=== PATIENT | male | born 1945 | race Caucasian/White ===

== ENCOUNTER 2021-11-14 15:39 | Inpatient (IN) | payer MEDICARE, SELFPAY ==
[2021-11-14] VITALS (13 sets, daily range): BP systolic 147–202; BP diastolic 82–116; PULSE 62–73; RESP 24–32; TEMP 35–36.8; O2SAT 88–94; BMI 29.9; BMI 26.8
[2021-11-14] MEDS: ONDANSETRON 2 MG/ML inj 4 MG IVP (16:36)
[2021-11-14] MEDS: 0.9 % SODIUM CHLORIDE 1000 ml 1,000 ML 500 ML IV (16:37)
[2021-11-14 16:51] LABS: Lactate* 2.6 mmol/L (0.5-1.9)
[2021-11-14 16:52] LABS: Basophils Absolute Auto 0.02 K/uL (0.00-0.30); Basophils Percent Auto 0.3 % (0.0-3.0); Hematocrit 48.2 % (37.0-53.0); Hemoglobin* 16.5 gm/dL (13.5-17.5); Immature Granulocytes Abs Auto 0.03 K/uL (0.00-0.30); Lymphocytes Percent Auto 7.6 % (20-44); Mean Corpuscular HGB Conc 34 gm/dL (32-36); Mean Corpuscular Hemoglobin 30 pg (26-34); Mean Corpuscular Volume 88 fL (80-100); Monocytes Percent Auto 6.2 % (0.0-11.0); Neutrophils Percent Auto 85.5 % (42.0-72.0); Platelet Count* 132 K/uL (140-440); RDW Coefficient of Variation % 12.8 % (11.5-15.5); Red Blood Count 5.48 m/uL (4.30-5.90); White Blood Count* 7.78 K/uL (4.50-11.00)
--- NOTE | 2021-11-14 17:00 | ED.NURSE ---
pt vomiting/spitting up dark brown liquid in small amounts. states he vomitted large amount at home. pt mainly nonverbal. states he doesn't answer at times. pt does follow commands. pt does say nose frequently and wants nose wiped. states he has chronic runny nose. attempted to straight cath pt, easily inserted catheter, no urine return. states pt voided large amount x 2 today. pt did have smear of brown liquid stool.
--- NOTE | 2021-11-14 17:03 | CRLHL7_ITS ---
For Patients: As a result of the Century Cures Act, medical imaging exams and procedure reports are released immediately into your electronic medical record. You may view this report before your referring provider. If you have questions, please contact your health care provider. Indication: Weakness Comparison: Two-view chest March 05, 2016 Technique: Single AP view chest Findings: There is hyperinflation and chronic interstitial change. There is no focal consolidation, effusion, or pneumothorax. The cardiac silhouette is mildly prominent. The bony thorax is grossly intact. Impression: Hyperinflation and chronic interstitial changes without dense consolidation. Dictated by Shawn Durham MD @ 11/14/2021 5:25:04 PM (Electronically Signed)
[2021-11-14 17:08] LABS: Slide Review Reflex No
[2021-11-14 17:15] LABS: Albumin* 4.2 g/dL (3.3-5.0); Chloride* 97 mmol/L (96-114)
[2021-11-14 17:16] LABS: Sodium* 133 mmol/L (135-149)
[2021-11-14 17:18] LABS: Creatinine* 2.1 mg/dL (0.5-1.5); Est. Creatinine Clearance* 26.16; Estimated Glomerular Filt Rate 32 ml/min
[2021-11-14 17:19] LABS: Alanine Aminotransferase* 14 U/L (4-50); Alkaline Phosphatase* 79 U/L (40-150); Aspartate Amino Transferase* 48 U/L (12-35); Bilirubin Direct* 0.3 mg/dL (0.0-0.5); Bilirubin Total* 0.6 mg/dL (0.1-1.5); Blood Urea Nitrogen* 47 mg/dL (7-30); Calcium* 8.3 mg/dL (8.4-10.6); Carbon Dioxide* 22 mmol/L (20-32); Glucose* 228 mg/dL (60-115); Lipase* 273 U/L (23-300); Total Protein* 7.5 g/dL (6.0-8.3)
[2021-11-14 17:21] LABS: Acetaminophen* < 10.0 ug/mL (10.0-30.0); Salicylate* < 1.0 mg/dL (1.0-10)
[2021-11-14 17:22] LABS: C Reactive Protein* 5.5 mg/dL (0.5-1.0)
[2021-11-14 17:31] LABS: Troponin I* < 0.01 ng/mL (0.01-0.04)
--- NOTE | 2021-11-14 17:31 | CT_ITS ---
Patient: CLAUDIA ALVARADO Facility:?[facility] RIS Patient ID:?[id number] Site Patient ID:?[id number]. Site :?[id number] Study:?CT-Abdomen/Pelvis WITHOUT-11/14/2021 5:58:11 PM Ordering Physician:Chente Schaffer Final Report: INDICATION: Increased weakness. Vomiting TECHNIQUE: CT abdomen and pelvis without contrast. COMPARISON: CT 03/05/2013 and 03/06/2016 FINDINGS: Lower chest: Unremarkable. Liver: Unremarkable. Gallbladder and bile ducts: Gallbladder is contracted or absent. No biliary dilatation. Spleen: Unremarkable. Pancreas: Unremarkable. Adrenal glands: Unremarkable. Kidneys: Bilateral renal cysts. Punctate nonobstructing left renal calculus. No hydronephrosis GI tract: Large amount of gas and stool throughout the colon. There is mild wall thickening stranding around the rectum a large amount of stool. Appendix is normal. Vascular structures: Atherosclerotic calcifications of the aorta and its branches. Lymph nodes: Unremarkable. Miscellaneous: Unremarkable. No free air or significant free fluid. Pelvic Organs: There is a 1.6 cm irregularly shaped calculus at the dependent portion of the urinary bladder. There is a 1.3 cm soft tissue density anteriorly as seen on series 2, image 124. Prostate is grossly unremarkable. Bones: Multilevel degenerative changes in the spine. Right hip arthroplasty. No acute or suspicious osseous lesions. IMPRESSION: 1. Large amount of gas and stool throughout the colon and rectum with wall thickening and mild stranding at the rectum. Findings suggest constipation and may indicate stercoral colitis. 2. Soft tissue density in the anterior bladder is suspicious for neoplasm. Cystoscopy is suggested. 3. No pelvic lymphadenopathy. 4. Bladder calculus. Nonobstructing left renal calculus. No hydronephrosis. Please note that all CT scans at this facility use dose modulation, iterative reconstruction, and/or weight-based dosing when appropriate to reduce radiation dose to as low as reasonably achievable. Dictated by Willard Eubanks MD @ 11/14/2021 6:29:30 PM Signed by:?Willard Eubanks MD @11/14/2021 6:29:30 PM (Electronic Signature)
[2021-11-14 17:37] LABS: PCR FLU A Negative PCR FLU A (Negative); PCR FLU B Negative PCR FLU B (Negative)
--- NOTE | 2021-11-14 17:40 | ED.NURSE ---
vomit positive for blood
[2021-11-14 17:48] LABS: SARS PCR* POSITIVE SARS-CoV-2 (Negative)
--- NOTE | 2021-11-14 17:56 | ED.GENADULT ---
HPI - General Adult General Chief complaint: Weakness Stated complaint: Increased Weakness Time Seen by Provider: 11/14/21 15:59 Source: family Mode of arrival: EMS History of Present Illness HPI narrative: 76-year-old male brought in by EMS at his 's request secondary to increasing weakness. She states that over the last month he has fallen daily and in the last week he has gotten increasingly more weak. She states that over the last few days the weakness has been pronounced to the point where he can not even sit up by himself. He does have a history of Parkinson's disease. She denies fevers or chills. States that he has been vomiting today but before that has had no vomiting. No diarrhea. She states that he has been complaining of chest or abdominal pain. He does have a mild cough on and off. His appetite has been down and she has been giving him Gatorade and Pedialyte. She states that she can no longer take care of him at home in this state. She states that he uses a walker to get around but in the last week he really has not been able to get around without assistance. Related Data Home Medications Medication Instructions Recorded Confirmed atorvastatin 40 mg tablet mg 11/14/21 carbidopa 25 mg-levodopa 100 mg tab 11/14/21 tablet donepezil 10 mg tablet mg 11/14/21 levothyroxine 150 mcg tablet mcg 11/14/21 lisinopril 5 mg tablet mg 11/14/21 loperamide 2 mg capsule mg 11/14/21 metoprolol tartrate 50 mg tablet mg 11/14/21 omeprazole 40 mg capsule,delayed mg 11/14/21 release Allergies Allergy/AdvReac Type Severity Reaction Status Date / Time tamsulosin [From Flomax] AdvReac stomach Verified 11/14/21 15:54 upset Review of Systems Status of ROS: Reports: unobtainable due to mental status PFSH PFS Medical History Adrenal carcinoma KELI (acute kidney injury) CAD (coronary artery disease) Dementia Diabetes Epithelioid sarcoma GERD (gastroesophageal reflux disease) Hip fracture Hyperlipidemia Hypertension Hypothyroid Kidney calculus Neuropathy Parkinsons Rib fracture Swallowing dysfunction Thyroid cancer Surgical History H/O thyroidectomy H/O total hip arthroplasty Social History Smoking Status: Former smoker How often do you have a drink containing alcohol: never AUDIT-C Alcohol total score: 0 Non-prescribed substance use: denies use Exam Narrative: Exam Narrative: Frail, elderly patient in no acute distress. Cooperative, follows commands. Given prior history of vocal cord removal does not communicate very well. Per this is not new and is not changed from his baseline. HEENT: Normocephalic atraumatic. Pupils are equally round reactive to light. Extraocular muscles are intact. Conjunctivae are moist without any icterus noted. Moist mucous membranes. Cardiovascular: Heart is regular rate and rhythm S1 and S2 are present. Lungs: Decreased breath sounds bilaterally with bibasilar crackles. Abdomen: Soft and nontender with normal bowel sounds. No guarding or rebound. No masses or organomegaly appreciated. Abdomen is slightly distended. Extremities: Bilateral lower extremities are without edema. Normal DP and PT pulses. Skin: Well perfused without any obvious rashes. Const: Vital Signs, click to edit/add: Vital Signs - 24 hr 11/14/21 16:03 11/14/21 17:00 11/14/21 16:50 Temperature 95.0 F L Pulse Rate [Right Pulse Oximeter] 63 64 63 Respiratory Rate 28 H 24 Blood Pressure [Ri ght Upper Arm] 180/99 H 178/107 H 167/104 H Pulse Oximetry 88 94 93 Oxygen Delivery Me thod Room Air Nasal Cannula Nasal Cannula 11/14/21 18:00 11/14/21 17:30 Temperature Pulse Rate [Right Pulse Oximeter] 67 65 Respiratory Rate 24 24 Blood Pressure [Ri ght Upper Arm] 202/116 H 198/93 H Pulse Oximetry 92 92 Oxygen Delivery Me thod Nasal Cannula Nasal Cannula Course Course Hospital Course: IV was established and labs were done: CBC was unremarkable aside from mild thrombocytopenia. Sodium slightly low at 133. Creatinine elevated at 2.1, peers at his baseline surround 1 and half. Glucose was 228. Lactate slightly elevated at 2.6. Troponin was normal. CRP elevated at 5.5. COVID testing was positive. EKG showed no acute ST changes. Chest x-ray was unremarkable. Patient continued to vomit very small amounts of brown colored vomitus, gastric occult was done and was positive. We proceeded with a abdominal CT scan which showed significant amount of stool and gas throughout the bowel and some stranding around the rectum consistent with a stercoral colitis. No evidence of bowel obstruction. Patient did receive IV fluids as well as Zofran which did help his symptoms. Vital Signs Vital signs: Initial Vital Signs Temperature 95.0 F L 11/14/21 16:03 Temperature Source Temporal Artery Scan 11/14/21 16:03 Pulse Rate 63 11/14/21 16:03 Respiratory Rate 28 H 11/14/21 16:03 Blood Pressure 180/99 H 11/14/21 16:03 Blood Pressure Mean 126 11/14/21 16:03 Blood Pressure Position Sitting 11/14/21 16:03 Pulse Oximetry 88 11/14/21 16:03 Oxygen Delivery Method 11/14/21 16:03 Vital Signs Temperature 95.0 F L 11/14/21 16:03 Pulse Rate 63 11/14/21 16:03 Respiratory Rate 28 H 11/14/21 16:03 Blood Pressure 180/99 H 11/14/21 16:03 Pulse Oximetry 88 11/14/21 16:03 Oxygen Delivery Method 11/14/21 16:03 Temperature 95.0 F L 11/14/21 16:03 Pulse Rate 67 11/14/21 18:00 Respiratory Rate 24 11/14/21 18:00 Blood Pressure 202/116 H 11/14/21 18:00 Pulse Oximetry 92 11/14/21 18:00 Oxygen Delivery Method 11/14/21 18:00 Medical Decision Making MDM Narrative Medical decision making narrative: 76-year-old male with failure to thrive, acute on chronic renal failure, COVID-19 with hypoxia, GI bleed, stercoral colitis with significant constipation. Patient will be admitted for further management. states that she understands that he will likely need to go to a [facility]. Medical Records Medical records reviewed: Yes I reviewed the patient's medical records Lab Data Lab results reviewed: Yes I reviewed the patient's lab results Labs: Lab Results 11/14/21 11/14/21 11/14/21 Range/Units 16:10 16:19 16:19 WBC 7.78 (4.50-11.00) K/uL RBC 5.48 (4.30-5.90) m/uL Hgb 16.5 (13.5-17.5) gm/dL Hct 48.2 (37.0-53.0) % MCV 88 (80-100) fL MCH 30 (26-34) pg MCHC 34 (32-36) gm/dL RDW Coeff of Tylor 12.8 (11.5-15.5) % Plt Count 132 L (140-440) K/uL Neut % (Auto) 85.5 H (42.0-72.0) % Lymph % (Auto) 7.6 L (20-44) % [place] % (Auto) 6.2 (0.0-11.0) % Eos % (Auto) 0.0 (0.0-7.0) % Baso % (Auto) 0.3 (0.0-3.0) % Neut # (Auto) 6.70 (1.7-7.0) K/uL Lymph # (Auto) 0.60 L (0.90-2.90) K/uL [place] # (Auto) 0.50 (0.00-0.90) K/UL Eos # (Auto) 0.00 (0.00-0.50) K/uL Baso # (Auto) 0.02 (0.00-0.30) K/uL Abs Immat Gran (auto) 0.03 (0.00-0.30) K/uL ESR 26 H (2-15) mm/hr Sodium 133 L (135-149) mmol/L Potassium 4.0 (3.6-5.1) mmol/L Chloride 97 (96-114) mmol/L Carbon Dioxide 22 (20-32) mmol/L BUN 47 H (7-30) mg/dL Creatinine 2.1 H (0.5-1.5) mg/dL Estimated Creat Clear 26.16 Estimated GFR 32 ml/min Glucose 228 H (60-115) mg/dL Lactate (0.5-1.9) mmol/L Calcium 8.3 L (8.4-10.6) mg/dL Total Bilirubin 0.6 (0.1-1.5) mg/dL Direct Bilirubin 0.3 (0.0-0.5) mg/dL AST 48 H (12-35) U/L ALT 14 (4-50) U/L Alkaline Phosphatase 79 (40-150) U/L Troponin I < 0.01 L (0.01-0.04) ng/mL C-Reactive Protein 5.5 H (0.5-1.0) mg/dL Total Protein 7.5 (6.0-8.3) g/dL Albumin 4.2 (3.3-5.0) g/dL Lipase 273 (23-300) U/L TSH (0.270-4.20) uIU/mL Salicylates < 1.0 L (1.0-10) mg/dL Acetaminophen < 10.0 L (10.0-30.0) ug/mL SARS-CoV-2 (PCR) (Negative) Influenza Type A (PCR) (Negative) Influenza Type B (PCR) (Negative) 11/14/21 11/14/21 11/14/21 Range/Units 16:19 16:19 16:19 WBC (4.50-11.00) K/uL RBC (4.30-5.90) m/uL Hgb (13.5-17.5) gm/dL Hct (37.0-53.0) % MCV (80-100) fL MCH (26-34) pg MCHC (32-36) gm/dL RDW Coeff of Tylor (11.5-15.5) % Plt Count (140-440) K/uL Neut % (Auto) (42.0-72.0) % Lymph % (Auto) (20-44) % [place] % (Auto) (0.0-11.0) % Eos % (Auto) (0.0-7.0) % Baso % (Auto) (0.0-3.0) % Neut # (Auto) (1.7-7.0) K/uL Lymph # (Auto) (0.90-2.90) K/uL [place] # (Auto) (0.00-0.90) K/UL Eos # (Auto) (0.00-0.50) K/uL Baso # (Auto) (0.00-0.30) K/uL Abs Immat Gran (auto) (0.00-0.30) K/uL ESR (2-15) mm/hr Sodium (135-149) mmol/L Potassium (3.6-5.1) mmol/L Chloride (96-114) mmol/L Carbon Dioxide (20-32) mmol/L BUN (7-30) mg/dL Creatinine (0.5-1.5) mg/dL Estimated Creat Clear Estimated GFR ml/min Glucose (60-115) mg/dL Lactate 2.6 H (0.5-1.9) mmol/L Calcium (8.4-10.6) mg/dL Total Bilirubin (0.1-1.5) mg/dL Direct Bilirubin (0.0-0.5) mg/dL AST (12-35) U/L ALT (4-50) U/L Alkaline Phosphatase (40-150) U/L Troponin I (0.01-0.04) ng/mL C-Reactive Protein (0.5-1.0) mg/dL Total Protein (6.0-8.3) g/dL Albumin (3.3-5.0) g/dL Lipase (23-300) U/L TSH 0.194 L (0.270-4.20) uIU/mL Salicylates (1.0-10) mg/dL Acetaminophen (10.0-30.0) ug/mL SARS-CoV-2 (PCR) POSITIVE SARS-CoV-2 A (Negative) Influenza Type A (PCR) Negative PCR FLU A (Negative) Influenza Type B (PCR) Negative PCR FLU B (Negative) Imaging Data Chest x-ray: Attestation: I have reviewed the pertinent imaging results. My impression: No acute findings, hyperinflation Radiologist's impression: Findings: There is hyperinflation and chronic interstitial change. There is no focal consolidation, effusion, or pneumothorax. The cardiac silhouette is mildly prominent. The bony thorax is grossly intact. Impression: Hyperinflation and chronic interstitial changes without dense consolidation. CT scan - abdomen: Attestation: I have reviewed the pertinent imaging results. Radiologist's impression: FINDINGS: Lower chest: Unremarkable. Liver: Unremarkable. Gallbladder and bile ducts: Gallbladder is contracted or absent. No biliary dilatation. Spleen: Unremarkable. Pancreas: Unremarkable. Adrenal glands: Unremarkable. Kidneys: Bilateral renal cysts. Punctate nonobstructing left renal calculus. No hydronephrosis GI tract: Large amount of gas and stool throughout the colon. There is mild wall thickening stranding around the rectum a large amount of stool. Appendix is normal. Vascular structures: Atherosclerotic calcifications of the aorta and its branches. Lymph nodes: Unremarkable. Miscellaneous: Unremarkable. No free air or significant free fluid. Pelvic Organs: There is a 1.6 cm irregularly shaped calculus at the dependent portion of the urinary bladder. There is a 1.3 cm soft tissue density anteriorly as seen on series 2, image 124. Prostate is grossly unremarkable. Bones: Multilevel degenerative changes in the spine. Right hip arthroplasty. No acute or suspicious osseous lesions. IMPRESSION: 1. Large amount of gas and stool throughout the colon and rectum with wall thickening and mild stranding at the rectum. Findings suggest constipation and may indicate stercoral colitis. 2. Soft tissue density in the anterior bladder is suspicious for neoplasm. Cystoscopy is suggested. 3. No pelvic lymphadenopathy. 4. Bladder calculus. Nonobstructing left renal calculus. No hydronephrosis. ECG Data Attestation: I personally reviewed and interpreted this ECG as follows: (Normal sinus rhythm, left axis deviation, heart rate of 64) Discharge Plan Discharge Clinical Impression: COVID-19, Acute on chronic kidney failure, Constipation, Stercoral colitis, GI bleed, Hypoxia Patient Disposition: Admitted As Inpatient
[2021-11-14 17:57] LABS: Erythrocyte SedimentationRate* 26 mm/hr (2-15)
[2021-11-14 17:59] LABS: Thyroid Stimulating Hormone* 0.194 uIU/mL (0.270-4.20)
[2021-11-14] MEDS: PANTOPRAZOLE SODIUM 40 MG INJ 80 MG IVP (18:04)
--- NOTE | 2021-11-14 19:35 | ED.NURSE ---
Assumed patient care from out-going RN. Rounded on patient, required oxygen to by titrated up from 2L to 6L to keep pulse ox at or above 90%. Patient had several small amounts of brown liquid emesis. MD notified of increased in oxygen and continued emesis.
--- NOTE | 2021-11-14 20:16 | P.IMHP_ITS ---
Hospitalist- H&P: HPI History of Present Illness Date Seen: 11/14/21 Chief complaint: Increased Weakness Narrative: Juan Arellano is a 76 year old male with Parkinson's and dementia who presents with increased weakness. Pt lives with his of many years who provides round the clock care for the patient. Over the past month or so, the patient has had increased falls. No significant injuries have been reported. Pt has, over the past few days had increased weakness and today developed a cough and mild vomiting. No fever or chills have been reported. Pt also has developed constipation over the past few days. Pt's , despite her best efforts, is unable to continue to provide care for him. Pt's dementia has progressed to the point that he is unable to provide any further history. Pt was brought to the ED where COVID 19 testing was positive. Pt has had 2 COVID shots and 2 two boosters per his . Pt required 1-2 liters of oxygen to maintain his saturation. Previously he was on room air at home. Pt's EKG and troponin were normal. Lactate was 2.6 and CRP was 5.5. Due to constipation, pt had a CT of his Abd and Pelvis showing constipation with possible early sercoral colitis. Pt subsequently had a huge bowel movement at the hospital. CBC and Electrolytes were largely unremarkable with the exception of a BUN of 42 and Cr of 2.1. Pt subsequently admitted as a DNR per conversation with and chart review for further management and likely halfway placement. Review of Systems Status of ROS: Reports: unobtainable due to medical condition [facility] Medical History (Updated 11/14/21 @ 20:35 by Adi Evans MD) Acute renal failure Adrenal carcinoma KELI (acute kidney injury) Bladder mass CAD (coronary artery disease) Constipation COVID-19 Dementia Dementia with parkinsonism Diabetes Epithelioid sarcoma GERD (gastroesophageal reflux disease) Hip fracture Hyperlipidemia Hypertension Hypertension Hypothyroid Hypothyroidism Kidney calculus Neuropathy Parkinsons Rib fracture Swallowing dysfunction Thyroid cancer Surgical History H/O thyroidectomy H/O total hip arthroplasty Social History Smoking Status: Former smoker How often do you have a drink containing alcohol: never AUDIT-C Alcohol total score: 0 Non-prescribed substance use: denies use Meds Home Medications and Allergies Home Medications Medication Instructions Recorded Confirmed Type atorvastatin 40 mg tablet mg 11/14/21 History carbidopa 25 mg-levodopa 100 mg tab 11/14/21 History tablet donepezil 10 mg tablet mg 11/14/21 History levothyroxine 150 mcg tablet mcg 11/14/21 History lisinopril 5 mg tablet mg 11/14/21 History loperamide 2 mg capsule mg 11/14/21 History metoprolol tartrate 50 mg tablet mg 11/14/21 History omeprazole 40 mg capsule,delayed mg 11/14/21 History release Allergies Allergy/AdvReac Type Severity Reaction Status Date / Time tamsulosin [From Flomax] AdvReac stomach Verified 11/14/21 15:54 upset Exam Narrative: Exam Narrative: EXAM GENERAL: Patient appears Parkinsonoid and frail EYES: No scleral icterus THYROID: no thyroid nodules or thyromegaly. LYMPH: No supraclavicular or cervical lymphadenopathy. SKIN: Visible skin seen during exam normal or with benign process only. EXT: No dependent lower extremity pedal edema. HEART: Distant Heart Tones LUNGS: Clear to auscultation bilaterally with no crackles or wheezes. ABD: Soft, non tender, non distended. Neurological: Pt shows signs of significant Dementia and Parkinson's Disease Const: Vital Signs, click to edit/add: Vital Signs - 24 hr 11/14/21 16:03 11/14/21 17:00 11/14/21 16:50 Temperature 95.0 F L Pulse Rate [Right Pulse Oximeter] 63 64 63 Respiratory Rate 28 H 24 Blood Pressure [Ri ght Upper Arm] 180/99 H 178/107 H 167/104 H Pulse Oximetry 88 94 93 Oxygen Delivery Me thod Room Air Nasal Cannula Nasal Cannula 11/14/21 18:00 11/14/21 17:30 Temperature Pulse Rate [Right Pulse Oximeter] 67 65 Respiratory Rate 24 24 Blood Pressure [Ri ght Upper Arm] 202/116 H 198/93 H Pulse Oximetry 92 92 Oxygen Delivery Me thod Nasal Cannula Nasal Cannula Hospitalist - H&P: Result Labs Labs: Short CBC 11/14/21 Range/Units 16:19 WBC 7.78 (4.50-11.00) K/uL Hgb 16.5 (13.5-17.5) gm/dL Hct 48.2 (37.0-53.0) % Plt Count 132 L (140-440) K/uL BMP 11/14/21 16:10 Sodium 133 L Potassium 4.0 Chloride 97 Carbon Dioxide 22 BUN 47 H Creatinine 2.1 H Glucose 228 H Calcium 8.3 L Cardiac Enzymes 11/14/21 Range/Units 16:10 Troponin I < 0.01 L (0.01-0.04) ng/mL Liver Function 11/14/21 Range/Units 16:10 Total Bilirubin 0.6 (0.1-1.5) mg/dL Direct Bilirubin 0.3 (0.0-0.5) mg/dL AST 48 H (12-35) U/L ALT 14 (4-50) U/L Alkaline Phosphatase 79 (40-150) U/L Albumin 4.2 (3.3-5.0) g/dL Imaging CT scan - abdomen: Radiologist's impression: Constipation with possible early Stercoral Colitis Also noted a soft tissue bladder mass Chest x-ray: Radiologist's impression: Hyperinflation Assessment and Plan Assessment and plan (1) Dementia with parkinsonism: Status: Acute Assessment and Plan: Pt requires [facility] Placement. Will have PT, OT and [employer] consult. Will continue home medications (2) Acute renal failure: Status: Acute Assessment and Plan: Will hydrate overnight with repeat electrolytes in the am. (3) COVID-19: Status: Acute Assessment and Plan: Pt requires Oxygen and although he is a DNR. I do think that we should proceed with full treatment. Pt received Paxlovid in the ED but likely vomited that. Will start Remdesevir, Lovenox and Dexemethasone. Plan to repeat ESR and Lactate in the am. Pt to be placed in isolation on supplemental oxygen. (4) Bladder mass: Status: Acute Assessment and Plan: Consider working up as an outpatient depending on his recovery. (5) Constipation: Status: Acute Assessment and Plan: Pt had a huge bowel movement upon arrival on [facility]. No further treatment for now. (6) Hypertension: Status: Acute Assessment and Plan: Holding Lisinopril due to ARF. Will continue Metoprolol. (7) Hypothyroidism: Status: Acute Assessment and Plan: Continue Synthroid
--- NOTE | 2021-11-14 20:46 | P.IMCN_ITS ---
Date of Consult Consult date: 10/09/21 Primary Care Provider: Not a Local Provider Consult Narrative Narrative: Juan Arellano is a 76 year old male [facility] Medical History (Updated 11/29/21 @ 00:01 by ) Acute renal failure Adrenal carcinoma KELI (acute kidney injury) Bladder mass CAD (coronary artery disease) Constipation Constipation COVID-19 Dementia Dementia with parkinsonism Diabetes Epithelioid sarcoma GERD (gastroesophageal reflux disease) GI bleed Hip fracture Hyperlipidemia Hypertension Hypertension Hypothyroid Hypothyroidism Kidney calculus Neuropathy Parkinsons Rib fracture Stercoral colitis Swallowing dysfunction Thyroid cancer Surgical History H/O thyroidectomy H/O total hip arthroplasty Social History Smoking Status: Former smoker Second hand tobacco smoke exposure: No How often do you have a drink containing alcohol: never AUDIT-C Alcohol total score: 0 Non-prescribed substance use: denies use Caffeine: No Meds Home Medications and Allergies Home Medications Medication Instructions Recorded Confirmed Type atorvastatin 40 mg tablet 40 mg PO HS 11/14/21 11/15/21 History carbidopa 25 mg-levodopa 100 mg 3 tab PO TID 11/14/21 11/15/21 History tablet donepezil 10 mg tablet 10 mg PO HS 11/14/21 11/15/21 History metoprolol tartrate 50 mg tablet 50 mg PO BID 11/14/21 11/15/21 History omeprazole 40 mg capsule,delayed 40 mg PO DAILY 11/14/21 11/15/21 History release calcium carbonate-vitamin D3 .ROUTE 11/15/21 History Allergies Allergy/AdvReac Type Severity Reaction Status Date / Time tamsulosin [From Flomax] AdvReac stomach Verified 11/14/21 15:54 upset Exam Const: Vital Signs, click to edit/add: Vital Signs - 24 hr 11/14/21 16:03 11/14/21 17:00 11/14/21 16:50 Temperature 95.0 F L Pulse Rate [Right Pulse Oximeter] 63 64 63 Respiratory Rate 28 H 24 Blood Pressure [Ri ght Upper Arm] 180/99 H 178/107 H 167/104 H Pulse Oximetry 88 94 93 Oxygen Delivery Me thod Room Air Nasal Cannula Nasal Cannula 11/14/21 18:00 11/14/21 17:30 Temperature Pulse Rate [Right Pulse Oximeter] 67 65 Respiratory Rate 24 24 Blood Pressure [Ri ght Upper Arm] 202/116 H 198/93 H Pulse Oximetry 92 92 Oxygen Delivery Me thod Nasal Cannula Nasal Cannula Labs Labs: Short CBC 11/14/21 Range/Units 16:19 WBC 7.78 (4.50-11.00) K/uL Hgb 16.5 (13.5-17.5) gm/dL Hct 48.2 (37.0-53.0) % Plt Count 132 L (140-440) K/uL BMP 11/14/21 16:10 Sodium 133 L Potassium 4.0 Chloride 97 Carbon Dioxide 22 BUN 47 H Creatinine 2.1 H Glucose 228 H Calcium 8.3 L Cardiac Enzymes 11/14/21 Range/Units 16:10 Troponin I < 0.01 L (0.01-0.04) ng/mL Liver Function 11/14/21 Range/Units 16:10 Total Bilirubin 0.6 (0.1-1.5) mg/dL Direct Bilirubin 0.3 (0.0-0.5) mg/dL AST 48 H (12-35) U/L ALT 14 (4-50) U/L Alkaline Phosphatase 79 (40-150) U/L Albumin 4.2 (3.3-5.0) g/dL
[2021-11-14] MEDS: 0.9 % SODIUM CHLORIDE 1000 ml 1,000 ML 100 ML IV (21:37)
[2021-11-14] MEDS: ENOXAPARIN 40 MG/0.4 ML INJ SUBCUT (21:37)
[2021-11-15] VITALS (26 sets, daily range): BP systolic 83–123; BP diastolic 48–75; PULSE 62–93; RESP 20–28; TEMP 36.6–37.4; O2SAT 88–96
--- NOTE | 2021-11-15 06:48 | PC.NURSE ---
Shift note: Pt unable to communicate his needs, answers yes and no questions. Per spouse pt able to swallow fluids, however, when offered water overnight, by RN, pt was unable to successfully swallow. Pt has frequent cough with some secretions which he unable to manage on his own, head of the bed rased. Pt incontinent of stool and bladder, ge care provided and barrier cream applied, turned and repositioned throughout the night.
[2021-11-15 07:09] LABS: Lactate* 1.4 mmol/L (0.5-1.9)
[2021-11-15 07:26] LABS: Basophils Absolute Auto 0.01 K/uL (0.00-0.30); Basophils Percent Auto 0.2 % (0.0-3.0); Hematocrit 41.1 % (37.0-53.0); Hemoglobin* 14.3 gm/dL (13.5-17.5); Immature Granulocytes Abs Auto 0.02 K/uL (0.00-0.30); Lymphocytes Percent Auto 8.8 % (20-44); Mean Corpuscular HGB Conc 35 gm/dL (32-36); Mean Corpuscular Hemoglobin 30 pg (26-34); Mean Corpuscular Volume 86 fL (80-100); Monocytes Percent Auto 6.5 % (0.0-11.0); Neutrophils Percent Auto 84.2 % (42.0-72.0); Platelet Count* 107 K/uL (140-440); RDW Coefficient of Variation % 12.8 % (11.5-15.5); Red Blood Count 4.76 m/uL (4.30-5.90); White Blood Count* 6.14 K/uL (4.50-11.00)
[2021-11-15 07:27] LABS: Slide Review Reflex No
[2021-11-15 07:44] LABS: Albumin* 2.9 g/dL (3.3-5.0); Chloride* 105 mmol/L (96-114)
[2021-11-15 07:45] LABS: Potassium* 4.1 mmol/L (3.6-5.1); Sodium* 136 mmol/L (135-149)
[2021-11-15 07:47] LABS: Alanine Aminotransferase* 16 U/L (4-50); Alkaline Phosphatase* 54 U/L (40-150); Aspartate Amino Transferase* 35 U/L (12-35); Bilirubin Total* 0.3 mg/dL (0.1-1.5); Blood Urea Nitrogen* 52 mg/dL (7-30); Carbon Dioxide* 21 mmol/L (20-32); Creatinine* 2.2 mg/dL (0.5-1.5); Est. Creatinine Clearance* 24.97; Estimated Glomerular Filt Rate 30 ml/min; Glucose* 141 mg/dL (60-115); Total Protein* 5.5 g/dL (6.0-8.3)
[2021-11-15 07:48] LABS: Calcium* 7.4 mg/dL (8.4-10.6)
[2021-11-15] MEDS: 0.9 % SODIUM CHLORIDE 500 ML 500 ML IV (07:51)
[2021-11-15 08:09] LABS: Erythrocyte SedimentationRate* 16 mm/hr (2-15)
--- NOTE | 2021-11-15 08:23 | CRLHL7_ITS ---
For Patients: As a result of the Century Cures Act, medical imaging exams and procedure reports are released immediately into your electronic medical record. You may view this report before your referring provider. If you have questions, please contact your health care provider. INDICATION: Respiratory failure, COVID-19 positive. TECHNIQUE: Chest CT without intravenous contrast. Coronal and sagittal reformats. COMPARISON: Chest radiograph 11/14/2021. FINDINGS: The central airways are patent. Diffuse bronchial wall thickening. Heterogeneous consolidative opacities involving the basilar left lower lobe. Bibasilar linear/bandlike and patchy ground-glass opacities. Trace left pleural fluid. No pneumothorax. Normal cardiac size. Coronary artery calcifications. No pericardial effusion or thoracic lymphadenopathy. Normal caliber thoracic aorta with mild-moderate atherosclerotic changes. The imaged upper abdomen is unremarkable. No suspicious osseous lesion. IMPRESSION: Heterogeneous opacities in the involving the basilar left greater than right lower lobes may reflect atelectasis, pneumonitis, and/or infection. Dictated by Thad Soto MD @ 11/15/2021 11:05:39 AM Please note that all CT scans at this facility use dose modulation, iterative reconstruction, and/or weight-based dosing when appropriate to reduce radiation dose to as low as reasonably achievable. Dictated by: Thad Soto MD @ 11/15/2021 11:05:44 (Electronically Signed)
--- NOTE | 2021-11-15 08:32 | REH.OT ---
OT/PT: Orders received, chart reviewed and per RN, patient is not appropriate for therapies due to decline in medical status. Will recheck status tomorrow.
[2021-11-15] MEDS: ENOXAPARIN 40 MG/0.4 ML INJ SUBCUT (08:36)
[2021-11-15] MEDS: CARBIDOPA-LEVODOPA 25-100 TABLET 3 TAB PO ×3 (08:36→21:10)
[2021-11-15] MEDS: dexAMETHasone 4 MG/ML VIAL 6 MG IV (08:57)
[2021-11-15 09:04] LABS: PCO2 VBG 32 mmHG (40-50); pH VBG 7.452 (7.32-7.43)
[2021-11-15 09:05] LABS: HCO3 VBG 22 mmol/L (21-28); PO2 VBG 52.9 mmHG (25-47)
[2021-11-15] MEDS: LEVOTHYROXINE 75 MCG TABLET 150 MCG PO (09:54)
[2021-11-15] MEDS: OMEPRAZOLE 20 MG CAPSULE DR 40 MG PO (09:54)
[2021-11-15] MEDS: 0.9 % SODIUM CHLORIDE 1000 ml 1,000 ML 100 ML IV (09:55)
--- NOTE | 2021-11-15 11:38 | P.CCPN_ITS ---
Critical Care - PN: Subjective Date of Service Time Seen by Provider: 08:30 Date Seen: 11/15/21 Date of service: 11/15/21 ICU Admission ICU date of admission: 11/15/21 Reason for ICU admission: Sepsis, hypotension, Covid infection, acute respiratory failure Subjective Subjective: Juan was admitted with acute respiratory failure due to COVID-19 infection, dehydration, and acute kidney injury. This morning he was noted to have altered mental status, his blood pressures are low, and he is tachypneic. He is not tachycardic and his lactate has normalized. I spoke with Zhanna about the severity of his illness and confirmed his DNR/DNI status. Interval history: Upon hearing about hypotension, I gave him an IV fluid bolus this morning. He responded to that and his blood pressure has stabilized. Although he came in with constipation, he has had several bowel movements overnight which were initially martinez, but have since been diarrhea. It is difficult to get a good assessment of urine output since he is incontinent of bowel and bladder. Critical Care - PN: Meds Pertinent Medications Meds reviewed: I have reviewed the active medications in the EHR Pertinent medications: Started for sepsis today: Zosyn Vancomycin For COVID: Remdesivir Dexamethasone Enoxaparin for VTE prophylaxis, I will decrease this due to KELI Also getting metoprolol orally twice a day, I will be holding this due to hypotension Exam Const: Vital Signs, click to edit/add: Vital Signs - 24 hr 11/14/21 16:03 11/14/21 17:00 11/14/21 16:50 Temperature 95.0 F L Pulse Rate [Pulse Oximeter] Pulse Rate [Right Pulse Oximeter] 63 64 63 Respiratory Rate 28 H 24 Blood Pressure [Le ft Arm] Blood Pressure [Ri ght Radial Artery] Blood Pressure [Ri ght Upper Arm] 180/99 H 178/107 H 167/104 H Pulse Oximetry 88 94 93 Oxygen Delivery Me thod Room Air Nasal Cannula Nasal Cannula Oxygen Flow Rate Fraction of Inspir ed Oxygen 11/14/21 18:00 11/14/21 17:30 11/14/21 19:00 Temperature Pulse Rate [Pulse Oximeter] Pulse Rate [Right Pulse Oximeter] 67 65 66 Respiratory Rate 24 24 31 H Blood Pressure [Le ft Arm] Blood Pressure [Ri ght Radial Artery] Blood Pressure [Ri ght Upper Arm] 202/116 H 198/93 H 163/87 H Pulse Oximetry 92 92 89 Oxygen Delivery Me thod Nasal Cannula Nasal Cannula Nasal Cannula Oxygen Flow Rate 2 Fraction of Inspir ed Oxygen 11/14/21 19:30 11/14/21 19:40 11/14/21 20:52 Temperature Pulse Rate [Pulse Oximeter] Pulse Rate [Right Pulse Oximeter] 70 Respiratory Rate 30 H Blood Pressure [Le ft Arm] Blood Pressure [Ri ght Radial Artery] Blood Pressure [Ri ght Upper Arm] 183/94 H Pulse Oximetry 88 90 89 Oxygen Delivery Me thod Nasal Cannula Nasal Cannula Nasal Cannula Oxygen Flow Rate 2 6 5 Fraction of Inspir ed Oxygen 11/14/21 23:30 11/14/21 20:52 11/14/21 23:34 Temperature 98 F 98 F Pulse Rate [Pulse Oximeter] 73 73 Pulse Rate [Right Pulse Oximeter] Respiratory Rate 32 H 32 H Blood Pressure [Le ft Arm] Blood Pressure [Ri ght Radial Artery] 147/82 H 147/82 H Blood Pressure [Ri ght Upper Arm] Pulse Oximetry 90 90 90 Oxygen Delivery Me thod Nasal Cannula Nasal Cannula Nasal Cannula Oxygen Flow Rate 5 5 5 Fraction of Inspir ed Oxygen 11/14/21 23:34 11/14/21 23:00 11/14/21 23:29 Temperature 98.2 F Pulse Rate [Pulse Oximeter] 62 Pulse Rate [Right Pulse Oximeter] Respiratory Rate 30 H 28 H Blood Pressure [Le ft Arm] Blood Pressure [Ri ght Radial Artery] 170/115 H Blood Pressure [Ri ght Upper Arm] Pulse Oximetry 90 91 Oxygen Delivery Me thod Nasal Cannula Nasal Cannula Oxygen Flow Rate 5 5 Fraction of Inspir ed Oxygen 11/15/21 03:29 11/15/21 10:03 11/15/21 09:00 Temperature 99.3 F Pulse Rate [Pulse Oximeter] 89 87 Pulse Rate [Right Pulse Oximeter] Respiratory Rate 26 H 28 H Blood Pressure [Le ft Arm] 108/56 L Blood Pressure [Ri ght Radial Artery] 120/61 Blood Pressure [Ri ght Upper Arm] Pulse Oximetry 91 91 Oxygen Delivery Me thod Nasal Cannula High Flow Nasal Ca nnula Oxygen Flow Rate 5 15 20 Fraction of Inspir ed Oxygen 50 60 11/15/21 07:35 11/15/21 07:40 11/15/21 07:50 Temperature 98.3 F Pulse Rate [Pulse Oximeter] 87 85 87 Pulse Rate [Right Pulse Oximeter] Respiratory Rate 28 H Blood Pressure [Le ft Arm] 89/67 L 102/52 L 83/53 L Blood Pressure [Ri ght Radial Artery] Blood Pressure [Ri ght Upper Arm] Pulse Oximetry 88 Oxygen Delivery Me thod Nasal Cannula Oxygen Flow Rate 5 Fraction of Inspir ed Oxygen 11/15/21 07:55 11/15/21 08:00 Temperature Pulse Rate [Pulse Oximeter] 79 75 Pulse Rate [Right Pulse Oximeter] Respiratory Rate 28 H Blood Pressure [Le ft Arm] 88/51 L 89/52 L Blood Pressure [Ri ght Radial Artery] Blood Pressure [Ri ght Upper Arm] Pulse Oximetry 90 90 Oxygen Delivery Me thod OxyMask OxyMask Oxygen Flow Rate 5 5 Fraction of Inspir ed Oxygen Exam limitations: altered mental status General appearance: cooperative, lethargic and other (slow to respond, slow to talk, one word answers) Nutritional appearance: thin Orientation/consciousness: Yes oriented to person and Yes lethargic HENMT: Common normals: normocephalic and head/scalp atraumatic Head and scalp: normocephalic and atraumatic Mouth: moist mucous membranes abnormal (dry) Neck & C-Spine: Common normals: no JVD Resp: Effort & inspection: tachypneic; not labored Auscultation: crackles Laterality: bilateral (right more than left) Cardio: Common normals: no JVD, regular rate and regular rhythm Rate: regular rate Rhythm: regular rhythm Heart sounds: no gallops, no murmurs and no rubs GI: Common normals: soft to palpation Auscultation: normoactive bowel sounds Palpation: soft; non-tender Back & Pelvis: Pelvis: buttocks normal Extremity: Common normals: no clubbing, cyanosis or edema Neuro: Sensorium/orientation: oriented to person and lethargic Speech: other (slowed speech, no slurring) Skin: General skin exam: dry skin and ecchymosis (scattered small bruised on extremities); no jaundice and no pallor Rashes: rashes noted (mild macular rash on feet and ankles, appears chronic, slight scale) Critical Care - PN: Obj Data Recent Vital Signs Recent vital signs: Vitals reviewed in chart. Current blood pressure 108/56, pulse 87, respirations 28, temperature 98.3? F Oxygen: O2 sat 91% on high-flow nasal cannula 20 liters/minute FiO2 of 60% Holt Holt catheter?: No Critical Care - PN: A&P Assessment and plan (1) Acute respiratory failure with hypoxia: Problem details: Secondary to COVID-19 pneumonia and possibly also bacterial pneumonia Status: Acute Assessment and Plan: VBG obtained from this morning's labs. Start high-flow oxygen today, obtain VBGs daily. Treat COVID-19 pneumonia and suspected bacterial pneumonia as below. (2) COVID-19: Problem details: Date of symptom onset is approximately 11/12/2021. Date of COVID PCR positive 11/14/2021. Status: Acute Assessment and Plan: Severe COVID-19 infection requiring high-flow oxygen. Continue treatment with Remdesivir IV, day 2/3 and dexamethasone. Start baricitinib. VTE prophylaxis with enoxaparin, adjust dose per renal function in setting of KELI. Pt is DNR/DNI. (3) Severe sepsis: Status: Acute Assessment and Plan: Hypotensive and tachypneic today. WBC and lactate are within normal limits today. Thrombocytopenia worsening. Has gotten Possibly bacterial pneumonia on top of covid 19 pneumonia. Had gotten NS 1L IV yesterday in ER and has been getting NS @100cc/hr overnight. I gave NS 500 cc IV bolus this am, which is less than recommended for severe sepsis because I was concerned for the possibility of volume overload/HR due to previously given IVF and ongoing maintenence fluids. He has tolerated bolus well. I will now give another IV bolus. (4) Acute renal failure: Status: Acute Assessment and Plan: Suspect secondary to dehydration. Continue IVF boluses as above and maintenance. Check BMP daily. (5) Dehydration: Status: Acute Assessment and Plan: As above in KELI. (6) Dementia with parkinsonism: Status: Acute Assessment and Plan: continue sinemet (7) Thrombocytopenia: Status: Acute Assessment and Plan: Trending down, likely secondary to sepsis. Monitor daily. (8) Constipation: Status: Acute Assessment and Plan: Had gotten mag citrate as outpatient at home and then suppository. Now has diarrhea. Monitor. When diarrhea resolves, start bowel regimen for goal of daily soft stool. (9) Hypertension: Status: Chronic Assessment and Plan: lisinopril and metoprolol on hold due to hypotension. (10) Hypothyroidism: Status: Chronic Assessment and Plan: Continue outpatient levothyroxin dose. (11) Bladder mass: Status: Acute Assessment and Plan: Follow up with PCP or urology as outpatient. Fall Risk Details Current medications: Current Medications Carbidopa/Levodopa (Carbidopa-Levodopa 25-100 Tablet) 3 tab PO TID [facility] Last Admin: 11/15/21 08:36 Dose: 3 tab Dexamethasone (Dexamethasone 4 Mg/Ml Vial) 6 mg IV DAILY [facility] Last Admin: 11/15/21 08:57 Dose: 6 mg Donepezil HCl (Donepezil 10 Mg Tablet) 10 mg PO HS [facility] Enoxaparin Sodium (Enoxaparin 40 Mg/0.4 Ml Inj) 40 mg SUBCUT Q12H [facility] Last Admin: 11/15/21 08:36 Dose: 40 mg Remdesivir 100 mg/ Sodium (Chloride) 270 mls @ 270 mls/hr IVPB Q24H [facility] Stop: 11/18/21 21:59 Sodium Chloride (0.9 % Sodium Chloride 1000 Ml) 1,000 mls @ 100 mls/hr IV .Q10H [facility] Last Admin: 11/15/21 09:55 Dose: 100 mls/hr Levothyroxine Sodium (Levothyroxine 75 Mcg Tablet) 150 mcg PO DAILY@0700 [facility] Last Admin: 11/15/21 09:54 Dose: 150 mcg Omeprazole (Omeprazole [address]) 40 mg PO DAILY@0700 [facility] Last Admin: 11/15/21 09:54 Dose: 40 mg Ondansetron HCl (Ondansetron 2 Mg/Ml Inj) 4 mg IVP Q4H PRN PRN Reason: Nausea Time Spent with Patient Critical care time: 30 - 74 mins Time spent: Critical care time spent examining patient, discussion with , reviewing medications, chart, documenting, putting in orders. Labs/Imaging Labs Labs: Labs are reviewed in the chart. Pertinent labs from today: White blood count 6.14, hemoglobin 14.3, platelet 107, BUN 52, creatinine 2.2. Imaging Imaging: Ordering Physician: Leena Billingsley MD Date of Service: 11/15/21 Procedure(s): CT chest wo con Accession Number(s): [id number] cc: Leena Billingsley MD; Provider,Not a Local ~ For Patients: As a result of the Century Cures Act, medical imaging exams and procedure reports are released immediately into your electronic medical record. You may view this report before your referring provider. If you have questions, please contact your health care provider. INDICATION: Respiratory failure, COVID-19 positive. TECHNIQUE: Chest CT without intravenous contrast. Coronal and sagittal reformats. COMPARISON: Chest radiograph 11/14/2021. FINDINGS: The central airways are patent. Diffuse bronchial wall thickening. Heterogeneous consolidative opacities involving the basilar left lower lobe. Bibasilar linear/bandlike and patchy ground-glass opacities. Trace left pleural fluid. No pneumothorax. Normal cardiac size. Coronary artery calcifications. No pericardial effusion or thoracic lymphadenopathy. Normal caliber thoracic aorta with mild-moderate atherosclerotic changes. The imaged upper abdomen is unremarkable. No suspicious osseous lesion. IMPRESSION: Heterogeneous opacities in the involving the basilar left greater than right lower lobes may reflect atelectasis, pneumonitis, and/or infection. Dictated by Thad Soto MD @ 11/15/2021 11:05:39 AM Please note that all CT scans at this facility use dose modulation, iterative reconstruction, and/or weight-based dosing when appropriate to reduce radiation dose to as low as reasonably achievable. Dictated by: Thad Soto MD @ 11/15/2021 11:05:44 (Electronically Signed)
[2021-11-15] MEDS: PIPERACILLIN/TAZOBACTAM 3.375 GM in 0.9 % SODIUM CHLORIDE Mini-bag 100 ML IVPB ×3 (12:17→23:49)
[2021-11-15] MEDS: 0.9 % SODIUM CHLORIDE 1000 ml 1,000 ML IV (13:00)
[2021-11-15] MEDS: BARICITINIB 2 MG TAB PO (14:03)
--- NOTE | 2021-11-15 18:41 | PC.NURSE ---
PATIENT'S BP AT BEGINNING OF SHIFT 80'S/40'S AND RESPIRATORY RATE 28-30. LS WITH CRACKLES THROUGHOUT POSTERIORLY AND MOIST SOUNDING COUGH. PATIENT WAS LETHARGIC AND ONLY OPENING EYES WHEN HIS NAME WAS CALLED. DR. SWANSON UPDATED AND 500ML BOLUS ADMINISTERED. PATIENT ON 5L O2 PER OXYMASK AND SATS 88-92%. RESPIRATORY THERAPY IN TO EVALUATE AND PATIENT PLACED ON HIGH FLOW O2. INITIAL SETTINGS WERE 20L AT 60%FiO2 AND TEMP 37 DEGREES. ADDITIONAL 1L NORMAL SALINE BOLUS ADMINISTERED ALONG WITH ZOSYN AND VANCOMYCIN. THROUGHOUT SHIFT, PATIENT'S BP'S HAVE INCREASED TO 100-120'S/60-70'S. HIGH-FLOW WEANED TO 20L AT 50%FiO2 SATS WERE 98% AT INITIAL SETTINGS. PATIENT'S COUGH HAS BECOME PRODUCTIVE WITH MODERATE AMOUNT OF BROWN SPUTUM. PATIENT HAS BEEN MORE ALERT AND ABLE TO HELP WITH BED MOBILITY. PATIENT MINIMALLY VERBAL AT BASELINE AND ANSWERS EASY YES/NO QUESTIONS. T&R IN BED FREQUENTLY. INCONTINENT OF BOWEL AND BLADDER. GROIN NOTED TO BE RED THIS AM AND BARRIER CREAM APPLIED WITH EACH ATTENDS CHANGE. HEELS WERE ALSO NOTED TO BE RED SO ELEVATED ON PILLOWS. PATIENT SWALLOWING PILLS AND FOOD WITHOUT DIFFICULTY. PATIENT'S LEORA IN ROOM AND FED PATIENT LUNCH AND DINNER. LEORA REPORTS THAT PATIENT HAD AT ONE TIME BEEN ON THICKENED LIQUIDS BUT DID NOT LIKE IT AND WAS ABLE TO HAVE A SWALLOW STUDY COMPLETED AT [facility] AND THEY WERE TOLD HE PASSED AND DID NOT NEED THICKENED LIQUIDS.
[2021-11-15] MEDS: ENOXAPARIN 30 MG/0.3ML INJ SUBCUT (21:10)
[2021-11-15] MEDS: DONEPEZIL 10 MG TABLET PO (21:11)
[2021-11-16] VITALS (11 sets, daily range): BP systolic 139–172; BP diastolic 79–96; PULSE 62–93; RESP 18–24; TEMP 36.2–37; O2SAT 93–96
[2021-11-16] MEDS: PIPERACILLIN/TAZOBACTAM 3.375 GM in 0.9 % SODIUM CHLORIDE Mini-bag 100 ML IVPB ×4 (05:44→23:28)
[2021-11-16] MEDS: 0.9 % SODIUM CHLORIDE 1000 ml 1,000 ML 100 ML IV (05:44)
--- NOTE | 2021-11-16 06:19 | PC.NURSE ---
Shift note: pt is afebrile, he is able to bring up secretion tonight with cough for RN to suction. Pt is incontinent of urine, ge-care provided, turned and repositioned throughout the night. No stools during this shift. Pt tolerates HFNC with no complains, skin is intact, sats are 93-96% on 30L 25%O2 flow. Lab informed M/S about positive blood cultures this morning, will notify provider.
[2021-11-16 07:40] LABS: HCO3 VBG 23 mmol/L (21-28); PCO2 VBG 37 mmHG (40-50); PO2 VBG 34.5 mmHG (25-47); pH VBG 7.407 (7.32-7.43)
[2021-11-16 07:55] LABS: Chloride* 106 mmol/L (96-114); Potassium* 4.2 mmol/L (3.6-5.1); Sodium* 136 mmol/L (135-149)
[2021-11-16 07:58] LABS: Blood Urea Nitrogen* 50 mg/dL (7-30); Carbon Dioxide* 22 mmol/L (20-32); Glucose* 76 mg/dL (60-115)
[2021-11-16 07:59] LABS: Calcium* 6.9 mg/dL (8.4-10.6)
[2021-11-16] MEDS: CARBIDOPA-LEVODOPA 25-100 TABLET 3 TAB PO ×3 (08:12→20:53)
[2021-11-16] MEDS: LEVOTHYROXINE 75 MCG TABLET 150 MCG PO (08:13)
[2021-11-16] MEDS: OMEPRAZOLE 20 MG CAPSULE DR 40 MG PO (08:13)
[2021-11-16 08:24] LABS: Basophils Absolute Auto 0.01 K/uL (0.00-0.30); Basophils Percent Auto 0.1 % (0.0-3.0); Hematocrit 37.9 % (37.0-53.0); Immature Granulocytes Abs Auto 0.04 K/uL (0.00-0.30); Lymphocytes Percent Auto 11.7 % (20-44); Mean Corpuscular HGB Conc 34 gm/dL (32-36); Mean Corpuscular Hemoglobin 30 pg (26-34); Mean Corpuscular Volume 88 fL (80-100); Monocytes Percent Auto 5.4 % (0.0-11.0); Neutrophils Percent Auto 82.3 % (42.0-72.0); RDW Coefficient of Variation % 13.1 % (11.5-15.5); Red Blood Count 4.29 m/uL (4.30-5.90); White Blood Count* 7.94 K/uL (4.50-11.00)
[2021-11-16 08:28] LABS: Platelet Count* 112 K/uL (140-440)
[2021-11-16 08:29] LABS: Slide Review Reflex No
[2021-11-16] MEDS: dexAMETHasone 2 MG TABLET 6 MG PO (08:44)
[2021-11-16 09:16] LABS: Creatinine* 1.9 mg/dL (0.5-1.5); Est. Creatinine Clearance* 28.92; Estimated Glomerular Filt Rate 36 ml/min
--- NOTE | 2021-11-16 12:41 | PM.IMPN1 ---
Progress Note: A&P Assessment and plan (1) Acute respiratory failure with hypoxia: Problem details: Secondary to COVID-19 pneumonia and probable bacterial pneumonia Status: Acute Assessment and Plan: This morning's VBG noted. Oxygen needs decreasing; able to transition to NC today. VBG obtained from this morning's labs. (2) COVID-19: Problem details: Date of symptom onset is approximately 11/12/2021. Date of COVID PCR positive 11/14/2021. Status: Acute Assessment and Plan: Severe COVID-19 infection improving. Continue oxygen support as above, weaning to NC today. Transition out of CCU to floor. Continue treatment with Remdesivir IV, day 3/3, dexamethasone, and baricitinib. VTE prophylaxis with enoxaparin, adjusted for renal function. (3) Severe sepsis: Status: Acute Assessment and Plan: Sepsis improving/resolved. (4) Gram-positive cocci bacteremia: Problem details: Positive BC x 1/2 from 11/15/21 Status: Acute Assessment and Plan: Continue zosyn and vancomycin. Await final culture results to tailor antibiotics. (5) Acute on chronic kidney failure: Status: Acute Assessment and Plan: Suspect KELI secondary to sepsis and dehydration. Improving despite starting zosyn/vanco yesterday. Able to take PO fluids. Stop IVF and check BMP daily. (6) Dehydration: Status: Acute Assessment and Plan: Resolved. Stop IVF. (7) Thrombocytopenia: Status: Acute Assessment and Plan: Suspect due to sepsis. Improving. (8) Hypothyroidism: Status: Chronic Assessment and Plan: Continue outpatient levothyroxin dose. (9) Hypertension: Status: Chronic Assessment and Plan: BP elevated today. Restart metoprolol today. Hold lisinopril yet due to KELI. (10) Bladder mass: Status: Acute Assessment and Plan: Follow up with PCP or urology as outpatient. (11) Constipation: Status: Acute Assessment and Plan: Diarrhea stopped. Start bowel regimen. (12) Dementia with parkinsonism: Status: Acute Assessment and Plan: Returning to baseline. Continue sinemet. Subjective Time Seen by Provider: 11:00 Date Seen: 11/16/21 Interval history: Juan and his , Zhanna, are in the room. Juan does not talk much. The nurse who has him today also had him yesterday and notes how much better he is today. Today he is sitting up in a chair, awake and alert. His also notes that he looks much better today and is more like his usual. She followed me to the door, away from Juan, and told me that is getting really hard for her to care for him at home and is thinking it is time for him to go to a residential indefinitely. She is hoping to talk with social Work tomorrow about this. Exam Narrative: Exam Narrative: General: No acute distress. Awake, alert, oriented to self. No pallor. No jaundice. Oropharynx: Clear. Mucous membranes moist. Cardiovascular: Regular rate and rhythm. No murmurs, gallops, or rubs. Respiratory: Crackles to mid back bilaterally. No wheezes. Abdomen: Bowel sounds present. Soft, nondistended, nontender. Extremities: Right leg tapping constantly, is a voluntary movement. No pedal edema. Const: Vital Signs, click to edit/add: Vital Signs - 24 hr 11/15/21 13:00 11/15/21 16:00 11/15/21 15:00 Temperature Pulse Rate [Pulse Oximeter] 89 74 Respiratory Rate 28 H Blood Pressure [Le ft Arm] 115/75 Pulse Oximetry 93 Oxygen Delivery Me thod High Flow Nasal Ca nnula Oxygen Flow Rate 20 Fraction of Inspir ed Oxygen 60 55 11/15/21 17:00 11/15/21 16:00 11/15/21 15:00 Temperature 97.9 F Pulse Rate [Pulse Oximeter] 78 83 74 Respiratory Rate 26 H Blood Pressure [Le ft Arm] 108/61 113/68 98/53 L Pulse Oximetry 96 94 96 Oxygen Delivery Me thod High Flow Nasal Ca nnula High Flow Nasal Ca nnula High Flow Nasal Ca nnula Oxygen Flow Rate 20 20 20 Fraction of Inspir ed Oxygen 55 55 60 11/15/21 14:00 11/15/21 18:00 11/15/21 18:00 Temperature Pulse Rate [Pulse Oximeter] 79 79 Respiratory Rate Blood Pressure [Le ft Arm] 108/55 L 110/67 Pulse Oximetry 96 Oxygen Delivery Me thod High Flow Nasal Ca nnula Oxygen Flow Rate 20 Fraction of Inspir ed Oxygen 50 50 11/15/21 20:28 11/15/21 19:45 11/15/21 22:00 Temperature 98.9 F Pulse Rate [Pulse Oximeter] 93 Respiratory Rate 24 Blood Pressure [Le ft Arm] 113/52 L Pulse Oximetry 94 Oxygen Delivery Me thod High Flow Nasal Ca nnula Oxygen Flow Rate Fraction of Inspir ed Oxygen 40 30 11/15/21 23:00 11/16/21 00:00 11/16/21 02:00 Temperature 98.3 F Pulse Rate [Pulse Oximeter] 62 Respiratory Rate 20 Blood Pressure [Le ft Arm] 123/62 Pulse Oximetry 95 Oxygen Delivery Me thod High Flow Nasal Ca nnula Oxygen Flow Rate Fraction of Inspir ed Oxygen 30 30 11/16/21 03:00 11/16/21 04:00 11/16/21 06:00 Temperature 98.6 F Pulse Rate [Pulse Oximeter] 65 Respiratory Rate 20 Blood Pressure [Le ft Arm] 147/79 H Pulse Oximetry 95 Oxygen Delivery Me thod High Flow Nasal Ca nnula Oxygen Flow Rate Fraction of Inspir ed Oxygen 30 25 11/16/21 07:45 11/16/21 08:00 11/16/21 07:45 Temperature 98.1 F Pulse Rate [Pulse Oximeter] 69 82 Respiratory Rate 20 24 Blood Pressure [Le ft Arm] 158/89 H Pulse Oximetry 96 Oxygen Delivery Me thod High Flow Nasal Ca nnula Oxygen Flow Rate 20 Fraction of Inspir ed Oxygen 25 25 11/16/21 11:30 Temperature 97.1 F L Pulse Rate [Pulse Oximeter] 71 Respiratory Rate 24 Blood Pressure [Le ft Arm] 139/82 Pulse Oximetry 93 Oxygen Delivery Me thod Room Air Oxygen Flow Rate Fraction of Inspir ed Oxygen Labs Labs: Laboratory Results - last 24 hr 11/16/21 11/16/21 11/16/21 07:25 07:25 07:50 WBC 7.94 RBC 4.29 L Hgb 13.0 L Hct 37.9 MCV 88 MCH 30 MCHC 34 RDW Coeff of Tylor 13.1 Plt Count 112 L Neut % (Auto) 82.3 H Lymph % (Auto) 11.7 L Hudspeth % (Auto) 5.4 Eos % (Auto) 0.0 Baso % (Auto) 0.1 Neut # (Auto) 6.50 Lymph # (Auto) 0.90 Hudspeth # (Auto) 0.40 Eos # (Auto) 0.00 Baso # (Auto) 0.01 Abs Immat Gran (auto) 0.04 VBG pH 7.407 VBG pCO2 37 L VBG pO2 34.5 VBG HCO3 23 Sodium 136 Potassium 4.2 Chloride 106 Carbon Dioxide 22 BUN 50 H Creatinine 1.9 H Estimated Creat Clear 28.92 Estimated GFR 36 Glucose 76 Calcium 6.9 L
[2021-11-16] MEDS: BARICITINIB 2 MG TAB PO (14:54)
--- NOTE | 2021-11-16 15:36 | PC.NURSE ---
VSS AND AFEBRILE. LS WITH CRACKLES AND PRODUCTIVE COUGH WITH LARGE AMOUNT YELLOW AND BROWN SPUTUM. PATIENT ABLE TO BE WEANED OFF O2 AND CURRENTLY 92-95%RA. DENIES PAIN. PATIENT MORE ALERT AND ABLE TO ANSWER SIMPLE QUESTIONS WITH 1-2 WORD RESPONSES. UP WITH A2, WALKER AND GAIT BELT TO RECLINER. PATIENT WEAK BUT ABLE TO TAKE SEVERAL STEPS WITH WALKER. PATIENT INCONTINENT OF URINE. TOLERATING REGULAR DIET WITH NO REPORTS OF NAUSEA. PATIENT DOES NEED TO BE FED.
[2021-11-16] MEDS: ENOXAPARIN 30 MG/0.3ML INJ SUBCUT (20:52)
[2021-11-16] MEDS: SENNOSIDES/DOCUSATE TABLET 2 TAB PO (20:53)
[2021-11-16] MEDS: DONEPEZIL 10 MG TABLET PO (20:53)
[2021-11-16] MEDS: METOPROLOL TARTRATE 50 MG TABLET PO (20:53)
--- NOTE | 2021-11-16 22:48 | PC.NURSE ---
Shift [id number]- Patient is incontinent. He calls from his room when he needs something, often it is because he has voided. He voids large amounts often. He communicates in one to a few word sentences, which can be difficult to understand, but he is able make his needs known. He is turned and repositioned with pillows for offloading. He declines 3 offers of supper. Insulin is held due to blood sugar levels and not eating. He remains on room air with saturations in low-mid 90s%. Groin is reddened, barrier cream is applied. Meds given whole in applesauce one at a time. He has productive cough.
[2021-11-17] VITALS (8 sets, daily range): BP systolic 145–181; BP diastolic 78–95; PULSE 54–66; RESP 20–22; TEMP 36.4–36.9; O2SAT 94–95
--- NOTE | 2021-11-17 06:22 | PC.NURSE ---
Shift note: Pt is afebrile, sats 94% on room air, able to assist with turning and repositioning in bed, able to verbalize his needs in 2-3 words, able to use the call-light appropriately. Large amounts of urine with every brief change every hour.
[2021-11-17] MEDS: LEVOTHYROXINE 75 MCG TABLET 150 MCG PO (06:38)
[2021-11-17] MEDS: PIPERACILLIN/TAZOBACTAM 3.375 GM in 0.9 % SODIUM CHLORIDE Mini-bag 100 ML IVPB ×4 (06:38→23:56)
[2021-11-17] MEDS: OMEPRAZOLE 20 MG CAPSULE DR 40 MG PO (06:39)
[2021-11-17 07:18] LABS: Basophils Absolute Auto 0.01 K/uL (0.00-0.30); Basophils Percent Auto 0.1 % (0.0-3.0); Hematocrit 41.4 % (37.0-53.0); Immature Granulocytes Abs Auto 0.04 K/uL (0.00-0.30); Lymphocytes Percent Auto 9.1 % (20-44); Mean Corpuscular HGB Conc 34 gm/dL (32-36); Mean Corpuscular Hemoglobin 30 pg (26-34); Mean Corpuscular Volume 88 fL (80-100); Monocytes Percent Auto 5.7 % (0.0-11.0); Neutrophils Percent Auto 84.7 % (42.0-72.0); Platelet Count* 117 K/uL (140-440); RDW Coefficient of Variation % 12.8 % (11.5-15.5); White Blood Count* 8.94 K/uL (4.50-11.00)
[2021-11-17 07:23] LABS: Slide Review Reflex No
[2021-11-17 07:33] LABS: Chloride* 102 mmol/L (96-114); Sodium* 137 mmol/L (135-149)
[2021-11-17 07:36] LABS: Creatinine* 1.7 mg/dL (0.5-1.5); Est. Creatinine Clearance* 32.32; Estimated Glomerular Filt Rate 41 ml/min
[2021-11-17 07:37] LABS: Blood Urea Nitrogen* 39 mg/dL (7-30); Calcium* 7.2 mg/dL (8.4-10.6); Carbon Dioxide* 27 mmol/L (20-32); Glucose* 95 mg/dL (60-115)
[2021-11-17] MEDS: METOPROLOL TARTRATE 50 MG TABLET PO ×2 (09:31→20:43)
[2021-11-17] MEDS: CARBIDOPA-LEVODOPA 25-100 TABLET 3 TAB PO ×3 (09:31→20:43)
[2021-11-17] MEDS: dexAMETHasone 2 MG TABLET 6 MG PO (09:32)
--- NOTE | 2021-11-17 11:01 | PC.SOCIAL ---
Phone call to Pt's , Zhanna. Discussed pt's need for SNF. requests that pt go to a facility in [place]. prefers [facility] or [facility]. Informed that due to Covid positive test result the pt will need to stay in the hospital until 11/25/21 before a assisted would accept pt. informed that pt does not have issues with wandering and stated that pt typically does not get up on his own at all. informs that she is working on getting other insurance that will cover assisted stay long-term. states that it is physically getting to be too much for her to care for pt at home on her own. Informed that Social Work Department will be in contact with her regarding assisted stay.
[2021-11-17] MEDS: BARICITINIB 2 MG TAB PO (11:56)
--- NOTE | 2021-11-17 15:07 | P.IMPN_ITS ---
Progress Note: A&P Assessment and plan (1) Acute respiratory failure with hypoxia: Problem details: Secondary to COVID-19 pneumonia and probable bacterial pneumonia Status: Acute Assessment and Plan: Improving. Now on RA. (2) COVID-19: Problem details: Date of symptom onset is approximately 11/12/2021. Date of COVID PCR positive 11/14/2021. Status: Acute Assessment and Plan: Severe COVID-19 infection improving. Continue treatment with Remdesivir IV, day 4/5 (longer treatment due to being on oxygen for covid), dexamethasone say 07/06, and baricitinib day 06/09. VTE prophylaxis with enoxaparin, adjusted for renal function. (3) Severe sepsis: Status: Acute Assessment and Plan: Sepsis resolved. (4) Gram-positive cocci bacteremia: Problem details: Positive BC x 1/2 from 11/15/21 Status: Acute Assessment and Plan: Continue zosyn and vancomycin. Await final culture results to tailor antibiotics. (5) Acute on chronic kidney failure: Status: Acute Assessment and Plan: Suspect KELI secondary to sepsis and dehydration. Improving despite being on zosyn/vanco; almost back to baseline Cr of 1.6. Continue to monitor creatinine daily. (6) Thrombocytopenia: Status: Acute Assessment and Plan: Suspect due to sepsis. Improving. (7) Hypothyroidism: Status: Chronic Assessment and Plan: Continue outpatient levothyroxin dose. (8) Hypertension: Status: Chronic Assessment and Plan: BP elevated today. Continue metoprolol. Hold lisinopril yet due to KELI. (9) Bladder mass: Status: Acute Assessment and Plan: Follow up with PCP or urology as outpatient. (10) Constipation: Status: Acute Assessment and Plan: Continue bowel regimen. (11) Dementia with parkinsonism: Status: Acute Assessment and Plan: Continue sinemet. Plan Seek SNF for d/c when medically stable. Subjective Time Seen by Provider: 08:45 Date Seen: 11/17/21 Interval history: Ambulated with walker and assistance today while I was talking with his in the room. His notes he's much better, getting back to baseline. She again states, she can no longer care for him at home. Exam Narrative: Exam Narrative: General: No acute distress. Awake, alert. No pallor. No jaundice. Oropharynx: Clear. Mucous membranes moist. Cardiovascular: Regular rate and rhythm. No murmurs, gallops, or rubs. Respiratory: Crackles to mid back bilaterally, improving. No wheezes. Abdomen: Bowel sounds present. Soft, nondistended, nontender. Const: Vital Signs, click to edit/add: Vital Signs - 24 hr 11/16/21 15:15 11/16/21 19:05 11/16/21 23:00 Temperature 97.8 F 98.3 F 97.9 F Pulse Rate [Pulse Oximeter] 93 73 62 Respiratory Rate 24 18 20 Blood Pressure [Le ft Arm] 161/80 H 172/96 H 171/88 H Pulse Oximetry 95 94 94 Oxygen Delivery Me thod Room Air Room Air Room Air 11/17/21 03:00 11/17/21 07:30 11/17/21 12:00 Temperature 98.5 F 98.1 F Pulse Rate [Pulse Oximeter] 62 66 54 L Respiratory Rate 20 20 20 Blood Pressure [Le ft Arm] 181/95 H 165/83 H Pulse Oximetry 94 94 94 Oxygen Delivery Me thod Room Air Room Air Room Air Labs Labs: Laboratory Results - last 24 hr 11/17/21 11/17/21 07:04 07:04 WBC 8.94 RBC 4.70 Hgb 14.0 Hct 41.4 MCV 88 MCH 30 MCHC 34 RDW Coeff of Tylor 12.8 Plt Count 117 L Neut % (Auto) 84.7 H Lymph % (Auto) 9.1 L [place] % (Auto) 5.7 Eos % (Auto) 0.0 Baso % (Auto) 0.1 Neut # (Auto) 7.60 H Lymph # (Auto) 0.80 L [place] # (Auto) 0.50 Eos # (Auto) 0.00 Baso # (Auto) 0.01 Abs Immat Gran (auto) 0.04 Sodium 137 Potassium 4.0 Chloride 102 Carbon Dioxide 27 BUN 39 H Creatinine 1.7 H Estimated Creat Clear 32.32 Estimated GFR 41 Glucose 95 Calcium 7.2 L
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
[2021-11-17] MEDS: LACTOBACILLUS ACIDOPHILUS 1 TABLET 2 TAB PO (17:39)
--- NOTE | 2021-11-17 19:40 | PC.NURSE ---
Pt steady on feet with Ax1. BG 173 this evening- 1 U novolog given. tolerated pills whole with water.
[2021-11-17] MEDS: DONEPEZIL 10 MG TABLET PO (20:43)
[2021-11-17] MEDS: ENOXAPARIN 30 MG/0.3ML INJ SUBCUT (20:45)
[2021-11-18 03:00] VITALS: BP 157/82; PULSE 56; RESP 24; O2SAT 92
[2021-11-18] MEDS: PIPERACILLIN/TAZOBACTAM 3.375 GM in 0.9 % SODIUM CHLORIDE Mini-bag 100 ML IVPB ×2 (06:32→12:17)
[2021-11-18] MEDS: LEVOTHYROXINE 75 MCG TABLET 150 MCG PO (06:32)
[2021-11-18] MEDS: OMEPRAZOLE 20 MG CAPSULE DR 40 MG PO (06:32)
--- NOTE | 2021-11-18 07:32 | PC.NURSE ---
Shift note : Pt remains on RA, oxygen saturations >90%. Denies SOB. Coughing up clear phlegm. Afebrile. 3 loose incontinent BM's from , updated, barrier cream applied to reddened ge area. Repositioned in bed Q2H with 1 assist. Denies pain. Blood sugar at HS 130.
[2021-11-18 08:08] VITALS: BP 165/77; PULSE 56; RESP 18; TEMP 36.8; O2SAT 95
[2021-11-18 08:14] LABS: Basophils Absolute Auto 0.01 K/uL (0.00-0.30); Basophils Percent Auto 0.1 % (0.0-3.0); Eosinophils Absolute Auto 0.02 K/uL (0.00-0.50); Eosinophils Percent Auto 0.2 % (0.0-7.0); Hematocrit 41.7 % (37.0-53.0); Hemoglobin* 14.3 gm/dL (13.5-17.5); Immature Granulocytes Abs Auto 0.15 K/uL (0.00-0.30); Lymphocytes Percent Auto 10.9 % (20-44); Mean Corpuscular HGB Conc 34 gm/dL (32-36); Mean Corpuscular Hemoglobin 30 pg (26-34); Mean Corpuscular Volume 87 fL (80-100); Monocytes Percent Auto 5.8 % (0.0-11.0); Neutrophils Percent Auto 81.6 % (42.0-72.0); Platelet Count* 129 K/uL (140-440); RDW Coefficient of Variation % 12.9 % (11.5-15.5); Red Blood Count 4.82 m/uL (4.30-5.90); White Blood Count* 10.58 K/uL (4.50-11.00)
[2021-11-18 08:19] LABS: Slide Review Reflex No
[2021-11-18 08:35] LABS: Chloride* 103 mmol/L (96-114); Potassium* 3.5 mmol/L (3.6-5.1); Sodium* 136 mmol/L (135-149)
[2021-11-18 08:37] LABS: Creatinine* 1.8 mg/dL (0.5-1.5); Est. Creatinine Clearance* 30.52; Estimated Glomerular Filt Rate 38 ml/min
[2021-11-18 08:38] LABS: Blood Urea Nitrogen* 35 mg/dL (7-30); Calcium* 7.2 mg/dL (8.4-10.6); Carbon Dioxide* 21 mmol/L (20-32); Glucose* 67 mg/dL (60-115)
[2021-11-18] MEDS: LACTOBACILLUS ACIDOPHILUS 1 TABLET 2 TAB PO ×3 (08:38→16:54)
[2021-11-18] MEDS: CARBIDOPA-LEVODOPA 25-100 TABLET 3 TAB PO ×3 (08:39→20:34)
[2021-11-18] MEDS: dexAMETHasone 2 MG TABLET 6 MG PO (08:39)
[2021-11-18] MEDS: METOPROLOL TARTRATE 50 MG TABLET PO ×2 (08:40→20:34)
[2021-11-18 11:24] VITALS: BP 175/83; PULSE 55; RESP 20; TEMP 36.6; O2SAT 93
--- NOTE | 2021-11-18 13:17 | P.IMPN_ITS ---
Progress Note: A&P Assessment and plan (1) Acute respiratory failure with hypoxia: Problem details: Secondary to COVID-19 pneumonia and probable bacterial pneumonia Status: Acute Assessment and Plan: Resolved. Has been on room air for a few days. (2) COVID-19: Problem details: Date of symptom onset is approximately 11/12/2021. Date of COVID PCR positive 11/14/2021. Status: Acute Assessment and Plan: Severe COVID-19 infection improving. Continue treatment with Remdesivir IV, day 07/31 (longer treatment due to being on oxygen for covid), dexamethasone say 08/05, and baricitinib day 07/10. He is doing very well, is off oxygen, and is back to his baseline. He is waiting to go to senior living facility because of the COVID quarantine, therefore I will discontinue dexamethasone and baricitinib tomorrow. VTE prophylaxis with enoxaparin, adjusted for renal function. (3) Severe sepsis: Status: Acute Assessment and Plan: Resolved. (4) Gram-positive cocci bacteremia: Problem details: Positive BC x 1/2 from 11/15/21 = Staph epi. May be contaminant. Status: Acute Assessment and Plan: Possible contaminant. Treated with IV antibiotics for 3 days. Now transition to PO antibiotics, Vantin and azithromycin, to complete 5-7 day course for sepsis likely secondary to bacterial, community-acquired pneumonia. Hold in as a pill while on azithromycin due to potential prolongation of QT. (5) Acute on chronic kidney failure: Status: Acute Assessment and Plan: Suspect KELI secondary to sepsis and dehydration. Baseline Cr of 1.6. Stable, not yet back to baseline. Able to stop zosyn and vanco today which will likely help. Holding lisinopril. Continue to monitor creatinine daily. (6) Thrombocytopenia: Status: Acute Assessment and Plan: Suspect due to sepsis. Improving. (7) Hypothyroidism: Status: Chronic Assessment and Plan: Continue outpatient levothyroxin dose. (8) Hypertension: Status: Chronic Assessment and Plan: BP elevated. Continue metoprolol. Hold lisinopril yet due to KELI. (9) Bladder mass: Status: Acute Assessment and Plan: Follow up with PCP or urology as outpatient. (10) Constipation: Status: Acute Assessment and Plan: Continue bowel regimen. (11) Dementia with parkinsonism: Status: Acute Assessment and Plan: Continue sinemet. (12) Hypokalemia: Status: Acute Assessment and Plan: Replace orally 1 dose of potassium. Recheck in the morning. Check magnesium and ionized calcium in the morning. (13) Diabetes: Problem details: Uses insulin. Status: Acute Assessment and Plan: Morning blood glucose is have been lower than goal for inpatient stay. Decrease Levemir further. Continue NovoLog insulin sliding scale. Plan Seek SNF for when covid isolation is complete. Subjective Time Seen by Provider: 12:00 Date Seen: 11/18/21 Interval history: Juan is doing well today. His is in the room and she notes that he is almost back to baseline. He does not talk much and pretty much only answers 1 word when asked a question, but she notes that this is his baseline. Exam Narrative: Exam Narrative: General: No acute distress. Awake, alert. No pallor. No jaundice. Oropharynx: Clear. Mucous membranes moist. Cardiovascular: Regular rate and rhythm. No murmurs, gallops, or rubs. Respiratory: Crackles to mid back bilaterally, improving. No wheezes. Abdomen: Bowel sounds present. Soft, nondistended, nontender. Const: Vital Signs, click to edit/add: Vital Signs - 24 hr 11/17/21 16:00 11/17/21 15:00 11/17/21 21:00 Temperature 98.1 F 97.6 F Pulse Rate [Pulse Oximeter] 63 63 58 L Respiratory Rate 22 22 20 Blood Pressure [Le ft Arm] 151/93 H 167/78 H Pulse Oximetry 94 95 Oxygen Delivery Me thod Room Air Room Air Oxygen Flow Rate 0 0 Fraction of Inspir ed Oxygen 0 0 11/17/21 23:00 11/17/21 23:24 11/18/21 03:00 Temperature 98.2 F Pulse Rate [Pulse Oximeter] 64 64 56 L Respiratory Rate 22 22 24 Blood Pressure [Le ft Arm] 145/85 H 157/82 H Pulse Oximetry 95 92 Oxygen Delivery Me thod Room Air Room Air Oxygen Flow Rate 0 Fraction of Inspir ed Oxygen 0 11/18/21 08:08 11/18/21 11:24 Temperature 98.2 F 97.8 F Pulse Rate [Pulse Oximeter] 56 L 55 L Respiratory Rate 18 20 Blood Pressure [Le ft Arm] 165/77 H 175/83 H Pulse Oximetry 95 93 Oxygen Delivery Me thod Room Air Room Air Oxygen Flow Rate Fraction of Inspir ed Oxygen Labs Labs: Laboratory Results - last 24 hr 11/18/21 11/18/21 07:40 07:40 WBC 10.58 RBC 4.82 Hgb 14.3 Hct 41.7 MCV 87 MCH 30 MCHC 34 RDW Coeff of Tylor 12.9 Plt Count 129 L Neut % (Auto) 81.6 H Lymph % (Auto) 10.9 L [place] % (Auto) 5.8 Eos % (Auto) 0.2 Baso % (Auto) 0.1 Neut # (Auto) 8.60 H Lymph # (Auto) 1.20 [place] # (Auto) 0.60 Eos # (Auto) 0.02 Baso # (Auto) 0.01 Abs Immat Gran (auto) 0.15 Sodium 136 Potassium 3.5 L Chloride 103 Carbon Dioxide 21 BUN 35 H Creatinine 1.8 H Estimated Creat Clear 30.52 Estimated GFR 38 Glucose 67 Calcium 7.2 L
[2021-11-18] MEDS: BARICITINIB 2 MG TAB PO (13:29)
[2021-11-18 15:22] VITALS: BP 140/87; PULSE 56; RESP 18; TEMP 36.6; O2SAT 93
[2021-11-18] MEDS: AZITHROMYCIN 250 MG TABLET 500 MG PO (15:26)
[2021-11-18] MEDS: POTASSIUM BICARB 25 MEQ EFFERVESCENT TAB PO (15:26)
[2021-11-18] MEDS: CEFPODOXIME PROXETIL 200 MG TABLET PO ×2 (15:26→20:33)
--- NOTE | 2021-11-18 16:28 | PC.SOCIAL ---
Received a phone call from Zhanna, Pt's . Zhanna stated that she would like to look at SNF closer to her home in [place] or [place]. Zhanna stated that [place] is further away and worries about the drive in the winter. This worker will make calls to SNF's in the requested area. Made phone calls to SNF [facility] ([place]) and left a voicemail, [facility] in [place], which is only accepting short-term rehab stays, and [facility] in [place] and left a voicemail. Provided information to Zhanna. Informed Zhanna that the next closest option would be [facility]. Zhanna informed that she may be interested in [facility]. This worker informed that LTCC is not taking admissions this week, but they may be accepting next week. This worker will follow up with family on .
--- NOTE | 2021-11-18 18:27 | PC.NURSE ---
Pt. up in chair with walker, transfer belt and SBA. O2 sats 93-95% RA. Lung sounds coarse throughout posterior. Denies pain.
[2021-11-18 19:00] VITALS: BP 171/99; PULSE 63; RESP 18; TEMP 36.4; O2SAT 95
[2021-11-18] MEDS: ACETAMINOPHEN 325 MG TABLET 650 MG PO (20:33)
[2021-11-18] MEDS: ENOXAPARIN 30 MG/0.3ML INJ SUBCUT (20:33)
[2021-11-18 22:34] VITALS: BP 164/58; PULSE 53; RESP 18; TEMP 36.8; O2SAT 99
[2021-11-19] VITALS (7 sets, daily range): BP systolic 138–202; BP diastolic 70–108; PULSE 52–69; RESP 18; TEMP 35.8–36.6; O2SAT 95–100
[2021-11-19] MEDS: LEVOTHYROXINE 75 MCG TABLET 150 MCG PO (06:20)
[2021-11-19 07:34] LABS: Eosinophils Percent Auto 0.5 % (0.0-7.0); Hematocrit 43.5 % (37.0-53.0); Hemoglobin* 15.1 gm/dL (13.5-17.5); Immature Granulocytes Abs Auto 0.18 K/uL (0.00-0.30); Lymphocytes Percent Auto 10.3 % (20-44); Mean Corpuscular HGB Conc 35 gm/dL (32-36); Mean Corpuscular Hemoglobin 30 pg (26-34); Mean Corpuscular Volume 86 fL (80-100); Monocytes Percent Auto 7.4 % (0.0-11.0); Neutrophils Percent Auto 80.2 % (42.0-72.0); Platelet Count* 165 K/uL (140-440); RDW Coefficient of Variation % 12.4 % (11.5-15.5); Red Blood Count 5.09 m/uL (4.30-5.90); White Blood Count* 11.09 K/uL (4.50-11.00)
[2021-11-19 07:35] LABS: Slide Review Reflex No
[2021-11-19 07:37] LABS: Ionized Calcium* 0.92 mmol/L (1.11-1.30)
[2021-11-19 08:00] LABS: Chloride* 105 mmol/L (96-114); Potassium* 3.9 mmol/L (3.6-5.1); Sodium* 136 mmol/L (135-149)
[2021-11-19 08:03] LABS: Blood Urea Nitrogen* 28 mg/dL (7-30); Carbon Dioxide* 21 mmol/L (20-32); Creatinine* 1.5 mg/dL (0.5-1.5); Est. Creatinine Clearance* 36.63; Estimated Glomerular Filt Rate 47 ml/min; Glucose* 74 mg/dL (60-115)
[2021-11-19 08:04] LABS: Calcium* 7.3 mg/dL (8.4-10.6); Magnesium* 1.8 mg/dL (1.5-2.6)
[2021-11-19] MEDS: CARBIDOPA-LEVODOPA 25-100 TABLET 3 TAB PO ×3 (08:58→20:38)
[2021-11-19] MEDS: LACTOBACILLUS ACIDOPHILUS 1 TABLET 2 TAB PO ×3 (08:58→17:40)
[2021-11-19] MEDS: AZITHROMYCIN 250 MG TABLET 500 MG PO (08:58)
[2021-11-19] MEDS: dexAMETHasone 2 MG TABLET 6 MG PO (08:58)
[2021-11-19] MEDS: METOPROLOL TARTRATE 50 MG TABLET PO ×2 (08:58→20:33)
[2021-11-19] MEDS: CEFPODOXIME PROXETIL 200 MG TABLET PO ×2 (09:05→20:38)
[2021-11-19] MEDS: BARICITINIB 2 MG TAB PO (13:48)
--- NOTE | 2021-11-19 14:01 | P.IMPN_ITS ---
Progress Note: A&P Assessment and plan (1) Acute respiratory failure with hypoxia: Problem details: Secondary to COVID-19 pneumonia and probable bacterial pneumonia Status: Acute Assessment and Plan: Resolved. (2) COVID-19: Problem details: Date of symptom onset is approximately 11/12/2021. Date of COVID PCR positive 11/14/2021. Status: Acute Assessment and Plan: He is doing very well, is off oxygen, and is back to his baseline. Completed Remdesivir yesterday. Stop dexamethasone and baricitinib after today's doses. [facility]. VTE prophylaxis with enoxaparin, adjusted for renal function. (3) Severe sepsis: Status: Acute Assessment and Plan: Resolved. (4) Gram-positive cocci bacteremia: Problem details: Positive BC x 1/2 from 11/15/21 = Staph epi. May be contaminant. Status: Acute Assessment and Plan: Possible contaminant. Treated with IV antibiotics for 3 days, now on Vantin and azithromycin, to complete 5-7 day course for sepsis likely secondary to bacterial, community-acquired pneumonia. Holding donepezil while on azithromycin due to potential prolongation of QT. (5) Acute on chronic kidney failure: Status: Acute Assessment and Plan: Suspect KELI secondary to sepsis and dehydration. Improved back to baseline Cr of 1.6. Blood pressure is okay today, if needed senna pill can be restarted. (6) Thrombocytopenia: Status: Acute Assessment and Plan: Resolved. (7) Hypothyroidism: Problem details: TSH suppressed on admission; given age, I have decreased his dose of levothyroxine from 150-100 mcg and recommend outpatient TSH check in late November. Status: Chronic Assessment and Plan: Continue outpatient levothyroxin dose. (8) Hypertension: Status: Chronic Assessment and Plan: BP okay today. Continue metoprolol. Lisinopril has been on hold due to KELI. Can restart this if his blood pressure becomes high again. (9) Bladder mass: Status: Acute Assessment and Plan: Follow up with PCP or urology as outpatient. (10) Constipation: Status: Acute Assessment and Plan: Continue bowel regimen. (11) Dementia with parkinsonism: Status: Acute Assessment and Plan: Continue sinemet. (12) Hypokalemia: Status: Acute Assessment and Plan: Resolved. Magnesium is within normal limits. (13) Diabetes: Problem details: Uses insulin. Status: Acute Assessment and Plan: Morning blood glucose is have been lower than goal for inpatient stay. Decrease Levemir further. Continue NovoLog insulin sliding scale. (14) Hypocalcemia: Status: Acute Assessment and Plan: Start oral and IV replacement. Recheck in morning. Plan Seek SNF for when covid isolation is complete. Subjective Time Seen by Provider: 08:10 Date Seen: 11/19/21 Interval history: Saw Juan early this morning and he was still in bed. His was not there yet. I did happen to see his later today because their daughter got admitted to our hospital. Exam Narrative: Exam Narrative: Juan remains almost nonverbal, which is his baseline. When I asked him if he was in pain, he did say no. We talked about breakfast, and he answered each question with 1 word. General: No acute distress. , alert, oriented to self. No pallor. No jaundice. Oropharynx: Clear. Mucous membranes moist. Cardiovascular: Regular rate and rhythm. No murmurs, gallops, or rubs. Respiratory: Clear to auscultation bilaterally. No wheezes or crackles. Abdomen: Bowel sounds present. Soft, nondistended, nontender. Const: Vital Signs, click to edit/add: Vital Signs - 24 hr 11/18/21 15:22 11/18/21 19:00 11/18/21 22:34 Temperature 97.9 F 97.6 F Pulse Rate [Pulse Oximeter] 56 L 63 53 L Respiratory Rate 18 18 18 Blood Pressure [Le ft Arm] 140/87 H 171/99 H Pulse Oximetry 93 95 Oxygen Delivery Me thod Room Air Room Air Oxygen Flow Rate Fraction of Inspir ed Oxygen 11/18/21 22:34 11/19/21 02:31 11/19/21 07:00 Temperature 98.2 F 98 F Pulse Rate [Pulse Oximeter] 53 L 56 L 62 Respiratory Rate 18 18 18 Blood Pressure [Le ft Arm] 164/58 H 170/82 H Pulse Oximetry 99 100 Oxygen Delivery Me thod Room Air Room Air Oxygen Flow Rate Fraction of Inspir ed Oxygen 11/19/21 07:00 11/19/21 11:00 Temperature 98 F 96.5 F L Pulse Rate [Pulse Oximeter] 62 67 Respiratory Rate 18 18 Blood Pressure [Le ft Arm] 202/108 H 138/70 Pulse Oximetry 100 100 Oxygen Delivery Me thod Room Air Room Air Oxygen Flow Rate 0 0 Fraction of Inspir ed Oxygen 0 0 Labs Labs: Laboratory Results - last 24 hr 11/19/21 11/19/21 11/19/21 07:07 07:07 07:07 WBC 11.09 H RBC 5.09 Hgb 15.1 Hct 43.5 MCV 86 MCH 30 MCHC 35 RDW Coeff of Tylor 12.4 Plt Count 165 Neut % (Auto) 80.2 H Lymph % (Auto) 10.[address] [facility] % (Auto) 7.4 Eos % (Auto) 0.5 Baso % (Auto) 0.0 Neut # (Auto) 8.90 H Lymph # (Auto) 1.10 [facility] # (Auto) 0.80 Eos # (Auto) 0.10 Baso # (Auto) 0.00 Abs Immat Gran (auto) 0.18 Sodium 136 Potassium 3.9 Chloride 105 Carbon Dioxide 21 BUN 28 Creatinine 1.5 Estimated Creat Clear 36.63 Estimated GFR 47 Glucose 74 Calcium 7.3 L Ionized Calcium Reyna 0.92 L Magnesium 1.8
[2021-11-19] MEDS: 0.9 % SODIUM CHLORIDE 250 ml IV (15:20)
[2021-11-19] MEDS: SODIUM CHLORIDE 0.9 % (FLUSH) 10 ML SYRINGE 5 ML IVF ×2 (15:20→20:41)
--- NOTE | 2021-11-19 17:31 | PC.NURSE ---
PATIENT PLEASANT AND COOPERATIVE, ALERT TO SELF, HX DEMENTIA ABLE TO FOLLOW COMMANDS, IS ABLE TO COMMUNICATE NEEDS WITH ONE WORD STATEMENTS AND IS ABLE TO ANSWER SIMPLE YES OR NO QUESTIONS, SOFT SPOKEN, UP TO CHAIR WITH ASSIST OF 1 WALKER AND BELT, INCONTINENT OF BOWEL AND BLADDER BRIEF CHECKED EVERY Q2H HOURS AND CHANGED NEEDED, TOLERATING REGULAR DIET, DECLINING PAIN, BOTTOM REDDENED FROM FREQUENT DIARRHEA CREAM APPLIED WITH SOME RELIEF, PATIENT STATES SORE BOTTOM.
[2021-11-19] MEDS: CALCIUM CARBONATE 500 MG TABLET PO (17:40)
[2021-11-19] MEDS: ENOXAPARIN 30 MG/0.3ML INJ SUBCUT (20:39)
[2021-11-19] MEDS: ACETAMINOPHEN 325 MG TABLET 650 MG PO (20:45)
[2021-11-20 03:00] VITALS: BP 172/89; PULSE 61; RESP 18; TEMP 35.8; O2SAT 95
--- NOTE | 2021-11-20 06:55 | PC.NURSE ---
Alert and oriented to self only. Moving all extremities fine and following commands. No signs of pain noted. Incontinent of both bladder and bowel. generally hypertensive with vitals signs; will update MD in AM. the rest of the vitals are stable. satting fine on room air. congested productive cough noted. Up and ambulating with assist of one and a walker. No further concerns noted
[2021-11-20 07:00] VITALS: BP 183/122; PULSE 55; RESP 16; RESP 18; TEMP 35.8; O2SAT 95
[2021-11-20] MEDS: CALCIUM CARBONATE 500 MG TABLET PO ×2 (08:18→17:24)
[2021-11-20] MEDS: LEVOTHYROXINE 75 MCG TABLET 150 MCG PO (08:18)
[2021-11-20] MEDS: LACTOBACILLUS ACIDOPHILUS 1 TABLET 2 TAB PO ×3 (08:19→17:24)
[2021-11-20 08:47] LABS: Basophils Percent Auto 0.1 % (0.0-3.0); Eosinophils Percent Auto 1.2 % (0.0-7.0); Hematocrit 43.6 % (37.0-53.0); Hemoglobin* 14.9 gm/dL (13.5-17.5); Immature Granulocytes Abs Auto 0.44 K/uL (0.00-0.30); Lymphocytes Percent Auto 9.1 % (20-44); Mean Corpuscular HGB Conc 34 gm/dL (32-36); Mean Corpuscular Hemoglobin 30 pg (26-34); Mean Corpuscular Volume 87 fL (80-100); Monocytes Percent Auto 7.3 % (0.0-11.0); Neutrophils Percent Auto 79.1 % (42.0-72.0); Platelet Count* 217 K/uL (140-440); RDW Coefficient of Variation % 12.4 % (11.5-15.5); Red Blood Count 5.02 m/uL (4.30-5.90); White Blood Count* 13.89 K/uL (4.50-11.00)
[2021-11-20 08:57] LABS: Slide Review Reflex No
[2021-11-20] MEDS: CEFPODOXIME PROXETIL 200 MG TABLET PO ×2 (08:59→20:55)
[2021-11-20] MEDS: CARBIDOPA-LEVODOPA 25-100 TABLET 3 TAB PO ×3 (08:59→20:54)
[2021-11-20] MEDS: AZITHROMYCIN 250 MG TABLET 500 MG PO (08:59)
[2021-11-20] MEDS: METOPROLOL TARTRATE 50 MG TABLET PO ×2 (08:59→20:56)
[2021-11-20] MEDS: SODIUM CHLORIDE 0.9 % (FLUSH) 10 ML SYRINGE 5 ML IVF (09:00)
[2021-11-20 09:08] LABS: Ionized Calcium* 1.05 mmol/L (1.11-1.30)
[2021-11-20 11:00] VITALS: BP 128/71; PULSE 61; RESP 16; TEMP 35.8; O2SAT 92
--- NOTE | 2021-11-20 12:05 | PC.SOCIAL ---
Received phone call from pt's , Zhanna Arellano. Zhanna was inquiring on potentially taking a tour in the LT[facility] at [facility]. Informed that tours are not available at this time due to Covid restrictions. Met Zhanna at the end of hallway and provided her with a brochure to [facility]. Informed Zhanna that this worker was made aware that pt was accepted for admission to [facility] on 11/25/21. Informed Zhanna that pt will remain in isolation in [facility] for 10 additional days, but pt can have visitors in his room. Zhanna informed that the MA paperwork was submitted to the [facility] and she will continue to follow up on the status. Zhanna informed that she is aware that [facility] and she is not able to private pay. Zhanna will keep in contact with the Social Work Department.
[2021-11-20] MEDS: ACETAMINOPHEN 325 MG TABLET 650 MG PO ×2 (13:24→20:53)
[2021-11-20] MEDS: COVID-19 VACC, MRNA(PFIZER)/PF 30 MCG/0.3 ML VIAL IM (13:28)
[2021-11-20 15:00] VITALS: BP 135/77; PULSE 60; RESP 16; TEMP 36.1; O2SAT 90
--- NOTE | 2021-11-20 15:06 | PM.IMPN1 ---
Progress Note: A&P Assessment and plan (1) Acute respiratory failure with hypoxia: Problem details: Secondary to COVID-19 pneumonia and probable bacterial pneumonia Status: Acute Assessment and Plan: Patient has significantly improved and completed course of COVID specific therapies. He is currently stable on room air. (2) COVID-19: Problem details: Date of symptom onset is approximately 11/12/2021. Date of COVID PCR positive 11/14/2021. Status: Acute (3) Severe sepsis: Status: Acute Assessment and Plan: Stable at this time with reassuring vital signs, continue cefpodoxime. White blood count has come up, although this could be iatrogenic from recent administration of Decadron. Will continue to follow. (4) Gram-positive cocci bacteremia: Problem details: Positive BC x 1/2 from 11/15/21 = Staph epi. May be contaminant. Status: Acute (5) Acute on chronic kidney failure: Status: Acute Assessment and Plan: Creatinine has improved. (6) Thrombocytopenia: Status: Acute (7) Hypothyroidism: Problem details: TSH suppressed on admission; given age, I have decreased his dose of levothyroxine from 150-100 mcg and recommend outpatient TSH check in late November. Status: Chronic (8) Hypertension: Status: Chronic Assessment and Plan: Blood pressure currently stable. (9) Bladder mass: Status: Acute (10) Constipation: Status: Acute (11) Dementia with parkinsonism: Status: Acute (12) Hypokalemia: Status: Acute (13) Diabetes: Problem details: Uses insulin. Status: Acute Assessment and Plan: Continue Accu-Cheks and sliding scale insulin, in addition to home insulin (14) Hypocalcemia: Status: Acute Assessment and Plan: Continue to replace and follow Plan 76-year-old male, admitted on 11/14 with acute hypoxic respiratory failure and sepsis in the setting of COVID infection. Patient has improved significantly; he has completed his COVID specific therapies and is almost completed his course of antibiotics. He has had multiple lab abnormalities, including acute kidney injury, hypocalcemia, hypokalemia, thrombocytopenia, leukocytosis. Continue to replace electrolytes and follow renal function. He will be discharging to an SNF; given recent COVID infection, not able to discharge until 11/25. Subjective Date Seen: 11/20/21 Interval history: No acute events overnight, no concerns from family per nursing staff. Nursing staff has asked for a speech therapy evaluation given concern for swallowing difficulty. Patient specifically denies pain or concerns for me when asked. Exam Narrative: Exam Narrative: GEN: Awake and laying comfortably in bed, answering questions with soft one-word answers (primarily yes or no) HEENT: Normal external ears, EOMIs bilaterally CV: RRR, No concerning murmurs, rubs, or gallops R: LCTA bilaterally without concerning wheezing, rales, or rhonchi Ext: wwp, no concerning edema Skin: No concerning skin lesions or rashes on exposed skin Const: Vital Signs, click to edit/add: Vital Signs - 24 hr 11/19/21 19:00 11/19/21 22:12 11/19/21 23:00 Temperature 96.5 F L 96.5 F L Pulse Rate [Pulse Oximeter] 69 69 52 L Respiratory Rate 18 18 18 Blood Pressure [Le ft Arm] 160/91 H 162/74 H Pulse Oximetry 95 95 Oxygen Delivery Me thod Room Air Room Air Oxygen Flow Rate Fraction of Inspir ed Oxygen 11/20/21 03:00 11/20/21 07:00 11/20/21 07:00 Temperature 96.5 F L 96.5 F L Pulse Rate [Pulse Oximeter] 61 55 L Respiratory Rate 18 18 16 Blood Pressure [Le ft Arm] 172/89 H 183/122 H Pulse Oximetry 95 95 Oxygen Delivery Me thod Room Air Room Air Oxygen Flow Rate 0 Fraction of Inspir ed Oxygen 0 11/20/21 11:00 Temperature 96.5 F L Pulse Rate [Pulse Oximeter] 61 Respiratory Rate 16 Blood Pressure [Le ft Arm] 128/71 Pulse Oximetry 92 Oxygen Delivery Me thod Room Air Oxygen Flow Rate 0 Fraction of Inspir ed Oxygen 0 Labs Labs: Laboratory Results - last 24 hr 11/20/21 11/20/21 08:39 08:39 WBC 13.89 H RBC 5.02 Hgb 14.9 Hct 43.6 MCV 87 MCH 30 MCHC 34 RDW Coeff of Tylor 12.4 Plt Count 217 Neut % (Auto) 79.1 H Lymph % (Auto) 9.1 L [place] % (Auto) 7.3 Eos % (Auto) 1.2 Baso % (Auto) 0.1 Neut # (Auto) 11.00 H Lymph # (Auto) 1.30 [place] # (Auto) 1.00 H Eos # (Auto) 0.20 Baso # (Auto) 0.00 Abs Immat Gran (auto) 0.44 H Ionized Calcium Reyna 1.05 L
--- NOTE | 2021-11-20 16:55 | PC.NURSE ---
SHIFT NOTE: PATIENT PLEASANT AND COOPERATIVE WITH STAFFING, UP A1 WALKER AND BELT, ALERT TO SELF, ABLE TO FOLLOW COMMANDS, SOFT SPOKEN ABLE TO COMMUNICATE WITH ONE WORD ANSWERS, BOTTOM REDDENED AND CREAM APPLIED AND TYLENOL GIVEN WITH SOME RELIEF, TOLERATING REGULAR DIET, NOTED COUGHING WHEN DRINKING THIN LIQUIDS PER FAMILY HE HAD BEEN ON THICKENED LIQUIDS BEFORE BUT HE DIDN'T LIKE THE TASTE, SPEECH THERAPY EVAL, IS ABLE TO COUGH UP THIN PHLEGM, DECLINING PAIN OTHER THAN A SORE BOTTOM, LOOSE STOOLS NOTED AGAIN NOTED, MD UPDATED AND STOOL SAMPLE ORDERED.
[2021-11-20 19:00] VITALS: BP 154/90; PULSE 57; RESP 20; TEMP 36; O2SAT 94
[2021-11-20] MEDS: ENOXAPARIN 30 MG/0.3ML INJ SUBCUT (20:55)
--- NOTE | 2021-11-20 22:06 | PC.NURSE ---
Pt pleasant and cooperative. Transfered with 1 assist ,walker, gait belt and minimal cueing. He had 2 inc pads and 1 very small inc stool. BS 140 no SSI given. VSS on RA.
[2021-11-21 00:55] VITALS: BP 169/90; PULSE 55; RESP 18; TEMP 35.8; O2SAT 93
[2021-11-21 03:00] VITALS: BP 151/82; PULSE 52; RESP 20; TEMP 36.6; O2SAT 91
[2021-11-21] MEDS: LEVOTHYROXINE 100 MCG TABLET PO (06:30)
[2021-11-21] MEDS: OMEPRAZOLE 20 MG CAPSULE DR 40 MG PO (06:30)
--- NOTE | 2021-11-21 06:46 | PC.NURSE ---
END OF SHIFT NOTE: PT IS PLEASANTLY DEMENTED AND COOPERATIVE. HX OF PARKINSON?S DISEASE. PT COMMUNICATION IS DELAYED AND?SOFT SPOKEN, WITH ONE WORD ANSWERS. LS WITH EXPIRATORY FINE CRACKLES THROUGHOUT POSTERIOR LOBES DIMINISHED IN THE BASES. INTERMITTENT PRODUCTIVE COUGH.?VSS ON RA; AFEBRILE. INCONTINENT OF BOWEL AND BLADDER; CHANGED VOID x3. NO BM; UNABLE TO COLLECT STOOL SAMPLE FOR C-DIFF. REDDENED BOTTEM AND GROIN AREA; CLEANSED AND BARRIER CREAM APPLIED EACH BRIEF CHANGE. PT DENIES CP, SOB, N/V. MULTIPLE C/O BEING COLD. ADDED WARM BLANKETS x5, HEAVIER BLANKET AND INCREASED TEMPERATURE IN ROOM. PT IS TURNED AND REPOSITIONED WITH PILLOWS FOR OFFLOADING PRESSURE. PT RESTLESS; [employer] SUPERVISOR LIGHT APPROXIMATELY EVERY 15-30 MINUTES. PT REMOVED CONTINUOUS PULSE OX x2; DRIER REMOVED FOR REMAINDER OF THE NIGHT. 0530 PT C/O BEING HOT; EXTRA BLANKETS REMOVED AND ROOM TEMPERATURE TURNED DOWN. PT DID NOT SLEEP OVERNIGHT THAT THIS DRIER OBSERVED.?
[2021-11-21 07:00] VITALS: BP 154/80; PULSE 62; RESP 22; TEMP 36.4; O2SAT 94
[2021-11-21 07:15] LABS: Ionized Calcium* 1.11 mmol/L (1.11-1.30)
[2021-11-21 07:20] LABS: Basophils Percent Auto 0.1 % (0.0-3.0); Hemoglobin* 14.7 gm/dL (13.5-17.5); Immature Granulocytes Abs Auto 0.64 K/uL (0.00-0.30); Lymphocytes Percent Auto 8.8 % (20-44); Mean Corpuscular HGB Conc 34 gm/dL (32-36); Mean Corpuscular Hemoglobin 29 pg (26-34); Mean Corpuscular Volume 86 fL (80-100); Monocytes Percent Auto 7.4 % (0.0-11.0); Neutrophils Percent Auto 76.7 % (42.0-72.0); Platelet Count* 228 K/uL (140-440); RDW Coefficient of Variation % 12.5 % (11.5-15.5); Red Blood Count 5.01 m/uL (4.30-5.90); White Blood Count* 12.78 K/uL (4.50-11.00)
[2021-11-21 07:40] LABS: Slide Review Reflex No
[2021-11-21 07:48] LABS: Chloride* 104 mmol/L (96-114)
[2021-11-21 07:49] LABS: Albumin* 3.2 g/dL (3.3-5.0); Potassium* 3.9 mmol/L (3.6-5.1); Sodium* 136 mmol/L (135-149)
[2021-11-21 07:51] LABS: Creatinine* 1.7 mg/dL (0.5-1.5); Est. Creatinine Clearance* 32.32; Estimated Glomerular Filt Rate 41 ml/min
[2021-11-21 07:52] LABS: Alanine Aminotransferase* 7 U/L (4-50); Alkaline Phosphatase* 61 U/L (40-150); Aspartate Amino Transferase* 23 U/L (12-35); Bilirubin Total* 0.5 mg/dL (0.1-1.5); Blood Urea Nitrogen* 30 mg/dL (7-30); Calcium* 8.3 mg/dL (8.4-10.6); Carbon Dioxide* 24 mmol/L (20-32); Glucose* 86 mg/dL (60-115)
[2021-11-21] MEDS: LACTOBACILLUS ACIDOPHILUS 1 TABLET 2 TAB PO (08:33)
[2021-11-21] MEDS: CALCIUM CARBONATE 500 MG TABLET PO (08:33)
[2021-11-21] MEDS: METOPROLOL TARTRATE 50 MG TABLET PO (08:33)
[2021-11-21] MEDS: AMLODIPINE 5 MG TABLET PO (08:33)
[2021-11-21] MEDS: CARBIDOPA-LEVODOPA 25-100 TABLET 3 TAB PO (08:33)
[2021-11-21 09:19] LABS: C.Difficile Negative (Negative); CDIFFEPI 027 PRESUMPTIVE NEGATIVE (Negative)
[2021-11-21 11:00] VITALS: BP 127/67; PULSE 64; RESP 20; TEMP 36.2; O2SAT 94
--- NOTE | 2021-11-21 11:38 | PM.DS1 ---
DS: Providers Provider Date Seen: 11/21/21 Date of admission: 11/16/21 18:09 Primary care physician: Not a Local Provider Admitting Clinician: Adi Evans MD Consults: PT, OT, RT, and ST Rehab stay recommended, as well as thickened liquids per therapy teams. Attending Physician on discharge: Nat Lindquist MD Date of Discharge: 11/21/21 DS: Diagnosis Discharge Diagnosis (1) Gram-positive cocci bacteremia: Status: Acute Problem details: Positive BC x 1/2 from 11/15/21 = Staph epi. May be contaminant. (2) Diabetes: Status: Acute Problem details: Uses insulin. (3) Hypocalcemia: Status: Acute (4) Diarrhea: Status: Acute (5) Acute respiratory failure with hypoxia: Status: Acute Problem details: Secondary to COVID-19 pneumonia and probable bacterial pneumonia (6) Hypothyroidism: Status: Chronic Problem details: TSH suppressed on admission; given age, I have decreased his dose of levothyroxine from 150-100 mcg and recommend outpatient TSH check in late November. (7) Hypertension: Status: Chronic (8) Acute on chronic kidney failure: Status: Acute (9) COVID-19: Status: Acute Problem details: Date of symptom onset is approximately 11/12/2021. Date of COVID PCR positive 11/14/2021. DS: Summary Hospital Course Hospital Course: 76-year-old male, admitted on 11/14 with acute hypoxic respiratory failure and + blood cultures in the setting of COVID infection.? Comorbidities include IDDM, Dementia, essential HTN, and GERD. Patient improved significantly throughout stay; completed COVID specific therapies (Baricitinib and Decadron), also completed a course of Cefpodoxime for pneumonia. Other notable findings: Lab abnormalities (KELI, hypocalcemia, hypokalemia, thrombocytopenia): improved during stay with replacement, medication changes. Diarrhea: negative C-Diff. Likely iatrogenic in nature. Started on Probiotics. Incidentally noted bladder mass on admission imaging: outpatient f/u with Urology/PCP if within goals of care. Medication changes that were made during stay: - Levothyroxine dose decreased from 150 -->100mcg - Novolog dose decreased from 15U BID --> 8U BID given lower blood sugars - Lisinopril stopped given acute on chronic renal insufficiency - Amlodipine started for blood pressure control - Calcium supplementation started for hypocalcemia - lactobacillus and p.r.n. loperamide ordered for diarrhea Patient seen by PT, OT, and ST during stay - SNF stay recommended and patient accepted by our LTC on 11/21. Status at Discharge Cognitive/behavioral status at discharge: Baseline, requiring assistance from PT/OT. Time Spent with Patient Time attestation: Total time spent providing and/or coordinating discharge services: Time spent: Greater than 30 minutes Specific discharge activities: Medication reconciliation, family updates, coordination of care. Exam Narrative: Exam Narrative: GEN: Alert and sitting comfortably in bed, answering in 1 word soft answers (baseline) HEENT: Normal external ears, EOMIs bilaterally CV: RRR, No concerning murmurs, rubs, or gallops R: Mild rhonchi bilateral bases, no wheezing or rales. Air movement adequatei Ext: wwp, no concerning edema Skin: No concerning skin lesions or rashes on exposed skin Const: Vital Signs, click to edit/add: Vital Signs - 24 hr 11/20/21 15:00 11/20/21 15:00 11/20/21 19:00 Temperature 96.9 F L 96.8 F L Pulse Rate [Pulse Oximeter] 60 60 57 L Respiratory Rate 16 16 20 Blood Pressure [Le ft Arm] 135/77 154/90 H Blood Pressure [Ri ght Radial Artery] 154/90 H Pulse Oximetry 90 94 Oxygen Delivery Me thod Room Air Room Air Oxygen Flow Rate 0 Fraction of Inspir ed Oxygen 0 11/21/21 00:55 11/21/21 00:55 11/21/21 03:00 Temperature 96.5 F L 97.9 F Pulse Rate [Pulse Oximeter] 55 L 55 L 52 L Respiratory Rate 18 18 20 Blood Pressure [Le ft Arm] Blood Pressure [Ri ght Radial Artery] 169/90 H 151/82 H Pulse Oximetry 93 91 Oxygen Delivery Me thod Room Air Room Air Oxygen Flow Rate 0 Fraction of Inspir ed Oxygen 0 11/21/21 07:00 11/21/21 07:00 11/21/21 11:00 Temperature 97.5 F L 97.2 F L Pulse Rate [Pulse Oximeter] 62 62 64 Respiratory Rate 22 22 20 Blood Pressure [Le ft Arm] Blood Pressure [Ri ght Radial Artery] 154/80 H 127/67 Pulse Oximetry 94 94 Oxygen Delivery Me thod Room Air Room Air Oxygen Flow Rate Fraction of Inspir ed Oxygen DS: Data Data Completed and Pending Completed studies during hospitalization: [address] [address] Diagnostic Imaging Report Patient: Juan Alvarado MR#: [id number] : 1945 Acct:[id number] Loc: [id number] - MED-1 Service Date: 11/15/[address]: Adi Evans M.D. Ordering Physician: Leena Billingsley MD Date of Service: 11/15/21 Procedure(s): CT chest wo con Accession Number(s): [id number] cc: Leena Billingsley MD; Provider,Not a Local ~ For Patients:? As a result of the Cures Act, medical imaging exams and procedure reports are released immediately into your electronic medical record.? You may view this report before your referring provider.? If you have questions, please contact your health care provider. INDICATION: Respiratory failure, COVID-19 positive. TECHNIQUE: Chest CT without intravenous contrast. Coronal and sagittal reformats. COMPARISON: Chest radiograph 11/14/2021. FINDINGS: The central airways are patent. Diffuse bronchial wall thickening. Heterogeneous consolidative opacities involving the basilar left lower lobe. Bibasilar linear/bandlike and patchy ground-glass opacities. Trace left pleural fluid. No pneumothorax. Normal cardiac size. Coronary artery calcifications. No pericardial effusion or thoracic lymphadenopathy. Normal caliber thoracic aorta with mild-moderate atherosclerotic changes. The imaged upper abdomen is unremarkable. No suspicious osseous lesion. IMPRESSION: Heterogeneous opacities in the involving the basilar left greater than right lower lobes may reflect atelectasis, pneumonitis, and/or infection. Dictated by Thad Soto MD @ 11/15/2021 11:05:39 AM Please note that all CT scans at this facility use dose modulation, iterative reconstruction, and/or weight-based dosing when appropriate to reduce radiation dose to as low as reasonably achievable. Dictated by: Thad Soto MD @ 11/15/2021 11:05:44 (Electronically Signed) Patient: JUAN ALVARADO Facility:?[facility] Patient ID:?[id number] Site Patient ID:?[id number]. Site :?1945 Study:?CT-Abdomen/Pelvis WITHOUT-11/14/2021 5:58:11 PM Ordering Physician:Chente Schaffer Final Report: INDICATION: Increased weakness. Vomiting TECHNIQUE: CT abdomen and pelvis without contrast. COMPARISON: CT 03/05/2013 and 03/06/2016 FINDINGS: Lower chest: Unremarkable. Liver: Unremarkable. Gallbladder and bile ducts: Gallbladder is contracted or absent. No biliary dilatation. Spleen: Unremarkable. Pancreas: Unremarkable. Adrenal glands: Unremarkable. Kidneys: Bilateral renal cysts. Punctate nonobstructing left renal calculus. No hydronephrosis GI tract: Large amount of gas and stool throughout the colon. There is mild wall thickening stranding around the rectum a large amount of stool. Appendix is normal. Vascular structures: Atherosclerotic calcifications of the aorta and its branches. Lymph nodes: Unremarkable. Miscellaneous: Unremarkable. No free air or significant free fluid. Pelvic Organs: There is a 1.6 cm irregularly shaped calculus at the dependent portion of the urinary bladder. There is a 1.3 cm soft tissue density anteriorly as seen on series 2, image 124. Prostate is grossly unremarkable. Bones: Multilevel degenerative changes in the spine. Right hip arthroplasty. No acute or suspicious osseous lesions. IMPRESSION: 1. Large amount of gas and stool throughout the colon and rectum with wall thickening and mild stranding at the rectum. Findings suggest constipation and may indicate stercoral colitis. 2. Soft tissue density in the anterior bladder is suspicious for neoplasm. Cystoscopy is suggested. 3. No pelvic lymphadenopathy. 4. Bladder calculus. Nonobstructing left renal calculus. No hydronephrosis. Labs on day of discharge: Labs from last 24 hours 11/21/21 11/21/21 11/21/21 07:58 06:55 06:55 WBC RBC Hgb Hct MCV MCH MCHC RDW Coeff of Tylor Plt Count Neut % (Auto) Lymph % (Auto) Jessamine % (Auto) Eos % (Auto) Baso % (Auto) Neut # (Auto) Lymph # (Auto) Jessamine # (Auto) Eos # (Auto) Baso # (Auto) Abs Immat Gran (auto) Sodium 136 Potassium 3.9 Chloride 104 Carbon Dioxide 24 BUN 30 Creatinine 1.7 H Estimated Creat Clear 32.32 Estimated GFR 41 Glucose 86 Calcium 8.3 L Ionized Calcium Reyna 1.11 Total Bilirubin 0.5 AST 23 ALT 7 Alkaline Phosphatase 61 Total Protein 6.0 Albumin 3.2 L Stl C.difficile Tox PCR Negative St C. diff Tox Epid 027 PRESUMPTIVE NEGATIVE 11/21/21 06:55 WBC 12.78 H RBC 5.01 Hgb 14.7 Hct 43.0 MCV 86 MCH 29 MCHC 34 RDW Coeff of Tylor 12.5 Plt Count 228 Neut % (Auto) 76.7 H Lymph % (Auto) 8.8 L Jessamine % (Auto) 7.4 Eos % (Auto) 2.0 Baso % (Auto) 0.1 Neut # (Auto) 9.80 H Lymph # (Auto) 1.10 Jessamine # (Auto) 0.90 Eos # (Auto) 0.30 Baso # (Auto) 0.00 Abs Immat Gran (auto) 0.64 H Sodium Potassium Chloride Carbon Dioxide BUN Creatinine Estimated Creat Clear Estimated GFR Glucose Calcium Ionized Calcium Reyna Total Bilirubin AST ALT Alkaline Phosphatase Total Protein Albumin Stl C.difficile Tox PCR St C. diff Tox Epid 027 Discharge Plan Discharge Disposition: [facility] Date of Admission: 11/16/21 18:09 Attending Provider on Discharge: Nat Lindquist Primary Care Provider: Provider,Not a Local Condition: Improved Anticipated Discharge Date/Time: 11/21/21 11:37 Discharge Medications: New levothyroxine 100 mcg Tablet 100 mcg PO DAILY@0700 30 Days Qty: 30 0RF acetaminophen 325 mg Tablet 650 mg PO Q6H PRNQty: 20 0RF omeprazole 20 mg Capsule,Delayed Release(Dr/Ec) 40 mg PO DAILY@0700 Qty: 30 0RF amlodipine 5 mg Tablet 5 mg PO DAILY Qty: 30 0RF Levemir FlexTouch U-100 Insuln 100 unit/mL (3 mL) Insulin Pen 8 unit subcut BID Qty: 15 0RF calcium carbonate [Oyster Shell Calcium 500] 500 mg calcium (1,250 mg) Tablet 500 mg PO BIDWM Qty: 20 0RF metoprolol tartrate 50 mg Tablet 50 mg PO BID Qty: 60 0RF Lactobacillus acidophilus 0.5 mg (100 million cell) Tablet 1 mg PO TIDWM Qty: 10 0RF loperamide 2 mg capsule 2 mg PO Q6H PRN (Reason: loose stool) Qty: 10 0RF Continued atorvastatin 40 mg tablet 40 mg PO HS donepezil 10 mg tablet 10 mg PO HS omeprazole 40 mg capsule,delayed release(DR/EC) 40 mg PO DAILY metoprolol tartrate 50 mg tablet 50 mg PO BID carbidopa-levodopa 25-100 mg tablet 3 tab PO TID Label Comments: TAKE THREE TABLETS BY MOUTH THREE TIMES A DAY calcium carbonate-vitamin D3 .ROUTE levothyroxine 150 mcg tablet 150 mcg PO DAILY Qty: 14 0RF loperamide 2 mg capsule 2 mg PO QID PRN (Reason: loose stool) Qty: 18 0RF Discontinued lisinopril 5 mg tablet 5 mg PO DAILY Novolin N NPH U-100 Insulin 100 unit/mL suspension 15 unit subcut BID Discharge Orders: Discharge Order (Routine); Ordered 11/21/21 Ordered By: Nat Lindquist Activity Restrictions/Additional Instructions: Continue PT and OT during stay at LTC. Activity Level: Up with assist Activity Detail: with PT/OT Discharge Diet: Regular and Other Diet Detail: thickened liquids Follow Up Appointments: Kojo Villalpando MD [Referring] - Provider,Not a Local [Primary Care Provider] - Discharge Comments: to LTC
--- NOTE | 2021-11-21 12:00 | PC.NURSE ---
Discharge: Patient pleasant and cooperative. Patient hypertensive but vitally stable, lungs course with crackles posteriorly, BS WNL, No IV. Patient on RA sating up to 94%. Patient denied pain, but does have reddened buttock and groin from incontinence. Patient 1 assist, walker, gb. Patient is not oriented and communicates with one word answers. Patient is incontinent of bowel and bladder. Patient had 2 incontinent stool and 1 urine. Patient tolerating regular diet with food cut up in to little pieces. Lunch BS was 178. Patient left the floor by wheelchair to exterminator helper termite care at 1150. Nurse to nurse report given to Gauri.
--- NOTE | 2021-11-21 12:27 | PC.SOCIAL ---
Completed Pre-Admission screening for discharge to [facility]. Confirmation #[id number]. Provided a copy to [facility] facility.
== END 2021-11-21 11:50 | DRG 871 ==
LOC: ED 18:46 → MEDSURG 19:15
PROVIDERS: Family Medicine; Admitting Provider Internal Medicine; Emergency Provider Family Medicine; Visit Provider Internal Medicine
DX: A41.89 Other specified sepsis (principal); U07.1 COVID-19; J12.82 Pneumonia due to coronavirus disease 2019; J96.01 Acute respiratory failure with hypoxia; J15.9 Unspecified bacterial pneumonia; N17.9 Acute kidney failure, unspecified; R65.20 Severe sepsis without septic shock; R19.7 Diarrhea, unspecified; E83.51 Hypocalcemia; Z79.4 Long term (current) use of insulin; I12.9 Hypertensive chronic kidney disease with stage 1 through stage 4 chronic kidney disease, or unspecified chronic kidney disease; E11.22 Type 2 diabetes mellitus with diabetic chronic kidney disease; N18.9 Chronic kidney disease, unspecified; E87.6 Hypokalemia; D69.6 Thrombocytopenia, unspecified; G20 Parkinson's disease; F02.80 Dementia in other diseases classified elsewhere, unspecified severity, without behavioral disturbance, psychotic disturbance, mood disturbance, and anxiety; I25.10 Atherosclerotic heart disease of native coronary artery without angina pectoris; K21.9 Gastro-esophageal reflux disease without esophagitis; Z85.850 Personal history of malignant neoplasm of thyroid; Z85.858 Personal history of malignant neoplasm of other endocrine glands; K59.00 Constipation, unspecified; E86.0 Dehydration; N32.9 Bladder disorder, unspecified; E11.40 Type 2 diabetes mellitus with diabetic neuropathy, unspecified; E89.0 Postprocedural hypothyroidism
CPT/HCPCS: 36415; 71045; 71250; 74176; 80048; 80053; 80076; 80143; 80179; 81001; 82330; 82803; 82947; 83605; 83690; 83735; 83986; 84443; 84484; 85025; 85651; 86140; 87040; 87086; 87186; 87493; 87502; 87635; 92610; 93005; 94761; 97110; 97116; 97162; 97165; 97530; 99285; A9270; C9113; G0378; J0610; J1100; J1650; J2405; J2543; J3370; J7030; J7050; J7120

== ENCOUNTER 2021-11-21 12:59 | Inpatient (IN) | payer MEDICAID, MEDICARE, SELFPAY ==
--- NOTE | 2021-11-21 13:38 | PC.NURSE ---
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 ate 100% of lunch.
[2021-11-21 13:47] VITALS: BP 122/67; PULSE 61; RESP 18; TEMP 37; O2SAT 93
--- NOTE | 2021-11-21 13:47 | PC.NURSE ---
VS-BP 122/67 P-61 R-18 T-98.7 SATS 93%
--- NOTE | 2021-11-21 14:18 | PC.NURSE ---
MEDICARE ADMISSION: Resident was admitted from [facility] with diagnosis of acute respiratory failure and pneumonia secondary to COVID-19. Resident had an acute hospital stay 11/14/21-11/21/21. Resident admission orders include PT/OT to evaluate and treat. This patient requires daily senior living observation and assessment of signs and symptoms related to COVID-19, secondary pneumonia, and related medical conditions. Resident is currently in single-room isolation due to COVID-19, and all treatments are to be rendered in the residents private room. Today will be his first covered stay of [employer] (medicare replacement) coverage. Resident and updated on coverage.
--- NOTE | 2021-11-21 15:28 | PC.NURSE ---
MEDICARE ADMISSION: Resident was admitted from [facility] with diagnosis of acute respiratory failure and pneumonia secondary to COVID-19. Resident had an acute hospital stay 11/14/21-11/21/21. Resident admission orders include PT/OT to evaluate and treat. This patient requires daily [facility] observation and assessment of signs and symptoms related to COVID-19, secondary pneumonia, and related medical conditions. Resident is currently in single-room isolation due to COVID-19, and all treatments are to be rendered in the residents private room. Today will be his first covered stay of [employer] (medicare replacement) coverage. Resident and notified of coverage due to [facility] and therapy needs following diagnosis. Resident will receive PT/OT 5x/week until resident meets goals.
--- NOTE | 2021-11-21 17:18 | PC.NURSE ---
Order: New written order from for blood glucose monitoring TID, before meals.
[2021-11-21 17:32] VITALS: TEMP 36.8; O2SAT 92
[2021-11-21] MEDS: CARBIDOPA-LEVODOPA 25-100 TABLET 1 TAB PO (19:21)
[2021-11-21] MEDS: ATORVASTATIN CALCIUM 40 MG TABLET PO (19:21)
[2021-11-21] MEDS: DONEPEZIL 10 MG TABLET PO (19:21)
[2021-11-21] MEDS: METOPROLOL TARTRATE 50 MG TABLET PO (19:22)
[2021-11-21] MEDS: LACTOBACILLUS ACIDOPHILUS 1 TABLET 1 TAB PO (19:23)
[2021-11-21 20:00] VITALS: BP 118/70; PULSE 60; RESP 20; TEMP 36.8; O2SAT 92
--- NOTE | 2021-11-21 21:11 | PC.NURSE ---
Admit Status : Family was at bedside, vital sign stable, Occasionally cough,Alert and orientated,Appetite good ate 75%. Confused towards the night( ) noted using call light very frequent and attempting to get up.
[2021-11-21 23:00] VITALS: TEMP 36.8; O2SAT 96
--- NOTE | 2021-11-22 05:38 | PC.NURSE ---
Health Status: Resident appeared restless in the middle of the night; and evidently turned his call light on every 30 seconds, throw bed covers on the floor, attempted getting out of bed, and emili on the head board instead of pillows. Vitals signs and blood sugar obtained - they were all normal. Denied pain, hunger, or thirst, but admitted feeling warm. Reposition with extra pillows performed to keep resident comfortable, 1:1 was implemented, and a education professional sheet was placed on him. Intervention was effective, thus resident slept the rest of the night.
[2021-11-22] MEDS: OMEPRAZOLE 40 MG CAPSULE.DR PO (06:46)
[2021-11-22] MEDS: LEVOTHYROXINE 100 MCG TABLET PO (06:46)
[2021-11-22 07:00] VITALS: TEMP 36.8; O2SAT 95
[2021-11-22] MEDS: CARBIDOPA-LEVODOPA 25-100 TABLET 1 TAB PO ×3 (07:02→20:24)
--- NOTE | 2021-11-22 08:00 | PC.NURSE ---
F/U-Up in recliner for breakfast, minimal assist with ADL's, less tremor's are noted, navigating walker better, took medications without problems, VSS, denies any discomfort
[2021-11-22] MEDS: AMLODIPINE 5 MG TABLET PO (08:32)
[2021-11-22] MEDS: METOPROLOL TARTRATE 50 MG TABLET PO ×2 (08:33→17:07)
[2021-11-22] MEDS: LACTOBACILLUS ACIDOPHILUS 1 TABLET 1 TAB PO ×3 (08:33→18:04)
[2021-11-22 10:00] VITALS: BP 124/68; PULSE 68; RESP 18; TEMP 36.9; O2SAT 95
--- NOTE | 2021-11-22 12:00 | PC.NURSE ---
F/U-No complaints of pain, ate well for breakfast, fed self half of meal, staff assisted with rest, tray was set-up and food was cut up, remains to have less tremor's sitting in recliner, is INC of B&B, did not use call light for assistance, staff checked and was changed every 2 hours. VSS.
[2021-11-22 13:29] VITALS: BP 124/60; PULSE 95; RESP 16; TEMP 36.4; O2SAT 95
[2021-11-22 15:00] VITALS: TEMP 35.9; O2SAT 94
--- NOTE | 2021-11-22 18:47 | PC.NURSE ---
Medicare Charting 11/22 1. Admission diagnosis - COVID positive, sepsis, pneumonia, lewy-body parkinsons, dementia 2. Daily VS - BP - 95/30, HR - 63, RR - 24, T - 96.7, O2 - 94 3. SOB, dyspnea, wheezing, coughing - pt coughs when swallowing 4. Lung sounds - ALEXANDER clear, LLL clear, RUL inspiratory wheeze, RLL diminished 5. Skilled therapy - PT/OT 6. Antibiotic use (if applicable) 7.Goals for discharge - Pt return to pre-admission status
[2021-11-22] MEDS: ATORVASTATIN CALCIUM 40 MG TABLET PO (20:24)
[2021-11-22] MEDS: DONEPEZIL 10 MG TABLET PO (20:24)
[2021-11-23 00:24] VITALS: TEMP 36.3; O2SAT 95
--- NOTE | 2021-11-23 00:46 | PC.NURSE ---
Status: Resident is restless and frequently assistant controller light, does not complain of pain. Resident can answer yes or no questions and communicate using few single words. TB test Aplisol intradermal given.
[2021-11-23 07:00] VITALS: TEMP 36.9; O2SAT 96
[2021-11-23] MEDS: LEVOTHYROXINE 100 MCG TABLET PO (08:30)
[2021-11-23] MEDS: OMEPRAZOLE 40 MG CAPSULE.DR PO (08:30)
[2021-11-23] MEDS: CARBIDOPA-LEVODOPA 25-100 TABLET 1 TAB PO ×3 (08:31→20:03)
[2021-11-23] MEDS: AMLODIPINE 5 MG TABLET PO (08:31)
[2021-11-23] MEDS: LACTOBACILLUS ACIDOPHILUS 1 TABLET 1 TAB PO ×3 (10:50→17:21)
[2021-11-23] MEDS: LOPERAMIDE HCL 2 MG CAPSULE PO (10:50)
[2021-11-23] MEDS: METOPROLOL TARTRATE 50 MG TABLET PO ×2 (10:50→16:52)
[2021-11-23] MEDS: ATORVASTATIN CALCIUM 40 MG TABLET PO (20:03)
[2021-11-23] MEDS: DONEPEZIL 10 MG TABLET PO (20:03)
[2021-11-23] MEDS: ACETAMINOPHEN 325 MG TABLET 650 MG PO (20:45)
[2021-11-23 21:41] VITALS: TEMP 36.2; O2SAT 92
[2021-11-23 23:00] VITALS: TEMP 36.6; O2SAT 96
--- NOTE | 2021-11-24 05:34 | PC.NURSE ---
Status---Slept very little if any overnight. Very restless and moving around constantly in bed. Call light on freq. Will not answer when asked what he needs. Has been incont. x 2. Did need a CLC x 1.
[2021-11-24] MEDS: OMEPRAZOLE 40 MG CAPSULE.DR PO (07:08)
[2021-11-24] MEDS: LEVOTHYROXINE 100 MCG TABLET PO (07:08)
[2021-11-24] MEDS: AMLODIPINE 5 MG TABLET PO (08:17)
[2021-11-24] MEDS: CARBIDOPA-LEVODOPA 25-100 TABLET 3 TAB PO ×3 (08:18→19:44)
[2021-11-24] MEDS: LACTOBACILLUS ACIDOPHILUS 1 TABLET PO ×3 (08:19→17:18)
[2021-11-24] MEDS: METOPROLOL TARTRATE 50 MG TABLET PO ×2 (08:19→16:55)
[2021-11-24 10:10] VITALS: TEMP 36.6; O2SAT 94
--- NOTE | 2021-11-24 10:11 | PC.NURSE ---
Medicare: No SOB or Dysemia noted. O2 sat on room air 94%. Resident up in recliner for breakfast. Noted to be shaking a lot. Temp 97.8. Resident uses call light many times
[2021-11-24 10:13] VITALS: BMI 25.9
--- NOTE | 2021-11-24 12:00 | PC.NURSE ---
IDT: Discussed that resident is to receive therapy PT/OT 3 days a week alternating. Resident to use his walker and gait belt with staff for all transfers and mobility in room.
[2021-11-24 17:42] LABS: SARS Antigen* POSITIVE (Negative)
--- NOTE | 2021-11-24 18:35 | PC.NURSE ---
PT: Resident needs Min A with transfers sit<>stand and supine<>sit. Ambulate with 2ww and min A for all mobility in his room. Needs assist to control walker and stand with erect posture. Per Romel BEASLEYT.
[2021-11-24] MEDS: DONEPEZIL 10 MG TABLET PO (19:44)
[2021-11-24] MEDS: ATORVASTATIN CALCIUM 40 MG TABLET PO (19:44)
[2021-11-24 21:03] VITALS: TEMP 36.2; O2SAT 92
[2021-11-24] MEDS: ACETAMINOPHEN 325 MG TABLET 650 MG PO (21:19)
--- NOTE | 2021-11-24 21:21 | PC.NURSE ---
COVID: Woodworking Bench Carpenter tested resident for covid antigen and result came back positive.
[2021-11-24 23:00] VITALS: TEMP 36.1; O2SAT 96
[2021-11-25 07:00] VITALS: TEMP 36.9; O2SAT 95
[2021-11-25] MEDS: OMEPRAZOLE 40 MG CAPSULE.DR PO (08:25)
[2021-11-25] MEDS: LEVOTHYROXINE 100 MCG TABLET PO (08:25)
[2021-11-25] MEDS: AMLODIPINE 5 MG TABLET PO (08:27)
[2021-11-25] MEDS: METOPROLOL TARTRATE 50 MG TABLET PO ×2 (08:28→15:54)
[2021-11-25] MEDS: CARBIDOPA-LEVODOPA 25-100 TABLET 3 TAB PO ×3 (08:28→19:55)
--- NOTE | 2021-11-25 11:04 | PC.NURSE ---
Order: TECHNICAL SALES ENGINEERBalbir here and meds reviewed. Discontinue Loperamide 2mg QID PRN, Calcium Carbonate 500mg TID. New: Loperamide 4mg BID, Oyster shell 500mg-Vit d3 5mcg, change blood sugar checks to daily.
--- NOTE | 2021-11-25 12:00 | PC.NURSE ---
IDT: discussed that resident will discharge from therapy next week due to staff assistance with ambulation and transfers will be needed at all times for safety due to weakness and unstable gait.
[2021-11-25] MEDS: LOPERAMIDE HCL 2 MG CAPSULE 4 MG PO ×2 (12:10→19:58)
[2021-11-25] MEDS: LACTOBACILLUS ACIDOPHILUS 1 TABLET PO ×3 (12:11→17:06)
[2021-11-25 15:00] VITALS: TEMP 36.7; O2SAT 98
--- NOTE | 2021-11-25 15:00 | PC.NURSE ---
NOMNCNOTE: Resident was admitted from [facility] with primary diagnosis acute respiratory failure and pneumonia secondary to COVID-19 . Resident on admission had orders for PT/OT. Resident did receive these skilled inpatient services. It was determined by insurance team that last covered day will be 11/27/21. Last day of therapy will be 11/28/21. Explained to residents . The residents last day of coverage will end on 11/27/21. Starting on 11/28/21 resident's coverage at this facility will be private pay. Residents given information that if she disagrees with this determination he has until noon tomorrow to all [employer] @ to appeal this decision. Denial letter filed, given and signed by client service representative. Residents stated she will send in appeal. Resident will continue to stay in facility at this time as his stay will now be a usp stay due to need for 24/7 ADL care.
[2021-11-25] MEDS: ATORVASTATIN CALCIUM 40 MG TABLET PO (19:55)
[2021-11-25] MEDS: DONEPEZIL 10 MG TABLET PO (19:55)
[2021-11-25 20:18] VITALS: TEMP 36.6
[2021-11-25] MEDS: ACETAMINOPHEN 325 MG TABLET 650 MG PO (20:18)
[2021-11-25 22:21] VITALS: TEMP 36.6
[2021-11-25 23:00] VITALS: TEMP 36.6; O2SAT 94
[2021-11-26] MEDS: ACETAMINOPHEN 325 MG TABLET 650 MG PO (02:22)
--- NOTE | 2021-11-26 05:42 | PC.NURSE ---
Status---has been restless most of the noc. Call light on many times. Turning self in bed freq. At times is seen on the camera on all fours. Was ambulated to the BR x 2. Had been incont. but also voided on the toilet. Did c/o a headache and was given Tylenol 650 mg at 0222. Did sleep for a couple of hours after med given.
[2021-11-26 07:00] VITALS: TEMP 36.7; O2SAT 98
[2021-11-26] MEDS: OMEPRAZOLE 40 MG CAPSULE.DR PO (07:02)
[2021-11-26] MEDS: AMLODIPINE 5 MG TABLET PO (07:02)
[2021-11-26] MEDS: LEVOTHYROXINE 100 MCG TABLET PO (07:02)
[2021-11-26] MEDS: LOPERAMIDE HCL 2 MG CAPSULE 4 MG PO ×2 (07:03→20:16)
[2021-11-26] MEDS: CARBIDOPA-LEVODOPA 25-100 TABLET 3 TAB PO ×3 (07:03→20:16)
[2021-11-26] MEDS: METOPROLOL TARTRATE 50 MG TABLET PO ×2 (07:04→16:16)
[2021-11-26] MEDS: LACTOBACILLUS ACIDOPHILUS 1 TABLET PO ×3 (07:04→17:21)
[2021-11-26 09:50] VITALS: BMI 25.8
[2021-11-26 15:00] VITALS: TEMP 36.8; O2SAT 98
[2021-11-26] MEDS: DONEPEZIL 10 MG TABLET PO (20:16)
[2021-11-26] MEDS: ATORVASTATIN CALCIUM 40 MG TABLET PO (20:16)
[2021-11-26 22:19] VITALS: TEMP 36.9; O2SAT 97
[2021-11-27] MEDS: ACETAMINOPHEN 325 MG TABLET 650 MG PO (00:43)
--- NOTE | 2021-11-27 05:04 | PC.NURSE ---
Addendum entered by Whit Emmanuel RN 11/27/21 05:32: Resident fell asleep approx 0520 Original Note: Pt only slept until midnight, restless remainder of night, tossing and turning independently in bed with frequent checks and redirecting by nurse. Up to br x2 with walker/gb/1assist, tolerates well. did not void in toilet, but had several incontinent briefs during night. c/o headache approx 0030, prn tylenol administered with no relief.
[2021-11-27] MEDS: CARBIDOPA-LEVODOPA 25-100 TABLET 3 TAB PO ×3 (07:47→20:31)
[2021-11-27] MEDS: OMEPRAZOLE 40 MG CAPSULE.DR PO (07:47)
[2021-11-27] MEDS: LEVOTHYROXINE 100 MCG TABLET PO (07:47)
[2021-11-27] MEDS: AMLODIPINE 5 MG TABLET PO (07:47)
[2021-11-27] MEDS: LOPERAMIDE HCL 2 MG CAPSULE 4 MG PO ×2 (07:48→16:54)
[2021-11-27] MEDS: LACTOBACILLUS ACIDOPHILUS 1 TABLET PO ×3 (07:48→17:08)
[2021-11-27] MEDS: METOPROLOL TARTRATE 50 MG TABLET PO ×2 (07:48→16:54)
--- NOTE | 2021-11-27 09:22 | PC.NURSE ---
Order: Change Loperamide 4mg to BID per TECHNICAL BUYERBalbir.
[2021-11-27 10:32] VITALS: TEMP 36.6; O2SAT 94
[2021-11-27 14:00] VITALS: BMI 25.8
[2021-11-27] MEDS: ATORVASTATIN CALCIUM 40 MG TABLET PO (20:31)
[2021-11-27] MEDS: DONEPEZIL 10 MG TABLET PO (20:31)
[2021-11-27 21:37] VITALS: TEMP 36.4; O2SAT 95
[2021-11-27 23:00] VITALS: TEMP 37; O2SAT 97
[2021-11-28] MEDS: OMEPRAZOLE 40 MG CAPSULE.DR PO (07:11)
[2021-11-28] MEDS: LEVOTHYROXINE 100 MCG TABLET PO (07:11)
[2021-11-28] MEDS: AMLODIPINE 5 MG TABLET PO (07:52)
[2021-11-28] MEDS: LOPERAMIDE HCL 2 MG CAPSULE 4 MG PO ×2 (07:52→16:22)
[2021-11-28] MEDS: CARBIDOPA-LEVODOPA 25-100 TABLET 3 TAB PO ×3 (07:52→20:22)
[2021-11-28] MEDS: LACTOBACILLUS ACIDOPHILUS 1 TABLET PO ×3 (07:53→17:23)
[2021-11-28] MEDS: METOPROLOL TARTRATE 50 MG TABLET PO ×2 (07:53→16:22)
[2021-11-28 10:02] VITALS: TEMP 36.2; O2SAT 96
--- NOTE | 2021-11-28 12:27 | REH.OT ---
Hot Liquid Evaluation Due to Cognitive impairment and Physical impairment with tremors, Patient needs adaptive cup and should only drink hot liquids at table.
[2021-11-28 20:20] VITALS: TEMP 37; O2SAT 91
[2021-11-28] MEDS: ATORVASTATIN CALCIUM 40 MG TABLET PO (20:22)
[2021-11-28] MEDS: DONEPEZIL 10 MG TABLET PO (20:23)
--- NOTE | 2021-11-28 21:00 | PC.NURSE ---
Skin note: Upon putting Juan to bed for the night noted after removing his slippers that his feet had a red blotchy appearance on both feet. They may have been warm. He did not complain of them itching. Will monitor further.
--- NOTE | 2021-11-28 22:11 | PC.NURSE ---
Residents appeal was denied. is aware and will not do a second appeal.
[2021-11-29] MEDS: ACETAMINOPHEN 325 MG TABLET 650 MG PO ×2 (01:12→19:53)
[2021-11-29 03:57] VITALS: TEMP 36.5; O2SAT 95
--- NOTE | 2021-11-29 05:34 | PC.NURSE ---
Status---has been very restless all noc. Call light on multiple times. Was ambulated to the BR x 5. Was wet each time but did not void on the toilet. Was given Tylenol 650 mg at 0112 to see if it would help and he slept for about 20 minutes and was again restless and calling freq.
[2021-11-29] MEDS: OMEPRAZOLE 40 MG CAPSULE.DR PO (07:28)
[2021-11-29] MEDS: LEVOTHYROXINE 100 MCG TABLET PO (07:28)
[2021-11-29] MEDS: LACTOBACILLUS ACIDOPHILUS 1 TABLET PO ×3 (07:44→17:16)
[2021-11-29] MEDS: LOPERAMIDE HCL 2 MG CAPSULE 4 MG PO ×2 (07:44→16:18)
[2021-11-29] MEDS: METOPROLOL TARTRATE 50 MG TABLET PO ×2 (07:44→16:18)
[2021-11-29] MEDS: CARBIDOPA-LEVODOPA 25-100 TABLET 3 TAB PO ×3 (07:44→19:52)
[2021-11-29] MEDS: AMLODIPINE 5 MG TABLET PO (07:44)
--- NOTE | 2021-11-29 08:38 | PC.NURSE ---
Addendum entered by Brenna Cantu LPN 11/29/21 09:39: Urine red in color collected via straight cath and sent to lab. Original Note: Order: Was noted that resident has pink tinged urine along with urgency. Temp 97.6 O2 94%. Call placed to [facility] and verbal order given by Florencia for PRESCHOOL TEACHER AIDE ASCENCION Mcgregor for UA/UC via straight cath.
[2021-11-29 09:56] LABS: Appearance Urine Turbid (Clear); Bilirubin Urine Negative (Negative); Blood Urine 3+ (Negative); Color Urine Red (Yellow); Glucose Urine Negative (Negative); Ketones Urine Negative (Negative); Leukocyte Esterase Urine Trace (Negative); Nitrite Urine Negative (Negative); Protein Urine 2+ (Negative); RBC Urine >100 (0-2); Specific Gravity Urine 1.015 (1.000-1.030); Urobilinogen Urine 0.2 (0.2-1.0)
[2021-11-29 09:57] LABS: Bacteria Urine Few; Squamous Epithelial Cell Urine Few (None-Few)
--- NOTE | 2021-11-29 10:29 | PC.NURSE ---
UA: UA results called and faxed to [facility].
[2021-11-29 13:05] VITALS: TEMP 36.4; O2SAT 94
--- NOTE | 2021-11-29 13:27 | PC.NURSE ---
UA/UC: Genevive called back. ASCENCION Mcgregor stated wanting to wait for results of UC and to push fluids
[2021-11-29] MEDS: ATORVASTATIN CALCIUM 40 MG TABLET PO (19:52)
[2021-11-29] MEDS: DONEPEZIL 10 MG TABLET PO (19:52)
--- NOTE | 2021-11-29 21:53 | PC.NURSE ---
Resident restless during this shift. Placed call light on numerous times. Performance Instructor spoke with and she said she had been using Tylenol PM at home for restlessness. Placed note in SOIL SPECIALIST book. Res. c/o lower back and tailbone pain from sitting in recliner this afternoon. Was given Tylenol PRN @ 1952. Resident in bed upon reassessment and was somewhat effective with slightly less restlessness.
--- NOTE | 2021-11-30 05:15 | PC.NURSE ---
Status---did not call [employer] until 129. Has been up to the x 2. Was incont. before going to the and did not void on the toilet. Urine brownish in color according to 1:1 ABLE BODIED WATCHMAN. Did drink a glass of cranberry juice and a glass of water. Temp 97.5. O2 sat 95% on room air.
[2021-11-30] MEDS: OMEPRAZOLE 40 MG CAPSULE.DR PO (07:02)
[2021-11-30] MEDS: LEVOTHYROXINE 100 MCG TABLET PO (07:02)
[2021-11-30] MEDS: CARBIDOPA-LEVODOPA 25-100 TABLET 3 TAB PO ×3 (08:04→20:06)
[2021-11-30] MEDS: AMLODIPINE 5 MG TABLET PO (08:04)
[2021-11-30] MEDS: LOPERAMIDE HCL 2 MG CAPSULE 4 MG PO ×2 (08:05→16:15)
[2021-11-30] MEDS: METOPROLOL TARTRATE 50 MG TABLET PO ×2 (08:05→16:15)
[2021-11-30] MEDS: LACTOBACILLUS ACIDOPHILUS 1 TABLET PO ×3 (08:05→17:18)
[2021-11-30 09:22] VITALS: TEMP 36.8; O2SAT 94
[2021-11-30] MEDS: ACETAMINOPHEN 325 MG TABLET 650 MG PO (14:20)
[2021-11-30] MEDS: ATORVASTATIN CALCIUM 40 MG TABLET PO (20:06)
[2021-11-30] MEDS: DONEPEZIL 10 MG TABLET PO (20:06)
--- NOTE | 2021-11-30 21:42 | PC.NURSE ---
Resident c/o headache. Unable to rate pain. Given Tylenol PRN @ 14:20. Was slightly effective.
--- NOTE | 2021-11-30 21:43 | PC.NURSE ---
1:1 ARELY reported resident had minimal to none amount voided, but normal intake AM and into PM shift. Product Lead bladder scanned, residual 22ccs found. Pushed oral fluids. ARELY reported regular output of continent urine after dinner.
[2021-12-01] MEDS: OMEPRAZOLE 40 MG CAPSULE.DR PO (07:42)
[2021-12-01] MEDS: LEVOTHYROXINE 100 MCG TABLET PO (07:42)
[2021-12-01] MEDS: METOPROLOL TARTRATE 50 MG TABLET PO ×2 (07:47→16:22)
[2021-12-01] MEDS: AMLODIPINE 5 MG TABLET PO (07:47)
[2021-12-01] MEDS: LOPERAMIDE HCL 2 MG CAPSULE 4 MG PO ×2 (07:47→16:22)
[2021-12-01] MEDS: LACTOBACILLUS ACIDOPHILUS 1 TABLET PO ×3 (07:47→17:24)
[2021-12-01] MEDS: CARBIDOPA-LEVODOPA 25-100 TABLET 3 TAB PO ×3 (07:47→20:26)
[2021-12-01 08:00] VITALS: TEMP 35.8; O2SAT 90
[2021-12-01] MEDS: ATORVASTATIN CALCIUM 40 MG TABLET PO (20:26)
[2021-12-01] MEDS: DONEPEZIL 10 MG TABLET PO (20:26)
[2021-12-01 21:49] VITALS: BP 116/68; PULSE 64; RESP 16; TEMP 36.4; O2SAT 95
[2021-12-01 23:00] VITALS: TEMP 37; O2SAT 94
[2021-12-02 07:13] VITALS: TEMP 36.8; O2SAT 97
[2021-12-02] MEDS: AMLODIPINE 5 MG TABLET PO (07:24)
[2021-12-02] MEDS: OMEPRAZOLE 40 MG CAPSULE.DR PO (07:24)
[2021-12-02] MEDS: LEVOTHYROXINE 100 MCG TABLET PO (07:24)
[2021-12-02] MEDS: LOPERAMIDE HCL 2 MG CAPSULE 4 MG PO ×2 (07:25→16:04)
[2021-12-02] MEDS: METOPROLOL TARTRATE 50 MG TABLET PO ×2 (07:25→16:04)
[2021-12-02] MEDS: CARBIDOPA-LEVODOPA 25-100 TABLET 3 TAB PO ×3 (07:25→19:54)
[2021-12-02] MEDS: LACTOBACILLUS ACIDOPHILUS 1 TABLET PO ×3 (07:26→17:40)
--- NOTE | 2021-12-02 10:34 | PC.NURSE ---
Status/Order: Balbir BAILEY here. Updated of red, rashy areas on both feet. Continue to monitor, apply lotion and will be seen on next visit. Order: Melatonin 3mg @ .
--- NOTE | 2021-12-02 11:06 | PC.NURSE ---
Blood sugars/Order: Reviewed by DIGITAL DEVELOPERBalbir. Change blood sugar checks to weekly.
[2021-12-02] MEDS: MELATONIN 3 MG TABLET PO (19:54)
[2021-12-02] MEDS: ATORVASTATIN CALCIUM 40 MG TABLET PO (19:54)
[2021-12-02] MEDS: DONEPEZIL 10 MG TABLET PO (19:54)
[2021-12-03] MEDS: OMEPRAZOLE 40 MG CAPSULE.DR PO (07:54)
[2021-12-03] MEDS: CARBIDOPA-LEVODOPA 25-100 TABLET 3 TAB PO ×3 (07:54→19:06)
[2021-12-03] MEDS: AMLODIPINE 5 MG TABLET PO (07:54)
[2021-12-03] MEDS: LOPERAMIDE HCL 2 MG CAPSULE 4 MG PO ×2 (07:54→15:11)
[2021-12-03] MEDS: METOPROLOL TARTRATE 50 MG TABLET PO ×2 (07:54→15:11)
[2021-12-03] MEDS: LEVOTHYROXINE 100 MCG TABLET PO (07:54)
[2021-12-03] MEDS: LACTOBACILLUS ACIDOPHILUS 1 TABLET PO ×3 (07:55→17:21)
[2021-12-03 09:12] VITALS: TEMP 36; O2SAT 95
[2021-12-03 10:25] VITALS: BMI 25.7
--- NOTE | 2021-12-03 11:50 | PC.SPIRITC ---
Finance Attorney provided visit for connection and introduction to the department. Resident and his , Zhanna, are Buddhism and practice the sacrament of holy communion. Finance Attorney will provide follow up to support deborah practices.
[2021-12-03] MEDS: ACETAMINOPHEN 325 MG TABLET 650 MG PO (15:15)
[2021-12-03] MEDS: MELATONIN 3 MG TABLET PO (19:06)
[2021-12-03] MEDS: ATORVASTATIN CALCIUM 40 MG TABLET PO (19:06)
[2021-12-03] MEDS: DONEPEZIL 10 MG TABLET PO (19:06)
[2021-12-04] MEDS: AMLODIPINE 5 MG TABLET PO (07:31)
[2021-12-04] MEDS: CARBIDOPA-LEVODOPA 25-100 TABLET 3 TAB PO ×3 (07:31→19:23)
[2021-12-04] MEDS: OMEPRAZOLE 40 MG CAPSULE.DR PO (07:31)
[2021-12-04] MEDS: LEVOTHYROXINE 100 MCG TABLET PO (07:31)
[2021-12-04] MEDS: LOPERAMIDE HCL 2 MG CAPSULE 4 MG PO ×2 (07:31→15:00)
[2021-12-04] MEDS: LACTOBACILLUS ACIDOPHILUS 1 TABLET PO ×3 (07:32→17:55)
[2021-12-04] MEDS: METOPROLOL TARTRATE 50 MG TABLET PO ×2 (07:32→15:00)
[2021-12-04 09:44] VITALS: TEMP 36.4; O2SAT 92
--- NOTE | 2021-12-04 12:55 | PC.NURSE ---
Rash: PRECISION INSTRUMENT AND TOOL MAKER, Balbir here. Rash on feet seen. Order:Triamcinolone Acetonide BID X 14 days.
[2021-12-04] MEDS: DONEPEZIL 10 MG TABLET PO (19:23)
[2021-12-04] MEDS: ATORVASTATIN CALCIUM 40 MG TABLET PO (19:23)
[2021-12-04] MEDS: MELATONIN 3 MG TABLET PO (19:23)
[2021-12-05] MEDS: METOPROLOL TARTRATE 50 MG TABLET PO ×2 (07:11→17:13)
[2021-12-05] MEDS: OMEPRAZOLE 40 MG CAPSULE.DR PO (07:11)
[2021-12-05] MEDS: LEVOTHYROXINE 100 MCG TABLET PO (07:11)
[2021-12-05] MEDS: LACTOBACILLUS ACIDOPHILUS 1 TABLET PO ×3 (07:11→17:14)
[2021-12-05] MEDS: AMLODIPINE 5 MG TABLET PO (07:11)
[2021-12-05] MEDS: LOPERAMIDE HCL 2 MG CAPSULE 4 MG PO ×2 (07:11→17:13)
[2021-12-05] MEDS: CARBIDOPA-LEVODOPA 25-100 TABLET 3 TAB PO ×3 (07:12→20:02)
[2021-12-05 08:00] VITALS: TEMP 36.4; O2SAT 93
--- NOTE | 2021-12-05 12:28 | PC.NURSE ---
MDS clarification: Reviewed MDS ADL charting for IMELDA 11/21-11/28, noted to have inconsistent charting. Interviewed NARs and determined that errors were made. Reviewed with staff. Resident uses extensive assist of 1 with bed, transfers, ambulation, locomotion, dressing, toileting and hygiene. Resident uses gait belt and walker with ambulation. Main transportation is w/c for locomotion. Staff assist with extensive assist. Resident needs extensive assist with eating. Coded as such in MDS.
--- NOTE | 2021-12-05 16:37 | REH.OT ---
Cognitive Assessment Report [facility]: Occupational Therapy Department Patient: ??Juan Arellano Date: ?12/05/2021 Tests Performed and Interpretations 1. [place] Cognitive Assessment (MoCA)? Score: 8 26-30 = Normal cognition? A score of less than 26 indicates need for further cognitive assessments 4. Cognitive Performance Test (CPT)? Score: 3.625 Normal function = 5.6 CPT Interpretation: CPT Level 3.5-3.8 (?Cannot do things alone?) Moderate functional decline; unable to complete complex daily tasks, significant difficulty with self-care tasks.? Attention span limited. Routine and structure are important.? 24 Hour Supervision Required ? Memory Care, Senior Care Facility, or home caregiver 19/10 Considerations: 1)??? Managing medications Caregiver assumes all responsibility for set-up and compliance Observe person as they swallow medications 2)??? Managing finances May require total supervision 3)??? Transportation and shopping No driving; transportation must be provided 4)??? Meal management Assistance to ensure a balanced diet and that fluids are taken in regularly Assistance to follow any dietary restrictions Prepare and place food in front of person and assist by cutting food and opening containers as necessary 5)??? Safety and planning/initating tasks Shower adaptive equipment: shower chair/bath bench, grab bars, and hand held shower head Assist in and out of shower to prevent falls Barricade open stairwells and install rider Intercom systems, security doors and locks may prevent wandering and/or getting lost Remove unsteady furniture, small rugs and objects from floor Bathing and dressing from a seated position recommended to prevent falls Keep medications and toxic chemicals locked and out of reach Lock away all power tools and guns Supervise closely when near the stove 6)??? Managing calendar/schedule Establish and help to maintain a daily routine Use of a large calendar in plain sight, with ongoing assistance for consistent use 7)??? Dressing, hygiene, and grooming Prompt when time to wash or dress Prompt to wash hands and adjust clothing after toilet use Place toiletries in plain sight, as they may not look for objects Place clothing in plain sight and in the order to be put on Person may not ask for help or recognize the need for it 8)??? Laundry May require total or close supervision 9)??? Toileting Reminders to flush, complete hygiene, and wash hands 10)? Feeding Food and utensil set-up Provide adaptive utensils if needed 11)? Walking and transfers Provide verbal cues for correct positioning 12)? Activity engagement Provide daily social opportunities and facilitate engagement Give limited choices Allow extra time for all activities due to slow pace Encourage daily activities providing range of motion/movement Performance Observations noted with ADLS: Juan requires assist x1 staff for all ADLS and functional mobility to provide repetitive verbal cues for safe hand placement, upright posture, walker safety and physical assist for positioning of walker, safety to reduce fall risk with impaired balance, motor planning and coordination.? Juan requires additional time for processing information and to complete ADL tasks.? It is recommended he sit for completion of ADLs to reduce his fall risk.? Also recommending he continue to have staff provide meals, medication administration, cleaning and family assist with IADLs. The patient is appropriate for SNF placement. _DOMO Olivera/Babar _? __12/05/21__ Occupational Therapist? Date
[2021-12-05] MEDS: DONEPEZIL 10 MG TABLET PO (20:02)
[2021-12-05] MEDS: ATORVASTATIN CALCIUM 40 MG TABLET PO (20:02)
[2021-12-05] MEDS: MELATONIN 3 MG TABLET PO (20:02)
--- NOTE | 2021-12-05 22:04 | PC.NURSE ---
Status: Resident has pink colored out put in pad. Monitoring.
[2021-12-06] MEDS: OMEPRAZOLE 40 MG CAPSULE.DR PO (07:22)
[2021-12-06] MEDS: METOPROLOL TARTRATE 50 MG TABLET PO ×2 (07:23→16:42)
[2021-12-06] MEDS: AMLODIPINE 5 MG TABLET PO (07:23)
[2021-12-06] MEDS: LEVOTHYROXINE 100 MCG TABLET PO (07:23)
[2021-12-06] MEDS: LOPERAMIDE HCL 2 MG CAPSULE 4 MG PO ×2 (07:23→16:42)
[2021-12-06] MEDS: CARBIDOPA-LEVODOPA 25-100 TABLET 3 TAB PO ×3 (07:23→20:21)
[2021-12-06] MEDS: TRIAMCINOLONE ACETONIDE CREAM 0.1 % 1 APPLIC TOPICAL (07:25)
[2021-12-06] MEDS: LACTOBACILLUS ACIDOPHILUS 1 TABLET PO ×3 (07:25→16:42)
[2021-12-06 13:02] VITALS: TEMP 37.1; O2SAT 90
[2021-12-06] MEDS: DONEPEZIL 10 MG TABLET PO (20:21)
[2021-12-06] MEDS: MELATONIN 3 MG TABLET PO (20:21)
[2021-12-06] MEDS: ATORVASTATIN CALCIUM 40 MG TABLET PO (20:21)
[2021-12-07] MEDS: LEVOTHYROXINE 100 MCG TABLET PO (07:55)
[2021-12-07] MEDS: OMEPRAZOLE 40 MG CAPSULE.DR PO (07:55)
[2021-12-07] MEDS: AMLODIPINE 5 MG TABLET PO (07:55)
[2021-12-07] MEDS: LACTOBACILLUS ACIDOPHILUS 1 TABLET PO ×3 (07:56→16:49)
[2021-12-07] MEDS: LOPERAMIDE HCL 2 MG CAPSULE 4 MG PO ×2 (07:56→16:49)
[2021-12-07] MEDS: CARBIDOPA-LEVODOPA 25-100 TABLET 3 TAB PO ×3 (07:56→19:53)
[2021-12-07] MEDS: METOPROLOL TARTRATE 50 MG TABLET PO ×2 (07:56→16:49)
[2021-12-07 09:53] VITALS: TEMP 36; O2SAT 93
[2021-12-07] MEDS: ATORVASTATIN CALCIUM 40 MG TABLET PO (19:53)
[2021-12-07] MEDS: MELATONIN 3 MG TABLET PO (19:53)
[2021-12-07] MEDS: DONEPEZIL 10 MG TABLET PO (19:53)
--- NOTE | 2021-12-07 21:37 | PC.NURSE ---
Status: Resident voided x7 this shift and, has blood in his urine. Denies pain when urinating, temp was 96.7.
--- NOTE | 2021-12-08 03:15 | PC.NURSE ---
Week #2---baseline care plan reviewed and updated. Nothing added to temporary care plan. Is independent with bed mobility. Up to the BR with TB, walker, and assist of 1. Top siderails up and bed exit alarm on. Falls---no falls since admission. No fall assessment done yet. Does have bed and chair alarms on since being removed from isolation.
--- NOTE | 2021-12-08 07:26 | PC.NURSE ---
Week #1: Baseline care plan reviewed. No changes made. Temporary care plan updated. Resident needs one assist with transfers and ambulation to/from meals in the dining room with a FWW and transfer belt. Is able to use and propel wheelchair if tired with verbal cues. Independent with bed mobility. 2 side rails up to aid for positioning. Has bed & chair alarm for safety. VS reviewed. Fall: No falls since admission. No fall risk assessment initiated yet.
[2021-12-08] MEDS: LEVOTHYROXINE 100 MCG TABLET PO (07:32)
[2021-12-08] MEDS: OMEPRAZOLE 40 MG CAPSULE.DR PO (07:32)
[2021-12-08] MEDS: AMLODIPINE 5 MG TABLET PO (08:33)
[2021-12-08] MEDS: CARBIDOPA-LEVODOPA 25-100 TABLET 3 TAB PO ×3 (08:34→19:20)
[2021-12-08] MEDS: LOPERAMIDE HCL 2 MG CAPSULE 4 MG PO ×2 (08:34→15:29)
[2021-12-08] MEDS: METOPROLOL TARTRATE 50 MG TABLET PO ×2 (08:34→15:29)
[2021-12-08] MEDS: LACTOBACILLUS ACIDOPHILUS 1 TABLET PO ×3 (08:35→17:35)
[2021-12-08 10:01] VITALS: BP 126/72; PULSE 70; RESP 18; TEMP 36.2; O2SAT 94
[2021-12-08] MEDS: DONEPEZIL 10 MG TABLET PO (19:20)
[2021-12-08] MEDS: ATORVASTATIN CALCIUM 40 MG TABLET PO (19:20)
[2021-12-08] MEDS: MELATONIN 3 MG TABLET PO (19:20)
[2021-12-08] MEDS: TRIAMCINOLONE ACETONIDE CREAM 0.1 % 1 APPLIC TOPICAL (20:44)
[2021-12-09] MEDS: AMLODIPINE 5 MG TABLET PO (07:47)
[2021-12-09] MEDS: LEVOTHYROXINE 100 MCG TABLET PO (07:47)
[2021-12-09] MEDS: CARBIDOPA-LEVODOPA 25-100 TABLET 3 TAB PO ×3 (07:47→19:02)
[2021-12-09] MEDS: OMEPRAZOLE 40 MG CAPSULE.DR PO (07:47)
[2021-12-09] MEDS: LOPERAMIDE HCL 2 MG CAPSULE 4 MG PO ×2 (07:48→15:21)
[2021-12-09] MEDS: METOPROLOL TARTRATE 50 MG TABLET PO ×2 (07:48→15:21)
[2021-12-09] MEDS: TRIAMCINOLONE ACETONIDE CREAM 0.1 % 1 APPLIC TOPICAL ×2 (07:49→15:21)
[2021-12-09] MEDS: LACTOBACILLUS ACIDOPHILUS 1 TABLET PO ×3 (07:49→17:04)
[2021-12-09 09:38] VITALS: TEMP 36; O2SAT 94
--- NOTE | 2021-12-09 12:00 | PC.NURSE ---
Lab order: Soni Mcgregro FRONT LINE SUPERVISOR stated she was going to put in a CBC lab order for follow up on blood tinge urine noted and UA/UC negative. FRONT LINE SUPERVISOR put order in [facility] system. updated.
[2021-12-09] MEDS: MELATONIN 3 MG TABLET PO (19:02)
[2021-12-09] MEDS: ATORVASTATIN CALCIUM 40 MG TABLET PO (19:02)
[2021-12-09] MEDS: DONEPEZIL 10 MG TABLET PO (19:02)
[2021-12-10] MEDS: LOPERAMIDE HCL 2 MG CAPSULE 4 MG PO ×2 (07:43→15:33)
[2021-12-10] MEDS: LEVOTHYROXINE 100 MCG TABLET PO (07:43)
[2021-12-10] MEDS: OMEPRAZOLE 40 MG CAPSULE.DR PO (07:43)
[2021-12-10] MEDS: CARBIDOPA-LEVODOPA 25-100 TABLET 3 TAB PO ×3 (07:43→19:30)
[2021-12-10] MEDS: METOPROLOL TARTRATE 50 MG TABLET PO ×2 (07:43→15:33)
[2021-12-10] MEDS: AMLODIPINE 5 MG TABLET PO (07:43)
[2021-12-10] MEDS: LACTOBACILLUS ACIDOPHILUS 1 TABLET PO ×3 (07:44→17:37)
[2021-12-10] MEDS: TRIAMCINOLONE ACETONIDE CREAM 0.1 % 1 APPLIC TOPICAL ×2 (07:45→15:33)
[2021-12-10 10:09] VITALS: TEMP 36.1; O2SAT 93; BMI 25.4
--- NOTE | 2021-12-10 15:00 | PC.NURSE ---
CARE CONFERENCE: Care conference meeting held with all members of care team present as well as . Nursing reviewed that resident continues to need 1 assist with adls, transfers, and mobility. Use of walker and gait belt for transfers. Resident to walk to meals. At times if feeling weak has a w/c available to use. Spoke about PRN Tylenol being used for headaches within the look back period. Care plan reviewed and updated. POLST reviewed. DNR/DNI. Uses no restraints. Does use 2 side rails up to assist with positioning.? Resident is given medications by staff.? Vulnerable due to mobility limitations and ability to be understood/understand. Resident needs assistance with meals. would like him to go to the dining room for meals and activities as much as possible. Likes a bedtime snack. Such as fresh fruit. usually brings in fruit for resident. We discussed that resident has had blood in urine. stated that resident does have an enlarged prostate. PT/OT has spoken with previous to this care conference and explained that goals have been met and what their recommendations are. 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 His mood is stable. No further questions/concerns.
--- NOTE | 2021-12-10 15:41 | PC.SOCIAL ---
Residents care conference was held today. Resident's spouse was present with all members of the team. Resident has adjusted well to placement in the LT[facility] and spouse is pleased. 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 Resident had fallen on spouse 2x at home and spouse could not get resident up the last time he fell. Resident's mood remains stable no s/s of depression noted. Spouse is very supportive and visits regularly.
[2021-12-10] MEDS: ACETAMINOPHEN 325 MG TABLET 650 MG PO (16:27)
[2021-12-10] MEDS: MELATONIN 3 MG TABLET PO (19:30)
[2021-12-10] MEDS: ATORVASTATIN CALCIUM 40 MG TABLET PO (19:30)
[2021-12-10] MEDS: DONEPEZIL 10 MG TABLET PO (19:30)
[2021-12-11] MEDS: ACETAMINOPHEN 325 MG TABLET 650 MG PO (00:26)
[2021-12-11 02:46] VITALS: TEMP 36.3
[2021-12-11] MEDS: LEVOTHYROXINE 100 MCG TABLET PO (07:58)
[2021-12-11] MEDS: OMEPRAZOLE 40 MG CAPSULE.DR PO (07:58)
[2021-12-11] MEDS: AMLODIPINE 5 MG TABLET PO (07:58)
[2021-12-11] MEDS: CARBIDOPA-LEVODOPA 25-100 TABLET 3 TAB PO ×3 (07:59→19:15)
[2021-12-11] MEDS: METOPROLOL TARTRATE 50 MG TABLET PO ×2 (08:00→16:12)
[2021-12-11] MEDS: LOPERAMIDE HCL 2 MG CAPSULE 4 MG PO ×2 (08:00→16:12)
[2021-12-11] MEDS: LACTOBACILLUS ACIDOPHILUS 1 TABLET PO ×3 (08:01→17:39)
[2021-12-11] MEDS: TRIAMCINOLONE ACETONIDE CREAM 0.1 % 1 APPLIC TOPICAL ×2 (08:01→16:12)
[2021-12-11 08:57] LABS: Basophils Absolute Auto 0.02 K/uL (0.00-0.30); Basophils Percent Auto 0.2 % (0.0-3.0); Eosinophils Absolute Auto 0.51 K/uL (0.00-0.50); Eosinophils Percent Auto 6.3 % (0.0-7.0); Hematocrit 44.2 % (37.0-53.0); Hemoglobin* 14.7 gm/dL (13.5-17.5); Immature Granulocytes Abs Auto 0.03 K/uL (0.00-0.30); Lymphocytes Percent Auto 13.2 % (20-44); Mean Corpuscular HGB Conc 33 gm/dL (32-36); Mean Corpuscular Hemoglobin 30 pg (26-34); Mean Corpuscular Volume 90 fL (80-100); Monocytes Percent Auto 7.5 % (0.0-11.0); Neutrophils Percent Auto 72.4 % (42.0-72.0); Platelet Count* 186 K/uL (140-440); Red Blood Count 4.89 m/uL (4.30-5.90); White Blood Count* 8.12 K/uL (4.50-11.00)
[2021-12-11 08:59] LABS: Slide Review Reflex No
[2021-12-11 10:44] VITALS: TEMP 36.9; O2SAT 92
--- NOTE | 2021-12-11 11:29 | PC.SPIRITC ---
Teacher Theater Arts provided visit for connection and check-in with Juan' spouse. She expressed that the transition from home to LTCC has gone better than anticipated along with feeling happy with the care Juan is getting.
--- NOTE | 2021-12-11 13:25 | PC.NURSE ---
CBC: Result reviewed by Balbir BAILEY. No new order.
[2021-12-11] MEDS: ATORVASTATIN CALCIUM 40 MG TABLET PO (19:15)
[2021-12-11] MEDS: DONEPEZIL 10 MG TABLET PO (19:15)
[2021-12-11] MEDS: MELATONIN 3 MG TABLET PO (19:24)
[2021-12-12] MEDS: OMEPRAZOLE 40 MG CAPSULE.DR PO (07:30)
[2021-12-12] MEDS: LEVOTHYROXINE 100 MCG TABLET PO (07:30)
[2021-12-12] MEDS: AMLODIPINE 5 MG TABLET PO (08:21)
[2021-12-12] MEDS: LOPERAMIDE HCL 2 MG CAPSULE 4 MG PO (08:21)
[2021-12-12] MEDS: CARBIDOPA-LEVODOPA 25-100 TABLET 3 TAB PO ×2 (08:21→11:19)
[2021-12-12] MEDS: LACTOBACILLUS ACIDOPHILUS 1 TABLET PO ×3 (08:22→17:36)
[2021-12-12] MEDS: METOPROLOL TARTRATE 50 MG TABLET PO ×2 (08:22→16:19)
[2021-12-12] MEDS: TRIAMCINOLONE ACETONIDE CREAM 0.1 % 1 APPLIC TOPICAL ×2 (08:26→21:41)
[2021-12-12 10:05] VITALS: TEMP 36.6; O2SAT 96
--- NOTE | 2021-12-12 13:43 | PC.NURSE ---
Recert Visit: Resident seen by Dr. Goss. Orders reviewed and renewed for 45 days with changes. Order: D/C Lipitor, Amlodipine, 12/15 D/C Levemir, Lantus 16U SQ daily, Change Loperamide to 4mg BID PRN, Decrease Sinemet 25/100 to 2 tabs TID, Monitor for worsening tremor, rigidity & update next week.
[2021-12-12] MEDS: DONEPEZIL 10 MG TABLET PO (20:17)
[2021-12-12] MEDS: CARBIDOPA-LEVODOPA 25-100 TABLET 2 TAB PO (20:17)
[2021-12-12] MEDS: ACETAMINOPHEN 325 MG TABLET 650 MG PO (20:18)
[2021-12-12] MEDS: MELATONIN 3 MG TABLET PO (20:18)
[2021-12-13] MEDS: LEVOTHYROXINE 100 MCG TABLET PO (06:58)
[2021-12-13] MEDS: OMEPRAZOLE 40 MG CAPSULE.DR PO (06:58)
[2021-12-13] MEDS: CARBIDOPA-LEVODOPA 25-100 TABLET 2 TAB PO ×3 (08:05→19:31)
[2021-12-13] MEDS: METOPROLOL TARTRATE 50 MG TABLET PO ×2 (08:05→16:12)
[2021-12-13] MEDS: LACTOBACILLUS ACIDOPHILUS 1 TABLET PO ×3 (08:06→17:16)
[2021-12-13] MEDS: TRIAMCINOLONE ACETONIDE CREAM 0.1 % 1 APPLIC TOPICAL (08:06)
[2021-12-13 10:17] VITALS: TEMP 36.4; O2SAT 94
[2021-12-13] MEDS: DONEPEZIL 10 MG TABLET PO (19:31)
[2021-12-13] MEDS: MELATONIN 3 MG TABLET PO (19:31)
[2021-12-14] MEDS: OMEPRAZOLE 40 MG CAPSULE.DR PO (06:53)
[2021-12-14] MEDS: LEVOTHYROXINE 100 MCG TABLET PO (06:53)
[2021-12-14] MEDS: METOPROLOL TARTRATE 50 MG TABLET PO ×2 (08:10→15:40)
[2021-12-14] MEDS: CARBIDOPA-LEVODOPA 25-100 TABLET 2 TAB PO ×3 (08:10→19:46)
[2021-12-14] MEDS: LACTOBACILLUS ACIDOPHILUS 1 TABLET PO ×3 (08:16→17:24)
[2021-12-14 09:41] VITALS: TEMP 36; O2SAT 94
[2021-12-14] MEDS: DONEPEZIL 10 MG TABLET PO (19:46)
[2021-12-14] MEDS: MELATONIN 3 MG TABLET PO (19:47)
--- NOTE | 2021-12-15 01:43 | PC.NURSE ---
Week #3: Skin summary: no issues at this time. Temporary care plan reviewed, no change. Care plan reviewed, no change. Bathroom: Resident becomes restless when needing to go to the bathroom. Walks with one assist with a walker and gait belt to bathroom. Is frequently incontinent. Uses Pull ups.
--- NOTE | 2021-12-15 05:51 | PC.NURSE ---
Behavior: ARELY reported to customs entry writer that resident was shouting at staff and hitting fist on wall.
[2021-12-15] MEDS: LEVOTHYROXINE 100 MCG TABLET PO (07:20)
[2021-12-15] MEDS: OMEPRAZOLE 40 MG CAPSULE.DR PO (07:20)
[2021-12-15] MEDS: METOPROLOL TARTRATE 50 MG TABLET PO ×2 (08:08→16:02)
[2021-12-15] MEDS: CARBIDOPA-LEVODOPA 25-100 TABLET 2 TAB PO ×3 (08:08→19:18)
[2021-12-15] MEDS: LACTOBACILLUS ACIDOPHILUS 1 TABLET PO ×3 (08:08→16:33)
[2021-12-15 09:44] VITALS: TEMP 36.2; O2SAT 94
[2021-12-15 13:53] VITALS: BMI 25.4
[2021-12-15 17:13] VITALS: BP 137/79
[2021-12-15 17:14] VITALS: BP 137/79; PULSE 54; RESP 18; TEMP 36.4; O2SAT 96
[2021-12-15] MEDS: DONEPEZIL 10 MG TABLET PO (19:18)
[2021-12-15] MEDS: MELATONIN 3 MG TABLET PO (19:18)
--- NOTE | 2021-12-15 21:34 | PC.NURSE ---
Week #3: Temporary care plan, Care plan problem 30-39, and vitals signs reviewed , no change made at this time. Resident is assist of one with transfers, toileting, and uses pull up incontinent product. Skin: No skin integrity issues noted or reported at this time.
[2021-12-16] MEDS: ACETAMINOPHEN 325 MG TABLET 650 MG PO (00:35)
[2021-12-16 08:00] VITALS: TEMP 36.3; O2SAT 96
[2021-12-16] MEDS: CARBIDOPA-LEVODOPA 25-100 TABLET 2 TAB PO ×3 (08:38→19:39)
[2021-12-16] MEDS: OMEPRAZOLE 40 MG CAPSULE.DR PO (08:38)
[2021-12-16] MEDS: LEVOTHYROXINE 100 MCG TABLET PO (08:38)
[2021-12-16] MEDS: METOPROLOL TARTRATE 50 MG TABLET PO ×2 (08:39→15:49)
[2021-12-16] MEDS: LACTOBACILLUS ACIDOPHILUS 1 TABLET PO ×3 (08:39→17:47)
[2021-12-16 16:00] VITALS: BP 120/72
[2021-12-16] MEDS: DONEPEZIL 10 MG TABLET PO (19:39)
[2021-12-16] MEDS: MELATONIN 3 MG TABLET PO (19:39)
[2021-12-17] MEDS: ACETAMINOPHEN 325 MG TABLET 650 MG PO (01:36)
[2021-12-17 01:50] VITALS: TEMP 36.4; O2SAT 97
[2021-12-17] MEDS: TRIAMCINOLONE ACETONIDE CREAM 0.1 % 1 APPLIC TOPICAL ×2 (08:00→19:25)
[2021-12-17] MEDS: CARBIDOPA-LEVODOPA 25-100 TABLET 2 TAB PO ×3 (08:11→19:25)
[2021-12-17] MEDS: OMEPRAZOLE 40 MG CAPSULE.DR PO (08:11)
[2021-12-17] MEDS: METOPROLOL TARTRATE 50 MG TABLET PO ×2 (08:11→16:04)
[2021-12-17] MEDS: LEVOTHYROXINE 100 MCG TABLET PO (08:11)
[2021-12-17] MEDS: LACTOBACILLUS ACIDOPHILUS 1 TABLET PO ×3 (08:12→17:08)
[2021-12-17 10:43] VITALS: TEMP 36; O2SAT 93
--- NOTE | 2021-12-17 12:43 | PC.PHA ---
Pharamcy Note ~ Patient admitted late October post hospital stay for Covid-19 and sepsis. Patient doing well on current medication regimen with statin and amlodipine being discontinued upon admission. Blood pressures have been stable and within normal limits.
[2021-12-17 13:45] VITALS: BMI 25.4
[2021-12-17 15:00] VITALS: TEMP 36.2; O2SAT 95
[2021-12-17 16:00] VITALS: BP 134/68
[2021-12-17] MEDS: DONEPEZIL 10 MG TABLET PO (19:25)
[2021-12-17] MEDS: MELATONIN 3 MG TABLET PO (19:26)
[2021-12-18 03:24] VITALS: TEMP 36.4; O2SAT 96
[2021-12-18] MEDS: TRIAMCINOLONE ACETONIDE CREAM 0.1 % 1 APPLIC TOPICAL ×2 (07:53→19:19)
[2021-12-18] MEDS: LEVOTHYROXINE 100 MCG TABLET PO (07:55)
[2021-12-18] MEDS: OMEPRAZOLE 40 MG CAPSULE.DR PO (07:55)
[2021-12-18] MEDS: CARBIDOPA-LEVODOPA 25-100 TABLET 2 TAB PO ×3 (08:18→19:19)
[2021-12-18] MEDS: METOPROLOL TARTRATE 50 MG TABLET PO ×2 (08:18→16:07)
[2021-12-18] MEDS: LACTOBACILLUS ACIDOPHILUS 1 TABLET PO ×3 (08:19→17:33)
[2021-12-18 09:28] VITALS: TEMP 36; O2SAT 94
--- NOTE | 2021-12-18 09:44 | PC.NURSE ---
COVID OUTBREAK TESTING: Resident was excluded from testing d/t recent COVID+ status. Testing will resume after 90 days from positive test result.
--- NOTE | 2021-12-18 10:10 | PC.SPIRITC ---
provided brief visit for support and connection with Juan along with touching base with his , Zhanna. Per Zhanna, she would like to have communion with Juan. Zhanna and I will work out a time for that to happen when it is less busy for her.
--- NOTE | 2021-12-18 14:53 | PC.NURSE ---
Resident is going to be at an outing to his cabin through out the weekend per . He will leave 0800 on 12/19/21 and return 12/21/21 in the evening. Bed hold paperwork signed today and given copy. Medication list and times at nurses station prepared for to take along with medications provided by nursing at time of departure. Nursing made aware.
[2021-12-18 15:00] VITALS: TEMP 36.6; O2SAT 97
[2021-12-18] MEDS: DONEPEZIL 10 MG TABLET PO (19:19)
[2021-12-18] MEDS: MELATONIN 3 MG TABLET PO (19:19)
[2021-12-19 04:02] VITALS: TEMP 36.4; O2SAT 94
[2021-12-19] MEDS: LEVOTHYROXINE 100 MCG TABLET PO (06:47)
[2021-12-19] MEDS: OMEPRAZOLE 40 MG CAPSULE.DR PO (06:47)
[2021-12-19] MEDS: METOPROLOL TARTRATE 50 MG TABLET PO (06:47)
[2021-12-19] MEDS: LACTOBACILLUS ACIDOPHILUS 1 TABLET PO (06:47)
[2021-12-19] MEDS: CARBIDOPA-LEVODOPA 25-100 TABLET 2 TAB PO (06:47)
[2021-12-19] MEDS: TRIAMCINOLONE ACETONIDE CREAM 0.1 % 1 APPLIC TOPICAL ×2 (08:10)
[2021-12-19 09:00] VITALS: TEMP 36.2; O2SAT 92
--- NOTE | 2021-12-19 09:01 | PC.NURSE ---
[place]: Resident went out with for personal outing. All appropriate medications with a copy of schedule of medications sent, explanation given to .
[2021-12-21] MEDS: LACTOBACILLUS ACIDOPHILUS 1 TABLET PO (16:42)
[2021-12-21 16:55] VITALS: TEMP 36.2; O2SAT 97
[2021-12-21] MEDS: DONEPEZIL 10 MG TABLET PO (19:24)
[2021-12-21] MEDS: CARBIDOPA-LEVODOPA 25-100 TABLET 2 TAB PO (19:24)
[2021-12-21] MEDS: MELATONIN 3 MG TABLET PO (19:24)
--- NOTE | 2021-12-21 21:53 | PC.NURSE ---
Return from [place]: Resident returned with his at 1550. Was taken off Hold.
[2021-12-21 23:00] VITALS: TEMP 36.6; O2SAT 95
--- NOTE | 2021-12-22 01:14 | PC.NURSE ---
Week #4: Care Plan problems #40-119, Temporary Care Plan, and vital signs reviewed - no changes made, and nothing added.? Vital signs are within resident's normal ranges. No changes in hearing, vision, and orientation noted at this time.?Able to use call light to seek help for bathroom trips . No changes in medications at this time. Resident is unable to self administer his medications, staff does. Mood/behavior. No behavioral concerns noted or reported so far, tonight. Resident is on Melatonin 3 mg HS.
[2021-12-22] MEDS: OMEPRAZOLE 40 MG CAPSULE.DR PO (06:58)
[2021-12-22] MEDS: LEVOTHYROXINE 100 MCG TABLET PO (06:58)
[2021-12-22] MEDS: CARBIDOPA-LEVODOPA 25-100 TABLET 2 TAB PO ×3 (07:22→19:34)
[2021-12-22] MEDS: LACTOBACILLUS ACIDOPHILUS 1 TABLET PO ×3 (07:23→17:29)
[2021-12-22] MEDS: METOPROLOL TARTRATE 50 MG TABLET PO ×2 (07:23→15:36)
--- NOTE | 2021-12-22 09:00 | PC.NURSE ---
Resident went out with family over the weekend for a cabin stay. Speaking to he did not have a high exposure to anyone with COVID 19.
[2021-12-22 10:05] VITALS: TEMP 36.4; O2SAT 97
--- NOTE | 2021-12-22 10:48 | PC.NURSE ---
COVID OUTBREAK TESTING: Resident was excluded from testing d/t recent COVID+ status. Testing will resume after 90 days from positive test result. Resident went out with his and daughter for the weekend, they deny any known COVID exposure.
--- NOTE | 2021-12-22 12:35 | PC.NURSE ---
Week #4: Care Plan problems #40-119, Temporary Care Plan, and vital signs reviewed - no changes made, and nothing added.? Vital signs are within resident's normal ranges. Able to ambulate to dining area with X 1 assist using gait belt. He is alert and able to follow instructions. No changes in hearing, vision, and orientation noted at this time.?Able to use call light to seek help for bathroom trips . No changes in medications at this time. He is taking Melatonin 3mg PO HS for sleeping Resident is unable to self administer his medications. Future plan to try using wheel chair and propel with verbal cues. Mood/behavior. No behavioral concerns noted or reported so far except that most times he seems very impatient whereby he eats his meal fast and wants to go back to his room immediately after meals.
[2021-12-22] MEDS: DONEPEZIL 10 MG TABLET PO (19:34)
[2021-12-22] MEDS: MELATONIN 3 MG TABLET PO (19:34)
[2021-12-22 21:16] VITALS: BP 114/64; PULSE 56; RESP 18; TEMP 36; O2SAT 94
[2021-12-23 03:59] VITALS: TEMP 36.2; O2SAT 97
[2021-12-23] MEDS: OMEPRAZOLE 40 MG CAPSULE.DR PO (07:30)
[2021-12-23] MEDS: LEVOTHYROXINE 100 MCG TABLET PO (07:30)
[2021-12-23] MEDS: CARBIDOPA-LEVODOPA 25-100 TABLET 2 TAB PO ×3 (07:30→19:41)
[2021-12-23] MEDS: LACTOBACILLUS ACIDOPHILUS 1 TABLET PO ×3 (07:31→17:36)
[2021-12-23] MEDS: METOPROLOL TARTRATE 50 MG TABLET PO ×2 (07:31→15:28)
[2021-12-23 10:50] VITALS: TEMP 36.5; O2SAT 98
--- NOTE | 2021-12-23 11:53 | PC.SPIRITC ---
Mold Closer provided visit with Juan' for support.
[2021-12-23 13:21] VITALS: TEMP 36.6; O2SAT 91
[2021-12-23 15:07] VITALS: TEMP 36.6; O2SAT 96
[2021-12-23] MEDS: MELATONIN 3 MG TABLET PO (19:41)
[2021-12-23] MEDS: DONEPEZIL 10 MG TABLET PO (19:41)
[2021-12-23] MEDS: ACETAMINOPHEN 500 MG TABLET 1000 MG PO (20:29)
[2021-12-23 21:18] VITALS: BP 167/86
[2021-12-23 23:00] VITALS: TEMP 36.3; O2SAT 98
[2021-12-24] MEDS: METOPROLOL TARTRATE 50 MG TABLET PO ×2 (07:42→15:36)
[2021-12-24] MEDS: OMEPRAZOLE 40 MG CAPSULE.DR PO (07:42)
[2021-12-24] MEDS: LEVOTHYROXINE 100 MCG TABLET PO (07:42)
[2021-12-24] MEDS: CARBIDOPA-LEVODOPA 25-100 TABLET 2 TAB PO ×3 (07:42→19:33)
[2021-12-24] MEDS: LACTOBACILLUS ACIDOPHILUS 1 TABLET PO ×3 (07:51→17:41)
--- NOTE | 2021-12-24 12:31 | PC.NURSE ---
MDS clarification: Reviewed MDS ADL charting for IMELDA 12/17 noted to have inconsistent charting. Interviewed NARs and determined that errors were made. Reviewed with staff. Resident uses limited assist of 1 with bed mobility. Extensive assist of 1 needed with transfers, ambulation, locomotion, dressing, toileting and hygiene. Resident uses gait belt ans walker for ambulation. Main mode of locomotion is w/c. Extensive assist 1 with eating. Coded as such in MDS.
[2021-12-24 13:25] VITALS: TEMP 36.4; O2SAT 97
[2021-12-24 15:00] VITALS: TEMP 36.2; O2SAT 96
[2021-12-24] MEDS: ACETAMINOPHEN 500 MG TABLET 1000 MG PO (19:32)
[2021-12-24] MEDS: DONEPEZIL 10 MG TABLET PO (19:33)
[2021-12-24] MEDS: MELATONIN 3 MG TABLET PO (19:33)
[2021-12-25] MEDS: ACETAMINOPHEN 500 MG TABLET 1000 MG PO ×2 (00:34→20:21)
[2021-12-25 03:37] VITALS: TEMP 36.2; O2SAT 92
[2021-12-25] MEDS: LEVOTHYROXINE 100 MCG TABLET PO (07:28)
[2021-12-25] MEDS: OMEPRAZOLE 40 MG CAPSULE.DR PO (07:28)
[2021-12-25] MEDS: CARBIDOPA-LEVODOPA 25-100 TABLET 2 TAB PO ×3 (07:29→20:21)
[2021-12-25] MEDS: METOPROLOL TARTRATE 50 MG TABLET PO ×2 (07:30→16:23)
[2021-12-25] MEDS: LACTOBACILLUS ACIDOPHILUS 1 TABLET PO ×3 (07:31→17:36)
--- NOTE | 2021-12-25 10:35 | PC.SPIRITC ---
Supply Chain Consultant provided visit for connection, support, to give the sacrament of communion per request of Juan' along with giving devotional material to support deborah practices.
[2021-12-25 12:47] VITALS: TEMP 36.2; O2SAT 92
[2021-12-25 15:00] VITALS: TEMP 36.6; O2SAT 92
[2021-12-25 16:00] VITALS: BP 139/80
[2021-12-25] MEDS: MELATONIN 3 MG TABLET PO (20:21)
[2021-12-25] MEDS: DONEPEZIL 10 MG TABLET PO (20:21)
[2021-12-25 22:33] VITALS: TEMP 36.6; O2SAT 92
--- NOTE | 2021-12-25 23:07 | PC.NURSE ---
Skin Concern: What appears to be Macular Rash noted on bilateral foot and right knee. Resident rubs foot against each other which may indicate rash itching. Also, skin on soles of feet appear severely dry and peeling - Aloe lotion applied.
[2021-12-26] MEDS: CARBIDOPA-LEVODOPA 25-100 TABLET 2 TAB PO ×3 (07:14→19:29)
[2021-12-26] MEDS: LEVOTHYROXINE 100 MCG TABLET PO (07:14)
[2021-12-26] MEDS: OMEPRAZOLE 40 MG CAPSULE.DR PO (07:14)
[2021-12-26] MEDS: METOPROLOL TARTRATE 50 MG TABLET PO ×2 (07:15→16:21)
[2021-12-26] MEDS: LACTOBACILLUS ACIDOPHILUS 1 TABLET PO ×3 (07:15→17:11)
[2021-12-26 10:52] VITALS: TEMP 36; O2SAT 97
[2021-12-26] MEDS: ACETAMINOPHEN 500 MG TABLET 1000 MG PO (19:29)
[2021-12-26] MEDS: MELATONIN 3 MG TABLET PO (19:29)
[2021-12-26] MEDS: DONEPEZIL 10 MG TABLET PO (19:29)
[2021-12-26 22:00] VITALS: TEMP 36.6; O2SAT 97
[2021-12-27 03:57] VITALS: TEMP 36.6; O2SAT 99
[2021-12-27] MEDS: LEVOTHYROXINE 100 MCG TABLET PO (07:18)
[2021-12-27] MEDS: OMEPRAZOLE 40 MG CAPSULE.DR PO (07:18)
[2021-12-27] MEDS: CARBIDOPA-LEVODOPA 25-100 TABLET 2 TAB PO ×3 (07:18→19:05)
[2021-12-27] MEDS: METOPROLOL TARTRATE 50 MG TABLET PO ×2 (07:18→16:14)
[2021-12-27] MEDS: LACTOBACILLUS ACIDOPHILUS 1 TABLET PO ×3 (07:19→17:10)
[2021-12-27 10:43] VITALS: TEMP 36.8; O2SAT 95
[2021-12-27 15:00] VITALS: TEMP 36.7; O2SAT 95
[2021-12-27] MEDS: ACETAMINOPHEN 500 MG TABLET 1000 MG PO (19:05)
[2021-12-27] MEDS: DONEPEZIL 10 MG TABLET PO (19:05)
[2021-12-27] MEDS: MELATONIN 3 MG TABLET PO (19:05)
[2021-12-27 23:00] VITALS: TEMP 36.1; O2SAT 97
[2021-12-28] MEDS: OMEPRAZOLE 40 MG CAPSULE.DR PO (07:30)
[2021-12-28] MEDS: CARBIDOPA-LEVODOPA 25-100 TABLET 2 TAB PO ×3 (07:30→20:11)
[2021-12-28] MEDS: LEVOTHYROXINE 100 MCG TABLET PO (07:30)
[2021-12-28] MEDS: LACTOBACILLUS ACIDOPHILUS 1 TABLET PO ×3 (07:32→17:14)
[2021-12-28] MEDS: METOPROLOL TARTRATE 50 MG TABLET PO ×2 (07:32→15:52)
[2021-12-28 11:00] VITALS: TEMP 35.8; O2SAT 97
--- NOTE | 2021-12-28 14:33 | PC.NURSE ---
Bed and chair alarm dc'd. Resident has not been self transferring. Hourly checks set up.
[2021-12-28 15:00] VITALS: TEMP 36.6; O2SAT 95
[2021-12-28] MEDS: ACETAMINOPHEN 500 MG TABLET 1000 MG PO ×2 (15:55→20:11)
[2021-12-28] MEDS: MELATONIN 3 MG TABLET PO (20:11)
[2021-12-28] MEDS: DONEPEZIL 10 MG TABLET PO (20:11)
--- NOTE | 2021-12-28 21:39 | PC.NURSE ---
Resident has an abrasion to top of left forearm measuring [id number]. Unknown origin. Intervention in place to monitor daily. No c/o pain or discomfort.
--- NOTE | 2021-12-28 21:41 | PC.NURSE ---
Resident placed call light x16 times in 2 hour period. Was toileted x2 with small voids. Staff asked multiple times what resident needed or why call light was placed with no response from resident. Resident in recliner and continuously kicking/moving feet. Very restless. During this time, resident finally c/o headache. Was given Tylenol PRN 1000mg. Requested to take a nap in bed and to have the lights turned down. Provided relief upon reassessment. Increased restlessness is observed after going to bed during hourly checks. Noted in RESULTS ENGINEER book.
--- NOTE | 2021-12-29 01:56 | PC.NURSE ---
Week #1: Resident has complained of pain three times in the past month is fixed with PRN meds. Has Acetaminophen 1000mg PO HS and BID PRN. Temporary care plan reviewed, no change. Care plan -19 reviewed, no change. Resident is totally dependent for all ADLs. Nutrition has not changed.
[2021-12-29 02:49] VITALS: TEMP 36.3; O2SAT 96
[2021-12-29] MEDS: OMEPRAZOLE 40 MG CAPSULE.DR PO (06:39)
[2021-12-29] MEDS: LEVOTHYROXINE 100 MCG TABLET PO (06:39)
[2021-12-29] MEDS: METOPROLOL TARTRATE 50 MG TABLET PO ×2 (08:27→15:43)
[2021-12-29] MEDS: CARBIDOPA-LEVODOPA 25-100 TABLET 2 TAB PO ×3 (08:27→21:06)
[2021-12-29] MEDS: LACTOBACILLUS ACIDOPHILUS 1 TABLET PO ×3 (08:27→17:20)
[2021-12-29 10:21] VITALS: TEMP 36.2; O2SAT 94
--- NOTE | 2021-12-29 10:54 | PC.SPIRITC ---
Printing Table Hand provided visit to Juan' to check in and connect. She expressed what a relief it is to have Juan here and feeling happy with the care he is receiving.
[2021-12-29 16:28] VITALS: TEMP 36.6; O2SAT 95
[2021-12-29] MEDS: ACETAMINOPHEN 500 MG TABLET 1000 MG PO (21:05)
[2021-12-29] MEDS: MELATONIN 3 MG TABLET PO (21:06)
[2021-12-29] MEDS: DONEPEZIL 10 MG TABLET PO (21:06)
--- NOTE | 2021-12-29 21:50 | PC.NURSE ---
Week #1:Care plan 1-19 reviewed, no change. Temporary care plan reviewed, no change. Resident pain is very well controlled by taking Acetaminophen 1,000mg PO HS and BID PRN.Resident has a habit of eating fast and leaving the dining room before other residents. Resident is totally dependent for all ADLs except to self fed himself during meals. He ambulates using walker with gait belt. No change in nutrition and appetite good.
[2021-12-30 06:51] VITALS: TEMP 36.4; O2SAT 97
[2021-12-30] MEDS: OMEPRAZOLE 40 MG CAPSULE.DR PO (07:25)
[2021-12-30] MEDS: LEVOTHYROXINE 100 MCG TABLET PO (07:25)
[2021-12-30] MEDS: METOPROLOL TARTRATE 50 MG TABLET PO ×2 (07:26→15:37)
[2021-12-30] MEDS: CARBIDOPA-LEVODOPA 25-100 TABLET 2 TAB PO ×3 (07:26→20:12)
[2021-12-30] MEDS: LACTOBACILLUS ACIDOPHILUS 1 TABLET PO ×3 (07:27→17:05)
[2021-12-30 10:11] VITALS: TEMP 36.4; O2SAT 92
[2021-12-30 10:33] VITALS: TEMP 36.4; O2SAT 92
[2021-12-30 15:00] VITALS: TEMP 37.1; O2SAT 94
[2021-12-30] MEDS: ACETAMINOPHEN 500 MG TABLET 1000 MG PO (20:12)
[2021-12-30] MEDS: DONEPEZIL 10 MG TABLET PO (20:13)
[2021-12-30] MEDS: MELATONIN 3 MG TABLET PO (20:13)
[2021-12-31 01:28] VITALS: TEMP 36.4; O2SAT 97
[2021-12-31] MEDS: LEVOTHYROXINE 100 MCG TABLET PO (07:49)
[2021-12-31] MEDS: OMEPRAZOLE 40 MG CAPSULE.DR PO (07:49)
[2021-12-31] MEDS: CARBIDOPA-LEVODOPA 25-100 TABLET 2 TAB PO ×3 (07:50→19:18)
[2021-12-31] MEDS: METOPROLOL TARTRATE 50 MG TABLET PO ×2 (07:50→16:02)
[2021-12-31] MEDS: LACTOBACILLUS ACIDOPHILUS 1 TABLET PO ×3 (08:44→17:25)
[2021-12-31 10:38] VITALS: TEMP 36.1; O2SAT 97; BMI 24.7
[2021-12-31 13:33] VITALS: BP 96/62; PULSE 62; RESP 16; TEMP 36.1; O2SAT 97
[2021-12-31 15:00] VITALS: TEMP 36.8; O2SAT 96
[2021-12-31] MEDS: ACETAMINOPHEN 500 MG TABLET 1000 MG PO (19:18)
[2021-12-31] MEDS: DONEPEZIL 10 MG TABLET PO (19:18)
[2021-12-31] MEDS: MELATONIN 3 MG TABLET PO (19:18)
[2022-01-01 02:37] VITALS: TEMP 36.3; O2SAT 94
[2022-01-01] MEDS: OMEPRAZOLE 40 MG CAPSULE.DR PO (07:46)
[2022-01-01] MEDS: LACTOBACILLUS ACIDOPHILUS 1 TABLET PO ×3 (07:47→17:39)
[2022-01-01] MEDS: LEVOTHYROXINE 100 MCG TABLET PO (07:47)
[2022-01-01] MEDS: CARBIDOPA-LEVODOPA 25-100 TABLET 2 TAB PO ×3 (07:47→19:10)
[2022-01-01] MEDS: METOPROLOL TARTRATE 50 MG TABLET PO ×2 (07:47→16:40)
[2022-01-01 10:24] VITALS: TEMP 36.4; O2SAT 96
--- NOTE | 2022-01-01 10:26 | PC.NURSE ---
Skin: Left forearm abrasions not visible. Scattered petechiae noted.
--- NOTE | 2022-01-01 12:22 | PC.NURSE ---
Order: Balbir BAILEY here. Change Tylenol 1000mg HS to BID, Triamcinolone Cream to affected area BID X 14 days.
[2022-01-01 15:00] VITALS: TEMP 36.7; O2SAT 95
[2022-01-01] MEDS: TRIAMCINOLONE ACETONIDE CREAM 0.1 % 1 APPLIC TOPICAL (19:09)
[2022-01-01] MEDS: ACETAMINOPHEN 500 MG TABLET 1000 MG PO (19:09)
[2022-01-01] MEDS: MELATONIN 3 MG TABLET PO (19:10)
[2022-01-01] MEDS: DONEPEZIL 10 MG TABLET PO (19:10)
[2022-01-02 02:23] VITALS: TEMP 36.3; O2SAT 93
[2022-01-02] MEDS: OMEPRAZOLE 40 MG CAPSULE.DR PO (07:36)
[2022-01-02] MEDS: LEVOTHYROXINE 100 MCG TABLET PO (07:36)
[2022-01-02] MEDS: LACTOBACILLUS ACIDOPHILUS 1 TABLET PO ×3 (07:46→17:39)
[2022-01-02] MEDS: ACETAMINOPHEN 500 MG TABLET 1000 MG PO ×2 (07:46→19:37)
[2022-01-02] MEDS: CARBIDOPA-LEVODOPA 25-100 TABLET 2 TAB PO ×3 (07:46→19:37)
[2022-01-02] MEDS: METOPROLOL TARTRATE 50 MG TABLET PO ×2 (07:47→16:03)
[2022-01-02] MEDS: TRIAMCINOLONE ACETONIDE CREAM 0.1 % 1 APPLIC TOPICAL ×2 (07:47→16:03)
[2022-01-02 10:08] VITALS: TEMP 36.6; O2SAT 96
[2022-01-02 15:00] VITALS: TEMP 36.6; O2SAT 96
[2022-01-02] MEDS: MELATONIN 3 MG TABLET PO (19:37)
[2022-01-02] MEDS: DONEPEZIL 10 MG TABLET PO (19:37)
[2022-01-03 02:13] VITALS: TEMP 36.6; O2SAT 95
[2022-01-03 07:00] VITALS: TEMP 36.1; O2SAT 96
[2022-01-03] MEDS: OMEPRAZOLE 40 MG CAPSULE.DR PO (07:24)
[2022-01-03] MEDS: LEVOTHYROXINE 100 MCG TABLET PO (07:24)
[2022-01-03] MEDS: ACETAMINOPHEN 500 MG TABLET 1000 MG PO ×2 (08:19→19:56)
[2022-01-03] MEDS: LACTOBACILLUS ACIDOPHILUS 1 TABLET PO ×3 (08:19→17:30)
[2022-01-03] MEDS: CARBIDOPA-LEVODOPA 25-100 TABLET 2 TAB PO ×3 (08:19→19:56)
[2022-01-03] MEDS: METOPROLOL TARTRATE 50 MG TABLET PO ×2 (08:19→15:16)
[2022-01-03] MEDS: TRIAMCINOLONE ACETONIDE CREAM 0.1 % 1 APPLIC TOPICAL ×2 (08:20→15:16)
[2022-01-03 11:59] VITALS: TEMP 36.1; O2SAT 96
[2022-01-03] MEDS: MELATONIN 3 MG TABLET PO (19:56)
[2022-01-03] MEDS: DONEPEZIL 10 MG TABLET PO (19:56)
[2022-01-03 23:00] VITALS: TEMP 36.7; O2SAT 97
[2022-01-04] MEDS: OMEPRAZOLE 40 MG CAPSULE.DR PO (06:59)
[2022-01-04] MEDS: LEVOTHYROXINE 100 MCG TABLET PO (06:59)
[2022-01-04 07:00] VITALS: TEMP 36.6; O2SAT 93
[2022-01-04] MEDS: LACTOBACILLUS ACIDOPHILUS 1 TABLET PO ×3 (07:02→17:20)
[2022-01-04] MEDS: ACETAMINOPHEN 500 MG TABLET 1000 MG PO ×2 (07:02→19:08)
[2022-01-04] MEDS: TRIAMCINOLONE ACETONIDE CREAM 0.1 % 1 APPLIC TOPICAL ×2 (07:02→15:22)
[2022-01-04] MEDS: METOPROLOL TARTRATE 50 MG TABLET PO ×2 (07:02→15:21)
[2022-01-04] MEDS: CARBIDOPA-LEVODOPA 25-100 TABLET 2 TAB PO ×3 (07:02→19:09)
[2022-01-04 12:53] VITALS: TEMP 36.6; O2SAT 93
[2022-01-04] MEDS: DONEPEZIL 10 MG TABLET PO (19:09)
[2022-01-04] MEDS: MELATONIN 3 MG TABLET PO (19:09)
--- NOTE | 2022-01-04 22:39 | PC.NURSE ---
Bowel Status: Resident had 2 loose and copious stools this evening. Will continue to monitor.
[2022-01-04 23:00] VITALS: TEMP 35.8; O2SAT 96
--- NOTE | 2022-01-05 04:24 | PC.NURSE ---
Week #2 nurse note: Baseline care plan reviewed. Nothing added to temporary care plan.?Is independent with bed mobility.?Up to the BR with TB, walker, and assist of 1.?Top siderails up. Falls---3-4 falls over the last month. Fall risk assessment dated 12/17 rates pt @ a 17, high fall risk.
[2022-01-05] MEDS: LEVOTHYROXINE 100 MCG TABLET PO (06:52)
[2022-01-05] MEDS: OMEPRAZOLE 40 MG CAPSULE.DR PO (06:52)
[2022-01-05] MEDS: CARBIDOPA-LEVODOPA 25-100 TABLET 2 TAB PO ×3 (08:03→19:24)
[2022-01-05] MEDS: ACETAMINOPHEN 500 MG TABLET 1000 MG PO ×2 (08:03→19:23)
[2022-01-05] MEDS: METOPROLOL TARTRATE 50 MG TABLET PO ×2 (08:04→15:45)
[2022-01-05] MEDS: LACTOBACILLUS ACIDOPHILUS 1 TABLET PO ×3 (08:04→16:52)
[2022-01-05] MEDS: TRIAMCINOLONE ACETONIDE CREAM 0.1 % 1 APPLIC TOPICAL ×2 (08:09→15:45)
[2022-01-05 10:38] VITALS: TEMP 36.4; O2SAT 95
--- NOTE | 2022-01-05 13:15 | PC.NURSE ---
Weekly #2: Vital signs reviewed with no issues Resident is not a fall risk Temporary care plan reviewed with no changes Care plan problems #20-29 reviewed with no changes Resident is assist of 1 with all bed mobility, wheelchair positioning, transfers, ambulation, can wheel himself at time
--- NOTE | 2022-01-05 16:05 | PC.NURSE ---
COVID OUTBREAK TESTING: Resident was excluded from testing d/t recent COVID+ status. Testing will resume after 90 days from positive test result.
[2022-01-05 16:52] VITALS: TEMP 36.8; O2SAT 92
[2022-01-05] MEDS: DONEPEZIL 10 MG TABLET PO (19:24)
[2022-01-05] MEDS: MELATONIN 3 MG TABLET PO (19:24)
[2022-01-06] MEDS: ACETAMINOPHEN 500 MG TABLET 1000 MG PO ×3 (00:41→19:38)
[2022-01-06 02:32] VITALS: TEMP 36.3; O2SAT 97
[2022-01-06] MEDS: OMEPRAZOLE 40 MG CAPSULE.DR PO (07:08)
[2022-01-06] MEDS: LEVOTHYROXINE 100 MCG TABLET PO (07:08)
[2022-01-06] MEDS: METOPROLOL TARTRATE 50 MG TABLET PO ×2 (07:53→15:38)
[2022-01-06] MEDS: CARBIDOPA-LEVODOPA 25-100 TABLET 2 TAB PO ×3 (07:53→19:38)
[2022-01-06] MEDS: LACTOBACILLUS ACIDOPHILUS 1 TABLET PO ×3 (07:55→17:00)
[2022-01-06] MEDS: TRIAMCINOLONE ACETONIDE CREAM 0.1 % 1 APPLIC TOPICAL ×2 (07:56→15:38)
[2022-01-06 10:05] VITALS: TEMP 36.4; O2SAT 94
[2022-01-06 16:19] VITALS: TEMP 36.2; O2SAT 94
[2022-01-06] MEDS: MELATONIN 3 MG TABLET PO (19:38)
[2022-01-06] MEDS: DONEPEZIL 10 MG TABLET PO (19:38)
[2022-01-06 23:00] VITALS: TEMP 36.6; O2SAT 98
[2022-01-07] MEDS: CARBIDOPA-LEVODOPA 25-100 TABLET 2 TAB PO ×3 (06:59→19:31)
[2022-01-07] MEDS: LEVOTHYROXINE 100 MCG TABLET PO (06:59)
[2022-01-07] MEDS: ACETAMINOPHEN 500 MG TABLET 1000 MG PO ×3 (06:59→23:38)
[2022-01-07] MEDS: OMEPRAZOLE 40 MG CAPSULE.DR PO (06:59)
[2022-01-07] MEDS: METOPROLOL TARTRATE 50 MG TABLET PO ×2 (06:59→15:52)
[2022-01-07] MEDS: LACTOBACILLUS ACIDOPHILUS 1 TABLET PO ×3 (07:00→17:17)
[2022-01-07] MEDS: TRIAMCINOLONE ACETONIDE CREAM 0.1 % 1 APPLIC TOPICAL ×2 (07:02→15:52)
[2022-01-07 10:33] VITALS: TEMP 36.2; O2SAT 91
[2022-01-07 10:37] VITALS: BMI 24.7
[2022-01-07 11:06] VITALS: BP 106/63; PULSE 58; RESP 18; TEMP 36.2; O2SAT 91
[2022-01-07 15:00] VITALS: TEMP 36.2; O2SAT 95
[2022-01-07] MEDS: DONEPEZIL 10 MG TABLET PO (19:31)
[2022-01-07] MEDS: MELATONIN 3 MG TABLET PO (19:31)
[2022-01-07 23:00] VITALS: TEMP 36.4; O2SAT 94
[2022-01-08] MEDS: LEVOTHYROXINE 100 MCG TABLET PO (07:29)
[2022-01-08] MEDS: CARBIDOPA-LEVODOPA 25-100 TABLET 2 TAB PO ×3 (07:29→20:44)
[2022-01-08] MEDS: ACETAMINOPHEN 500 MG TABLET 1000 MG PO ×2 (07:29→20:44)
[2022-01-08] MEDS: LACTOBACILLUS ACIDOPHILUS 1 TABLET PO ×3 (07:29→16:48)
[2022-01-08] MEDS: TRIAMCINOLONE ACETONIDE CREAM 0.1 % 1 APPLIC TOPICAL ×2 (07:29→15:41)
[2022-01-08] MEDS: METOPROLOL TARTRATE 50 MG TABLET PO ×2 (07:29→15:40)
[2022-01-08] MEDS: OMEPRAZOLE 40 MG CAPSULE.DR PO (07:29)
[2022-01-08 12:56] VITALS: TEMP 36.4; O2SAT 95
[2022-01-08 15:00] VITALS: TEMP 36.6; O2SAT 95
[2022-01-08] MEDS: MELATONIN 3 MG TABLET PO (20:44)
[2022-01-08] MEDS: DONEPEZIL 10 MG TABLET PO (20:44)
[2022-01-08 23:00] VITALS: BP 114/64; BP 131/80; PULSE 58; RESP 18; TEMP 36.6; O2SAT 95
[2022-01-09 01:57] VITALS: TEMP 36.6
[2022-01-09] MEDS: ACETAMINOPHEN 500 MG TABLET 1000 MG PO ×3 (01:57→19:19)
[2022-01-09 03:57] VITALS: TEMP 36.6
[2022-01-09] MEDS: OMEPRAZOLE 40 MG CAPSULE.DR PO (07:38)
[2022-01-09] MEDS: LEVOTHYROXINE 100 MCG TABLET PO (07:39)
[2022-01-09] MEDS: LACTOBACILLUS ACIDOPHILUS 1 TABLET PO ×3 (08:40→17:24)
[2022-01-09] MEDS: CARBIDOPA-LEVODOPA 25-100 TABLET 2 TAB PO ×3 (08:40→19:19)
[2022-01-09] MEDS: METOPROLOL TARTRATE 50 MG TABLET PO ×2 (08:40→15:39)
[2022-01-09] MEDS: TRIAMCINOLONE ACETONIDE CREAM 0.1 % 1 APPLIC TOPICAL ×2 (08:44→15:50)
[2022-01-09 10:44] VITALS: TEMP 36.6; O2SAT 94
[2022-01-09 15:00] VITALS: TEMP 36.6; O2SAT 94
[2022-01-09] MEDS: DONEPEZIL 10 MG TABLET PO (19:19)
[2022-01-09] MEDS: MELATONIN 3 MG TABLET PO (19:19)
[2022-01-09 23:00] VITALS: TEMP 36.3; O2SAT 94
[2022-01-10] MEDS: OMEPRAZOLE 40 MG CAPSULE.DR PO (06:56)
[2022-01-10] MEDS: LEVOTHYROXINE 100 MCG TABLET PO (06:57)
[2022-01-10] MEDS: METOPROLOL TARTRATE 50 MG TABLET PO ×2 (08:10→16:33)
[2022-01-10] MEDS: CARBIDOPA-LEVODOPA 25-100 TABLET 2 TAB PO ×3 (08:10→20:36)
[2022-01-10] MEDS: LACTOBACILLUS ACIDOPHILUS 1 TABLET PO ×3 (08:10→17:09)
[2022-01-10] MEDS: ACETAMINOPHEN 500 MG TABLET 1000 MG PO ×2 (08:10→20:35)
[2022-01-10] MEDS: TRIAMCINOLONE ACETONIDE CREAM 0.1 % 1 APPLIC TOPICAL ×2 (08:11→16:33)
[2022-01-10 10:41] VITALS: TEMP 36.2; O2SAT 96
[2022-01-10 15:00] VITALS: TEMP 36.3; O2SAT 95
[2022-01-10] MEDS: MELATONIN 3 MG TABLET PO (20:36)
[2022-01-10] MEDS: DONEPEZIL 10 MG TABLET PO (20:36)
--- NOTE | 2022-01-10 22:24 | PC.NURSE ---
Resident placing call light frequently this shift. Appears very restless with some agitation. Auto Garage Mechanic observed behavior of hitting table tray and yelling Damn!. Auto Garage Mechanic asked what resident if he was having pain or needed to use the bathroom. Resident yelled No!. Appeared very anxious to go to dining room and did not want to eat supper, but did decide to come out and eat 50%. No c/o pain or discomfort.
[2022-01-10 23:00] VITALS: TEMP 36.5; O2SAT 94
[2022-01-11] MEDS: OMEPRAZOLE 40 MG CAPSULE.DR PO (06:51)
[2022-01-11] MEDS: LEVOTHYROXINE 100 MCG TABLET PO (06:52)
[2022-01-11] MEDS: ACETAMINOPHEN 500 MG TABLET 1000 MG PO ×2 (08:31→20:00)
[2022-01-11] MEDS: CARBIDOPA-LEVODOPA 25-100 TABLET 2 TAB PO ×3 (08:31→20:00)
[2022-01-11] MEDS: METOPROLOL TARTRATE 50 MG TABLET PO ×2 (08:31→15:31)
[2022-01-11] MEDS: LACTOBACILLUS ACIDOPHILUS 1 TABLET PO ×3 (08:32→17:04)
[2022-01-11] MEDS: TRIAMCINOLONE ACETONIDE CREAM 0.1 % 1 APPLIC TOPICAL ×2 (08:47→15:31)
[2022-01-11 10:38] VITALS: TEMP 36.2; O2SAT 94
[2022-01-11 15:00] VITALS: TEMP 36.2; O2SAT 95
[2022-01-11] MEDS: DONEPEZIL 10 MG TABLET PO (20:00)
[2022-01-11] MEDS: MELATONIN 3 MG TABLET PO (20:00)
[2022-01-11 23:25] VITALS: TEMP 36.4; O2SAT 97
--- NOTE | 2022-01-11 23:43 | PC.NURSE ---
Week #3: Resident has rash on the feet that is being treated with triam cream. Temporary care plan reviewed, no change. Resident is up to the bathroom and, found wet very frequently during NOC. Wears pull ups, will call.
[2022-01-12] MEDS: OMEPRAZOLE 40 MG CAPSULE.DR PO (07:07)
[2022-01-12] MEDS: LEVOTHYROXINE 100 MCG TABLET PO (07:07)
[2022-01-12] MEDS: ACETAMINOPHEN 500 MG TABLET 1000 MG PO ×3 (08:08→23:45)
[2022-01-12] MEDS: CARBIDOPA-LEVODOPA 25-100 TABLET 2 TAB PO ×3 (08:08→20:03)
[2022-01-12] MEDS: METOPROLOL TARTRATE 50 MG TABLET PO ×2 (08:08→15:53)
[2022-01-12] MEDS: LACTOBACILLUS ACIDOPHILUS 1 TABLET PO ×3 (08:09→17:09)
[2022-01-12] MEDS: TRIAMCINOLONE ACETONIDE CREAM 0.1 % 1 APPLIC TOPICAL ×2 (08:09→15:54)
[2022-01-12 10:06] VITALS: TEMP 36.6; O2SAT 93
--- NOTE | 2022-01-12 14:06 | PC.NURSE ---
COVID OUTBREAK TESTING: Resident was excluded from testing d/t recent COVID+ status. Testing will resume after 90 days from positive test result.
[2022-01-12 16:19] VITALS: TEMP 36.4; O2SAT 96
[2022-01-12] MEDS: DONEPEZIL 10 MG TABLET PO (20:03)
[2022-01-12] MEDS: MELATONIN 3 MG TABLET PO (20:03)
--- NOTE | 2022-01-12 21:12 | PC.NURSE ---
Week #3: Reviewed care plan problem 30-39. Temporary care plan reviewed, no change. Resident skin is good except for redness on his feet which is being treated with Triam cream Resident is incontinent of bladder and bowel and is assist of 1. He is able to use the call light for bathroom trip most of the time he is already wet.
[2022-01-12 23:51] VITALS: TEMP 36.4; O2SAT 95
[2022-01-13] MEDS: ACETAMINOPHEN 500 MG TABLET 1000 MG PO ×2 (07:36→19:47)
[2022-01-13] MEDS: LEVOTHYROXINE 100 MCG TABLET PO (07:36)
[2022-01-13] MEDS: OMEPRAZOLE 40 MG CAPSULE.DR PO (07:36)
[2022-01-13] MEDS: CARBIDOPA-LEVODOPA 25-100 TABLET 2 TAB PO ×3 (07:37→19:47)
[2022-01-13] MEDS: LACTOBACILLUS ACIDOPHILUS 1 TABLET PO ×3 (07:37→17:08)
[2022-01-13] MEDS: METOPROLOL TARTRATE 50 MG TABLET PO ×2 (07:37→16:25)
[2022-01-13] MEDS: TRIAMCINOLONE ACETONIDE CREAM 0.1 % 1 APPLIC TOPICAL ×2 (08:52→16:25)
[2022-01-13 10:21] VITALS: TEMP 36.1; O2SAT 96
[2022-01-13 15:00] VITALS: TEMP 36.6; O2SAT 96
[2022-01-13] MEDS: MELATONIN 3 MG TABLET PO (19:47)
[2022-01-13] MEDS: DONEPEZIL 10 MG TABLET PO (19:47)
[2022-01-14 00:44] VITALS: TEMP 36.3; O2SAT 97
[2022-01-14] MEDS: ACETAMINOPHEN 500 MG TABLET 1000 MG PO ×3 (00:48→19:26)
[2022-01-14] MEDS: OMEPRAZOLE 40 MG CAPSULE.DR PO (07:51)
[2022-01-14] MEDS: LEVOTHYROXINE 100 MCG TABLET PO (07:51)
[2022-01-14] MEDS: TRIAMCINOLONE ACETONIDE CREAM 0.1 % 1 APPLIC TOPICAL ×2 (07:58→15:30)
[2022-01-14] MEDS: METOPROLOL TARTRATE 50 MG TABLET PO ×2 (07:58→15:30)
[2022-01-14] MEDS: LACTOBACILLUS ACIDOPHILUS 1 TABLET PO ×3 (07:58→17:04)
[2022-01-14] MEDS: CARBIDOPA-LEVODOPA 25-100 TABLET 2 TAB PO ×3 (07:58→19:27)
[2022-01-14 10:15] VITALS: BP 144/89; RESP 18; TEMP 36.4; O2SAT 97; BMI 24.7
--- NOTE | 2022-01-14 14:08 | PC.PHA ---
Pharmacy Review ~ Patient admitted in November. Metoprolol 50 mg bid for blood pressure continues to keep reading within normal limits. He has acetaminophen scheduled and prn with minimal need for prn order. Renal Dosing for Oseltamivir: Treatment:30 mg po BID for 5 days Prophylaxis:30 mg po daily for 14 days or longer (see policy).
[2022-01-14] MEDS: DONEPEZIL 10 MG TABLET PO (19:27)
[2022-01-14] MEDS: MELATONIN 3 MG TABLET PO (19:27)
[2022-01-15] MEDS: LEVOTHYROXINE 100 MCG TABLET PO (07:10)
[2022-01-15] MEDS: OMEPRAZOLE 40 MG CAPSULE.DR PO (07:10)
[2022-01-15] MEDS: ACETAMINOPHEN 500 MG TABLET 1000 MG PO ×3 (08:20→19:36)
[2022-01-15] MEDS: CARBIDOPA-LEVODOPA 25-100 TABLET 2 TAB PO ×3 (08:20→19:36)
[2022-01-15] MEDS: METOPROLOL TARTRATE 50 MG TABLET PO ×2 (08:23→16:37)
[2022-01-15] MEDS: TRIAMCINOLONE ACETONIDE CREAM 0.1 % 1 APPLIC TOPICAL (08:24)
[2022-01-15] MEDS: LACTOBACILLUS ACIDOPHILUS 1 TABLET PO ×3 (08:24→17:06)
--- NOTE | 2022-01-15 11:10 | PC.NURSE ---
Addendum entered by Chiqui Perez RN 01/15/22 11:21: Recert Visit: Resident seen by Balbir BAILEY. Orders reviewed and renewed for 45 days with changes. See orders below. Original Note: Order: Balbir BAILEY here. Discontinue Tylenol 1000mg BID & BID PRN, Increase Melatonin to 6mg @ HS, Tylenol 1000mg QD PRN, Tylenol 1000mg TID @ 08,16, & 2000.
[2022-01-15] MEDS: MELATONIN 3 MG TABLET 6 MG PO (19:36)
[2022-01-15] MEDS: DONEPEZIL 10 MG TABLET PO (19:36)
[2022-01-16] MEDS: ACETAMINOPHEN 500 MG TABLET 1000 MG PO ×4 (03:06→19:59)
[2022-01-16] MEDS: LEVOTHYROXINE 100 MCG TABLET PO (07:00)
[2022-01-16] MEDS: OMEPRAZOLE 40 MG CAPSULE.DR PO (07:00)
[2022-01-16] MEDS: CARBIDOPA-LEVODOPA 25-100 TABLET 2 TAB PO ×3 (08:38→19:59)
[2022-01-16] MEDS: METOPROLOL TARTRATE 50 MG TABLET PO ×2 (08:39→15:42)
[2022-01-16] MEDS: LACTOBACILLUS ACIDOPHILUS 1 TABLET PO ×3 (08:39→17:28)
--- NOTE | 2022-01-16 16:00 | PC.NURSE ---
Fall Follow-up: PERRLA intact. Equal strength in bilateral hand grasp. Level of consciousness is unchanged from baseline.
[2022-01-16] MEDS: DONEPEZIL 10 MG TABLET PO (19:59)
[2022-01-16] MEDS: MELATONIN 3 MG TABLET 6 MG PO (19:59)
--- NOTE | 2022-01-16 22:37 | PC.NURSE ---
Fall Follow-up: PERRLA intact. Equal strength in bilateral hand grasp. Level of consciousness remains unchanged from baseline.
[2022-01-17] MEDS: ACETAMINOPHEN 500 MG TABLET 1000 MG PO ×3 (07:20→19:34)
[2022-01-17] MEDS: LEVOTHYROXINE 100 MCG TABLET PO (07:20)
[2022-01-17] MEDS: CARBIDOPA-LEVODOPA 25-100 TABLET 2 TAB PO ×3 (07:20→19:34)
[2022-01-17] MEDS: OMEPRAZOLE 40 MG CAPSULE.DR PO (07:20)
[2022-01-17] MEDS: METOPROLOL TARTRATE 50 MG TABLET PO ×2 (07:22→15:54)
[2022-01-17] MEDS: LACTOBACILLUS ACIDOPHILUS 1 TABLET PO ×3 (07:22→16:32)
[2022-01-17] MEDS: DONEPEZIL 10 MG TABLET PO (19:34)
[2022-01-17] MEDS: MELATONIN 3 MG TABLET 6 MG PO (19:34)
[2022-01-18] MEDS: LEVOTHYROXINE 100 MCG TABLET PO (07:35)
[2022-01-18] MEDS: OMEPRAZOLE 40 MG CAPSULE.DR PO (07:35)
[2022-01-18] MEDS: ACETAMINOPHEN 500 MG TABLET 1000 MG PO ×3 (08:17→19:03)
[2022-01-18] MEDS: LACTOBACILLUS ACIDOPHILUS 1 TABLET PO ×3 (08:18→16:30)
[2022-01-18] MEDS: METOPROLOL TARTRATE 50 MG TABLET PO ×2 (08:18→16:02)
[2022-01-18] MEDS: CARBIDOPA-LEVODOPA 25-100 TABLET 2 TAB PO ×3 (08:18→19:03)
[2022-01-18] MEDS: MELATONIN 3 MG TABLET 6 MG PO (19:03)
[2022-01-18] MEDS: DONEPEZIL 10 MG TABLET PO (19:03)
--- NOTE | 2022-01-19 02:16 | PC.NURSE ---
Week #4: Care plan problems 40-119 and temporary care plan reviewed with no changes. Vital signs reviewed with no noted concerns. No changes in hearing, vision, or orientation. Receives melatonin 6mg at HS with no noted adverse effects. Sleeps well at night. Is able to utilize call light to make needs known.
[2022-01-19] MEDS: ACETAMINOPHEN 500 MG TABLET 1000 MG PO ×4 (05:13→19:59)
[2022-01-19] MEDS: LEVOTHYROXINE 100 MCG TABLET PO (06:55)
[2022-01-19] MEDS: OMEPRAZOLE 40 MG CAPSULE.DR PO (06:55)
--- NOTE | 2022-01-19 07:13 | PC.NURSE ---
Week #4: Baseline care plan reviewed. No changes made. Nothing added to temporary care plan. Resident wears glasses. Somewhat hard of hearing, no device. Speaks so softly. Alert, with some confusion. Does use the call light. Does not self administer medications. No changes in health condition. VS reviewed, continue to monitor. Has episodes of low BP's. Mood/Behavior: Has some restless nights as reported by staff. Melatonin increased to 6mg @ HS. Is on no psychotropic medications.
[2022-01-19] MEDS: CARBIDOPA-LEVODOPA 25-100 TABLET 2 TAB PO ×3 (07:59→20:02)
[2022-01-19] MEDS: METOPROLOL TARTRATE 50 MG TABLET PO ×2 (08:00→16:06)
[2022-01-19] MEDS: LACTOBACILLUS ACIDOPHILUS 1 TABLET PO ×3 (08:01→17:02)
[2022-01-19] MEDS: DONEPEZIL 10 MG TABLET PO (20:02)
[2022-01-19] MEDS: MELATONIN 3 MG TABLET 6 MG PO (20:02)
[2022-01-20] MEDS: OMEPRAZOLE 40 MG CAPSULE.DR PO (06:38)
[2022-01-20] MEDS: LEVOTHYROXINE 100 MCG TABLET PO (06:38)
[2022-01-20] MEDS: ACETAMINOPHEN 500 MG TABLET 1000 MG PO ×3 (08:09→19:40)
[2022-01-20] MEDS: METOPROLOL TARTRATE 50 MG TABLET PO ×2 (08:09→16:09)
[2022-01-20] MEDS: LACTOBACILLUS ACIDOPHILUS 1 TABLET PO ×3 (08:09→16:34)
[2022-01-20] MEDS: CARBIDOPA-LEVODOPA 25-100 TABLET 2 TAB PO ×3 (08:09→19:40)
[2022-01-20] MEDS: MELATONIN 3 MG TABLET 6 MG PO (19:40)
[2022-01-20] MEDS: DONEPEZIL 10 MG TABLET PO (19:40)
[2022-01-21] MEDS: ACETAMINOPHEN 500 MG TABLET 1000 MG PO ×4 (04:22→20:45)
[2022-01-21] MEDS: OMEPRAZOLE 40 MG CAPSULE.DR PO (06:41)
[2022-01-21] MEDS: LEVOTHYROXINE 100 MCG TABLET PO (06:41)
[2022-01-21] MEDS: CARBIDOPA-LEVODOPA 25-100 TABLET 2 TAB PO ×3 (08:04→20:45)
[2022-01-21] MEDS: METOPROLOL TARTRATE 50 MG TABLET PO ×2 (08:04→16:35)
[2022-01-21] MEDS: LACTOBACILLUS ACIDOPHILUS 1 TABLET PO ×3 (08:04→17:14)
[2022-01-21 10:16] VITALS: BMI 24.7
[2022-01-21 10:17] VITALS: BP 163/89; PULSE 52; RESP 18; TEMP 36.2; O2SAT 97
[2022-01-21] MEDS: MELATONIN 3 MG TABLET 6 MG PO (20:45)
[2022-01-21] MEDS: DONEPEZIL 10 MG TABLET PO (20:45)
[2022-01-22] MEDS: ACETAMINOPHEN 500 MG TABLET 1000 MG PO ×3 (07:00→19:47)
[2022-01-22] MEDS: LEVOTHYROXINE 100 MCG TABLET PO (07:00)
[2022-01-22] MEDS: OMEPRAZOLE 40 MG CAPSULE.DR PO (07:00)
[2022-01-22] MEDS: METOPROLOL TARTRATE 50 MG TABLET PO ×2 (07:01→15:25)
[2022-01-22] MEDS: CARBIDOPA-LEVODOPA 25-100 TABLET 2 TAB PO ×3 (07:01→19:47)
[2022-01-22] MEDS: LACTOBACILLUS ACIDOPHILUS 1 TABLET PO ×3 (07:03→17:56)
[2022-01-22] MEDS: DONEPEZIL 10 MG TABLET PO (19:47)
[2022-01-22] MEDS: MELATONIN 3 MG TABLET 6 MG PO (19:47)
[2022-01-23] MEDS: ACETAMINOPHEN 500 MG TABLET 1000 MG PO ×4 (01:39→20:31)
[2022-01-23] MEDS: LEVOTHYROXINE 100 MCG TABLET PO (07:06)
[2022-01-23] MEDS: OMEPRAZOLE 40 MG CAPSULE.DR PO (07:06)
[2022-01-23] MEDS: METOPROLOL TARTRATE 50 MG TABLET PO ×2 (08:08→16:07)
[2022-01-23] MEDS: CARBIDOPA-LEVODOPA 25-100 TABLET 2 TAB PO ×3 (08:08→20:31)
[2022-01-23] MEDS: LACTOBACILLUS ACIDOPHILUS 1 TABLET PO ×3 (08:09→17:35)
[2022-01-23] MEDS: MELATONIN 3 MG TABLET 6 MG PO (20:31)
[2022-01-23] MEDS: DONEPEZIL 10 MG TABLET PO (20:31)
[2022-01-24] MEDS: OMEPRAZOLE 40 MG CAPSULE.DR PO (06:52)
[2022-01-24] MEDS: LEVOTHYROXINE 100 MCG TABLET PO (06:52)
[2022-01-24] MEDS: CARBIDOPA-LEVODOPA 25-100 TABLET 2 TAB PO ×3 (08:13→20:18)
[2022-01-24] MEDS: ACETAMINOPHEN 500 MG TABLET 1000 MG PO ×3 (08:13→20:18)
[2022-01-24] MEDS: LACTOBACILLUS ACIDOPHILUS 1 TABLET PO ×3 (08:14→17:19)
[2022-01-24] MEDS: METOPROLOL TARTRATE 50 MG TABLET PO ×2 (08:14→16:22)
[2022-01-24] MEDS: MELATONIN 3 MG TABLET 6 MG PO (20:18)
[2022-01-24] MEDS: DONEPEZIL 10 MG TABLET PO (20:18)
--- NOTE | 2022-01-24 21:47 | PC.NURSE ---
Resident enjoyed bingo this afternoon. left staff note with bedtime snack for banana. Offered to res. this evening and he stated, No, for the morning. Requested to get ready for bed and in at 19:45. Has placed call light x3 since with only 1 request of needing to use the bathroom.
[2022-01-25 05:11] VITALS: TEMP 36.6
[2022-01-25] MEDS: ACETAMINOPHEN 500 MG TABLET 1000 MG PO ×4 (05:11→20:46)
[2022-01-25] MEDS: LEVOTHYROXINE 100 MCG TABLET PO (06:41)
[2022-01-25] MEDS: OMEPRAZOLE 40 MG CAPSULE.DR PO (06:41)
[2022-01-25] MEDS: CARBIDOPA-LEVODOPA 25-100 TABLET 2 TAB PO ×3 (08:21→20:46)
[2022-01-25] MEDS: METOPROLOL TARTRATE 50 MG TABLET PO ×2 (08:21→16:15)
[2022-01-25] MEDS: LACTOBACILLUS ACIDOPHILUS 1 TABLET PO ×3 (08:21→17:07)
[2022-01-25] MEDS: DONEPEZIL 10 MG TABLET PO (20:46)
[2022-01-25] MEDS: MELATONIN 3 MG TABLET 6 MG PO (20:46)
--- NOTE | 2022-01-25 21:47 | PC.NURSE ---
Resident out for ice cream social this afternoon. Staff reported that he wheeled himself back to room immediately after finishing ice cream and used call light to get into recliner @ 14:45. Resident found by tag writer sleeping in recliner. Did not want to lay down for an afternoon nap. After resident was awakened for associate professor of media arts, ARELY reported resident had thumb validation leader light and not letting it go. Res. was angry and stated he needed to go to [employer]. Activity had been over for an hour and was getting close to meal time. Resident restless but appeared content watching TV in recliner and was then taken to dining room for supper. Ate meal, watched TV, and wanting to get into bed at 19:30. Res. slept for 1 hr 15 mins and placed call light for bathroom. Pullup insert wet, toileted with little void. Res. wanting to sit in w/c and have banana for bedtime snack. Res. toileted again per request with no void. Now in bed resting at this time.
[2022-01-26] MEDS: OMEPRAZOLE 40 MG CAPSULE.DR PO (07:27)
[2022-01-26] MEDS: LEVOTHYROXINE 100 MCG TABLET PO (07:27)
[2022-01-26] MEDS: METOPROLOL TARTRATE 50 MG TABLET PO ×2 (08:12→16:15)
[2022-01-26] MEDS: CARBIDOPA-LEVODOPA 25-100 TABLET 2 TAB PO ×3 (08:12→19:43)
[2022-01-26] MEDS: ACETAMINOPHEN 500 MG TABLET 1000 MG PO ×3 (08:12→19:39)
[2022-01-26] MEDS: LACTOBACILLUS ACIDOPHILUS 1 TABLET PO ×3 (08:27→17:07)
--- NOTE | 2022-01-26 11:00 | PC.NURSE ---
Week # 4 Mood/Behavior: 6 recorded instances of patient behaviors within last 6 days. Behaviors include yelling, yelling at staff, yanking call light cord from wall, threatening/motioning to hit staff, banging on table at mealtime, throwing objects, removing briefs and throwing them, continually pressing call light, refusing to comply with cares. Carbidopa-Levodopa and Donepezil prescribed for Parkinson and Alzheimer. No changes to temporary care plan. No changes in communication/hearing/vision.
[2022-01-26] MEDS: DONEPEZIL 10 MG TABLET PO (19:43)
[2022-01-26] MEDS: MELATONIN 3 MG TABLET 6 MG PO (19:43)
[2022-01-27] MEDS: OMEPRAZOLE 40 MG CAPSULE.DR PO (06:32)
[2022-01-27] MEDS: LEVOTHYROXINE 100 MCG TABLET PO (06:32)
[2022-01-27] MEDS: LACTOBACILLUS ACIDOPHILUS 1 TABLET PO ×3 (07:30→11:26)
[2022-01-27] MEDS: ACETAMINOPHEN 500 MG TABLET 1000 MG PO ×3 (07:49→19:32)
[2022-01-27] MEDS: CARBIDOPA-LEVODOPA 25-100 TABLET 2 TAB PO ×3 (07:49→19:32)
[2022-01-27] MEDS: METOPROLOL TARTRATE 50 MG TABLET PO ×2 (07:50→16:01)
[2022-01-27] MEDS: DONEPEZIL 10 MG TABLET PO (19:32)
[2022-01-27] MEDS: MELATONIN 3 MG TABLET 6 MG PO (19:32)
--- NOTE | 2022-01-27 21:42 | PC.NURSE ---
Activity: After couple of encouragements, resident refused 6:45 pm activity ( Reverse Charades)
[2022-01-28] MEDS: OMEPRAZOLE 40 MG CAPSULE.DR PO (06:40)
[2022-01-28] MEDS: LEVOTHYROXINE 100 MCG TABLET PO (06:40)
[2022-01-28] MEDS: CARBIDOPA-LEVODOPA 25-100 TABLET 2 TAB PO ×3 (07:37→20:17)
[2022-01-28] MEDS: ACETAMINOPHEN 500 MG TABLET 1000 MG PO ×3 (07:37→20:17)
[2022-01-28] MEDS: METOPROLOL TARTRATE 50 MG TABLET PO ×2 (07:38→15:46)
[2022-01-28] MEDS: LACTOBACILLUS ACIDOPHILUS 1 TABLET PO ×3 (07:38→17:23)
[2022-01-28 09:24] VITALS: BMI 25.3
[2022-01-28 09:53] VITALS: BP 102/61; PULSE 61; RESP 20; TEMP 36.3; O2SAT 93
[2022-01-28] MEDS: DONEPEZIL 10 MG TABLET PO (20:17)
[2022-01-28] MEDS: MELATONIN 3 MG TABLET 6 MG PO (20:17)
--- NOTE | 2022-01-28 21:54 | PC.NURSE ---
Box Storage Worker observed resident having difficulty with swallowing water for medical physics professor twice this shift. Slight coughing on water and spitting up, expelling water from mouth. Does not have difficulty swallowing medications whole. When resident asked if he has difficulty drinking water, he just replies, No. Upon admission, resident was recommended for thickened liquids. Family refusing at this time.
--- NOTE | 2022-01-29 05:38 | PC.NURSE ---
Very restless through the night. Continuous call light use after needs have been met. Denied pain when asked. Denied hunger or thirst. Assisted resident up in w/c and out to desk area. Remained at desk with conventional underwriter for approximately 1 hour then returned to bed. Has been sleeping since going back to bed.
[2022-01-29] MEDS: LEVOTHYROXINE 100 MCG TABLET PO (07:41)
[2022-01-29] MEDS: OMEPRAZOLE 40 MG CAPSULE.DR PO (07:41)
[2022-01-29] MEDS: CARBIDOPA-LEVODOPA 25-100 TABLET 2 TAB PO ×3 (08:06→20:25)
[2022-01-29] MEDS: ACETAMINOPHEN 500 MG TABLET 1000 MG PO ×3 (08:06→20:25)
[2022-01-29] MEDS: LACTOBACILLUS ACIDOPHILUS 1 TABLET PO ×3 (08:10→17:21)
[2022-01-29] MEDS: METOPROLOL TARTRATE 50 MG TABLET PO ×2 (08:10→16:23)
[2022-01-29] MEDS: MELATONIN 3 MG TABLET 6 MG PO (20:25)
[2022-01-29] MEDS: DONEPEZIL 10 MG TABLET PO (20:25)
[2022-01-30] MEDS: ACETAMINOPHEN 500 MG TABLET 1000 MG PO ×3 (07:29→20:08)
[2022-01-30] MEDS: OMEPRAZOLE 40 MG CAPSULE.DR PO (07:29)
[2022-01-30] MEDS: LEVOTHYROXINE 100 MCG TABLET PO (07:29)
[2022-01-30] MEDS: CARBIDOPA-LEVODOPA 25-100 TABLET 2 TAB PO ×3 (07:29→20:08)
[2022-01-30] MEDS: METOPROLOL TARTRATE 50 MG TABLET PO ×2 (07:30→15:43)
[2022-01-30] MEDS: LACTOBACILLUS ACIDOPHILUS 1 TABLET PO ×3 (07:31→16:36)
[2022-01-30] MEDS: MELATONIN 3 MG TABLET 6 MG PO (20:08)
[2022-01-30] MEDS: DONEPEZIL 10 MG TABLET PO (20:08)
--- NOTE | 2022-01-30 20:58 | PC.NURSE ---
Activity: Resident was very valle and refused to attend activity this PM.
[2022-01-31] MEDS: ACETAMINOPHEN 500 MG TABLET 1000 MG PO ×4 (04:54→21:29)
[2022-01-31] MEDS: OMEPRAZOLE 40 MG CAPSULE.DR PO (07:24)
[2022-01-31] MEDS: LEVOTHYROXINE 100 MCG TABLET PO (07:24)
[2022-01-31] MEDS: CARBIDOPA-LEVODOPA 25-100 TABLET 2 TAB PO ×3 (07:25→19:04)
[2022-01-31] MEDS: METOPROLOL TARTRATE 50 MG TABLET PO ×2 (07:26→16:21)
[2022-01-31] MEDS: LACTOBACILLUS ACIDOPHILUS 1 TABLET PO ×3 (07:27→16:41)
[2022-01-31] MEDS: MELATONIN 3 MG TABLET 6 MG PO (19:04)
[2022-01-31] MEDS: DONEPEZIL 10 MG TABLET PO (19:04)
[2022-02-01] MEDS: ACETAMINOPHEN 500 MG TABLET 1000 MG PO ×4 (04:10→21:33)
--- NOTE | 2022-02-01 05:45 | PC.NURSE ---
Poor sleep: Resident slept very poorly throughout the night, he kept using the call light every 10 -20 min informing that he is wet, but when staff check, resident was dry.
[2022-02-01] MEDS: OMEPRAZOLE 40 MG CAPSULE.DR PO (07:18)
[2022-02-01] MEDS: LEVOTHYROXINE 100 MCG TABLET PO (07:18)
[2022-02-01] MEDS: CARBIDOPA-LEVODOPA 25-100 TABLET 2 TAB PO ×3 (07:20→19:12)
[2022-02-01] MEDS: METOPROLOL TARTRATE 50 MG TABLET PO ×2 (07:20→16:18)
[2022-02-01] MEDS: LACTOBACILLUS ACIDOPHILUS 1 TABLET PO ×3 (07:21→16:40)
[2022-02-01] MEDS: DONEPEZIL 10 MG TABLET PO (19:12)
[2022-02-01] MEDS: MELATONIN 3 MG TABLET 6 MG PO (19:12)
--- NOTE | 2022-02-01 21:38 | PC.NURSE ---
Health Status: Resident complains of pain and pointed to his rectal area and stated, my butt hurts. Upon assessment, what appears to be external hemorrhoid was noted. Concern noted in SCREEN MACHINE OPERATOR book.
--- NOTE | 2022-02-02 00:44 | PC.NURSE ---
Week #1:Care plan 1-19 reviewed, no change. Temporary care plan reviewed, no change. Resident is on schedule pain medication Acetaminophen 1,000mg PO TID and Acetaminophen 1000mg PO daily PRN. He sleeps very poorly at night and at times c/o headache. He is totally dependent of 1 staff assist for all his ADLs and able to eat himself when tray is prepared.
[2022-02-02] MEDS: LEVOTHYROXINE 100 MCG TABLET PO (06:55)
[2022-02-02] MEDS: OMEPRAZOLE 40 MG CAPSULE.DR PO (06:55)
--- NOTE | 2022-02-02 07:08 | PC.NURSE ---
Week #2: Mobility: Care plan problems and temporary care plan reviewed. No changes made. Nothing added to temporary care plan. Resident needs one assist, transfer belt and walker with transfers, getting in/out of bed and ambulation. Propels wheelchair at times. Otherwise staff wheels to destinations. Is able to reposition self in bed. Encourage repositioning every 2 hours. Top side rails up to aid for positioning. No alarms. Fall: No falls this past month. Is a high fall risk according to assessment done on 12/17/21.
[2022-02-02] MEDS: ACETAMINOPHEN 500 MG TABLET 1000 MG PO ×3 (08:10→19:43)
[2022-02-02] MEDS: CARBIDOPA-LEVODOPA 25-100 TABLET 2 TAB PO ×3 (08:10→19:46)
[2022-02-02] MEDS: LACTOBACILLUS ACIDOPHILUS 1 TABLET PO ×3 (08:11→16:56)
[2022-02-02] MEDS: METOPROLOL TARTRATE 50 MG TABLET PO ×2 (08:11→16:56)
--- NOTE | 2022-02-02 15:11 | PC.NURSE ---
NEW ORDER: Remeron 15mg q HS for insomnia per Soni Mcgregor DEPUTY PROGRAM MANAGER. RBVO
[2022-02-02] MEDS: MELATONIN 3 MG TABLET 6 MG PO (19:46)
[2022-02-02] MEDS: DONEPEZIL 10 MG TABLET PO (19:46)
[2022-02-02] MEDS: MIRTAZAPINE 15 MG TABLET PO (19:46)
[2022-02-03] MEDS: LEVOTHYROXINE 100 MCG TABLET PO (06:49)
[2022-02-03] MEDS: OMEPRAZOLE 40 MG CAPSULE.DR PO (06:49)
[2022-02-03] MEDS: METOPROLOL TARTRATE 50 MG TABLET PO ×2 (08:12→16:55)
[2022-02-03] MEDS: ACETAMINOPHEN 500 MG TABLET 1000 MG PO ×3 (08:12→20:01)
[2022-02-03] MEDS: CARBIDOPA-LEVODOPA 25-100 TABLET 2 TAB PO ×3 (08:12→20:01)
[2022-02-03] MEDS: LACTOBACILLUS ACIDOPHILUS 1 TABLET PO ×3 (08:12→16:55)
--- NOTE | 2022-02-03 11:07 | PC.NURSE ---
SPOKE TO : had questions regarding bringing in over the counter medications for resident instead of ordering through [facility]. Advised that she can do this if she wishes. She is going to think about it and update staff if she chooses to purchase the over the counter medications for resident.
[2022-02-03] MEDS: DONEPEZIL 10 MG TABLET PO (20:01)
[2022-02-03] MEDS: MELATONIN 3 MG TABLET 6 MG PO (20:01)
[2022-02-03] MEDS: MIRTAZAPINE 15 MG TABLET PO (20:01)
--- NOTE | 2022-02-03 21:12 | PC.NURSE ---
Status: Resident was given 2000 pills and began to drool and spit some of the pills out. Manager Multimedia is unable to identify which two pills were spit out due to the pills denigrating in saliva.
[2022-02-04 07:00] VITALS: BP 101/62; PULSE 60; RESP 18; TEMP 36.4; O2SAT 96; BMI 25.6
[2022-02-04] MEDS: OMEPRAZOLE 40 MG CAPSULE.DR PO (07:07)
[2022-02-04] MEDS: LEVOTHYROXINE 100 MCG TABLET PO (07:07)
[2022-02-04] MEDS: ACETAMINOPHEN 500 MG TABLET 1000 MG PO ×3 (07:24→20:02)
[2022-02-04] MEDS: CARBIDOPA-LEVODOPA 25-100 TABLET 2 TAB PO ×3 (07:25→20:02)
[2022-02-04] MEDS: METOPROLOL TARTRATE 50 MG TABLET PO ×2 (07:25→15:20)
[2022-02-04] MEDS: LACTOBACILLUS ACIDOPHILUS 1 TABLET PO ×3 (07:25→17:03)
[2022-02-04] MEDS: MELATONIN 3 MG TABLET 6 MG PO (20:02)
[2022-02-04] MEDS: MIRTAZAPINE 15 MG TABLET PO (20:02)
[2022-02-04] MEDS: DONEPEZIL 10 MG TABLET PO (20:02)
--- NOTE | 2022-02-05 05:33 | PC.NURSE ---
SLEEP: Has slept soundly through the night. Up to toilet x3 and able to promptly go back to sleep. No behavioral concerns this shift.
[2022-02-05] MEDS: OMEPRAZOLE 40 MG CAPSULE.DR PO (06:53)
[2022-02-05] MEDS: LEVOTHYROXINE 100 MCG TABLET PO (06:53)
[2022-02-05] MEDS: METOPROLOL TARTRATE 50 MG TABLET PO ×2 (07:11→16:27)
[2022-02-05] MEDS: CARBIDOPA-LEVODOPA 25-100 TABLET 2 TAB PO ×3 (07:11→19:41)
[2022-02-05] MEDS: ACETAMINOPHEN 500 MG TABLET 1000 MG PO ×3 (07:11→19:41)
[2022-02-05] MEDS: LACTOBACILLUS ACIDOPHILUS 1 TABLET PO ×3 (07:11→16:32)
--- NOTE | 2022-02-05 12:15 | PC.NURSE ---
Order: SHEET METAL FABRICATOR, Balbir here. Anusol - HC 2.5% QID PRN for hemorrhoid, Triamcinolone Cream BID PRN for feet rash.
[2022-02-05] MEDS: DONEPEZIL 10 MG TABLET PO (19:41)
[2022-02-05] MEDS: MELATONIN 3 MG TABLET 6 MG PO (19:41)
[2022-02-05] MEDS: MIRTAZAPINE 15 MG TABLET PO (19:42)
--- NOTE | 2022-02-06 04:37 | PC.NURSE ---
BEHAVIOR: Resident has taken penis out of pull-up and urinated on the bed x3 this shift. Bed is wet and incontinent product is dry. Resident has been assisted to the toilet and redirected without effect.
[2022-02-06] MEDS: OMEPRAZOLE 40 MG CAPSULE.DR PO (07:04)
[2022-02-06] MEDS: LEVOTHYROXINE 100 MCG TABLET PO (07:05)
[2022-02-06] MEDS: ACETAMINOPHEN 500 MG TABLET 1000 MG PO ×3 (08:05→20:09)
[2022-02-06] MEDS: CARBIDOPA-LEVODOPA 25-100 TABLET 2 TAB PO ×3 (08:05→20:09)
[2022-02-06] MEDS: LACTOBACILLUS ACIDOPHILUS 1 TABLET PO ×3 (08:06→17:20)
[2022-02-06] MEDS: METOPROLOL TARTRATE 50 MG TABLET PO ×2 (08:06→15:43)
[2022-02-06] MEDS: MIRTAZAPINE 15 MG TABLET PO (20:09)
[2022-02-06] MEDS: DONEPEZIL 10 MG TABLET PO (20:09)
[2022-02-06] MEDS: MELATONIN 3 MG TABLET 6 MG PO (20:09)
[2022-02-07] MEDS: ACETAMINOPHEN 500 MG TABLET 1000 MG PO ×4 (02:02→20:44)
[2022-02-07] MEDS: LEVOTHYROXINE 100 MCG TABLET PO (06:51)
[2022-02-07] MEDS: OMEPRAZOLE 40 MG CAPSULE.DR PO (06:51)
[2022-02-07] MEDS: CARBIDOPA-LEVODOPA 25-100 TABLET 2 TAB PO ×3 (08:10→20:44)
[2022-02-07] MEDS: METOPROLOL TARTRATE 50 MG TABLET PO ×2 (08:10→15:34)
[2022-02-07] MEDS: LACTOBACILLUS ACIDOPHILUS 1 TABLET PO ×3 (08:10→17:03)
[2022-02-07] MEDS: MELATONIN 3 MG TABLET 6 MG PO (20:44)
[2022-02-07] MEDS: DONEPEZIL 10 MG TABLET PO (20:44)
[2022-02-07] MEDS: MIRTAZAPINE 15 MG TABLET PO (20:44)
--- NOTE | 2022-02-08 05:06 | PC.NURSE ---
BEHAVIOR: Resident has slept very little this shift. Frequent call light use after needs have been met. Resident has been toileted multiple times. Food and drink have been offered and declined. Has denied pain when asked. All attempted interventions have been ineffective.
[2022-02-08] MEDS: LEVOTHYROXINE 100 MCG TABLET PO (07:48)
[2022-02-08] MEDS: OMEPRAZOLE 40 MG CAPSULE.DR PO (07:48)
[2022-02-08] MEDS: CARBIDOPA-LEVODOPA 25-100 TABLET 2 TAB PO ×3 (07:52→19:46)
[2022-02-08] MEDS: ACETAMINOPHEN 500 MG TABLET 1000 MG PO ×3 (07:52→19:45)
[2022-02-08] MEDS: METOPROLOL TARTRATE 50 MG TABLET PO ×2 (07:53→15:08)
[2022-02-08] MEDS: LACTOBACILLUS ACIDOPHILUS 1 TABLET PO ×3 (07:53→17:08)
[2022-02-08] MEDS: DONEPEZIL 10 MG TABLET PO (19:46)
[2022-02-08] MEDS: MELATONIN 3 MG TABLET 6 MG PO (19:46)
[2022-02-08] MEDS: MIRTAZAPINE 15 MG TABLET PO (19:46)
--- NOTE | 2022-02-08 22:23 | PC.NURSE ---
Resident continues to cough on thin liquids. Audible gurgling. Some difficulty swallowing pills with water. Expels water from mouth while attempting to swallow. Plate Conditioner listened to lung sounds and heard rhonchi bilaterally in upper lobes. VS T 97.9, P 63, RR 22, B/P 105/56 O2 94% on RA. Does not appear SOB. Denies any pain or discomfort.
--- NOTE | 2022-02-09 01:34 | PC.NURSE ---
Weekly Charting - 3: Admission/Readmission Baseline Care Plan, and vital signs reviewed. No changes made and nothing added at this time. Resident gets PRN Triamcinolone cream BID on rashes to bilateral feet. Bladder and bowel: Resident is incontinent of bladder and occasionally with bowel. Resident calls many times during the night to use the bathroom - assist one with the walker and gait belt.
[2022-02-09] MEDS: LEVOTHYROXINE 100 MCG TABLET PO (07:48)
[2022-02-09] MEDS: OMEPRAZOLE 40 MG CAPSULE.DR PO (07:48)
[2022-02-09] MEDS: ACETAMINOPHEN 500 MG TABLET 1000 MG PO ×4 (08:07→21:22)
[2022-02-09] MEDS: CARBIDOPA-LEVODOPA 25-100 TABLET 2 TAB PO ×3 (08:07→19:43)
[2022-02-09] MEDS: METOPROLOL TARTRATE 50 MG TABLET PO ×2 (08:08→16:44)
[2022-02-09] MEDS: LACTOBACILLUS ACIDOPHILUS 1 TABLET PO ×3 (08:09→16:44)
--- NOTE | 2022-02-09 10:38 | PC.NURSE ---
Weekly Charting - 3: Admission/Readmission Baseline Care Plan, and vital signs reviewed. No changes made and nothing added at this time. Resident gets PRN Triamcinolone cream BID on rashes to bilateral feet.? Bladder and bowel: Resident is incontinent of bladder and occasionally with bowel. Resident calls many times during the night to use the bathroom - assist one with the walker and gait belt.? WEEKLY CHARTING - 3: No changes to temporary care plan No changes to comprehensive care greene Rashes on bilateral feet - triamcinolone cream applied BID and PRN Incontinent of bowel and bladder. Check brief Q2hr and PRN. Keep call light within reach. Provide pericare after incontinence. Monitor for S/S of UTI. Extensive Ax1 with W/GB
--- NOTE | 2022-02-09 10:40 | PC.NURSE ---
Status: No cough noted with medications this shift, lungs clear. Temp 97.6
[2022-02-09] MEDS: MIRTAZAPINE 15 MG TABLET PO (19:43)
[2022-02-09] MEDS: MELATONIN 3 MG TABLET 6 MG PO (19:43)
[2022-02-09] MEDS: DONEPEZIL 10 MG TABLET PO (19:43)
--- NOTE | 2022-02-10 05:23 | PC.NURSE ---
Has been restless throughout the night. Has c/o pain in leg and later a headache. Unable to administer PRN acetaminophen d/t has already had 4 grams in 24 hours. Clinical Psychiatrist offered ice/heat and resident declined. Offered to call the on-call provider and resident yelled No, don't call the damn doctor.
[2022-02-10] MEDS: LEVOTHYROXINE 100 MCG TABLET PO (07:15)
[2022-02-10] MEDS: OMEPRAZOLE 40 MG CAPSULE.DR PO (07:15)
[2022-02-10] MEDS: CARBIDOPA-LEVODOPA 25-100 TABLET 2 TAB PO ×3 (07:16→20:06)
[2022-02-10] MEDS: LACTOBACILLUS ACIDOPHILUS 1 TABLET PO ×3 (07:17→16:40)
[2022-02-10] MEDS: METOPROLOL TARTRATE 50 MG TABLET PO ×2 (07:17→16:42)
[2022-02-10] MEDS: ACETAMINOPHEN 500 MG TABLET 1000 MG PO ×3 (08:25→20:05)
[2022-02-10] MEDS: TRIAMCINOLONE ACETONIDE OINTMENT 0.1 % 1 APPLIC TOPICAL (10:15)
--- NOTE | 2022-02-10 12:23 | PC.NURSE ---
Status/Order: CORK INSULATION SETTER, Balbir here. Updated pain not controlled with Tylenol. Order: Tramadol 50 mg @ HS & daily PRN. Check BP's daily x 1 week d/t low values.
--- NOTE | 2022-02-10 12:51 | PC.NURSE ---
Status: PARTS TECHNICIAN, Balbir aware of swallowing difficulties with pills and water. Rhonchi bilateral upper lobes present. Continue to monitor. does not want swallowing eval.
--- NOTE | 2022-02-10 14:35 | PC.NURSE ---
Spoke to residents in regards to residents chronic cough with meals/liquids. Discussed speech eval to change texture of food/liquids. stated in the past resident has tried a different texture of fluids and and food and that he then did not eat/drink. She states that resident has been coughing with fluids/meals for a long period of time. She would like staff to remind resident to drink slowly and use a straw. CP update/staff updated in report. At this time she does not want a speech eval to be done. FIRE CAPTAIN upated. Photocomposing Machine Operator went over the risks of aspiration with and resident. At this time confirms she does want to have residents diet/liquids changed and no speech eval to be done.
[2022-02-10 16:00] VITALS: BP 143/76
[2022-02-10] MEDS: TRAMADOL HCL 50 MG TABLET PO (20:06)
[2022-02-10] MEDS: MIRTAZAPINE 15 MG TABLET PO (20:06)
[2022-02-10] MEDS: DONEPEZIL 10 MG TABLET PO (20:06)
[2022-02-10] MEDS: MELATONIN 3 MG TABLET 6 MG PO (20:06)
--- NOTE | 2022-02-11 05:28 | PC.NURSE ---
Resident received first dose of scheduled tramadol 50mg at HS last evening. Has slept soundly through the night. No c/o pain. No restlessness. No behavioral concerns.
[2022-02-11] MEDS: OMEPRAZOLE 40 MG CAPSULE.DR PO (06:53)
[2022-02-11] MEDS: LEVOTHYROXINE 100 MCG TABLET PO (06:53)
[2022-02-11] MEDS: ACETAMINOPHEN 500 MG TABLET 1000 MG PO ×3 (07:10→20:22)
[2022-02-11] MEDS: CARBIDOPA-LEVODOPA 25-100 TABLET 2 TAB PO ×3 (07:11→20:22)
[2022-02-11] MEDS: METOPROLOL TARTRATE 50 MG TABLET PO ×2 (07:11→15:24)
[2022-02-11] MEDS: LACTOBACILLUS ACIDOPHILUS 1 TABLET PO ×3 (07:11→17:20)
[2022-02-11 10:29] VITALS: BP 118/70; PULSE 80; RESP 20; TEMP 36.2; O2SAT 95; BMI 24.3
[2022-02-11 16:36] VITALS: BP 144/90
[2022-02-11] MEDS: MELATONIN 3 MG TABLET 6 MG PO (20:22)
[2022-02-11] MEDS: MIRTAZAPINE 15 MG TABLET PO (20:22)
[2022-02-11] MEDS: DONEPEZIL 10 MG TABLET PO (20:22)
[2022-02-11] MEDS: TRAMADOL HCL 50 MG TABLET PO (20:22)
[2022-02-11 23:00] VITALS: BP 144/90
[2022-02-12] MEDS: LEVOTHYROXINE 100 MCG TABLET PO (06:43)
[2022-02-12] MEDS: OMEPRAZOLE 40 MG CAPSULE.DR PO (06:43)
[2022-02-12] MEDS: ACETAMINOPHEN 500 MG TABLET 1000 MG PO ×3 (07:45→20:32)
[2022-02-12] MEDS: CARBIDOPA-LEVODOPA 25-100 TABLET 2 TAB PO ×3 (07:46→20:32)
[2022-02-12] MEDS: METOPROLOL TARTRATE 50 MG TABLET PO ×2 (07:46→15:36)
[2022-02-12] MEDS: LACTOBACILLUS ACIDOPHILUS 1 TABLET PO ×3 (07:47→17:30)
[2022-02-12 16:00] VITALS: BP 149/75
[2022-02-12] MEDS: MELATONIN 3 MG TABLET 6 MG PO (20:32)
[2022-02-12] MEDS: TRAMADOL HCL 50 MG TABLET PO (20:32)
[2022-02-12] MEDS: MIRTAZAPINE 15 MG TABLET PO (20:32)
[2022-02-12] MEDS: DONEPEZIL 10 MG TABLET PO (20:32)
[2022-02-12] MEDS: TRIAMCINOLONE ACETONIDE OINTMENT 0.1 % 1 APPLIC TOPICAL (21:20)
[2022-02-13] MEDS: LEVOTHYROXINE 100 MCG TABLET PO (07:26)
[2022-02-13] MEDS: OMEPRAZOLE 40 MG CAPSULE.DR PO (07:26)
[2022-02-13] MEDS: ACETAMINOPHEN 500 MG TABLET 1000 MG PO ×3 (07:27→19:41)
[2022-02-13] MEDS: METOPROLOL TARTRATE 50 MG TABLET PO ×2 (07:27→15:11)
[2022-02-13] MEDS: CARBIDOPA-LEVODOPA 25-100 TABLET 2 TAB PO ×3 (07:27→19:41)
[2022-02-13] MEDS: LACTOBACILLUS ACIDOPHILUS 1 TABLET PO ×3 (07:29→17:51)
[2022-02-13 16:00] VITALS: BP 139/69
[2022-02-13] MEDS: MELATONIN 3 MG TABLET 6 MG PO (19:41)
[2022-02-13] MEDS: DONEPEZIL 10 MG TABLET PO (19:41)
[2022-02-13] MEDS: MIRTAZAPINE 15 MG TABLET PO (19:41)
[2022-02-13] MEDS: TRAMADOL HCL 50 MG TABLET PO (19:42)
[2022-02-14] MEDS: LEVOTHYROXINE 100 MCG TABLET PO (07:35)
[2022-02-14] MEDS: OMEPRAZOLE 40 MG CAPSULE.DR PO (07:35)
[2022-02-14] MEDS: CARBIDOPA-LEVODOPA 25-100 TABLET 2 TAB PO ×3 (07:36→19:54)
[2022-02-14] MEDS: METOPROLOL TARTRATE 50 MG TABLET PO ×2 (07:36→16:18)
[2022-02-14] MEDS: ACETAMINOPHEN 500 MG TABLET 1000 MG PO ×3 (07:36→19:53)
[2022-02-14] MEDS: LACTOBACILLUS ACIDOPHILUS 1 TABLET PO ×3 (07:37→17:03)
[2022-02-14 16:00] VITALS: BP 109/69
[2022-02-14] MEDS: DONEPEZIL 10 MG TABLET PO (19:54)
[2022-02-14] MEDS: MIRTAZAPINE 15 MG TABLET PO (19:54)
[2022-02-14] MEDS: MELATONIN 3 MG TABLET 6 MG PO (19:54)
[2022-02-14] MEDS: TRAMADOL HCL 50 MG TABLET PO (19:54)
[2022-02-15] MEDS: LEVOTHYROXINE 100 MCG TABLET PO (07:02)
[2022-02-15] MEDS: LACTOBACILLUS ACIDOPHILUS 1 TABLET PO ×3 (07:02→16:32)
[2022-02-15] MEDS: OMEPRAZOLE 40 MG CAPSULE.DR PO (07:02)
[2022-02-15] MEDS: ACETAMINOPHEN 500 MG TABLET 1000 MG PO ×3 (07:02→19:07)
[2022-02-15] MEDS: CARBIDOPA-LEVODOPA 25-100 TABLET 2 TAB PO ×3 (07:02→19:07)
[2022-02-15] MEDS: METOPROLOL TARTRATE 50 MG TABLET PO ×2 (07:02→16:32)
[2022-02-15 16:00] VITALS: BP 136/75
[2022-02-15] MEDS: DONEPEZIL 10 MG TABLET PO (19:07)
[2022-02-15] MEDS: MELATONIN 3 MG TABLET 6 MG PO (19:07)
[2022-02-15] MEDS: MIRTAZAPINE 15 MG TABLET PO (19:08)
[2022-02-15] MEDS: TRAMADOL HCL 50 MG TABLET PO (19:08)
--- NOTE | 2022-02-16 02:04 | PC.NURSE ---
WEEKLY CHARTING - WEEK 4: Vital signs reviewed- BP is variable. BP is currently being checked daily per CREDIT RELATIONSHIP MANAGER. Temporary and comprehensive care plan reviewed with no change. Has had 11 documented behaviors in the last month all occurring on evening and NOC shift. Currently receives melatonin 6mg at HS and mirtazapine 15mg at HS. No adverse effects noted. Sleep quantity and quality has improved since starting on the mirtazapine on 02/02/22. Communication is impaired r/t unclear speech, but is usually understood. Staff ask simple yes/no questions, listen for schrader words, and anticipate needs. Has visual impairment, wears glasses. hearing is adequate. Has moderate to severe cognitive impairment a/e/b BIMS score of 11 and MoCA score of 8. Has intermittent confusion and sundowning on evening/NOC shift. New pain management regimen initiated on 02/10/22 - tramadol 50mg PO at HS and 50mg PO daily PRN. All medications administered by licensed nurse. No change in chronic health conditions.
[2022-02-16] MEDS: CARBIDOPA-LEVODOPA 25-100 TABLET 2 TAB PO ×3 (07:15→20:09)
[2022-02-16] MEDS: LEVOTHYROXINE 100 MCG TABLET PO (07:15)
[2022-02-16] MEDS: OMEPRAZOLE 40 MG CAPSULE.DR PO (07:15)
[2022-02-16] MEDS: ACETAMINOPHEN 500 MG TABLET 1000 MG PO ×3 (07:15→20:05)
[2022-02-16] MEDS: METOPROLOL TARTRATE 50 MG TABLET PO ×2 (07:15→16:46)
[2022-02-16] MEDS: LACTOBACILLUS ACIDOPHILUS 1 TABLET PO ×3 (07:16→16:46)
--- NOTE | 2022-02-16 10:50 | PC.NURSE ---
Week #4: Care plan reviewed, no changes made. Nothing added to temporary care plan. No changes noted in communication, hearing, vision, or orientation. Resident has impaired speech - slurred/garbled. Is able to use the call light. Staff anticipates needs. Vision impaired, wears glasses. Hearing fine. Has moderate to severe cognitive impairment r/t dementia. Intermittent sun downing and confusion mostly during evening and nights. Chronic health condition stable. vital signs reviewed by TOUR COORDINATOR, BP monitored daily x one week. Staff administers medications. Mood/Behavior: Has intermittent sun downing & confusion during the night/evening. 02/02/22 Remeron 15 mg was started with no adverse effects noted.
[2022-02-16] MEDS: MELATONIN 3 MG TABLET 6 MG PO (20:09)
[2022-02-16] MEDS: DONEPEZIL 10 MG TABLET PO (20:09)
[2022-02-16] MEDS: MIRTAZAPINE 15 MG TABLET PO (20:10)
[2022-02-16] MEDS: TRAMADOL HCL 50 MG TABLET PO (20:10)
[2022-02-16 20:50] VITALS: BP 148/69
[2022-02-17] MEDS: LEVOTHYROXINE 100 MCG TABLET PO (06:34)
[2022-02-17] MEDS: OMEPRAZOLE 40 MG CAPSULE.DR PO (06:34)
[2022-02-17] MEDS: ACETAMINOPHEN 500 MG TABLET 1000 MG PO ×3 (07:57→19:48)
[2022-02-17] MEDS: CARBIDOPA-LEVODOPA 25-100 TABLET 2 TAB PO ×3 (07:58→19:48)
[2022-02-17] MEDS: METOPROLOL TARTRATE 50 MG TABLET PO ×2 (07:58→16:53)
[2022-02-17] MEDS: LACTOBACILLUS ACIDOPHILUS 1 TABLET PO ×3 (07:58→16:55)
[2022-02-17] MEDS: TRIAMCINOLONE ACETONIDE OINTMENT 0.1 % 1 APPLIC TOPICAL (10:00)
--- NOTE | 2022-02-17 13:20 | PC.NURSE ---
Order: Discontinue daily BP monitoring by foiling machine operator. BP's okay.
--- NOTE | 2022-02-17 14:48 | PC.SPIRITC ---
Juan indicated he wanted communion, I provided the sacrament along with visit for support and connection.
[2022-02-17] MEDS: TRAMADOL HCL 50 MG TABLET PO (19:48)
[2022-02-17] MEDS: DONEPEZIL 10 MG TABLET PO (19:48)
[2022-02-17] MEDS: MIRTAZAPINE 15 MG TABLET PO (19:48)
[2022-02-17] MEDS: MELATONIN 3 MG TABLET 6 MG PO (19:48)
[2022-02-18 07:00] VITALS: BP 104/70; PULSE 60; RESP 16; TEMP 36.4; O2SAT 94; BMI 24.8
[2022-02-18] MEDS: OMEPRAZOLE 40 MG CAPSULE.DR PO (07:14)
[2022-02-18] MEDS: CARBIDOPA-LEVODOPA 25-100 TABLET 2 TAB PO ×3 (07:14→19:47)
[2022-02-18] MEDS: ACETAMINOPHEN 500 MG TABLET 1000 MG PO ×3 (07:14→19:47)
[2022-02-18] MEDS: LEVOTHYROXINE 100 MCG TABLET PO (07:14)
[2022-02-18] MEDS: METOPROLOL TARTRATE 50 MG TABLET PO ×2 (07:14→16:15)
[2022-02-18] MEDS: LACTOBACILLUS ACIDOPHILUS 1 TABLET PO ×3 (07:15→17:27)
--- NOTE | 2022-02-18 14:43 | PC.PHA ---
Medication Review~ Medication monitoring:Mirtazapine 15 mg po hs Comments or Irregularity: Patient started mirtazapine 02/02/22 at hs for sleep. Suggested Course: Continue current course of medications at time of this review, too soon for GDR. Other medications reviewed, and no concerns this review.
[2022-02-18] MEDS: DONEPEZIL 10 MG TABLET PO (19:47)
[2022-02-18] MEDS: MELATONIN 3 MG TABLET 6 MG PO (19:47)
[2022-02-18] MEDS: TRAMADOL HCL 50 MG TABLET PO (19:47)
[2022-02-18] MEDS: MIRTAZAPINE 15 MG TABLET PO (19:47)
[2022-02-18] MEDS: TRIAMCINOLONE ACETONIDE OINTMENT 0.1 % 1 APPLIC TOPICAL (21:50)
[2022-02-19] MEDS: ACETAMINOPHEN 500 MG TABLET 1000 MG PO ×4 (02:28→20:38)
[2022-02-19] MEDS: TRAMADOL HCL 50 MG TABLET PO ×2 (03:43→20:38)
--- NOTE | 2022-02-19 04:58 | PC.NURSE ---
PAIN: Resident c/o headache and received PRN acetaminophen at 0228. When following up with resident regarding headache, he stated that the headache had resolved, but his legs were hurting. PRN tramadol administered for bilateral leg pain at 0343. PRN administration was effective. Resident is sleeping soundly at this time.
[2022-02-19] MEDS: OMEPRAZOLE 40 MG CAPSULE.DR PO (06:51)
[2022-02-19] MEDS: LEVOTHYROXINE 100 MCG TABLET PO (06:51)
[2022-02-19] MEDS: METOPROLOL TARTRATE 50 MG TABLET PO ×2 (08:16→16:54)
[2022-02-19] MEDS: CARBIDOPA-LEVODOPA 25-100 TABLET 2 TAB PO ×3 (08:16→20:38)
[2022-02-19] MEDS: LACTOBACILLUS ACIDOPHILUS 1 TABLET PO ×3 (08:17→16:57)
[2022-02-19] MEDS: DONEPEZIL 10 MG TABLET PO (20:38)
[2022-02-19] MEDS: MELATONIN 3 MG TABLET 6 MG PO (20:38)
[2022-02-19] MEDS: MIRTAZAPINE 15 MG TABLET PO (20:38)
[2022-02-20] MEDS: OMEPRAZOLE 40 MG CAPSULE.DR PO (06:51)
[2022-02-20] MEDS: LEVOTHYROXINE 100 MCG TABLET PO (06:51)
[2022-02-20] MEDS: METOPROLOL TARTRATE 50 MG TABLET PO ×2 (08:18→15:42)
[2022-02-20] MEDS: ACETAMINOPHEN 500 MG TABLET 1000 MG PO ×3 (08:18→19:54)
[2022-02-20] MEDS: LACTOBACILLUS ACIDOPHILUS 1 TABLET PO ×3 (08:18→17:07)
[2022-02-20] MEDS: CARBIDOPA-LEVODOPA 25-100 TABLET 2 TAB PO ×3 (08:18→19:54)
[2022-02-20] MEDS: MIRTAZAPINE 15 MG TABLET PO (19:54)
[2022-02-20] MEDS: DONEPEZIL 10 MG TABLET PO (19:54)
[2022-02-20] MEDS: MELATONIN 3 MG TABLET 6 MG PO (19:54)
[2022-02-20] MEDS: TRAMADOL HCL 50 MG TABLET PO (19:54)
[2022-02-21] MEDS: LEVOTHYROXINE 100 MCG TABLET PO (06:36)
[2022-02-21] MEDS: OMEPRAZOLE 40 MG CAPSULE.DR PO (06:36)
[2022-02-21] MEDS: METOPROLOL TARTRATE 50 MG TABLET PO ×2 (08:19→15:56)
[2022-02-21] MEDS: ACETAMINOPHEN 500 MG TABLET 1000 MG PO ×3 (08:19→20:13)
[2022-02-21] MEDS: LACTOBACILLUS ACIDOPHILUS 1 TABLET PO ×3 (08:19→17:08)
[2022-02-21] MEDS: CARBIDOPA-LEVODOPA 25-100 TABLET 2 TAB PO ×3 (08:19→20:13)
[2022-02-21] MEDS: DONEPEZIL 10 MG TABLET PO (20:13)
[2022-02-21] MEDS: MIRTAZAPINE 15 MG TABLET PO (20:13)
[2022-02-21] MEDS: MELATONIN 3 MG TABLET 6 MG PO (20:13)
[2022-02-21] MEDS: TRAMADOL HCL 50 MG TABLET PO (20:14)
--- NOTE | 2022-02-21 22:03 | PC.NURSE ---
Res. c/o of pain near anus after having bowel movement. Anusol cream admin at 1855. Provided relief upon reassessment.
[2022-02-22] MEDS: OMEPRAZOLE 40 MG CAPSULE.DR PO (06:46)
[2022-02-22] MEDS: LEVOTHYROXINE 100 MCG TABLET PO (06:46)
[2022-02-22] MEDS: ACETAMINOPHEN 500 MG TABLET 1000 MG PO ×3 (07:58→19:31)
[2022-02-22] MEDS: CARBIDOPA-LEVODOPA 25-100 TABLET 2 TAB PO ×3 (07:58→19:31)
[2022-02-22] MEDS: METOPROLOL TARTRATE 50 MG TABLET PO ×2 (08:01→16:07)
[2022-02-22] MEDS: LACTOBACILLUS ACIDOPHILUS 1 TABLET PO ×3 (08:01→17:02)
[2022-02-22] MEDS: MELATONIN 3 MG TABLET 6 MG PO (19:31)
[2022-02-22] MEDS: TRAMADOL HCL 50 MG TABLET PO (19:31)
[2022-02-22] MEDS: DONEPEZIL 10 MG TABLET PO (19:31)
[2022-02-22] MEDS: MIRTAZAPINE 15 MG TABLET PO (19:31)
[2022-02-23] MEDS: LEVOTHYROXINE 100 MCG TABLET PO (06:42)
[2022-02-23] MEDS: OMEPRAZOLE 40 MG CAPSULE.DR PO (06:42)
[2022-02-23] MEDS: CARBIDOPA-LEVODOPA 25-100 TABLET 2 TAB PO ×3 (08:11→19:30)
[2022-02-23] MEDS: ACETAMINOPHEN 500 MG TABLET 1000 MG PO ×3 (08:11→19:30)
[2022-02-23] MEDS: LACTOBACILLUS ACIDOPHILUS 1 TABLET PO ×3 (08:12→16:32)
[2022-02-23] MEDS: METOPROLOL TARTRATE 50 MG TABLET PO ×2 (08:12→15:40)
--- NOTE | 2022-02-23 11:15 | PC.NURSE ---
WEEKLY CHARTING - WEEK 1: VS reviewed: WNL Temporary care plan: Difficulty swallowing aeb coughing during meals. declined speech eval. given information on risks of aspiration. Staff to remind resident to take small sips and use a straw. Staff to monitor for SOB and lung congestion. Pt experiences inability to sleep at night. Rameron 15 mg started to aid sleep. Staff to monitor for effectiveness and s/e. Pain: Pt report pain 7 times in last 30 days. Usual c/o headache or leg pain. Acetaminophen 650mg Q6H PRN. ADLs: Staff Ax1 for all ADLs. Pt involved in ADL, staff to guide maneuvering limbs and other [id number] assistance. Extensive Ax1 for bathing, dressing. Staff Ax1 and set up oral cares. Nutrition: Regular diet per MD. Thickened liquids recommended by ST, requests thin liquids. Staff supervision, encouragement, and cueing for eating.
[2022-02-23] MEDS: DONEPEZIL 10 MG TABLET PO (19:30)
[2022-02-23] MEDS: TRAMADOL HCL 50 MG TABLET PO (19:30)
[2022-02-23] MEDS: MIRTAZAPINE 15 MG TABLET PO (19:30)
[2022-02-23] MEDS: MELATONIN 3 MG TABLET 6 MG PO (19:30)
[2022-02-24] MEDS: OMEPRAZOLE 40 MG CAPSULE.DR PO (06:44)
[2022-02-24] MEDS: LEVOTHYROXINE 100 MCG TABLET PO (06:44)
[2022-02-24] MEDS: CARBIDOPA-LEVODOPA 25-100 TABLET 2 TAB PO ×3 (07:05→20:08)
[2022-02-24] MEDS: LACTOBACILLUS ACIDOPHILUS 1 TABLET PO ×3 (07:05→16:59)
[2022-02-24] MEDS: METOPROLOL TARTRATE 50 MG TABLET PO ×2 (07:05→16:59)
[2022-02-24] MEDS: ACETAMINOPHEN 500 MG TABLET 1000 MG PO ×3 (07:05→20:08)
[2022-02-24] MEDS: MELATONIN 3 MG TABLET 6 MG PO (20:08)
[2022-02-24] MEDS: MIRTAZAPINE 15 MG TABLET PO (20:08)
[2022-02-24] MEDS: DONEPEZIL 10 MG TABLET PO (20:08)
[2022-02-24] MEDS: TRAMADOL HCL 50 MG TABLET PO (20:08)
[2022-02-25] MEDS: LEVOTHYROXINE 100 MCG TABLET PO (06:48)
[2022-02-25] MEDS: OMEPRAZOLE 40 MG CAPSULE.DR PO (06:48)
[2022-02-25] MEDS: ACETAMINOPHEN 500 MG TABLET 1000 MG PO ×3 (07:54→19:44)
[2022-02-25] MEDS: METOPROLOL TARTRATE 50 MG TABLET PO ×2 (07:54→15:22)
[2022-02-25] MEDS: CARBIDOPA-LEVODOPA 25-100 TABLET 2 TAB PO ×3 (07:54→19:44)
[2022-02-25] MEDS: LACTOBACILLUS ACIDOPHILUS 1 TABLET PO ×3 (07:55→17:03)
[2022-02-25 13:27] VITALS: BMI 24.8
[2022-02-25 13:40] VITALS: BP 112/75; PULSE 62; RESP 20; TEMP 36.3; O2SAT 95
[2022-02-25] MEDS: MELATONIN 3 MG TABLET 6 MG PO (19:44)
[2022-02-25] MEDS: MIRTAZAPINE 15 MG TABLET PO (19:44)
[2022-02-25] MEDS: DONEPEZIL 10 MG TABLET PO (19:44)
[2022-02-25] MEDS: TRAMADOL HCL 50 MG TABLET PO (19:44)
[2022-02-26] MEDS: OMEPRAZOLE 40 MG CAPSULE.DR PO (06:47)
[2022-02-26] MEDS: LEVOTHYROXINE 100 MCG TABLET PO (06:47)
[2022-02-26] MEDS: METOPROLOL TARTRATE 50 MG TABLET PO ×3 (08:00→15:58)
[2022-02-26] MEDS: LACTOBACILLUS ACIDOPHILUS 1 TABLET PO ×3 (08:18→17:09)
[2022-02-26] MEDS: CARBIDOPA-LEVODOPA 25-100 TABLET 2 TAB PO ×3 (08:18→19:52)
[2022-02-26] MEDS: ACETAMINOPHEN 500 MG TABLET 1000 MG PO ×3 (08:18→19:52)
[2022-02-26] MEDS: MIRTAZAPINE 15 MG TABLET PO (19:52)
[2022-02-26] MEDS: MELATONIN 3 MG TABLET 6 MG PO (19:52)
[2022-02-26] MEDS: TRAMADOL HCL 50 MG TABLET PO (19:52)
[2022-02-26] MEDS: DONEPEZIL 10 MG TABLET PO (19:52)
[2022-02-27] MEDS: METOPROLOL TARTRATE 50 MG TABLET PO ×2 (07:35→15:45)
[2022-02-27] MEDS: LEVOTHYROXINE 100 MCG TABLET PO (07:35)
[2022-02-27] MEDS: LACTOBACILLUS ACIDOPHILUS 1 TABLET PO ×3 (07:35→17:30)
[2022-02-27] MEDS: CARBIDOPA-LEVODOPA 25-100 TABLET 2 TAB PO ×3 (07:35→19:10)
[2022-02-27] MEDS: ACETAMINOPHEN 500 MG TABLET 1000 MG PO ×3 (07:35→19:10)
[2022-02-27] MEDS: OMEPRAZOLE 40 MG CAPSULE.DR PO (07:40)
--- NOTE | 2022-02-27 11:28 | PC.NURSE ---
Recert Visit: Resident seen by Dr. Goss. Orders reviewed and renewed for 45 days with changes. Order: Discontinue Amlodipine.
--- NOTE | 2022-02-27 13:52 | PC.NURSE ---
Order Clarification: Talk to Dr. Goss's Nurse, Michaela regarding order to D/C Amlodipne. Resident not on Amlodipine but on Metoprolol 50 mg BID. Awaiting order.
--- NOTE | 2022-02-27 17:44 | PC.NURSE ---
New Med Order: Metoprolol to be titrated to [address] Goss
[2022-02-27] MEDS: DONEPEZIL 10 MG TABLET PO (19:10)
[2022-02-27] MEDS: MELATONIN 3 MG TABLET 6 MG PO (19:10)
[2022-02-27] MEDS: TRAMADOL HCL 50 MG TABLET PO (19:11)
[2022-02-27] MEDS: MIRTAZAPINE 15 MG TABLET PO (19:11)
[2022-02-28] MEDS: TRAMADOL HCL 50 MG TABLET PO ×2 (05:37→19:40)
[2022-02-28] MEDS: OMEPRAZOLE 40 MG CAPSULE.DR PO (07:40)
[2022-02-28] MEDS: LEVOTHYROXINE 100 MCG TABLET PO (07:40)
[2022-02-28] MEDS: CARBIDOPA-LEVODOPA 25-100 TABLET 2 TAB PO ×3 (07:40→19:39)
[2022-02-28] MEDS: ACETAMINOPHEN 500 MG TABLET 1000 MG PO ×3 (07:40→19:39)
[2022-02-28] MEDS: LACTOBACILLUS ACIDOPHILUS 1 TABLET PO ×3 (07:44→17:12)
[2022-02-28] MEDS: METOPROLOL TARTRATE 25 MG TABLET PO ×2 (08:47→15:31)
[2022-02-28] MEDS: MIRTAZAPINE 15 MG TABLET PO (19:39)
[2022-02-28] MEDS: MELATONIN 3 MG TABLET 6 MG PO (19:39)
[2022-02-28] MEDS: DONEPEZIL 10 MG TABLET PO (19:39)
[2022-03-01] MEDS: CARBIDOPA-LEVODOPA 25-100 TABLET 2 TAB PO ×3 (07:24→19:53)
[2022-03-01] MEDS: LEVOTHYROXINE 100 MCG TABLET PO (07:24)
[2022-03-01] MEDS: ACETAMINOPHEN 500 MG TABLET 1000 MG PO ×3 (07:24→19:53)
[2022-03-01] MEDS: OMEPRAZOLE 40 MG CAPSULE.DR PO (07:24)
[2022-03-01] MEDS: LACTOBACILLUS ACIDOPHILUS 1 TABLET PO ×3 (07:25→17:28)
[2022-03-01] MEDS: METOPROLOL TARTRATE 25 MG TABLET PO ×2 (07:25→16:03)
[2022-03-01] MEDS: DONEPEZIL 10 MG TABLET PO (19:53)
[2022-03-01] MEDS: TRAMADOL HCL 50 MG TABLET PO (19:53)
[2022-03-01] MEDS: MIRTAZAPINE 15 MG TABLET PO (19:53)
[2022-03-01] MEDS: MELATONIN 3 MG TABLET 6 MG PO (19:53)
--- NOTE | 2022-03-02 02:00 | PC.NURSE ---
WEEKLY CHARTING - WEEK 1: Vital signs reviewed. BPs variable. Blood pressures reviewed by ER NURSE on 02/16 with no med changes. Temporary and comprehensive care plan reviewed without change. Has hx of frequent headaches. c/o bilateral leg pain at times. Currently receives acetaminophen 1000mg TID & daily PRN and tramadol 50mg at HS & daily PRN. Main management regimen is effective. Total staff assist for denture/oral care and placement/removal. Requires limited assist of 1 for grooming with supervision and cues. Extensive assist of 1 for bathing and dressing. Staff encourage resident participation. Hx of coughing with fluids. Continues to receive thin liquids per family request despite ST recommendation. Staff monitor for difficulties with chewing/swallowing. Eats independently after set-up. Uses built up silverware and divided plate for meals. Weight is stable.
[2022-03-02] MEDS: OMEPRAZOLE 40 MG CAPSULE.DR PO (06:50)
[2022-03-02] MEDS: LEVOTHYROXINE 100 MCG TABLET PO (06:50)
--- NOTE | 2022-03-02 07:12 | PC.NURSE ---
Week #1: Care plan reviewed, no changes made. Nothing added to temporary care plan. Resident needs extensive assist of one with dressing and bathing. Encourage participation. Staff does oral cares. Has complete set of dentures. Needs limited assist with grooming. Is independent with feeding. Needs oversight/cueing. Requires built up silver aguilar and divided plate. Is on regular diet, thin liquids. Occasionally coughs out at meals. is aware. Refused ST recommendation. Vital signs reviewed. Low BP values noted by MD on 02/27/22, ordered discontinue Amlodipine but resident is not on this medication. Message left to MD's nurse. Pain: Has frequent headaches. Pain is managed with Tylenol 1000 mg TID & daily PRN, Ultram 50 mg @ HS & daily PRN. Staff does anticipate need for pain.
[2022-03-02] MEDS: ACETAMINOPHEN 500 MG TABLET 1000 MG PO ×3 (08:15→19:20)
[2022-03-02] MEDS: CARBIDOPA-LEVODOPA 25-100 TABLET 2 TAB PO ×3 (08:15→19:20)
[2022-03-02] MEDS: LACTOBACILLUS ACIDOPHILUS 1 TABLET PO ×3 (08:17→17:10)
[2022-03-02] MEDS: METOPROLOL TARTRATE 25 MG TABLET PO ×2 (08:26→19:20)
[2022-03-02 16:00] VITALS: BP 125/79
[2022-03-02] MEDS: DONEPEZIL 10 MG TABLET PO (19:21)
[2022-03-02] MEDS: MELATONIN 3 MG TABLET 6 MG PO (19:21)
[2022-03-02] MEDS: TRAMADOL HCL 50 MG TABLET PO (19:21)
[2022-03-02] MEDS: MIRTAZAPINE 15 MG TABLET PO (19:21)
[2022-03-03] MEDS: OMEPRAZOLE 40 MG CAPSULE.DR PO (06:42)
[2022-03-03] MEDS: LEVOTHYROXINE 100 MCG TABLET PO (06:42)
[2022-03-03] MEDS: ACETAMINOPHEN 500 MG TABLET 1000 MG PO ×3 (07:29→19:52)
[2022-03-03] MEDS: METOPROLOL TARTRATE 25 MG TABLET PO ×2 (07:30→16:59)
[2022-03-03] MEDS: CARBIDOPA-LEVODOPA 25-100 TABLET 2 TAB PO ×3 (07:30→19:55)
[2022-03-03] MEDS: LACTOBACILLUS ACIDOPHILUS 1 TABLET PO ×3 (07:30→17:05)
[2022-03-03 16:00] VITALS: BP 165/85
[2022-03-03] MEDS: MIRTAZAPINE 15 MG TABLET PO (19:55)
[2022-03-03] MEDS: MELATONIN 3 MG TABLET 6 MG PO (19:55)
[2022-03-03] MEDS: TRAMADOL HCL 50 MG TABLET PO (19:55)
[2022-03-03] MEDS: DONEPEZIL 10 MG TABLET PO (19:55)
[2022-03-04 07:00] VITALS: BP 128/76; PULSE 64; RESP 18; TEMP 36.2; O2SAT 96
[2022-03-04] MEDS: LEVOTHYROXINE 100 MCG TABLET PO (07:07)
[2022-03-04] MEDS: OMEPRAZOLE 40 MG CAPSULE.DR PO (07:07)
[2022-03-04] MEDS: LACTOBACILLUS ACIDOPHILUS 1 TABLET PO ×3 (07:35→17:22)
[2022-03-04] MEDS: ACETAMINOPHEN 500 MG TABLET 1000 MG PO ×3 (07:35→20:06)
[2022-03-04] MEDS: METOPROLOL TARTRATE 25 MG TABLET PO ×2 (07:35→15:41)
[2022-03-04] MEDS: CARBIDOPA-LEVODOPA 25-100 TABLET 2 TAB PO ×3 (07:35→20:06)
[2022-03-04 15:35] VITALS: BMI 24.8
[2022-03-04] MEDS: DONEPEZIL 10 MG TABLET PO (20:06)
[2022-03-04] MEDS: TRAMADOL HCL 50 MG TABLET PO (20:06)
[2022-03-04] MEDS: MIRTAZAPINE 15 MG TABLET PO (20:06)
[2022-03-04] MEDS: MELATONIN 3 MG TABLET 6 MG PO (20:06)
[2022-03-04] MEDS: TRIAMCINOLONE ACETONIDE OINTMENT 0.1 % 1 APPLIC TOPICAL (21:44)
[2022-03-05] MEDS: TRAMADOL HCL 50 MG TABLET PO ×2 (04:44→20:12)
[2022-03-05] MEDS: OMEPRAZOLE 40 MG CAPSULE.DR PO (07:33)
[2022-03-05] MEDS: LEVOTHYROXINE 100 MCG TABLET PO (07:33)
[2022-03-05] MEDS: LACTOBACILLUS ACIDOPHILUS 1 TABLET PO ×3 (08:09→17:29)
[2022-03-05] MEDS: ACETAMINOPHEN 500 MG TABLET 1000 MG PO ×3 (08:09→20:12)
[2022-03-05] MEDS: CARBIDOPA-LEVODOPA 25-100 TABLET 2 TAB PO ×3 (08:09→20:12)
[2022-03-05] MEDS: METOPROLOL TARTRATE 25 MG TABLET PO ×2 (08:09→16:58)
--- NOTE | 2022-03-05 13:46 | PC.NURSE ---
Blood Pressures: Reviewed by Balbir BAILEY. No new order.
[2022-03-05] MEDS: TRIAMCINOLONE ACETONIDE OINTMENT 0.1 % 1 APPLIC TOPICAL (13:49)
--- NOTE | 2022-03-05 14:04 | PC.NURSE ---
Hot Liquid Assessment: Due to resident having abnormal muscle movements, altered muscle strength and cognitive impairments resident to only drink hot liquids at a table.
[2022-03-05] MEDS: MIRTAZAPINE 15 MG TABLET PO (20:12)
[2022-03-05] MEDS: DONEPEZIL 10 MG TABLET PO (20:12)
[2022-03-05] MEDS: MELATONIN 3 MG TABLET 6 MG PO (20:12)
[2022-03-06] MEDS: OMEPRAZOLE 40 MG CAPSULE.DR PO (07:16)
[2022-03-06] MEDS: LEVOTHYROXINE 100 MCG TABLET PO (07:16)
[2022-03-06] MEDS: ACETAMINOPHEN 500 MG TABLET 1000 MG PO ×3 (08:04→19:16)
[2022-03-06] MEDS: CARBIDOPA-LEVODOPA 25-100 TABLET 2 TAB PO ×3 (08:05→19:19)
[2022-03-06] MEDS: METOPROLOL TARTRATE 25 MG TABLET PO ×2 (08:05→16:38)
[2022-03-06] MEDS: LACTOBACILLUS ACIDOPHILUS 1 TABLET PO ×3 (08:06→17:24)
[2022-03-06] MEDS: TRAMADOL HCL 50 MG TABLET PO (19:19)
[2022-03-06] MEDS: DONEPEZIL 10 MG TABLET PO (19:19)
[2022-03-06] MEDS: MELATONIN 3 MG TABLET 6 MG PO (19:19)
[2022-03-06] MEDS: MIRTAZAPINE 15 MG TABLET PO (19:19)
--- NOTE | 2022-03-06 21:18 | PC.NURSE ---
Resident continues to cough on thin liquids after medication administration with water. Bundler asked if he was having difficulty with swallowing the medications or if it was the water that is causing him to cough and he stated, water. KANIKA has spoken with and does not want thickened liquids. Will continue to monitor.
[2022-03-07] MEDS: LEVOTHYROXINE 100 MCG TABLET PO (07:34)
[2022-03-07] MEDS: OMEPRAZOLE 40 MG CAPSULE.DR PO (07:34)
[2022-03-07] MEDS: LACTOBACILLUS ACIDOPHILUS 1 TABLET PO ×3 (08:03→17:13)
[2022-03-07] MEDS: METOPROLOL TARTRATE 25 MG TABLET PO ×2 (08:03→16:10)
[2022-03-07] MEDS: ACETAMINOPHEN 500 MG TABLET 1000 MG PO ×3 (08:03→20:12)
[2022-03-07] MEDS: CARBIDOPA-LEVODOPA 25-100 TABLET 2 TAB PO ×3 (08:03→20:12)
[2022-03-07] MEDS: DONEPEZIL 10 MG TABLET PO (20:12)
[2022-03-07] MEDS: TRAMADOL HCL 50 MG TABLET PO (20:12)
[2022-03-07] MEDS: MIRTAZAPINE 15 MG TABLET PO (20:12)
[2022-03-07] MEDS: MELATONIN 3 MG TABLET 6 MG PO (20:12)
[2022-03-08] MEDS: LEVOTHYROXINE 100 MCG TABLET PO (07:34)
[2022-03-08] MEDS: OMEPRAZOLE 40 MG CAPSULE.DR PO (07:34)
[2022-03-08] MEDS: ACETAMINOPHEN 500 MG TABLET 1000 MG PO ×3 (08:09→20:05)
[2022-03-08] MEDS: LACTOBACILLUS ACIDOPHILUS 1 TABLET PO ×3 (08:10→17:17)
[2022-03-08] MEDS: CARBIDOPA-LEVODOPA 25-100 TABLET 2 TAB PO ×3 (08:10→20:12)
[2022-03-08] MEDS: METOPROLOL TARTRATE 25 MG TABLET PO ×2 (08:10→15:28)
[2022-03-08] MEDS: DONEPEZIL 10 MG TABLET PO (20:12)
[2022-03-08] MEDS: TRAMADOL HCL 50 MG TABLET PO (20:12)
[2022-03-08] MEDS: MELATONIN 3 MG TABLET 6 MG PO (20:12)
[2022-03-08] MEDS: MIRTAZAPINE 15 MG TABLET PO (20:12)
[2022-03-09] MEDS: OMEPRAZOLE 40 MG CAPSULE.DR PO (07:16)
[2022-03-09] MEDS: LEVOTHYROXINE 100 MCG TABLET PO (07:16)
[2022-03-09] MEDS: ACETAMINOPHEN 500 MG TABLET 1000 MG PO ×3 (07:59→20:36)
[2022-03-09] MEDS: CARBIDOPA-LEVODOPA 25-100 TABLET 2 TAB PO ×3 (07:59→20:39)
[2022-03-09] MEDS: METOPROLOL TARTRATE 25 MG TABLET PO ×2 (08:00→16:22)
[2022-03-09] MEDS: LACTOBACILLUS ACIDOPHILUS 1 TABLET PO ×3 (08:00→17:15)
--- NOTE | 2022-03-09 15:57 | PC.NURSE ---
Weekly charting-Week #3: Vital signs reviewed and are within normal limits. Temporary care plan reviewed, no change. Care plan reviewed, no change. Skin summary: No skin concerns at this time. Toileting: Resident is incontinent of bladder is typically continent of bowel. Wears pull ups, will call when needing assistance, is one assist with a gait belt and walker.
[2022-03-09] MEDS: DONEPEZIL 10 MG TABLET PO (20:39)
[2022-03-09] MEDS: TRAMADOL HCL 50 MG TABLET PO (20:39)
[2022-03-09] MEDS: MIRTAZAPINE 15 MG TABLET PO (20:39)
[2022-03-09] MEDS: MELATONIN 3 MG TABLET 6 MG PO (20:39)
[2022-03-10] MEDS: OMEPRAZOLE 40 MG CAPSULE.DR PO (06:45)
[2022-03-10] MEDS: LEVOTHYROXINE 100 MCG TABLET PO (06:45)
[2022-03-10] MEDS: LACTOBACILLUS ACIDOPHILUS 1 TABLET PO ×3 (08:05→16:32)
[2022-03-10] MEDS: ACETAMINOPHEN 500 MG TABLET 1000 MG PO ×3 (08:07→19:14)
[2022-03-10] MEDS: CARBIDOPA-LEVODOPA 25-100 TABLET 2 TAB PO ×3 (08:07→19:14)
[2022-03-10] MEDS: METOPROLOL TARTRATE 25 MG TABLET PO ×2 (08:07→15:24)
--- NOTE | 2022-03-10 14:30 | PC.NURSE ---
Hearing, Vision, Dental: , resident or nursing has no concerns at this time. Resident wears glasses daily. Discussed with about annual visits needed. She is going to look into when he is needed to be seen next and update nursing staff. Will follow up in 2 weeks with .
--- NOTE | 2022-03-10 16:00 | PC.NURSE ---
CARE CONFERENCE: Care conference meeting held with all members of care team present. did not want to be present and she did want resident to be present. She stated she is very happy with his cares and has no conerns therefore she doesn't feel it necessary to meet.? Nursing reviewed that resident continues to need 1 assist with adls, transfers, and mobility. Use of walker and gait belt for transfers. Resident to walk to meals. At times if feeling weak has a w/c available to use. Resident has had changes in medications d/t pain and insomnia. No concerns with changes at this time.? Care plan reviewed and updated. POLST reviewed. DNR/DNI. Uses no restraints. Does use 2 side rails up to assist with positioning with assess for future use.? Resident is given medications by staff.? Vulnerable due to mobility limitations and ability to be understood/understand. Resident needs assistance with meal set up. Weight is stable. Has snacks in room through out the day that resident brings. Discussed his coughing on thin liquids and not wanting to have speech eval or change texture in diet. Interventions set up. Resident will be intermission coordinator care.? His mood is stable. No further questions/concerns.
[2022-03-10] MEDS: DONEPEZIL 10 MG TABLET PO (19:14)
[2022-03-10] MEDS: TRAMADOL HCL 50 MG TABLET PO (19:14)
[2022-03-10] MEDS: MIRTAZAPINE 15 MG TABLET PO (19:14)
[2022-03-10] MEDS: MELATONIN 3 MG TABLET 6 MG PO (19:14)
[2022-03-11] MEDS: OMEPRAZOLE 40 MG CAPSULE.DR PO (06:48)
[2022-03-11] MEDS: LEVOTHYROXINE 100 MCG TABLET PO (06:48)
[2022-03-11] MEDS: ACETAMINOPHEN 500 MG TABLET 1000 MG PO ×3 (07:57→19:36)
[2022-03-11] MEDS: CARBIDOPA-LEVODOPA 25-100 TABLET 2 TAB PO ×3 (07:57→19:36)
[2022-03-11] MEDS: LACTOBACILLUS ACIDOPHILUS 1 TABLET PO ×3 (07:57→17:28)
[2022-03-11] MEDS: METOPROLOL TARTRATE 25 MG TABLET PO ×2 (07:57→16:11)
--- NOTE | 2022-03-11 08:07 | PC.PHA ---
MEDICATION REVIEW: MEDICATION MONITORING:Mirtazapine 15 mg hs, started 02/02/22 for sleep, too soon for GDR, Polypharmacy continues. 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 Metoprolol tartrate 25 mg BID was started 02/28/22 due to hypotension. Tramadol prn discontinues mid January and then restarted 02/26/22, 5 AM doses needed thus far in February. IRREGULARITY OR COMMENTS: Per review of nursing notes patient is stable. Per discussion with RN, Mirtazapine continues to be effective for patient's insomnia. No antibiotics or benzodiazepines prescribed since last review. SUGGESTED COURSE OF ACTION: No medication recommendations for February.
--- NOTE | 2022-03-11 10:04 | PC.SOCIAL ---
Resident's care conference was held yesterday. Resident has had a stable quarter, resident's spouse has no concern. Mood remains stable no s/s of depression noted. Resident has adjusted well to placement here.
[2022-03-11 10:21] VITALS: BP 141/71; PULSE 70; RESP 20; TEMP 36.5; O2SAT 95
[2022-03-11] MEDS: MIRTAZAPINE 15 MG TABLET PO (19:36)
[2022-03-11] MEDS: TRAMADOL HCL 50 MG TABLET PO (19:36)
[2022-03-11] MEDS: MELATONIN 3 MG TABLET 6 MG PO (19:36)
[2022-03-11] MEDS: DONEPEZIL 10 MG TABLET PO (19:36)
--- NOTE | 2022-03-11 21:54 | PC.NURSE ---
Resident was heard from hallway coughing. Staff entered and resident continued to cough and gasp. Stated he was taking a sip of diet pepsi at his bedside table. Resident stopped coughing and gasping. Stated he was okay.
[2022-03-12 05:46] VITALS: TEMP 36.6
[2022-03-12] MEDS: LEVOTHYROXINE 100 MCG TABLET PO (07:11)
[2022-03-12] MEDS: OMEPRAZOLE 40 MG CAPSULE.DR PO (07:11)
[2022-03-12] MEDS: ACETAMINOPHEN 500 MG TABLET 1000 MG PO ×3 (08:18→20:20)
[2022-03-12] MEDS: CARBIDOPA-LEVODOPA 25-100 TABLET 2 TAB PO ×3 (08:19→20:20)
[2022-03-12] MEDS: METOPROLOL TARTRATE 25 MG TABLET PO ×2 (08:19→16:26)
[2022-03-12] MEDS: LACTOBACILLUS ACIDOPHILUS 1 TABLET PO ×3 (08:23→17:16)
[2022-03-12 09:37] VITALS: TEMP 36.3
[2022-03-12] MEDS: TRAMADOL HCL 50 MG TABLET PO (20:20)
[2022-03-12] MEDS: MIRTAZAPINE 15 MG TABLET PO (20:20)
[2022-03-12] MEDS: MELATONIN 3 MG TABLET 6 MG PO (20:20)
[2022-03-12] MEDS: DONEPEZIL 10 MG TABLET PO (20:20)
--- NOTE | 2022-03-12 20:53 | PC.NURSE ---
MDS clarification: Reviewed MDS ADL charting for IMELDA 03/05 noted to have inconsistent charting. Interviewed NARs and determined that errors were made. Coded appropriately as such in MDS.
[2022-03-12 21:58] VITALS: TEMP 36.3
[2022-03-13 06:32] VITALS: TEMP 36.6
[2022-03-13] MEDS: OMEPRAZOLE 40 MG CAPSULE.DR PO (07:10)
[2022-03-13] MEDS: LEVOTHYROXINE 100 MCG TABLET PO (07:10)
[2022-03-13] MEDS: ACETAMINOPHEN 500 MG TABLET 1000 MG PO ×3 (07:17→20:19)
[2022-03-13] MEDS: CARBIDOPA-LEVODOPA 25-100 TABLET 2 TAB PO ×3 (07:17→20:19)
[2022-03-13] MEDS: LACTOBACILLUS ACIDOPHILUS 1 TABLET PO ×3 (07:17→17:45)
[2022-03-13] MEDS: METOPROLOL TARTRATE 25 MG TABLET PO ×2 (07:17→16:14)
[2022-03-13 13:28] VITALS: TEMP 36.2
[2022-03-13] MEDS: MELATONIN 3 MG TABLET 6 MG PO (20:19)
[2022-03-13] MEDS: DONEPEZIL 10 MG TABLET PO (20:19)
[2022-03-13] MEDS: MIRTAZAPINE 15 MG TABLET PO (20:19)
[2022-03-13] MEDS: TRAMADOL HCL 50 MG TABLET PO (20:21)
[2022-03-14 05:03] VITALS: TEMP 36.6
[2022-03-14] MEDS: LEVOTHYROXINE 100 MCG TABLET PO (07:32)
[2022-03-14] MEDS: METOPROLOL TARTRATE 25 MG TABLET PO ×2 (07:32→15:07)
[2022-03-14] MEDS: OMEPRAZOLE 40 MG CAPSULE.DR PO (07:32)
[2022-03-14] MEDS: CARBIDOPA-LEVODOPA 25-100 TABLET 2 TAB PO ×3 (07:32→19:50)
[2022-03-14] MEDS: ACETAMINOPHEN 500 MG TABLET 1000 MG PO ×3 (07:32→19:50)
[2022-03-14] MEDS: LACTOBACILLUS ACIDOPHILUS 1 TABLET PO ×3 (07:33→17:26)
--- NOTE | 2022-03-14 11:36 | PC.NURSE ---
Dentures: ARELY reported that noted Resident picking-up lower dentures from floor in his room and noted dentures broken into half. Resident upset and yelling at staff at the time when found out was broke. Left message to for update.
[2022-03-14] MEDS: DONEPEZIL 10 MG TABLET PO (19:50)
[2022-03-14] MEDS: MELATONIN 3 MG TABLET 6 MG PO (19:50)
[2022-03-14] MEDS: MIRTAZAPINE 15 MG TABLET PO (19:50)
[2022-03-14] MEDS: TRAMADOL HCL 50 MG TABLET PO (19:50)
--- NOTE | 2022-03-14 21:19 | PC.NURSE ---
Dentures. Resident's found his old dentures at home and she will be bringing them tomorrow for him. Resident took a bottle of ensure and mashed potato for supper.
--- NOTE | 2022-03-14 21:23 | PC.NURSE ---
Skin Issues. Resident rashes on his both feet noted getting worse. It has spread to his ankle and resident has been rubbing both feet and complaining of itchiness . Applied PRN Triam cream.
[2022-03-14] MEDS: TRIAMCINOLONE ACETONIDE OINTMENT 0.1 % 1 APPLIC TOPICAL (21:26)
--- NOTE | 2022-03-15 00:03 | PC.NURSE ---
Temp and lung sounds have been monitored since coughing episode on 03/11. Resident has been afebrile and lung sound are clear. Intervention completed.
[2022-03-15] MEDS: OMEPRAZOLE 40 MG CAPSULE.DR PO (07:41)
[2022-03-15] MEDS: LEVOTHYROXINE 100 MCG TABLET PO (07:41)
[2022-03-15] MEDS: METOPROLOL TARTRATE 25 MG TABLET PO ×2 (07:42→15:42)
[2022-03-15] MEDS: LACTOBACILLUS ACIDOPHILUS 1 TABLET PO ×3 (07:42→19:27)
[2022-03-15] MEDS: ACETAMINOPHEN 500 MG TABLET 1000 MG PO ×3 (07:42→19:30)
[2022-03-15] MEDS: CARBIDOPA-LEVODOPA 25-100 TABLET 2 TAB PO ×3 (07:42→19:30)
--- NOTE | 2022-03-15 13:24 | PC.NURSE ---
Dentures. Resident's brought his old dentures from home and fits well. Ate lunch 100%. will update the upcoming shift to continues to monitor.
[2022-03-15] MEDS: DONEPEZIL 10 MG TABLET PO (19:30)
[2022-03-15] MEDS: MIRTAZAPINE 15 MG TABLET PO (19:30)
[2022-03-15] MEDS: MELATONIN 3 MG TABLET 6 MG PO (19:30)
[2022-03-15] MEDS: TRAMADOL HCL 50 MG TABLET PO (19:30)
[2022-03-16] MEDS: OMEPRAZOLE 40 MG CAPSULE.DR PO (07:04)
[2022-03-16] MEDS: LEVOTHYROXINE 100 MCG TABLET PO (07:04)
--- NOTE | 2022-03-16 07:22 | PC.NURSE ---
Week #3 - Toileting: Comprehensive care plan reviewed, no changes made. Nothing added to temporary care plan. Resident needs one assist with toileting. He is mostly continent of BM, frequently incontinent of bladder. Staff to check every 2 hours and assist as needed. Resident also put call light. Wears medium pull ups. Pads, ge cares, clothing managed by staff. Vital signs reviewed. Has variable BP's noted by SENIOR CLINICAL SAS PROGRAMMER/MD. 02/28/22 Metoprolol was decreased. Continue with weekly VS monitoring. Skin: No issues at this time. Has an order Triam Cream PRN for rashes on feet. Skin is checked routinely on bath day and during cares.
[2022-03-16] MEDS: CARBIDOPA-LEVODOPA 25-100 TABLET 2 TAB PO ×3 (07:58→20:23)
[2022-03-16] MEDS: ACETAMINOPHEN 500 MG TABLET 1000 MG PO ×3 (07:58→20:23)
[2022-03-16] MEDS: METOPROLOL TARTRATE 25 MG TABLET PO ×2 (07:59→16:13)
[2022-03-16] MEDS: LACTOBACILLUS ACIDOPHILUS 1 TABLET PO ×3 (07:59→17:20)
--- NOTE | 2022-03-16 11:25 | PC.NURSE ---
Denture: here. And will make an appointment for the crack lower denture to be fixed. At this time put on the dentures from home.
--- NOTE | 2022-03-16 11:29 | PC.NURSE ---
Status: At breakfast resident eat with the crack lower dentures. No problems with chewing reported/noted.
--- NOTE | 2022-03-16 12:40 | PC.NURSE ---
Status: Resident used home dentures at lunch and ate 75% of lunch with no issues
--- NOTE | 2022-03-16 18:58 | PC.NURSE ---
Status: Resident using dentures from home ate 50% of dinner with no problem.
[2022-03-16] MEDS: MIRTAZAPINE 15 MG TABLET PO (20:23)
[2022-03-16] MEDS: TRAMADOL HCL 50 MG TABLET PO (20:23)
[2022-03-16] MEDS: MELATONIN 3 MG TABLET 6 MG PO (20:23)
[2022-03-16] MEDS: DONEPEZIL 10 MG TABLET PO (20:23)
[2022-03-17] MEDS: OMEPRAZOLE 40 MG CAPSULE.DR PO (06:48)
[2022-03-17] MEDS: LEVOTHYROXINE 100 MCG TABLET PO (06:48)
[2022-03-17] MEDS: ACETAMINOPHEN 500 MG TABLET 1000 MG PO ×3 (07:46→20:37)
[2022-03-17] MEDS: LACTOBACILLUS ACIDOPHILUS 1 TABLET PO ×3 (07:46→17:18)
[2022-03-17] MEDS: METOPROLOL TARTRATE 25 MG TABLET PO ×2 (07:46→15:37)
[2022-03-17] MEDS: CARBIDOPA-LEVODOPA 25-100 TABLET 2 TAB PO ×3 (07:46→20:37)
--- NOTE | 2022-03-17 13:09 | PC.NURSE ---
Rash/Order: HAND LEATHER TRIMMER here, rashes on feet noted. Order: Change Triamcinolone Cream BID PRN to BID schedule.
[2022-03-17] MEDS: TRAMADOL HCL 50 MG TABLET PO (20:37)
[2022-03-17] MEDS: DONEPEZIL 10 MG TABLET PO (20:37)
[2022-03-17] MEDS: MIRTAZAPINE 15 MG TABLET PO (20:37)
[2022-03-17] MEDS: MELATONIN 3 MG TABLET 6 MG PO (20:37)
[2022-03-17] MEDS: TRIAMCINOLONE ACETONIDE OINTMENT 0.1 % 1 APPLIC TOPICAL (20:37)
[2022-03-18] MEDS: OMEPRAZOLE 40 MG CAPSULE.DR PO (06:48)
[2022-03-18] MEDS: LEVOTHYROXINE 100 MCG TABLET PO (06:48)
[2022-03-18] MEDS: METOPROLOL TARTRATE 25 MG TABLET PO ×2 (08:14→15:30)
[2022-03-18] MEDS: LACTOBACILLUS ACIDOPHILUS 1 TABLET PO ×3 (08:14→16:57)
[2022-03-18] MEDS: CARBIDOPA-LEVODOPA 25-100 TABLET 2 TAB PO ×3 (08:14→19:39)
[2022-03-18] MEDS: ACETAMINOPHEN 500 MG TABLET 1000 MG PO ×3 (08:14→19:39)
[2022-03-18] MEDS: TRIAMCINOLONE ACETONIDE OINTMENT 0.1 % 1 APPLIC TOPICAL ×2 (08:15→19:39)
[2022-03-18 09:37] VITALS: BP 143/72; PULSE 70; RESP 18; TEMP 36.3; O2SAT 95
[2022-03-18] MEDS: DONEPEZIL 10 MG TABLET PO (19:39)
[2022-03-18] MEDS: MELATONIN 3 MG TABLET 6 MG PO (19:39)
[2022-03-18] MEDS: MIRTAZAPINE 15 MG TABLET PO (19:39)
[2022-03-18] MEDS: TRAMADOL HCL 50 MG TABLET PO (19:41)
[2022-03-19] MEDS: LEVOTHYROXINE 100 MCG TABLET PO (07:16)
[2022-03-19] MEDS: OMEPRAZOLE 40 MG CAPSULE.DR PO (07:16)
[2022-03-19] MEDS: METOPROLOL TARTRATE 25 MG TABLET PO ×2 (08:17→16:14)
[2022-03-19] MEDS: ACETAMINOPHEN 500 MG TABLET 1000 MG PO ×3 (08:17→20:20)
[2022-03-19] MEDS: LACTOBACILLUS ACIDOPHILUS 1 TABLET PO ×3 (08:17→17:56)
[2022-03-19] MEDS: TRIAMCINOLONE ACETONIDE OINTMENT 0.1 % 1 APPLIC TOPICAL ×2 (08:17→21:34)
[2022-03-19] MEDS: CARBIDOPA-LEVODOPA 25-100 TABLET 2 TAB PO ×3 (08:17→20:20)
--- NOTE | 2022-03-19 13:36 | PC.NURSE ---
Evacuee Assessment: Resident is ambulatory but only short distances due to weakness. Level 2 is appropriate at this time.
[2022-03-19] MEDS: MELATONIN 3 MG TABLET 6 MG PO (20:20)
[2022-03-19] MEDS: DONEPEZIL 10 MG TABLET PO (20:20)
[2022-03-19] MEDS: MIRTAZAPINE 15 MG TABLET PO (20:21)
[2022-03-19] MEDS: TRAMADOL HCL 50 MG TABLET PO (20:21)
[2022-03-20] MEDS: TRAMADOL HCL 50 MG TABLET PO ×2 (04:04→19:32)
[2022-03-20] MEDS: ACETAMINOPHEN 500 MG TABLET 1000 MG PO ×3 (07:14→19:31)
[2022-03-20] MEDS: LEVOTHYROXINE 100 MCG TABLET PO (07:14)
[2022-03-20] MEDS: CARBIDOPA-LEVODOPA 25-100 TABLET 2 TAB PO ×3 (07:14→19:31)
[2022-03-20] MEDS: LACTOBACILLUS ACIDOPHILUS 1 TABLET PO ×3 (07:14→17:11)
[2022-03-20] MEDS: METOPROLOL TARTRATE 25 MG TABLET PO ×2 (07:14→15:52)
[2022-03-20] MEDS: OMEPRAZOLE 40 MG CAPSULE.DR PO (07:14)
[2022-03-20] MEDS: TRIAMCINOLONE ACETONIDE OINTMENT 0.1 % 1 APPLIC TOPICAL ×2 (08:14→19:31)
--- NOTE | 2022-03-20 11:51 | PC.NURSE ---
Skin Care : Both feet are looking much better after continuous application of Triam cream. Resident has no c/o itchiness.
[2022-03-20] MEDS: DONEPEZIL 10 MG TABLET PO (19:31)
[2022-03-20] MEDS: MIRTAZAPINE 15 MG TABLET PO (19:31)
[2022-03-20] MEDS: MELATONIN 3 MG TABLET 6 MG PO (19:31)
[2022-03-21] MEDS: LEVOTHYROXINE 100 MCG TABLET PO (07:16)
[2022-03-21] MEDS: OMEPRAZOLE 40 MG CAPSULE.DR PO (07:16)
[2022-03-21] MEDS: ACETAMINOPHEN 500 MG TABLET 1000 MG PO ×3 (08:15→19:35)
[2022-03-21] MEDS: METOPROLOL TARTRATE 25 MG TABLET PO ×2 (08:15→17:00)
[2022-03-21] MEDS: CARBIDOPA-LEVODOPA 25-100 TABLET 2 TAB PO ×3 (08:15→19:35)
[2022-03-21] MEDS: TRIAMCINOLONE ACETONIDE OINTMENT 0.1 % 1 APPLIC TOPICAL ×2 (08:16→19:35)
[2022-03-21] MEDS: LACTOBACILLUS ACIDOPHILUS 1 TABLET PO ×3 (08:16→17:00)
--- NOTE | 2022-03-21 09:33 | PC.SPIRITC ---
Enroute Controller provided visit for support and connection to Juan and family.
[2022-03-21] MEDS: MELATONIN 3 MG TABLET 6 MG PO (19:35)
[2022-03-21] MEDS: TRAMADOL HCL 50 MG TABLET PO (19:35)
[2022-03-21] MEDS: DONEPEZIL 10 MG TABLET PO (19:35)
[2022-03-21] MEDS: MIRTAZAPINE 15 MG TABLET PO (19:35)
[2022-03-22] MEDS: OMEPRAZOLE 40 MG CAPSULE.DR PO (07:54)
[2022-03-22] MEDS: CARBIDOPA-LEVODOPA 25-100 TABLET 2 TAB PO ×3 (07:54→20:20)
[2022-03-22] MEDS: LEVOTHYROXINE 100 MCG TABLET PO (07:54)
[2022-03-22] MEDS: ACETAMINOPHEN 500 MG TABLET 1000 MG PO ×3 (07:54→20:20)
[2022-03-22] MEDS: LACTOBACILLUS ACIDOPHILUS 1 TABLET PO ×3 (07:56→16:57)
[2022-03-22] MEDS: METOPROLOL TARTRATE 25 MG TABLET PO ×2 (07:56→15:17)
[2022-03-22] MEDS: TRIAMCINOLONE ACETONIDE OINTMENT 0.1 % 1 APPLIC TOPICAL ×2 (07:56→20:20)
--- NOTE | 2022-03-22 16:33 | PC.NURSE ---
WEEKLY CHARTING - WEEK 4: Vital signs reviewed and are WNL. Temporary and comprehensive care plan reviewed with no change. Has no behavior in this month. Currently resident is on Melatonin 6mg at HS and mirtazapine 15mg at HS. No adverse effects noted. Sleep quantity and quality has improved since starting on the mirtazapine on 02/02/22. Communication is impaired r/t unclear speech, but is usually understood. Staff ask simple yes/no questions, listen for schrader words, and anticipate needs. Has visual impairment, wears glasses. hearing is adequate. Has moderate to severe cognitive impairment with BIMS score of 11 and MoCA score of 8. Has intermittent confusion and sundowning on evening/NOC shift. He is currently on tramadol 50mg PO at HS for pain management. All medications administered by licensed nurse. No change in chronic health conditions.
[2022-03-22] MEDS: DONEPEZIL 10 MG TABLET PO (20:20)
[2022-03-22] MEDS: MELATONIN 3 MG TABLET 6 MG PO (20:20)
[2022-03-22] MEDS: MIRTAZAPINE 15 MG TABLET PO (20:20)
[2022-03-22] MEDS: TRAMADOL HCL 50 MG TABLET PO (20:21)
[2022-03-23] MEDS: LEVOTHYROXINE 100 MCG TABLET PO (07:41)
[2022-03-23] MEDS: CARBIDOPA-LEVODOPA 25-100 TABLET 2 TAB PO ×3 (07:41→19:36)
[2022-03-23] MEDS: OMEPRAZOLE 40 MG CAPSULE.DR PO (07:41)
[2022-03-23] MEDS: ACETAMINOPHEN 500 MG TABLET 1000 MG PO ×3 (07:41→19:36)
[2022-03-23] MEDS: METOPROLOL TARTRATE 25 MG TABLET PO ×2 (07:42→16:14)
[2022-03-23] MEDS: LACTOBACILLUS ACIDOPHILUS 1 TABLET PO ×3 (07:42→17:05)
[2022-03-23] MEDS: TRIAMCINOLONE ACETONIDE OINTMENT 0.1 % 1 APPLIC TOPICAL ×2 (08:41→19:36)
[2022-03-23] MEDS: MELATONIN 3 MG TABLET 6 MG PO (19:36)
[2022-03-23] MEDS: DONEPEZIL 10 MG TABLET PO (19:36)
[2022-03-23] MEDS: TRAMADOL HCL 50 MG TABLET PO (19:36)
[2022-03-23] MEDS: MIRTAZAPINE 15 MG TABLET PO (19:36)
[2022-03-24] MEDS: LEVOTHYROXINE 100 MCG TABLET PO (07:03)
[2022-03-24] MEDS: OMEPRAZOLE 40 MG CAPSULE.DR PO (07:03)
[2022-03-24] MEDS: CARBIDOPA-LEVODOPA 25-100 TABLET 2 TAB PO ×3 (07:42→19:54)
[2022-03-24] MEDS: ACETAMINOPHEN 500 MG TABLET 1000 MG PO ×3 (07:42→19:54)
[2022-03-24] MEDS: LACTOBACILLUS ACIDOPHILUS 1 TABLET PO ×3 (07:43→17:25)
[2022-03-24] MEDS: TRIAMCINOLONE ACETONIDE OINTMENT 0.1 % 1 APPLIC TOPICAL ×2 (07:43→19:54)
[2022-03-24] MEDS: METOPROLOL TARTRATE 25 MG TABLET PO ×2 (07:43→16:03)
--- NOTE | 2022-03-24 11:52 | PC.SPIRITC ---
I provided visit with Juan' spouse, talked about this being the first [place] without Juan at the house, along with the comfort she takes in Juan being so well taken care of here.
[2022-03-24] MEDS: MELATONIN 3 MG TABLET 6 MG PO (19:54)
[2022-03-24] MEDS: MIRTAZAPINE 15 MG TABLET PO (19:54)
[2022-03-24] MEDS: DONEPEZIL 10 MG TABLET PO (19:54)
[2022-03-24] MEDS: TRAMADOL HCL 50 MG TABLET PO (19:55)
[2022-03-25] MEDS: OMEPRAZOLE 40 MG CAPSULE.DR PO (07:15)
[2022-03-25] MEDS: CARBIDOPA-LEVODOPA 25-100 TABLET 2 TAB PO ×3 (07:15→19:26)
[2022-03-25] MEDS: ACETAMINOPHEN 500 MG TABLET 1000 MG PO ×3 (07:15→19:26)
[2022-03-25] MEDS: LEVOTHYROXINE 100 MCG TABLET PO (07:15)
[2022-03-25] MEDS: METOPROLOL TARTRATE 25 MG TABLET PO ×2 (07:16→16:33)
[2022-03-25] MEDS: TRIAMCINOLONE ACETONIDE OINTMENT 0.1 % 1 APPLIC TOPICAL ×2 (07:16→19:26)
[2022-03-25] MEDS: LACTOBACILLUS ACIDOPHILUS 1 TABLET PO ×3 (07:16→17:17)
[2022-03-25 10:44] VITALS: BP 130/84; PULSE 66; RESP 18; TEMP 36.2; O2SAT 95
[2022-03-25] MEDS: MIRTAZAPINE 15 MG TABLET PO (19:26)
[2022-03-25] MEDS: DONEPEZIL 10 MG TABLET PO (19:26)
[2022-03-25] MEDS: MELATONIN 3 MG TABLET 6 MG PO (19:26)
[2022-03-25] MEDS: TRAMADOL HCL 50 MG TABLET PO (19:26)
[2022-03-26] MEDS: LEVOTHYROXINE 100 MCG TABLET PO (07:30)
[2022-03-26] MEDS: OMEPRAZOLE 40 MG CAPSULE.DR PO (07:30)
[2022-03-26] MEDS: ACETAMINOPHEN 500 MG TABLET 1000 MG PO ×3 (07:30→19:59)
[2022-03-26] MEDS: CARBIDOPA-LEVODOPA 25-100 TABLET 2 TAB PO ×3 (07:30→19:59)
[2022-03-26] MEDS: METOPROLOL TARTRATE 25 MG TABLET PO ×2 (07:31→16:28)
[2022-03-26] MEDS: TRIAMCINOLONE ACETONIDE OINTMENT 0.1 % 1 APPLIC TOPICAL ×2 (07:31→19:59)
[2022-03-26] MEDS: LACTOBACILLUS ACIDOPHILUS 1 TABLET PO ×3 (07:31→17:21)
[2022-03-26] MEDS: MIRTAZAPINE 15 MG TABLET PO (19:59)
[2022-03-26] MEDS: DONEPEZIL 10 MG TABLET PO (19:59)
[2022-03-26] MEDS: TRAMADOL HCL 50 MG TABLET PO (19:59)
[2022-03-26] MEDS: MELATONIN 3 MG TABLET 6 MG PO (19:59)
[2022-03-27] MEDS: LEVOTHYROXINE 100 MCG TABLET PO (07:53)
[2022-03-27] MEDS: OMEPRAZOLE 40 MG CAPSULE.DR PO (07:53)
[2022-03-27] MEDS: LACTOBACILLUS ACIDOPHILUS 1 TABLET PO ×3 (07:54→17:53)
[2022-03-27] MEDS: CARBIDOPA-LEVODOPA 25-100 TABLET 2 TAB PO ×3 (07:54→19:06)
[2022-03-27] MEDS: TRIAMCINOLONE ACETONIDE OINTMENT 0.1 % 1 APPLIC TOPICAL ×2 (07:54→19:07)
[2022-03-27] MEDS: ACETAMINOPHEN 500 MG TABLET 1000 MG PO ×3 (07:54→19:06)
[2022-03-27] MEDS: METOPROLOL TARTRATE 25 MG TABLET PO ×2 (07:54→15:20)
--- NOTE | 2022-03-27 13:34 | PC.NURSE ---
Side rail Assessment/Providers Orders/Informed Consent: Completed side rail utilization assessment, RBVO both bed rails up to promote independence/positioning at all times. Requested by resident and . DX: Parkinsonism per Soni Mcgregor NP. Bed rail informed consent form signed and filed. FDA bed rail pamphlet given to resident at this time. Intervention in place/Care Plan and Care Sheets updated.
[2022-03-27] MEDS: MELATONIN 3 MG TABLET 6 MG PO (19:06)
[2022-03-27] MEDS: MIRTAZAPINE 15 MG TABLET PO (19:07)
[2022-03-27] MEDS: DONEPEZIL 10 MG TABLET PO (19:07)
[2022-03-27] MEDS: TRAMADOL HCL 50 MG TABLET PO (19:09)
[2022-03-28] MEDS: CARBIDOPA-LEVODOPA 25-100 TABLET 2 TAB PO ×3 (07:27→20:11)
[2022-03-28] MEDS: OMEPRAZOLE 40 MG CAPSULE.DR PO (07:27)
[2022-03-28] MEDS: ACETAMINOPHEN 500 MG TABLET 1000 MG PO ×3 (07:27→20:11)
[2022-03-28] MEDS: LEVOTHYROXINE 100 MCG TABLET PO (07:27)
[2022-03-28] MEDS: METOPROLOL TARTRATE 25 MG TABLET PO ×2 (07:28→16:59)
[2022-03-28] MEDS: LACTOBACILLUS ACIDOPHILUS 1 TABLET PO ×3 (07:28→16:59)
[2022-03-28] MEDS: TRIAMCINOLONE ACETONIDE OINTMENT 0.1 % 1 APPLIC TOPICAL ×2 (08:13→20:11)
[2022-03-28] MEDS: MIRTAZAPINE 15 MG TABLET PO (20:11)
[2022-03-28] MEDS: MELATONIN 3 MG TABLET 6 MG PO (20:11)
[2022-03-28] MEDS: DONEPEZIL 10 MG TABLET PO (20:11)
[2022-03-28] MEDS: TRAMADOL HCL 50 MG TABLET PO (20:11)
[2022-03-29] MEDS: OMEPRAZOLE 40 MG CAPSULE.DR PO (07:55)
[2022-03-29] MEDS: LEVOTHYROXINE 100 MCG TABLET PO (07:55)
[2022-03-29] MEDS: ACETAMINOPHEN 500 MG TABLET 1000 MG PO ×3 (08:30→19:29)
[2022-03-29] MEDS: CARBIDOPA-LEVODOPA 25-100 TABLET 2 TAB PO ×3 (08:30→19:34)
[2022-03-29] MEDS: METOPROLOL TARTRATE 25 MG TABLET PO ×2 (08:31→16:11)
[2022-03-29] MEDS: LACTOBACILLUS ACIDOPHILUS 1 TABLET PO ×3 (08:32→17:17)
[2022-03-29] MEDS: TRIAMCINOLONE ACETONIDE OINTMENT 0.1 % 1 APPLIC TOPICAL ×2 (08:32→19:34)
[2022-03-29] MEDS: TRAMADOL HCL 50 MG TABLET PO (19:34)
[2022-03-29] MEDS: MIRTAZAPINE 15 MG TABLET PO (19:34)
[2022-03-29] MEDS: DONEPEZIL 10 MG TABLET PO (19:34)
[2022-03-29] MEDS: MELATONIN 3 MG TABLET 6 MG PO (19:34)
--- NOTE | 2022-03-29 20:51 | PC.NURSE ---
Bowel: Resident is on three days no BM, when offering Milk of Mag resident refused stating that he went yesterday.
--- NOTE | 2022-03-30 02:29 | PC.NURSE ---
WEEKLY CHARTING - WEEK 1: Vital signs reviewed. Temporary and comprehensive care plan reviewed - no change. Temporary and comprehensive care plan reviewed - no change. Hx of frequent headaches. No recent documented c/o headache. Receives acetaminophen 1000mg TID and once daily PRN with no PRN use. Tramadol 50mg at HS and once daily PRN which has been utilized x3 in the last month for c/o bilateral leg pain. Requires assist of 1 with dressing, grooming, bathing, and oral care. Able to eat independently with supervision and cues after set-up. Uses adaptive utensils. Hx of swallowing problems with liquids. Family declines ST eval. Per , use a straw and remind resident to take small sips. Staff monitor for s/sx of aspiration.
--- NOTE | 2022-03-30 06:41 | PC.NURSE ---
Week #1-ADL's: Comprehensive care plan reviewed, no changes made. Nothing added to temporary care plan. Resident needs one assist with dressing, grooming and bathing. Encourage participation. Has complete set of upper and lower dentures. Oral cares done by staff, and putting in/out. Independent with feeding after set up. Requires built up silver aguilar and divided plates. Is on regular diet, thin liquids per 's request. ST recommended thickened liquids. Resident coughs occasionally at meals with liquids. Continue to monitor for potential chewing/swallowing difficulties. Vital signs reviewed, no concerns. Pain: Pain is managed with Tylenol 1000mg TID & daily PRN, Tramadol 50 mg @ HS & once daily PRN. Staff anticipates non verbal gestures as resident does not always communicate needs.Current pain regimen is effective.
[2022-03-30] MEDS: OMEPRAZOLE 40 MG CAPSULE.DR PO (06:42)
[2022-03-30] MEDS: LEVOTHYROXINE 100 MCG TABLET PO (06:42)
[2022-03-30] MEDS: ACETAMINOPHEN 500 MG TABLET 1000 MG PO ×3 (07:03→19:39)
[2022-03-30] MEDS: LACTOBACILLUS ACIDOPHILUS 1 TABLET PO ×3 (07:03→17:20)
[2022-03-30] MEDS: CARBIDOPA-LEVODOPA 25-100 TABLET 2 TAB PO ×3 (07:03→19:39)
[2022-03-30] MEDS: METOPROLOL TARTRATE 25 MG TABLET PO ×2 (07:03→17:20)
[2022-03-30] MEDS: TRIAMCINOLONE ACETONIDE OINTMENT 0.1 % 1 APPLIC TOPICAL ×2 (07:04→19:39)
[2022-03-30 08:00] VITALS: TEMP 36.6; O2SAT 95
[2022-03-30 09:26] VITALS: TEMP 36.6; O2SAT 95
--- NOTE | 2022-03-30 11:25 | PC.NURSE ---
krista of Absence - Resident left facility at 1100 with her son. She was sent with her scheduled medications 12noon. She plans to return this evening..
--- NOTE | 2022-03-30 11:31 | PC.NURSE ---
Out of Facility: - Resident left facility at 1100 with his . He was sent with his scheduled medications 12noon. He plans to return this evening.
--- NOTE | 2022-03-30 13:25 | PC.NURSE ---
Addendum entered by Geno Yu RN 03/30/22 19:14: 03/28/22: Residents gave consent for COVID testing until outbreak status is complete Original Note: COVID OUTBREAK TESTING: Resident provided verbal consent for outbreak COVID testing. Resident is currently asymptomatic. Resident/family will be notified only if resident is positive.
--- NOTE | 2022-03-30 18:17 | PC.NURSE ---
Back to Facility: Resident came back to facility at 1730 accompanied by and daughter. Brought supper from home and ate at the dining area. Covid vitals are WNL.
[2022-03-30 18:20] VITALS: TEMP 36.6; O2SAT 95
[2022-03-30 18:21] LABS: SARS PCR* Negative SARS-CoV-2 (Negative)
[2022-03-30] MEDS: TRAMADOL HCL 50 MG TABLET PO (19:39)
[2022-03-30] MEDS: DONEPEZIL 10 MG TABLET PO (19:39)
[2022-03-30] MEDS: MIRTAZAPINE 15 MG TABLET PO (19:39)
[2022-03-30] MEDS: MELATONIN 3 MG TABLET 6 MG PO (19:39)
[2022-03-30 19:57] VITALS: TEMP 36.6; O2SAT 95
--- NOTE | 2022-03-30 21:38 | PC.NURSE ---
Skin Care. Rashes on resident legs is looking much better . Resident has no complaint of itchiness.
[2022-03-30 23:00] VITALS: TEMP 36.7; O2SAT 95
[2022-03-31 07:00] VITALS: TEMP 36.6; O2SAT 96
[2022-03-31] MEDS: OMEPRAZOLE 40 MG CAPSULE.DR PO (08:00)
[2022-03-31] MEDS: ACETAMINOPHEN 500 MG TABLET 1000 MG PO ×3 (08:00→19:18)
[2022-03-31] MEDS: LEVOTHYROXINE 100 MCG TABLET PO (08:00)
[2022-03-31] MEDS: CARBIDOPA-LEVODOPA 25-100 TABLET 2 TAB PO ×3 (08:00→19:18)
[2022-03-31] MEDS: TRIAMCINOLONE ACETONIDE OINTMENT 0.1 % 1 APPLIC TOPICAL ×2 (08:01→19:18)
[2022-03-31] MEDS: METOPROLOL TARTRATE 25 MG TABLET PO ×2 (08:01→15:29)
[2022-03-31] MEDS: LACTOBACILLUS ACIDOPHILUS 1 TABLET PO ×3 (08:02→17:34)
[2022-03-31 15:00] VITALS: TEMP 36.7; O2SAT 93
[2022-03-31] MEDS: TRAMADOL HCL 50 MG TABLET PO (19:18)
[2022-03-31] MEDS: MELATONIN 3 MG TABLET 6 MG PO (19:18)
[2022-03-31] MEDS: MIRTAZAPINE 15 MG TABLET PO (19:18)
[2022-03-31] MEDS: DONEPEZIL 10 MG TABLET PO (19:18)
[2022-03-31 23:00] VITALS: TEMP 36.4; O2SAT 95
[2022-04-01] MEDS: OMEPRAZOLE 40 MG CAPSULE.DR PO (07:42)
[2022-04-01] MEDS: LEVOTHYROXINE 100 MCG TABLET PO (07:42)
[2022-04-01] MEDS: CARBIDOPA-LEVODOPA 25-100 TABLET 2 TAB PO ×3 (07:46→20:20)
[2022-04-01] MEDS: TRIAMCINOLONE ACETONIDE OINTMENT 0.1 % 1 APPLIC TOPICAL ×2 (07:46→20:20)
[2022-04-01] MEDS: LACTOBACILLUS ACIDOPHILUS 1 TABLET PO ×3 (07:46→17:46)
[2022-04-01] MEDS: ACETAMINOPHEN 500 MG TABLET 1000 MG PO ×3 (07:46→20:20)
[2022-04-01] MEDS: METOPROLOL TARTRATE 25 MG TABLET PO ×2 (07:46→16:13)
[2022-04-01 10:17] VITALS: BP 140/87; PULSE 79; RESP 18; TEMP 36.2; O2SAT 93
[2022-04-01 15:00] VITALS: TEMP 36.1; O2SAT 94
[2022-04-01] MEDS: TRAMADOL HCL 50 MG TABLET PO (20:20)
[2022-04-01] MEDS: MIRTAZAPINE 15 MG TABLET PO (20:20)
[2022-04-01] MEDS: DONEPEZIL 10 MG TABLET PO (20:20)
[2022-04-01] MEDS: MELATONIN 3 MG TABLET 6 MG PO (20:20)
[2022-04-01 23:00] VITALS: TEMP 36.5; O2SAT 93
[2022-04-02] MEDS: OMEPRAZOLE 40 MG CAPSULE.DR PO (06:47)
[2022-04-02] MEDS: LEVOTHYROXINE 100 MCG TABLET PO (06:47)
[2022-04-02] MEDS: LACTOBACILLUS ACIDOPHILUS 1 TABLET PO ×3 (08:16→17:41)
[2022-04-02] MEDS: ACETAMINOPHEN 500 MG TABLET 1000 MG PO ×3 (08:16→19:20)
[2022-04-02] MEDS: TRIAMCINOLONE ACETONIDE OINTMENT 0.1 % 1 APPLIC TOPICAL ×2 (08:16→19:21)
[2022-04-02] MEDS: CARBIDOPA-LEVODOPA 25-100 TABLET 2 TAB PO ×3 (08:16→19:20)
[2022-04-02] MEDS: METOPROLOL TARTRATE 25 MG TABLET PO ×2 (08:16→15:46)
[2022-04-02 10:06] VITALS: TEMP 36.1; O2SAT 95
[2022-04-02 15:00] VITALS: TEMP 36.9; O2SAT 96
[2022-04-02] MEDS: DONEPEZIL 10 MG TABLET PO (19:20)
[2022-04-02] MEDS: MELATONIN 3 MG TABLET 6 MG PO (19:20)
[2022-04-02] MEDS: MIRTAZAPINE 15 MG TABLET PO (19:20)
[2022-04-02] MEDS: TRAMADOL HCL 50 MG TABLET PO (19:21)
[2022-04-02 23:00] VITALS: TEMP 36.6; O2SAT 94
[2022-04-03] MEDS: LEVOTHYROXINE 100 MCG TABLET PO (07:10)
[2022-04-03] MEDS: OMEPRAZOLE 40 MG CAPSULE.DR PO (07:10)
[2022-04-03] MEDS: ACETAMINOPHEN 500 MG TABLET 1000 MG PO ×3 (08:22→20:01)
[2022-04-03] MEDS: CARBIDOPA-LEVODOPA 25-100 TABLET 2 TAB PO ×3 (08:22→20:01)
[2022-04-03] MEDS: METOPROLOL TARTRATE 25 MG TABLET PO ×2 (08:22→15:47)
[2022-04-03] MEDS: TRIAMCINOLONE ACETONIDE OINTMENT 0.1 % 1 APPLIC TOPICAL ×2 (08:23→20:01)
[2022-04-03] MEDS: LACTOBACILLUS ACIDOPHILUS 1 TABLET PO ×3 (08:23→18:05)
[2022-04-03 10:13] VITALS: TEMP 36; O2SAT 96
[2022-04-03 15:00] VITALS: TEMP 36.4; O2SAT 95
[2022-04-03] MEDS: MIRTAZAPINE 15 MG TABLET PO (20:01)
[2022-04-03] MEDS: MELATONIN 3 MG TABLET 6 MG PO (20:01)
[2022-04-03] MEDS: TRAMADOL HCL 50 MG TABLET PO (20:01)
[2022-04-03] MEDS: DONEPEZIL 10 MG TABLET PO (20:01)
[2022-04-03 23:00] VITALS: TEMP 36.4; O2SAT 96
[2022-04-04] MEDS: OMEPRAZOLE 40 MG CAPSULE.DR PO (07:41)
[2022-04-04] MEDS: LEVOTHYROXINE 100 MCG TABLET PO (07:41)
[2022-04-04] MEDS: METOPROLOL TARTRATE 25 MG TABLET PO ×2 (08:11→16:30)
[2022-04-04] MEDS: ACETAMINOPHEN 500 MG TABLET 1000 MG PO ×3 (08:11→19:26)
[2022-04-04] MEDS: CARBIDOPA-LEVODOPA 25-100 TABLET 2 TAB PO ×3 (08:11→19:27)
[2022-04-04] MEDS: LACTOBACILLUS ACIDOPHILUS 1 TABLET PO ×3 (08:12→17:03)
[2022-04-04] MEDS: TRIAMCINOLONE ACETONIDE OINTMENT 0.1 % 1 APPLIC TOPICAL ×2 (08:14→19:27)
[2022-04-04 09:46] VITALS: TEMP 36.4; O2SAT 96
[2022-04-04 15:00] VITALS: TEMP 36.6; O2SAT 96
[2022-04-04] MEDS: MELATONIN 3 MG TABLET 6 MG PO (19:27)
[2022-04-04] MEDS: MIRTAZAPINE 15 MG TABLET PO (19:27)
[2022-04-04] MEDS: TRAMADOL HCL 50 MG TABLET PO (19:27)
[2022-04-04] MEDS: DONEPEZIL 10 MG TABLET PO (19:27)
[2022-04-04 23:00] VITALS: TEMP 36.3; O2SAT 95
[2022-04-05] MEDS: OMEPRAZOLE 40 MG CAPSULE.DR PO (07:33)
[2022-04-05] MEDS: LEVOTHYROXINE 100 MCG TABLET PO (07:33)
[2022-04-05] MEDS: CARBIDOPA-LEVODOPA 25-100 TABLET 2 TAB PO ×3 (08:23→19:32)
[2022-04-05] MEDS: ACETAMINOPHEN 500 MG TABLET 1000 MG PO ×3 (08:23→19:32)
[2022-04-05] MEDS: LACTOBACILLUS ACIDOPHILUS 1 TABLET PO ×3 (08:24→17:13)
[2022-04-05] MEDS: METOPROLOL TARTRATE 25 MG TABLET PO ×2 (08:24→16:22)
[2022-04-05] MEDS: TRIAMCINOLONE ACETONIDE OINTMENT 0.1 % 1 APPLIC TOPICAL ×2 (08:30→19:32)
[2022-04-05 10:13] VITALS: TEMP 36.7; O2SAT 96
[2022-04-05 15:00] VITALS: TEMP 36.2; O2SAT 93
[2022-04-05] MEDS: MIRTAZAPINE 15 MG TABLET PO (19:32)
[2022-04-05] MEDS: DONEPEZIL 10 MG TABLET PO (19:32)
[2022-04-05] MEDS: TRAMADOL HCL 50 MG TABLET PO (19:32)
[2022-04-05] MEDS: MELATONIN 3 MG TABLET 6 MG PO (19:32)
[2022-04-05 23:00] VITALS: TEMP 36.1; O2SAT 91
[2022-04-06] MEDS: OMEPRAZOLE 40 MG CAPSULE.DR PO (07:21)
[2022-04-06] MEDS: LEVOTHYROXINE 100 MCG TABLET PO (07:21)
[2022-04-06] MEDS: ACETAMINOPHEN 500 MG TABLET 1000 MG PO ×3 (08:37→20:38)
[2022-04-06] MEDS: CARBIDOPA-LEVODOPA 25-100 TABLET 2 TAB PO ×3 (08:37→20:38)
[2022-04-06] MEDS: LACTOBACILLUS ACIDOPHILUS 1 TABLET PO ×3 (08:38→16:51)
[2022-04-06] MEDS: TRIAMCINOLONE ACETONIDE OINTMENT 0.1 % 1 APPLIC TOPICAL ×2 (08:38→20:38)
[2022-04-06] MEDS: METOPROLOL TARTRATE 25 MG TABLET PO ×2 (08:38→16:51)
[2022-04-06 10:37] VITALS: TEMP 36.4; O2SAT 92
--- NOTE | 2022-04-06 11:37 | PC.NURSE ---
Loose stool - Pt experienced loose stool episode 04/05/22. 3 loose stools since. Implemented isolation precautions for pt. All staff to wear contact precaution PPE. Used standing orders for COVID/FLU A&B test. Called [id number] - Order sent for RSV and Norovirus tests. Family notified. T: 97.6. No other symptoms.
[2022-04-06 11:57] LABS: PCR FLU A Negative PCR FLU A (Negative); PCR FLU B Negative PCR FLU B (Negative); PCR RSV Negative PCR RSV (Negative)
[2022-04-06 12:11] LABS: SARS PCR* Negative SARS-CoV-2 (Negative)
--- NOTE | 2022-04-06 12:49 | PC.NURSE ---
Status: Resident has had a banana for breakfast and 2 bites of pb&j sandwich but has had good fluid intake. Resident has had 2-3 loose BM's
[2022-04-06] MEDS: MELATONIN 3 MG TABLET 6 MG PO (20:38)
[2022-04-06] MEDS: TRAMADOL HCL 50 MG TABLET PO (20:38)
[2022-04-06] MEDS: DONEPEZIL 10 MG TABLET PO (20:38)
[2022-04-06] MEDS: MIRTAZAPINE 15 MG TABLET PO (20:38)
[2022-04-06 21:04] VITALS: TEMP 37.1; O2SAT 95
[2022-04-06 23:00] VITALS: TEMP 35.7; O2SAT 92
--- NOTE | 2022-04-07 05:30 | PC.NURSE ---
Resident did not have loose stool or emesis overnight, he called five times for urinal, had a wet brief once. Still on isolation.
[2022-04-07] MEDS: LEVOTHYROXINE 100 MCG TABLET PO (07:14)
[2022-04-07] MEDS: OMEPRAZOLE 40 MG CAPSULE.DR PO (07:14)
--- NOTE | 2022-04-07 07:44 | PC.NURSE ---
Week #2: Mobility: Comprehensive care plan and temporary care plan reviewed. No changes made. Nothing added to temporary care plan. Resident needs one assist, transfer belt and walker with transfers,? getting in/out of bed and ambulation. Propels wheelchair at times. Otherwise staff wheels to destinations. Is able to reposition self in bed. Staff assist as needed. Encourage repositioning every 2 hours. Two 1/4 side rails up on bed for independent positioning. No alarms. Vital signs reviewed, no concerns. Fall: No falls this past month.Remains a high fall risk according to assessment done on 03/05/22.
[2022-04-07] MEDS: ACETAMINOPHEN 500 MG TABLET 1000 MG PO ×3 (08:05→20:02)
[2022-04-07] MEDS: CARBIDOPA-LEVODOPA 25-100 TABLET 2 TAB PO ×3 (08:05→20:02)
[2022-04-07] MEDS: METOPROLOL TARTRATE 25 MG TABLET PO ×2 (08:06→16:29)
[2022-04-07] MEDS: TRIAMCINOLONE ACETONIDE OINTMENT 0.1 % 1 APPLIC TOPICAL ×2 (08:06→20:03)
[2022-04-07] MEDS: LACTOBACILLUS ACIDOPHILUS 1 TABLET PO ×3 (08:06→16:30)
--- NOTE | 2022-04-07 10:56 | PC.NURSE ---
Resident status: Resident is alert, no episode of vomiting or diarrhoea, appetite good. took all his meds without any issue. Received call from his , she informed that she will pay him a visit tomorrow ( 04/08/22)
[2022-04-07 12:27] VITALS: TEMP 36.4; O2SAT 95
[2022-04-07 15:00] VITALS: TEMP 36.4; O2SAT 95
[2022-04-07] MEDS: DONEPEZIL 10 MG TABLET PO (20:03)
[2022-04-07] MEDS: MIRTAZAPINE 15 MG TABLET PO (20:03)
[2022-04-07] MEDS: MELATONIN 3 MG TABLET 6 MG PO (20:03)
[2022-04-07] MEDS: TRAMADOL HCL 50 MG TABLET PO (20:03)
[2022-04-07 23:00] VITALS: TEMP 36.4; O2SAT 95
[2022-04-08] MEDS: LEVOTHYROXINE 100 MCG TABLET PO (07:29)
[2022-04-08] MEDS: CARBIDOPA-LEVODOPA 25-100 TABLET 2 TAB PO ×3 (07:29→19:09)
[2022-04-08] MEDS: OMEPRAZOLE 40 MG CAPSULE.DR PO (07:29)
[2022-04-08] MEDS: ACETAMINOPHEN 500 MG TABLET 1000 MG PO ×3 (07:29→19:09)
[2022-04-08] MEDS: TRIAMCINOLONE ACETONIDE OINTMENT 0.1 % 1 APPLIC TOPICAL ×2 (07:30→19:10)
[2022-04-08] MEDS: LACTOBACILLUS ACIDOPHILUS 1 TABLET PO ×3 (07:30→17:07)
[2022-04-08] MEDS: METOPROLOL TARTRATE 25 MG TABLET PO ×2 (07:30→16:32)
[2022-04-08 10:50] VITALS: BP 136/80; PULSE 82; RESP 20; TEMP 36.2; O2SAT 94
--- NOTE | 2022-04-08 13:42 | PC.NURSE ---
Out of Isolation: Resident is out of Isolation for Norovirus. Vitals are WNL. No vomiting and diarrhoea since 04/06/2022. Appetite is good and had a normal B/M today.
[2022-04-08 15:00] VITALS: TEMP 36.6; O2SAT 95
[2022-04-08] MEDS: DONEPEZIL 10 MG TABLET PO (19:09)
[2022-04-08] MEDS: MIRTAZAPINE 15 MG TABLET PO (19:10)
[2022-04-08] MEDS: TRAMADOL HCL 50 MG TABLET PO (19:10)
[2022-04-08] MEDS: MELATONIN 3 MG TABLET 6 MG PO (19:10)
[2022-04-08 23:00] VITALS: TEMP 36.4; O2SAT 93
[2022-04-09] MEDS: OMEPRAZOLE 40 MG CAPSULE.DR PO (06:54)
[2022-04-09] MEDS: LEVOTHYROXINE 100 MCG TABLET PO (06:54)
[2022-04-09] MEDS: CARBIDOPA-LEVODOPA 25-100 TABLET 2 TAB PO ×3 (08:29→20:30)
[2022-04-09] MEDS: ACETAMINOPHEN 500 MG TABLET 1000 MG PO ×3 (08:29→20:30)
[2022-04-09] MEDS: TRIAMCINOLONE ACETONIDE OINTMENT 0.1 % 1 APPLIC TOPICAL ×2 (08:30→20:30)
[2022-04-09] MEDS: LACTOBACILLUS ACIDOPHILUS 1 TABLET PO ×3 (08:30→17:24)
[2022-04-09] MEDS: METOPROLOL TARTRATE 25 MG TABLET PO ×2 (08:30→16:53)
[2022-04-09 09:43] VITALS: TEMP 36.2; O2SAT 96
[2022-04-09 15:00] VITALS: TEMP 36.2; O2SAT 95
[2022-04-09] MEDS: DONEPEZIL 10 MG TABLET PO (20:30)
[2022-04-09] MEDS: MELATONIN 3 MG TABLET 6 MG PO (20:30)
[2022-04-09] MEDS: MIRTAZAPINE 15 MG TABLET PO (20:30)
[2022-04-09] MEDS: TRAMADOL HCL 50 MG TABLET PO (20:31)
[2022-04-09 23:00] VITALS: TEMP 36.4; O2SAT 93
[2022-04-10] MEDS: CARBIDOPA-LEVODOPA 25-100 TABLET 2 TAB PO ×3 (07:17→19:28)
[2022-04-10] MEDS: METOPROLOL TARTRATE 25 MG TABLET PO ×2 (07:17→15:22)
[2022-04-10] MEDS: OMEPRAZOLE 40 MG CAPSULE.DR PO (07:17)
[2022-04-10] MEDS: LACTOBACILLUS ACIDOPHILUS 1 TABLET PO ×3 (07:17→16:44)
[2022-04-10] MEDS: LEVOTHYROXINE 100 MCG TABLET PO (07:17)
[2022-04-10] MEDS: ACETAMINOPHEN 500 MG TABLET 1000 MG PO ×3 (07:17→19:28)
[2022-04-10] MEDS: TRIAMCINOLONE ACETONIDE OINTMENT 0.1 % 1 APPLIC TOPICAL ×2 (07:18→19:28)
[2022-04-10 10:21] VITALS: TEMP 35.9; O2SAT 95
[2022-04-10 15:00] VITALS: TEMP 36.2; O2SAT 94
[2022-04-10] MEDS: DONEPEZIL 10 MG TABLET PO (19:28)
[2022-04-10] MEDS: MELATONIN 3 MG TABLET 6 MG PO (19:28)
[2022-04-10] MEDS: TRAMADOL HCL 50 MG TABLET PO (19:28)
[2022-04-10] MEDS: MIRTAZAPINE 15 MG TABLET PO (19:28)
[2022-04-10 23:00] VITALS: TEMP 36.4; O2SAT 94
[2022-04-11] MEDS: OMEPRAZOLE 40 MG CAPSULE.DR PO (06:45)
[2022-04-11] MEDS: LEVOTHYROXINE 100 MCG TABLET PO (06:45)
[2022-04-11 07:00] VITALS: TEMP 36.6; O2SAT 93
[2022-04-11] MEDS: TRIAMCINOLONE ACETONIDE OINTMENT 0.1 % 1 APPLIC TOPICAL ×2 (07:40→19:28)
[2022-04-11] MEDS: METOPROLOL TARTRATE 25 MG TABLET PO ×2 (07:40→16:27)
[2022-04-11] MEDS: CARBIDOPA-LEVODOPA 25-100 TABLET 2 TAB PO ×3 (07:40→19:28)
[2022-04-11] MEDS: ACETAMINOPHEN 500 MG TABLET 1000 MG PO ×3 (07:40→19:28)
[2022-04-11] MEDS: LACTOBACILLUS ACIDOPHILUS 1 TABLET PO ×3 (07:40→17:20)
[2022-04-11 15:00] VITALS: TEMP 36.7; O2SAT 96
[2022-04-11] MEDS: MELATONIN 3 MG TABLET 6 MG PO (19:28)
[2022-04-11] MEDS: TRAMADOL HCL 50 MG TABLET PO (19:28)
[2022-04-11] MEDS: DONEPEZIL 10 MG TABLET PO (19:28)
[2022-04-11] MEDS: MIRTAZAPINE 15 MG TABLET PO (19:28)
[2022-04-11 23:00] VITALS: TEMP 36.6; O2SAT 94
[2022-04-12] MEDS: LEVOTHYROXINE 100 MCG TABLET PO (06:43)
[2022-04-12] MEDS: OMEPRAZOLE 40 MG CAPSULE.DR PO (06:43)
[2022-04-12 07:00] VITALS: TEMP 36.4; O2SAT 96
[2022-04-12] MEDS: METOPROLOL TARTRATE 25 MG TABLET PO ×2 (07:37→15:38)
[2022-04-12] MEDS: CARBIDOPA-LEVODOPA 25-100 TABLET 2 TAB PO ×3 (07:37→19:12)
[2022-04-12] MEDS: ACETAMINOPHEN 500 MG TABLET 1000 MG PO ×3 (07:37→19:12)
[2022-04-12] MEDS: LACTOBACILLUS ACIDOPHILUS 1 TABLET PO ×3 (07:38→17:27)
[2022-04-12] MEDS: TRIAMCINOLONE ACETONIDE OINTMENT 0.1 % 1 APPLIC TOPICAL ×2 (07:38→19:12)
[2022-04-12 15:00] VITALS: TEMP 36.5; O2SAT 94
[2022-04-12] MEDS: MIRTAZAPINE 15 MG TABLET PO (19:12)
[2022-04-12] MEDS: DONEPEZIL 10 MG TABLET PO (19:12)
[2022-04-12] MEDS: MELATONIN 3 MG TABLET 6 MG PO (19:12)
[2022-04-12] MEDS: TRAMADOL HCL 50 MG TABLET PO (19:13)
[2022-04-12 23:00] VITALS: TEMP 36.7; O2SAT 94
--- NOTE | 2022-04-13 03:34 | PC.NURSE ---
WEEKLY CHARTING - WEEK 3: Vital signs reviewed. Temporary and comprehensive care plan reviewed - no change. Has intermittent rash on bilateral feet. Triamcinolone cream is applied BID per order. No other skin integrity concerns. Is mostly continent of bowel with some incontinence. Frequent urinary incontinence. Is occasionally continent of urine. Will use call light for urinal at times. Wears pull-up at night. Dislikes briefs and will remove them and throw on the floor. Requires assist of 1 with toileting needs including transfers, urinal use, clothing/pad management, and ge-cares.
[2022-04-13] MEDS: LEVOTHYROXINE 100 MCG TABLET PO (07:16)
[2022-04-13] MEDS: OMEPRAZOLE 40 MG CAPSULE.DR PO (07:16)
--- NOTE | 2022-04-13 07:29 | PC.NURSE ---
Week #3 - Toileting: Comprehensive care plan reviewed, no changes made. Nothing added to temporary care plan. Resident needs one assist with toileting. He is mostly continent of BM, occasionally incontinent. Frequently incontinent of bladder. Staff toilet per his request, before/after meals. Wears medium pull ups. Pads, ge cares, clothing managed by staff. Vital signs reviewed with occasional elevated BP's. Continue with weekly VS monitoring. Skin: Has intermittent feet rash. Triamcinolone cream BID is in order. Skin is checked routinely on bath day and during cares.
[2022-04-13] MEDS: ACETAMINOPHEN 500 MG TABLET 1000 MG PO ×3 (08:07→20:47)
[2022-04-13] MEDS: CARBIDOPA-LEVODOPA 25-100 TABLET 2 TAB PO ×3 (08:07→20:47)
[2022-04-13] MEDS: TRIAMCINOLONE ACETONIDE OINTMENT 0.1 % 1 APPLIC TOPICAL ×2 (08:08→20:47)
[2022-04-13] MEDS: METOPROLOL TARTRATE 25 MG TABLET PO ×2 (08:08→16:12)
[2022-04-13] MEDS: LACTOBACILLUS ACIDOPHILUS 1 TABLET PO ×3 (08:08→17:16)
[2022-04-13 09:56] VITALS: TEMP 36.4; O2SAT 94
--- NOTE | 2022-04-13 11:54 | PC.NURSE ---
COVID OUTBREAK TESTING (Antigen): Resident provided verbal consent for outbreak COVID testing. Resident is currently asymptomatic.? Resident/family will be notified only if resident is positive.
[2022-04-13 13:13] LABS: SARS PCR* Negative SARS-CoV-2 (Negative)
[2022-04-13] MEDS: MELATONIN 3 MG TABLET 6 MG PO (20:47)
[2022-04-13] MEDS: TRAMADOL HCL 50 MG TABLET PO (20:47)
[2022-04-13] MEDS: MIRTAZAPINE 15 MG TABLET PO (20:47)
[2022-04-13] MEDS: DONEPEZIL 10 MG TABLET PO (20:47)
[2022-04-13 21:25] VITALS: TEMP 36.6; O2SAT 96
[2022-04-13 23:00] VITALS: TEMP 36.6; O2SAT 94
[2022-04-14] MEDS: LEVOTHYROXINE 100 MCG TABLET PO (07:07)
[2022-04-14] MEDS: OMEPRAZOLE 40 MG CAPSULE.DR PO (07:07)
[2022-04-14] MEDS: METOPROLOL TARTRATE 25 MG TABLET PO ×2 (07:09→16:51)
[2022-04-14] MEDS: LACTOBACILLUS ACIDOPHILUS 1 TABLET PO ×3 (07:10→16:51)
[2022-04-14] MEDS: ACETAMINOPHEN 500 MG TABLET 1000 MG PO ×3 (07:10→19:17)
[2022-04-14] MEDS: CARBIDOPA-LEVODOPA 25-100 TABLET 2 TAB PO ×3 (07:10→19:17)
[2022-04-14] MEDS: TRIAMCINOLONE ACETONIDE OINTMENT 0.1 % 1 APPLIC TOPICAL ×2 (07:16→19:17)
--- NOTE | 2022-04-14 09:35 | PC.NURSE ---
Order: When current Melatonin 6mg is used, okay to change to 5mg per 's supply by Balbir BAILEY.
[2022-04-14 10:40] VITALS: TEMP 36.6; O2SAT 93
[2022-04-14] MEDS: TRAMADOL HCL 50 MG TABLET PO (19:17)
[2022-04-14] MEDS: MELATONIN 3 MG TABLET 6 MG PO (19:17)
[2022-04-14] MEDS: DONEPEZIL 10 MG TABLET PO (19:17)
[2022-04-14] MEDS: MIRTAZAPINE 15 MG TABLET PO (19:17)
[2022-04-14 21:05] VITALS: TEMP 36.4; O2SAT 95
[2022-04-14 23:00] VITALS: TEMP 36.4; O2SAT 94
[2022-04-15 07:00] VITALS: BP 146/82; PULSE 70; RESP 16; TEMP 36.3; O2SAT 95
[2022-04-15] MEDS: OMEPRAZOLE 40 MG CAPSULE.DR PO (07:42)
[2022-04-15] MEDS: CARBIDOPA-LEVODOPA 25-100 TABLET 2 TAB PO ×3 (07:42→19:40)
[2022-04-15] MEDS: LEVOTHYROXINE 100 MCG TABLET PO (07:42)
[2022-04-15] MEDS: METOPROLOL TARTRATE 25 MG TABLET PO ×2 (07:42→16:16)
[2022-04-15] MEDS: ACETAMINOPHEN 500 MG TABLET 1000 MG PO ×3 (07:42→19:40)
[2022-04-15] MEDS: LACTOBACILLUS ACIDOPHILUS 1 TABLET PO ×3 (07:43→17:02)
[2022-04-15] MEDS: TRIAMCINOLONE ACETONIDE OINTMENT 0.1 % 1 APPLIC TOPICAL ×2 (07:45→19:41)
--- NOTE | 2022-04-15 14:09 | PC.PHA ---
MEDICATION REVIEW MEDICATION MONITORING:Mirtazapine 15 mg stared 02/02/22 continues to be indicated and GDR clinically contraindicated. IRREGULARITY/COMMENTS: Current medication regimen showing effectiveness in terms of pulse now running between 60-80 instead of 50's. 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 SUGGESTED COURSE OF ACTION:No medication recommendations for March
[2022-04-15 15:00] VITALS: TEMP 36.6; O2SAT 95
[2022-04-15] MEDS: MELATONIN 3 MG TABLET 6 MG PO (19:40)
[2022-04-15] MEDS: DONEPEZIL 10 MG TABLET PO (19:40)
[2022-04-15] MEDS: MIRTAZAPINE 15 MG TABLET PO (19:41)
[2022-04-15] MEDS: TRAMADOL HCL 50 MG TABLET PO (19:41)
[2022-04-15 23:00] VITALS: TEMP 36.4; O2SAT 94
[2022-04-16 07:00] VITALS: TEMP 36.3; O2SAT 97
[2022-04-16] MEDS: LEVOTHYROXINE 100 MCG TABLET PO (07:24)
[2022-04-16] MEDS: ACETAMINOPHEN 500 MG TABLET 1000 MG PO ×3 (07:24→19:16)
[2022-04-16] MEDS: TRIAMCINOLONE ACETONIDE OINTMENT 0.1 % 1 APPLIC TOPICAL ×2 (07:24→19:17)
[2022-04-16] MEDS: CARBIDOPA-LEVODOPA 25-100 TABLET 2 TAB PO ×3 (07:24→19:16)
[2022-04-16] MEDS: LACTOBACILLUS ACIDOPHILUS 1 TABLET PO ×3 (07:24→16:33)
[2022-04-16] MEDS: METOPROLOL TARTRATE 25 MG TABLET PO ×2 (07:24→15:36)
[2022-04-16] MEDS: OMEPRAZOLE 40 MG CAPSULE.DR PO (07:24)
[2022-04-16 15:00] VITALS: TEMP 36.6; O2SAT 96
[2022-04-16] MEDS: MELATONIN 3 MG TABLET 6 MG PO (19:16)
[2022-04-16] MEDS: DONEPEZIL 10 MG TABLET PO (19:16)
[2022-04-16] MEDS: MIRTAZAPINE 15 MG TABLET PO (19:17)
[2022-04-16] MEDS: TRAMADOL HCL 50 MG TABLET PO (19:17)
[2022-04-16 23:00] VITALS: TEMP 36.4; O2SAT 93
[2022-04-17] MEDS: LEVOTHYROXINE 100 MCG TABLET PO (07:16)
[2022-04-17] MEDS: OMEPRAZOLE 40 MG CAPSULE.DR PO (07:16)
[2022-04-17] MEDS: CARBIDOPA-LEVODOPA 25-100 TABLET 2 TAB PO ×3 (08:11→19:09)
[2022-04-17] MEDS: ACETAMINOPHEN 500 MG TABLET 1000 MG PO ×3 (08:11→19:08)
[2022-04-17] MEDS: METOPROLOL TARTRATE 25 MG TABLET PO ×2 (08:12→15:48)
[2022-04-17] MEDS: LACTOBACILLUS ACIDOPHILUS 1 TABLET PO ×3 (08:12→17:04)
[2022-04-17] MEDS: TRIAMCINOLONE ACETONIDE OINTMENT 0.1 % 1 APPLIC TOPICAL ×2 (08:12→19:09)
[2022-04-17 09:58] VITALS: TEMP 36.4; O2SAT 96
[2022-04-17 15:00] VITALS: TEMP 36.6; O2SAT 95
[2022-04-17] MEDS: DONEPEZIL 10 MG TABLET PO (19:09)
[2022-04-17] MEDS: MELATONIN 3 MG TABLET 6 MG PO (19:09)
[2022-04-17] MEDS: MIRTAZAPINE 15 MG TABLET PO (19:09)
[2022-04-17] MEDS: TRAMADOL HCL 50 MG TABLET PO (19:09)
[2022-04-17 23:00] VITALS: TEMP 36.4; O2SAT 94
[2022-04-18] MEDS: OMEPRAZOLE 40 MG CAPSULE.DR PO (07:12)
[2022-04-18] MEDS: LEVOTHYROXINE 100 MCG TABLET PO (07:12)
[2022-04-18] MEDS: CARBIDOPA-LEVODOPA 25-100 TABLET 2 TAB PO ×3 (08:12→19:06)
[2022-04-18] MEDS: ACETAMINOPHEN 500 MG TABLET 1000 MG PO ×3 (08:12→19:06)
[2022-04-18] MEDS: METOPROLOL TARTRATE 25 MG TABLET PO ×2 (08:15→15:57)
[2022-04-18] MEDS: TRIAMCINOLONE ACETONIDE OINTMENT 0.1 % 1 APPLIC TOPICAL ×2 (08:15→19:06)
[2022-04-18] MEDS: LACTOBACILLUS ACIDOPHILUS 1 TABLET PO ×3 (08:15→17:07)
[2022-04-18 09:45] VITALS: TEMP 36.3; O2SAT 94
[2022-04-18 15:00] VITALS: TEMP 36.4; O2SAT 95
[2022-04-18] MEDS: MIRTAZAPINE 15 MG TABLET PO (19:06)
[2022-04-18] MEDS: DONEPEZIL 10 MG TABLET PO (19:06)
[2022-04-18] MEDS: TRAMADOL HCL 50 MG TABLET PO (19:06)
[2022-04-18] MEDS: MELATONIN 3 MG TABLET 6 MG PO (19:06)
[2022-04-18 23:00] VITALS: TEMP 36.4; O2SAT 97
[2022-04-19] MEDS: OMEPRAZOLE 40 MG CAPSULE.DR PO (07:31)
[2022-04-19] MEDS: LEVOTHYROXINE 100 MCG TABLET PO (07:31)
[2022-04-19] MEDS: CARBIDOPA-LEVODOPA 25-100 TABLET 2 TAB PO ×3 (08:14→19:10)
[2022-04-19] MEDS: METOPROLOL TARTRATE 25 MG TABLET PO ×2 (08:14→15:45)
[2022-04-19] MEDS: ACETAMINOPHEN 500 MG TABLET 1000 MG PO ×3 (08:14→19:10)
[2022-04-19] MEDS: LACTOBACILLUS ACIDOPHILUS 1 TABLET PO ×3 (08:15→17:12)
[2022-04-19] MEDS: TRIAMCINOLONE ACETONIDE OINTMENT 0.1 % 1 APPLIC TOPICAL ×2 (08:16→19:10)
[2022-04-19 09:47] VITALS: TEMP 36.6; O2SAT 92
[2022-04-19 15:00] VITALS: TEMP 36.3; O2SAT 96
[2022-04-19] MEDS: TRAMADOL HCL 50 MG TABLET PO (19:10)
[2022-04-19] MEDS: DONEPEZIL 10 MG TABLET PO (19:10)
[2022-04-19] MEDS: MIRTAZAPINE 15 MG TABLET PO (19:10)
[2022-04-19] MEDS: MELATONIN 3 MG TABLET 6 MG PO (19:10)
[2022-04-19 23:00] VITALS: TEMP 36.1; O2SAT 94
[2022-04-20] MEDS: OMEPRAZOLE 40 MG CAPSULE.DR PO (07:33)
[2022-04-20] MEDS: LEVOTHYROXINE 100 MCG TABLET PO (07:33)
[2022-04-20] MEDS: CARBIDOPA-LEVODOPA 25-100 TABLET 2 TAB PO ×3 (08:25→19:42)
[2022-04-20] MEDS: ACETAMINOPHEN 500 MG TABLET 1000 MG PO ×3 (08:25→19:41)
[2022-04-20] MEDS: TRIAMCINOLONE ACETONIDE OINTMENT 0.1 % 1 APPLIC TOPICAL ×2 (08:26→19:42)
[2022-04-20] MEDS: LACTOBACILLUS ACIDOPHILUS 1 TABLET PO ×3 (08:26→17:18)
[2022-04-20] MEDS: METOPROLOL TARTRATE 25 MG TABLET PO ×2 (08:26→15:31)
[2022-04-20 10:41] VITALS: TEMP 36.6; O2SAT 94
--- NOTE | 2022-04-20 11:54 | PC.SPIRITC ---
I provided visit with Juan' spouse for support and connection.
[2022-04-20 14:00] LABS: SARS PCR* Negative SARS-CoV-2 (Negative)
[2022-04-20] MEDS: MELATONIN 3 MG TABLET 6 MG PO (19:42)
[2022-04-20] MEDS: TRAMADOL HCL 50 MG TABLET PO (19:42)
[2022-04-20] MEDS: DONEPEZIL 10 MG TABLET PO (19:42)
[2022-04-20] MEDS: MIRTAZAPINE 15 MG TABLET PO (19:42)
[2022-04-20 21:03] VITALS: TEMP 36.4; O2SAT 95
--- NOTE | 2022-04-20 22:07 | PC.NURSE ---
Status: Per ARELY resident was getting into bed and leaned back to far and tapped head on side table. Monitoring.
[2022-04-20 23:00] VITALS: TEMP 36.2; O2SAT 93
[2022-04-21] MEDS: OMEPRAZOLE 40 MG CAPSULE.DR PO (06:54)
[2022-04-21] MEDS: LEVOTHYROXINE 100 MCG TABLET PO (06:54)
[2022-04-21] MEDS: METOPROLOL TARTRATE 25 MG TABLET PO ×2 (08:25→16:48)
[2022-04-21] MEDS: ACETAMINOPHEN 500 MG TABLET 1000 MG PO ×3 (08:25→19:26)
[2022-04-21] MEDS: CARBIDOPA-LEVODOPA 25-100 TABLET 2 TAB PO ×3 (08:25→19:26)
[2022-04-21] MEDS: TRIAMCINOLONE ACETONIDE OINTMENT 0.1 % 1 APPLIC TOPICAL ×2 (08:26→19:27)
[2022-04-21] MEDS: LACTOBACILLUS ACIDOPHILUS 1 TABLET PO ×3 (08:26→16:48)
--- NOTE | 2022-04-21 10:09 | PC.NURSE ---
Week #4: comprehensive care plan reviewed, no changes made. Nothing added to temporary care plan. No changes noted in communication, hearing, vision or orientation. Speech is impaired r/t progressive aphasia but is usually understood. Needs also anticipated by staff. Hearing is okay. Vision impaired corrected by glasses. Has moderate to severe cognitive impairment. Chronic health condition stable. Nurse administer all medications. Vital signs with occasional mild elevated BP's. Continue with weekly VS monitoring. Mood/Behavior: No issues charted the past month. Continues on Remeron 15mg @ HS & Melatonin 6mg @ HS with no adverse effects noted. Has an order to change Melatonin to 5mg when supply of 6mg gone.
[2022-04-21 11:03] VITALS: TEMP 36.4; O2SAT 96
[2022-04-21 15:00] VITALS: TEMP 36.6; O2SAT 95
[2022-04-21] MEDS: DONEPEZIL 10 MG TABLET PO (19:26)
[2022-04-21] MEDS: TRAMADOL HCL 50 MG TABLET PO (19:27)
[2022-04-21] MEDS: MIRTAZAPINE 15 MG TABLET PO (19:27)
[2022-04-21] MEDS: MELATONIN 3 MG TABLET 6 MG PO (19:27)
[2022-04-21 23:00] VITALS: TEMP 36.6; O2SAT 94
[2022-04-22] MEDS: OMEPRAZOLE 40 MG CAPSULE.DR PO (06:50)
[2022-04-22] MEDS: LEVOTHYROXINE 100 MCG TABLET PO (06:50)
[2022-04-22] MEDS: CARBIDOPA-LEVODOPA 25-100 TABLET 2 TAB PO ×3 (07:07→19:28)
[2022-04-22] MEDS: ACETAMINOPHEN 500 MG TABLET 1000 MG PO ×3 (07:07→19:28)
[2022-04-22] MEDS: TRIAMCINOLONE ACETONIDE OINTMENT 0.1 % 1 APPLIC TOPICAL ×2 (07:07→19:29)
[2022-04-22] MEDS: METOPROLOL TARTRATE 25 MG TABLET PO ×2 (07:07→15:40)
[2022-04-22] MEDS: LACTOBACILLUS ACIDOPHILUS 1 TABLET PO ×3 (07:07→17:49)
[2022-04-22 08:10] VITALS: BP 149/81; PULSE 73; RESP 16; TEMP 36.4; O2SAT 95
[2022-04-22 09:10] VITALS: BMI 25.9
[2022-04-22 15:00] VITALS: TEMP 36.6; O2SAT 94
[2022-04-22] MEDS: DONEPEZIL 10 MG TABLET PO (19:28)
[2022-04-22] MEDS: MIRTAZAPINE 15 MG TABLET PO (19:29)
[2022-04-22] MEDS: MELATONIN 3 MG TABLET 6 MG PO (19:29)
[2022-04-22] MEDS: TRAMADOL HCL 50 MG TABLET PO (19:29)
[2022-04-22 23:00] VITALS: TEMP 36.4; O2SAT 95
[2022-04-23] MEDS: OMEPRAZOLE 40 MG CAPSULE.DR PO (07:22)
[2022-04-23] MEDS: LEVOTHYROXINE 100 MCG TABLET PO (07:22)
[2022-04-23] MEDS: CARBIDOPA-LEVODOPA 25-100 TABLET 2 TAB PO ×3 (08:20→19:38)
[2022-04-23] MEDS: ACETAMINOPHEN 500 MG TABLET 1000 MG PO ×3 (08:20→19:38)
[2022-04-23] MEDS: LACTOBACILLUS ACIDOPHILUS 1 TABLET PO ×3 (08:21→17:35)
[2022-04-23] MEDS: METOPROLOL TARTRATE 25 MG TABLET PO ×2 (08:21→16:02)
[2022-04-23] MEDS: TRIAMCINOLONE ACETONIDE OINTMENT 0.1 % 1 APPLIC TOPICAL ×2 (08:22→19:38)
[2022-04-23 10:03] VITALS: TEMP 36.6; O2SAT 94
[2022-04-23] MEDS: DONEPEZIL 10 MG TABLET PO (19:38)
[2022-04-23] MEDS: TRAMADOL HCL 50 MG TABLET PO (19:38)
[2022-04-23] MEDS: MELATONIN 3 MG TABLET 6 MG PO (19:38)
[2022-04-23] MEDS: MIRTAZAPINE 15 MG TABLET PO (19:38)
[2022-04-23 21:09] VITALS: TEMP 36.4; O2SAT 96
[2022-04-23 23:00] VITALS: TEMP 36.6; O2SAT 95
[2022-04-24 07:00] VITALS: TEMP 36.6; O2SAT 95
[2022-04-24] MEDS: OMEPRAZOLE 40 MG CAPSULE.DR PO (07:35)
[2022-04-24] MEDS: LEVOTHYROXINE 100 MCG TABLET PO (07:35)
[2022-04-24] MEDS: CARBIDOPA-LEVODOPA 25-100 TABLET 2 TAB PO ×3 (08:29→19:03)
[2022-04-24] MEDS: ACETAMINOPHEN 500 MG TABLET 1000 MG PO ×3 (08:29→19:03)
[2022-04-24] MEDS: METOPROLOL TARTRATE 25 MG TABLET PO ×2 (08:31→15:52)
[2022-04-24] MEDS: TRIAMCINOLONE ACETONIDE OINTMENT 0.1 % 1 APPLIC TOPICAL ×2 (08:31→19:03)
[2022-04-24] MEDS: LACTOBACILLUS ACIDOPHILUS 1 TABLET PO ×3 (08:31→16:59)
[2022-04-24 15:00] VITALS: TEMP 36.6; O2SAT 96
[2022-04-24] MEDS: TRAMADOL HCL 50 MG TABLET PO (19:03)
[2022-04-24] MEDS: MIRTAZAPINE 15 MG TABLET PO (19:03)
[2022-04-24] MEDS: MELATONIN 3 MG TABLET 6 MG PO (19:03)
[2022-04-24] MEDS: DONEPEZIL 10 MG TABLET PO (19:03)
[2022-04-24 23:00] VITALS: TEMP 36.6; O2SAT 94
[2022-04-25 07:00] VITALS: TEMP 36.4; O2SAT 98
[2022-04-25] MEDS: METOPROLOL TARTRATE 25 MG TABLET PO ×2 (08:00→15:39)
[2022-04-25] MEDS: OMEPRAZOLE 40 MG CAPSULE.DR PO (08:00)
[2022-04-25] MEDS: LACTOBACILLUS ACIDOPHILUS 1 TABLET PO ×3 (08:00→16:31)
[2022-04-25] MEDS: ACETAMINOPHEN 500 MG TABLET 1000 MG PO ×3 (08:00→19:37)
[2022-04-25] MEDS: LEVOTHYROXINE 100 MCG TABLET PO (08:00)
[2022-04-25] MEDS: CARBIDOPA-LEVODOPA 25-100 TABLET 2 TAB PO ×3 (08:00→19:38)
[2022-04-25] MEDS: TRIAMCINOLONE ACETONIDE OINTMENT 0.1 % 1 APPLIC TOPICAL ×2 (08:01→19:39)
[2022-04-25 15:00] VITALS: TEMP 36.4; O2SAT 98
[2022-04-25] MEDS: TRAMADOL HCL 50 MG TABLET PO (19:37)
[2022-04-25] MEDS: DONEPEZIL 10 MG TABLET PO (19:38)
[2022-04-25] MEDS: MELATONIN 3 MG TABLET 6 MG PO (19:39)
[2022-04-25] MEDS: MIRTAZAPINE 15 MG TABLET PO (19:39)
[2022-04-25 23:00] VITALS: TEMP 36.5; O2SAT 94
[2022-04-26] MEDS: LEVOTHYROXINE 100 MCG TABLET PO (07:50)
[2022-04-26] MEDS: OMEPRAZOLE 40 MG CAPSULE.DR PO (07:50)
[2022-04-26] MEDS: METOPROLOL TARTRATE 25 MG TABLET PO ×2 (08:19→16:17)
[2022-04-26] MEDS: ACETAMINOPHEN 500 MG TABLET 1000 MG PO ×3 (08:19→19:42)
[2022-04-26] MEDS: CARBIDOPA-LEVODOPA 25-100 TABLET 2 TAB PO ×3 (08:19→19:43)
[2022-04-26] MEDS: TRIAMCINOLONE ACETONIDE OINTMENT 0.1 % 1 APPLIC TOPICAL ×2 (08:26→19:43)
[2022-04-26] MEDS: LACTOBACILLUS ACIDOPHILUS 1 TABLET PO ×3 (08:26→16:42)
[2022-04-26 14:56] VITALS: TEMP 36.8; O2SAT 95
[2022-04-26] MEDS: MELATONIN 3 MG TABLET 6 MG PO (19:43)
[2022-04-26] MEDS: TRAMADOL HCL 50 MG TABLET PO (19:43)
[2022-04-26] MEDS: DONEPEZIL 10 MG TABLET PO (19:43)
[2022-04-26] MEDS: MIRTAZAPINE 15 MG TABLET PO (19:43)
[2022-04-26 23:00] VITALS: TEMP 36.4; O2SAT 94
--- NOTE | 2022-04-27 02:02 | PC.NURSE ---
WEEKLY CHARTING - WEEK 1: Vital signs reviewed - no concerns. Temporary and comprehensive care plan reviewed - no change. Receives acetaminophen 1000mg TID and once daily PRN and tramadol 50mg at HS and once daily PRN. Requires assist of 1 with dressing, grooming, bathing, and oral care. Able to eat independently with supervision and cues after set-up. Uses adaptive utensils. Hx of swallowing problems with liquids. Family declines ST eval and previous ST recommendations. Staff continue to monitor for s/sx of aspiration.?
[2022-04-27] MEDS: OMEPRAZOLE 40 MG CAPSULE.DR PO (07:34)
[2022-04-27] MEDS: LEVOTHYROXINE 100 MCG TABLET PO (07:34)
[2022-04-27] MEDS: ACETAMINOPHEN 500 MG TABLET 1000 MG PO ×3 (07:58→20:08)
[2022-04-27] MEDS: TRIAMCINOLONE ACETONIDE OINTMENT 0.1 % 1 APPLIC TOPICAL ×2 (07:59→20:08)
[2022-04-27] MEDS: CARBIDOPA-LEVODOPA 25-100 TABLET 2 TAB PO ×3 (07:59→20:08)
[2022-04-27] MEDS: METOPROLOL TARTRATE 25 MG TABLET PO ×2 (07:59→16:25)
[2022-04-27] MEDS: LACTOBACILLUS ACIDOPHILUS 1 TABLET PO ×3 (07:59→17:31)
[2022-04-27 10:16] VITALS: TEMP 36.4; O2SAT 96
--- NOTE | 2022-04-27 10:30 | PC.NURSE ---
COVID OUTBREAK TESTING Residents gave verbal consent for outbreak COVID testing. Resident is currently asymptomatic.? Resident/family will be notified only if resident is positive.
[2022-04-27 12:03] LABS: SARS PCR* Negative SARS-CoV-2 (Negative)
[2022-04-27] MEDS: TRAMADOL HCL 50 MG TABLET PO (20:08)
[2022-04-27] MEDS: DONEPEZIL 10 MG TABLET PO (20:08)
[2022-04-27] MEDS: MIRTAZAPINE 15 MG TABLET PO (20:08)
[2022-04-27] MEDS: MELATONIN 3 MG TABLET 6 MG PO (20:08)
[2022-04-27 21:07] VITALS: TEMP 36.6; O2SAT 95
[2022-04-27 23:00] VITALS: TEMP 36.7; O2SAT 95
[2022-04-28] MEDS: LEVOTHYROXINE 100 MCG TABLET PO (06:45)
[2022-04-28] MEDS: OMEPRAZOLE 40 MG CAPSULE.DR PO (06:45)
[2022-04-28] MEDS: METOPROLOL TARTRATE 25 MG TABLET PO ×2 (07:34→16:10)
[2022-04-28] MEDS: ACETAMINOPHEN 500 MG TABLET 1000 MG PO ×3 (07:34→19:50)
[2022-04-28] MEDS: CARBIDOPA-LEVODOPA 25-100 TABLET 2 TAB PO ×3 (07:34→19:50)
[2022-04-28] MEDS: TRIAMCINOLONE ACETONIDE OINTMENT 0.1 % 1 APPLIC TOPICAL ×2 (07:34→19:50)
[2022-04-28] MEDS: LACTOBACILLUS ACIDOPHILUS 1 TABLET PO ×3 (07:34→17:38)
[2022-04-28 10:21] VITALS: TEMP 36.6; O2SAT 96
[2022-04-28 15:00] VITALS: TEMP 36.7; O2SAT 99
[2022-04-28] MEDS: DONEPEZIL 10 MG TABLET PO (19:50)
[2022-04-28] MEDS: TRAMADOL HCL 50 MG TABLET PO (19:50)
[2022-04-28] MEDS: MELATONIN 3 MG TABLET 6 MG PO (19:50)
[2022-04-28] MEDS: MIRTAZAPINE 15 MG TABLET PO (19:50)
[2022-04-28 23:00] VITALS: TEMP 36.6; O2SAT 95
[2022-04-29] MEDS: OMEPRAZOLE 40 MG CAPSULE.DR PO (07:33)
[2022-04-29] MEDS: TRIAMCINOLONE ACETONIDE OINTMENT 0.1 % 1 APPLIC TOPICAL ×2 (07:33→19:13)
[2022-04-29] MEDS: ACETAMINOPHEN 500 MG TABLET 1000 MG PO ×3 (07:33→19:13)
[2022-04-29] MEDS: LEVOTHYROXINE 100 MCG TABLET PO (07:33)
[2022-04-29] MEDS: LACTOBACILLUS ACIDOPHILUS 1 TABLET PO ×3 (07:33→17:13)
[2022-04-29] MEDS: CARBIDOPA-LEVODOPA 25-100 TABLET 2 TAB PO ×3 (07:33→19:13)
[2022-04-29] MEDS: METOPROLOL TARTRATE 25 MG TABLET PO ×2 (07:33→15:09)
[2022-04-29 10:50] VITALS: TEMP 36.9; O2SAT 95
[2022-04-29 13:15] VITALS: BP 138/70; PULSE 72; RESP 20; TEMP 36.9; O2SAT 95
--- NOTE | 2022-04-29 14:12 | PC.NURSE ---
Skin Assessment: Noted resident`s both groin was red. Put a note in N/P book for Nystatin powder order.
[2022-04-29 15:00] VITALS: TEMP 36.2; O2SAT 92
[2022-04-29] MEDS: MELATONIN 3 MG TABLET 6 MG PO (19:13)
[2022-04-29] MEDS: DONEPEZIL 10 MG TABLET PO (19:13)
[2022-04-29] MEDS: MIRTAZAPINE 15 MG TABLET PO (19:13)
[2022-04-29] MEDS: TRAMADOL HCL 50 MG TABLET PO (19:13)
[2022-04-29 23:00] VITALS: TEMP 36.7; O2SAT 95
[2022-04-30] MEDS: OMEPRAZOLE 40 MG CAPSULE.DR PO (07:19)
[2022-04-30] MEDS: LEVOTHYROXINE 100 MCG TABLET PO (07:19)
[2022-04-30] MEDS: ACETAMINOPHEN 500 MG TABLET 1000 MG PO ×3 (07:20→19:17)
[2022-04-30] MEDS: METOPROLOL TARTRATE 25 MG TABLET PO ×2 (07:44→15:41)
[2022-04-30] MEDS: CARBIDOPA-LEVODOPA 25-100 TABLET 2 TAB PO ×3 (07:44→19:17)
[2022-04-30] MEDS: LACTOBACILLUS ACIDOPHILUS 1 TABLET PO ×3 (07:44→17:30)
[2022-04-30] MEDS: TRIAMCINOLONE ACETONIDE OINTMENT 0.1 % 1 APPLIC TOPICAL ×2 (07:45→19:17)
[2022-04-30 10:17] VITALS: TEMP 36.4; O2SAT 96
--- NOTE | 2022-04-30 13:23 | PC.NURSE ---
Order: Nystatin cream BID to groins.
[2022-04-30 15:00] VITALS: TEMP 36.6; O2SAT 98
[2022-04-30] MEDS: NYSTATIN CREAM 30 GM 1 APPLIC TOPICAL (15:42)
[2022-04-30] MEDS: MIRTAZAPINE 15 MG TABLET PO (19:17)
[2022-04-30] MEDS: DONEPEZIL 10 MG TABLET PO (19:17)
[2022-04-30] MEDS: TRAMADOL HCL 50 MG TABLET PO (19:17)
[2022-04-30] MEDS: MELATONIN 3 MG TABLET 6 MG PO (19:17)
[2022-04-30 23:00] VITALS: TEMP 36.4; O2SAT 96
[2022-05-01] MEDS: OMEPRAZOLE 40 MG CAPSULE.DR PO (07:12)
[2022-05-01] MEDS: LEVOTHYROXINE 100 MCG TABLET PO (07:12)
[2022-05-01] MEDS: ACETAMINOPHEN 500 MG TABLET 1000 MG PO ×3 (08:02→20:28)
[2022-05-01] MEDS: METOPROLOL TARTRATE 25 MG TABLET PO ×2 (08:03→16:21)
[2022-05-01] MEDS: CARBIDOPA-LEVODOPA 25-100 TABLET 2 TAB PO ×3 (08:03→20:28)
[2022-05-01] MEDS: LACTOBACILLUS ACIDOPHILUS 1 TABLET PO ×3 (08:04→17:04)
[2022-05-01] MEDS: TRIAMCINOLONE ACETONIDE OINTMENT 0.1 % 1 APPLIC TOPICAL ×2 (08:04→20:28)
[2022-05-01 10:07] VITALS: TEMP 36.6; O2SAT 94
[2022-05-01 15:00] VITALS: TEMP 36.3; O2SAT 94
[2022-05-01] MEDS: NYSTATIN CREAM 30 GM 1 APPLIC TOPICAL (16:21)
[2022-05-01] MEDS: DONEPEZIL 10 MG TABLET PO (20:28)
[2022-05-01] MEDS: MIRTAZAPINE 15 MG TABLET PO (20:28)
[2022-05-01] MEDS: MELATONIN 3 MG TABLET 6 MG PO (20:28)
[2022-05-01] MEDS: TRAMADOL HCL 50 MG TABLET PO (20:28)
[2022-05-01 23:00] VITALS: TEMP 36.4; O2SAT 93
[2022-05-02] MEDS: LEVOTHYROXINE 100 MCG TABLET PO (07:10)
[2022-05-02] MEDS: OMEPRAZOLE 40 MG CAPSULE.DR PO (07:10)
[2022-05-02] MEDS: ACETAMINOPHEN 500 MG TABLET 1000 MG PO ×3 (07:59→20:40)
[2022-05-02] MEDS: NYSTATIN CREAM 30 GM 1 APPLIC TOPICAL ×2 (07:59→16:08)
[2022-05-02] MEDS: METOPROLOL TARTRATE 25 MG TABLET PO ×2 (07:59→16:08)
[2022-05-02] MEDS: CARBIDOPA-LEVODOPA 25-100 TABLET 2 TAB PO ×3 (07:59→20:41)
[2022-05-02] MEDS: TRIAMCINOLONE ACETONIDE OINTMENT 0.1 % 1 APPLIC TOPICAL ×2 (08:01→20:41)
[2022-05-02] MEDS: LACTOBACILLUS ACIDOPHILUS 1 TABLET PO ×3 (08:01→17:09)
[2022-05-02 10:19] VITALS: TEMP 36.6
[2022-05-02 15:00] VITALS: TEMP 36.3; O2SAT 93
[2022-05-02] MEDS: DONEPEZIL 10 MG TABLET PO (20:41)
[2022-05-02] MEDS: TRAMADOL HCL 50 MG TABLET PO (20:41)
[2022-05-02] MEDS: MELATONIN 3 MG TABLET 6 MG PO (20:41)
[2022-05-02] MEDS: MIRTAZAPINE 15 MG TABLET PO (20:41)
[2022-05-02 23:00] VITALS: TEMP 36.1; O2SAT 94
[2022-05-03] MEDS: TRAMADOL HCL 50 MG TABLET PO ×2 (02:38→20:40)
[2022-05-03] MEDS: OMEPRAZOLE 40 MG CAPSULE.DR PO (07:50)
[2022-05-03] MEDS: LEVOTHYROXINE 100 MCG TABLET PO (07:50)
[2022-05-03] MEDS: ACETAMINOPHEN 500 MG TABLET 1000 MG PO ×3 (08:11→20:40)
[2022-05-03] MEDS: CARBIDOPA-LEVODOPA 25-100 TABLET 2 TAB PO ×3 (08:11→20:40)
[2022-05-03] MEDS: NYSTATIN CREAM 30 GM 1 APPLIC TOPICAL ×2 (08:11→16:13)
[2022-05-03] MEDS: TRIAMCINOLONE ACETONIDE OINTMENT 0.1 % 1 APPLIC TOPICAL ×2 (08:12→20:40)
[2022-05-03] MEDS: LACTOBACILLUS ACIDOPHILUS 1 TABLET PO ×3 (08:12→17:07)
[2022-05-03] MEDS: METOPROLOL TARTRATE 25 MG TABLET PO ×2 (08:36→16:09)
[2022-05-03 10:46] VITALS: TEMP 36.6; O2SAT 96
[2022-05-03 15:00] VITALS: TEMP 36.4; O2SAT 93
[2022-05-03] MEDS: MIRTAZAPINE 15 MG TABLET PO (20:40)
[2022-05-03] MEDS: MELATONIN 3 MG TABLET 6 MG PO (20:40)
[2022-05-03] MEDS: DONEPEZIL 10 MG TABLET PO (20:40)
--- NOTE | 2022-05-04 00:54 | PC.NURSE ---
WEEKLY CHARTING - WEEK 1 Pain & ADL's: Temporary/comprehensive care plans, and vital signs reviewed. No changes made to care plans as at 05/03/22. Vitals signs are within resident's normal ranges - on Metoprolol 25 mg to BID to manage blood pressure. With supervision and cues, resident is able to groom with limited assistance from staff; but, it requires extensive assist of one with bathing and dressing. Staff performs oral care tasks including dentures.? Even though resident has chronic coughs with drinking thin liquids, family has objected to ST recommendation. Independent with eating after staff set-up meal tray, open juice cartons, and cut up meat. Resident eat lesser during meal times, not because of poor appetite but, due to abundant stock of varieties of foods in his room that he snacks on frequently. No choking episode noted or reported so far. Pain: Receives scheduled Acetaminophen 1000mg TID - (PRN 1000 mg daily), Tramadol 50mg at at night - ( PRN daily) for pain management.
--- NOTE | 2022-05-04 07:10 | PC.NURSE ---
Week #1-Pain & ADL's: Resident`s comprehensive care plan reviewed, no changes made. Nothing added to temporary care plan. Pain:Pain is managed with Tylenol 1000mg TID & daily PRN, Tramadol 50 mg @ HS & once daily PRN. Staff anticipates verbal and non verbal gestures as resident sometimes have hard times communicating his need. Staff also have problems understanding resident`s speech. Current pain management is effective and resident is able to conduct his daily ADL effectively. ADL`s: Resident needs one assist with dressing, grooming and bathing. Encourage participation. Has complete set of upper and lower dentures. Oral cares done by staff, and putting in/out. Independent with feeding after set up. Requires built up silver aguilar and divided plates. Is on regular diet, thin liquids per 's request. ST recommended thickened liquids. Resident coughs occasionally at meals with liquids. Continue to monitor for potential chewing/swallowing difficulties. Vital signs reviewed, no concerns.
[2022-05-04] MEDS: LEVOTHYROXINE 100 MCG TABLET PO (07:50)
[2022-05-04] MEDS: OMEPRAZOLE 40 MG CAPSULE.DR PO (07:50)
[2022-05-04] MEDS: CARBIDOPA-LEVODOPA 25-100 TABLET 2 TAB PO ×3 (07:51→20:36)
[2022-05-04] MEDS: ACETAMINOPHEN 500 MG TABLET 1000 MG PO ×3 (07:51→20:36)
[2022-05-04] MEDS: METOPROLOL TARTRATE 25 MG TABLET PO ×2 (07:51→16:19)
[2022-05-04] MEDS: LACTOBACILLUS ACIDOPHILUS 1 TABLET PO ×3 (07:53→17:22)
[2022-05-04] MEDS: TRIAMCINOLONE ACETONIDE OINTMENT 0.1 % 1 APPLIC TOPICAL ×2 (07:53→20:37)
--- NOTE | 2022-05-04 09:46 | PC.NURSE ---
COVID OUTBREAK TESTING Residents gave verbal consent for outbreak COVID testing. Resident is currently asymptomatic.? Resident/family will be notified only if resident is positive.
[2022-05-04 09:59] VITALS: TEMP 36.4; O2SAT 95
[2022-05-04 12:24] LABS: SARS PCR* Negative SARS-CoV-2 (Negative)
[2022-05-04] MEDS: DONEPEZIL 10 MG TABLET PO (20:36)
[2022-05-04] MEDS: TRAMADOL HCL 50 MG TABLET PO (20:37)
[2022-05-04] MEDS: MIRTAZAPINE 15 MG TABLET PO (20:37)
[2022-05-04] MEDS: MELATONIN 3 MG TABLET 5 MG PO (21:01)
[2022-05-04 21:05] VITALS: TEMP 36.2; O2SAT 94
[2022-05-05 01:46] VITALS: TEMP 36.6; O2SAT 94
[2022-05-05] MEDS: TRAMADOL HCL 50 MG TABLET PO ×2 (05:20→19:40)
[2022-05-05] MEDS: OMEPRAZOLE 40 MG CAPSULE.DR PO (07:05)
[2022-05-05] MEDS: LEVOTHYROXINE 100 MCG TABLET PO (07:05)
[2022-05-05] MEDS: CARBIDOPA-LEVODOPA 25-100 TABLET 2 TAB PO ×3 (08:35→19:39)
[2022-05-05] MEDS: METOPROLOL TARTRATE 25 MG TABLET PO ×2 (08:35→15:32)
[2022-05-05] MEDS: NYSTATIN CREAM 30 GM 1 APPLIC TOPICAL (08:35)
[2022-05-05] MEDS: LACTOBACILLUS ACIDOPHILUS 1 TABLET PO ×3 (08:35→17:05)
[2022-05-05] MEDS: ACETAMINOPHEN 500 MG TABLET 1000 MG PO ×3 (08:35→19:38)
[2022-05-05] MEDS: TRIAMCINOLONE ACETONIDE OINTMENT 0.1 % 1 APPLIC TOPICAL ×2 (08:35→19:40)
--- NOTE | 2022-05-05 09:19 | PC.NURSE ---
Addendum entered by Chiqui Perez RN 05/05/22 09:22: Order done by Balbir BAILEY. Original Note: Order: Change Nystatin Cream BID to BID PRN. Redness on groin resolved.
[2022-05-05 10:54] VITALS: TEMP 36.4; O2SAT 95
[2022-05-05 15:00] VITALS: TEMP 36.7; O2SAT 94
[2022-05-05] MEDS: DONEPEZIL 10 MG TABLET PO (19:39)
[2022-05-05] MEDS: MIRTAZAPINE 15 MG TABLET PO (19:40)
[2022-05-05] MEDS: MELATONIN 5 MG TABLET PO (21:19)
[2022-05-05 23:00] VITALS: TEMP 36.2; O2SAT 94
[2022-05-06] MEDS: TRAMADOL HCL 50 MG TABLET PO ×2 (03:05→20:20)
[2022-05-06] MEDS: LEVOTHYROXINE 100 MCG TABLET PO (06:59)
[2022-05-06] MEDS: OMEPRAZOLE 40 MG CAPSULE.DR PO (06:59)
[2022-05-06] MEDS: CARBIDOPA-LEVODOPA 25-100 TABLET 2 TAB PO ×3 (07:10→20:20)
[2022-05-06] MEDS: METOPROLOL TARTRATE 25 MG TABLET PO ×2 (07:10→15:09)
[2022-05-06] MEDS: LACTOBACILLUS ACIDOPHILUS 1 TABLET PO ×3 (07:10→17:32)
[2022-05-06] MEDS: ACETAMINOPHEN 500 MG TABLET 1000 MG PO ×3 (07:10→20:19)
[2022-05-06] MEDS: TRIAMCINOLONE ACETONIDE OINTMENT 0.1 % 1 APPLIC TOPICAL ×2 (07:11→20:20)
[2022-05-06] MEDS: NYSTATIN CREAM 30 GM 1 APPLIC TOPICAL (07:11)
[2022-05-06 09:45] VITALS: TEMP 36.4; O2SAT 94
[2022-05-06 10:11] VITALS: BP 129/75; PULSE 64; RESP 18; TEMP 36.4; O2SAT 94
[2022-05-06 14:12] VITALS: BMI 26.1
[2022-05-06 15:00] VITALS: TEMP 36.2; O2SAT 94
[2022-05-06] MEDS: MELATONIN 5 MG TABLET PO (20:20)
[2022-05-06] MEDS: MIRTAZAPINE 15 MG TABLET PO (20:20)
[2022-05-06] MEDS: DONEPEZIL 10 MG TABLET PO (20:20)
[2022-05-06 23:00] VITALS: TEMP 36.6; O2SAT 94
[2022-05-07] MEDS: CARBIDOPA-LEVODOPA 25-100 TABLET 2 TAB PO ×3 (07:25→19:11)
[2022-05-07] MEDS: METOPROLOL TARTRATE 25 MG TABLET PO ×2 (07:25→15:53)
[2022-05-07] MEDS: LEVOTHYROXINE 100 MCG TABLET PO (07:25)
[2022-05-07] MEDS: ACETAMINOPHEN 500 MG TABLET 1000 MG PO ×3 (07:25→19:11)
[2022-05-07] MEDS: OMEPRAZOLE 40 MG CAPSULE.DR PO (07:25)
[2022-05-07] MEDS: TRIAMCINOLONE ACETONIDE OINTMENT 0.1 % 1 APPLIC TOPICAL ×2 (07:26→19:11)
[2022-05-07] MEDS: LACTOBACILLUS ACIDOPHILUS 1 TABLET PO ×3 (07:26→17:16)
[2022-05-07 09:37] VITALS: TEMP 36.5; O2SAT 95
--- NOTE | 2022-05-07 11:58 | PC.NURSE ---
Order: Discontinue Loperamide BID PRN, HgbA1C 05/11/22 by Balbir BAILEY.
[2022-05-07 15:00] VITALS: TEMP 36.2; O2SAT 95
[2022-05-07] MEDS: MELATONIN 5 MG TABLET PO (19:11)
[2022-05-07] MEDS: MIRTAZAPINE 15 MG TABLET PO (19:11)
[2022-05-07] MEDS: DONEPEZIL 10 MG TABLET PO (19:11)
[2022-05-07] MEDS: TRAMADOL HCL 50 MG TABLET PO (19:11)
[2022-05-07 23:00] VITALS: TEMP 36.7; O2SAT 95
[2022-05-08] MEDS: LACTOBACILLUS ACIDOPHILUS 1 TABLET PO ×3 (07:15→16:55)
[2022-05-08] MEDS: LEVOTHYROXINE 100 MCG TABLET PO (07:15)
[2022-05-08] MEDS: METOPROLOL TARTRATE 25 MG TABLET PO ×2 (07:15→15:29)
[2022-05-08] MEDS: ACETAMINOPHEN 500 MG TABLET 1000 MG PO ×3 (07:15→19:25)
[2022-05-08] MEDS: OMEPRAZOLE 40 MG CAPSULE.DR PO (07:15)
[2022-05-08] MEDS: CARBIDOPA-LEVODOPA 25-100 TABLET 2 TAB PO ×3 (07:15→19:25)
[2022-05-08] MEDS: TRIAMCINOLONE ACETONIDE OINTMENT 0.1 % 1 APPLIC TOPICAL ×2 (07:15→19:25)
[2022-05-08 10:18] VITALS: TEMP 36.9; O2SAT 96
[2022-05-08 15:00] VITALS: TEMP 36.3; O2SAT 96
[2022-05-08] MEDS: TRAMADOL HCL 50 MG TABLET PO (19:25)
[2022-05-08] MEDS: DONEPEZIL 10 MG TABLET PO (19:25)
[2022-05-08] MEDS: MIRTAZAPINE 15 MG TABLET PO (19:25)
[2022-05-08] MEDS: MELATONIN 5 MG TABLET PO (19:25)
[2022-05-08 23:00] VITALS: TEMP 36.7; O2SAT 93
[2022-05-09 07:00] VITALS: TEMP 36.8; O2SAT 95
[2022-05-09] MEDS: OMEPRAZOLE 40 MG CAPSULE.DR PO (07:58)
[2022-05-09] MEDS: LEVOTHYROXINE 100 MCG TABLET PO (07:58)
[2022-05-09] MEDS: ACETAMINOPHEN 500 MG TABLET 1000 MG PO ×3 (08:00→19:11)
[2022-05-09] MEDS: CARBIDOPA-LEVODOPA 25-100 TABLET 2 TAB PO ×3 (08:01→19:11)
[2022-05-09] MEDS: LACTOBACILLUS ACIDOPHILUS 1 TABLET PO ×3 (08:01→16:41)
[2022-05-09] MEDS: METOPROLOL TARTRATE 25 MG TABLET PO ×2 (08:01→16:21)
[2022-05-09] MEDS: TRIAMCINOLONE ACETONIDE OINTMENT 0.1 % 1 APPLIC TOPICAL ×2 (08:02→19:11)
[2022-05-09 15:00] VITALS: TEMP 36.8; O2SAT 95
[2022-05-09] MEDS: TRAMADOL HCL 50 MG TABLET PO (19:11)
[2022-05-09] MEDS: MIRTAZAPINE 15 MG TABLET PO (19:11)
[2022-05-09] MEDS: DONEPEZIL 10 MG TABLET PO (19:11)
[2022-05-09] MEDS: MELATONIN 5 MG TABLET PO (19:11)
[2022-05-09 23:00] VITALS: TEMP 36.6; O2SAT 94
--- NOTE | 2022-05-10 05:34 | PC.NURSE ---
BEHAVIOR: Resident has been ringing call light multiple times throughout the night for no reason. All needs have been met. When staff respond to call light resident states that he accidently pushed the button. Resident has thrown all pillows on the floor to use call light. Has also removed pillow cases from pillows and thrown them on the floor. Has pushed call light button multiple times while staff are in his room assisting. Multiple interventions including toileting, television, food, and drink have been utilized without success. Resident denied pain when asked.
[2022-05-10 07:00] VITALS: TEMP 37.1; O2SAT 95
[2022-05-10] MEDS: OMEPRAZOLE 40 MG CAPSULE.DR PO (07:52)
[2022-05-10] MEDS: LEVOTHYROXINE 100 MCG TABLET PO (07:52)
[2022-05-10] MEDS: METOPROLOL TARTRATE 25 MG TABLET PO ×2 (08:05→16:03)
[2022-05-10] MEDS: CARBIDOPA-LEVODOPA 25-100 TABLET 2 TAB PO ×3 (08:05→19:11)
[2022-05-10] MEDS: LACTOBACILLUS ACIDOPHILUS 1 TABLET PO ×3 (08:05→17:02)
[2022-05-10] MEDS: ACETAMINOPHEN 500 MG TABLET 1000 MG PO ×3 (08:05→19:11)
[2022-05-10] MEDS: TRIAMCINOLONE ACETONIDE OINTMENT 0.1 % 1 APPLIC TOPICAL ×2 (08:06→19:12)
[2022-05-10 15:00] VITALS: TEMP 37.1; O2SAT 95
[2022-05-10] MEDS: DONEPEZIL 10 MG TABLET PO (19:12)
[2022-05-10] MEDS: MIRTAZAPINE 15 MG TABLET PO (19:12)
[2022-05-10] MEDS: MELATONIN 5 MG TABLET PO (19:12)
[2022-05-10] MEDS: TRAMADOL HCL 50 MG TABLET PO (19:12)
[2022-05-10 23:00] VITALS: TEMP 36.7; O2SAT 95
--- NOTE | 2022-05-11 03:00 | PC.NURSE ---
WEEKLY CHARTING - WEEK 2: Vital signs reviewed - no concerns. Temporary and comprehensive care plan reviewed - no change. Limited to extensive assist of 1 with transfers. Will propel w/c independently at times. Staff assist for distance. Limited assist of 1 with bed mobility. Is able to turn from side to side and move from sitting to lying and lying to sitting with assist of bilateral 1/4 side rails. 1-2 assist with gait belt and walker for ambulation. To ambulate to and from meals. Is at high risk for falls per latest fall risk assessment. Fall interventions include: hourly visual checks, call light in reach, falling star magnet, non-slip footwear, bed in low position.
[2022-05-11] MEDS: LEVOTHYROXINE 100 MCG TABLET PO (07:25)
[2022-05-11] MEDS: OMEPRAZOLE 40 MG CAPSULE.DR PO (07:25)
[2022-05-11 07:39] LABS: Hemoglobin A1C* 5.68 % (0-5.6)
[2022-05-11] MEDS: ACETAMINOPHEN 500 MG TABLET 1000 MG PO ×3 (08:00→20:37)
[2022-05-11] MEDS: METOPROLOL TARTRATE 25 MG TABLET PO ×2 (08:01→16:31)
[2022-05-11] MEDS: LACTOBACILLUS ACIDOPHILUS 1 TABLET PO ×3 (08:01→17:32)
[2022-05-11] MEDS: CARBIDOPA-LEVODOPA 25-100 TABLET 2 TAB PO ×3 (08:01→20:37)
[2022-05-11] MEDS: TRIAMCINOLONE ACETONIDE OINTMENT 0.1 % 1 APPLIC TOPICAL ×2 (08:02→20:37)
[2022-05-11 09:50] VITALS: TEMP 36.7; O2SAT 92
[2022-05-11 10:46] LABS: SARS PCR* Negative SARS-CoV-2 (Negative)
--- NOTE | 2022-05-11 14:06 | PC.NURSE ---
COVID OUTBREAK TESTING Residents gave verbal consent for outbreak COVID testing. Resident is currently asymptomatic.? Resident/family will be notified only if resident is positive.
[2022-05-11 15:00] VITALS: TEMP 36.4; O2SAT 92
[2022-05-11] MEDS: TRAMADOL HCL 50 MG TABLET PO (20:37)
[2022-05-11] MEDS: MELATONIN 5 MG TABLET PO (20:37)
[2022-05-11] MEDS: MIRTAZAPINE 15 MG TABLET PO (20:37)
[2022-05-11] MEDS: DONEPEZIL 10 MG TABLET PO (20:37)
[2022-05-11] MEDS: NYSTATIN CREAM 30 GM 1 APPLIC TOPICAL (21:45)
--- NOTE | 2022-05-11 21:48 | PC.NURSE ---
Status: Redness bilaterally to groin. Nystatin creme applied. Intervention in place to monitor until healed.
[2022-05-11 23:00] VITALS: TEMP 36.4; O2SAT 94
[2022-05-12] MEDS: OMEPRAZOLE 40 MG CAPSULE.DR PO (06:32)
[2022-05-12] MEDS: LEVOTHYROXINE 100 MCG TABLET PO (06:32)
[2022-05-12 07:00] VITALS: TEMP 36.1; O2SAT 94
[2022-05-12] MEDS: LACTOBACILLUS ACIDOPHILUS 1 TABLET PO ×3 (07:21→16:51)
[2022-05-12] MEDS: ACETAMINOPHEN 500 MG TABLET 1000 MG PO ×3 (07:21→19:59)
[2022-05-12] MEDS: CARBIDOPA-LEVODOPA 25-100 TABLET 2 TAB PO ×3 (07:21→19:59)
[2022-05-12] MEDS: METOPROLOL TARTRATE 25 MG TABLET PO ×2 (07:21→16:18)
[2022-05-12] MEDS: TRIAMCINOLONE ACETONIDE OINTMENT 0.1 % 1 APPLIC TOPICAL ×2 (07:21→19:59)
[2022-05-12 15:00] VITALS: TEMP 37.2; O2SAT 94
[2022-05-12] MEDS: MIRTAZAPINE 15 MG TABLET PO (19:59)
[2022-05-12] MEDS: TRAMADOL HCL 50 MG TABLET PO (19:59)
[2022-05-12] MEDS: DONEPEZIL 10 MG TABLET PO (19:59)
[2022-05-12] MEDS: MELATONIN 5 MG TABLET PO (19:59)
[2022-05-12 23:00] VITALS: TEMP 36.8; O2SAT 94
[2022-05-13] MEDS: NYSTATIN CREAM 30 GM 1 APPLIC TOPICAL ×2 (03:05→21:47)
[2022-05-13] MEDS: OMEPRAZOLE 40 MG CAPSULE.DR PO (06:52)
[2022-05-13] MEDS: LEVOTHYROXINE 100 MCG TABLET PO (06:52)
[2022-05-13 07:00] VITALS: BP 128/69; PULSE 70; RESP 16; TEMP 36.2; TEMP 36.3; O2SAT 95; BMI 26.3
[2022-05-13] MEDS: CARBIDOPA-LEVODOPA 25-100 TABLET 2 TAB PO ×3 (07:13→19:06)
[2022-05-13] MEDS: ACETAMINOPHEN 500 MG TABLET 1000 MG PO ×3 (07:13→19:06)
[2022-05-13] MEDS: LACTOBACILLUS ACIDOPHILUS 1 TABLET PO ×3 (07:13→17:14)
[2022-05-13] MEDS: TRIAMCINOLONE ACETONIDE OINTMENT 0.1 % 1 APPLIC TOPICAL ×2 (07:13→19:06)
[2022-05-13] MEDS: METOPROLOL TARTRATE 25 MG TABLET PO ×2 (07:13→15:45)
--- NOTE | 2022-05-13 13:19 | PC.PHA1 ---
MARGIN TRIMMER PHARMACIST'S MEDICATION REVIEW: MEDICATION MONITORING:Mirtazapine 15 mg hs for sleep and will also help appetite. IRREGULARITY OR COMMENTS:Patient doing well, prn tramadol use minimal since start of order and blood pressures have been trending normal. Mirtazapine started this past January, GDR too soon to attempt. SUGGESTED COURSE OF ACTION TAKEN:No medication concerns or recommendations.
[2022-05-13 14:39] VITALS: BMI 26.1
[2022-05-13 15:00] VITALS: TEMP 36.6; O2SAT 94
[2022-05-13] MEDS: TRAMADOL HCL 50 MG TABLET PO (19:06)
[2022-05-13] MEDS: MELATONIN 5 MG TABLET PO (19:06)
[2022-05-13] MEDS: DONEPEZIL 10 MG TABLET PO (19:06)
[2022-05-13] MEDS: MIRTAZAPINE 15 MG TABLET PO (19:06)
[2022-05-13 23:00] VITALS: TEMP 36.8; O2SAT 94
[2022-05-14] MEDS: LEVOTHYROXINE 100 MCG TABLET PO (06:48)
[2022-05-14] MEDS: OMEPRAZOLE 40 MG CAPSULE.DR PO (06:48)
[2022-05-14 07:00] VITALS: TEMP 36.1; O2SAT 96
[2022-05-14] MEDS: LACTOBACILLUS ACIDOPHILUS 1 TABLET PO ×3 (08:18→16:31)
[2022-05-14] MEDS: METOPROLOL TARTRATE 25 MG TABLET PO ×2 (08:18→15:15)
[2022-05-14] MEDS: CARBIDOPA-LEVODOPA 25-100 TABLET 2 TAB PO ×3 (08:18→19:49)
[2022-05-14] MEDS: ACETAMINOPHEN 500 MG TABLET 1000 MG PO ×3 (08:18→19:49)
[2022-05-14] MEDS: TRIAMCINOLONE ACETONIDE OINTMENT 0.1 % 1 APPLIC TOPICAL ×2 (08:19→19:49)
[2022-05-14 15:00] VITALS: TEMP 36.7; O2SAT 96
[2022-05-14] MEDS: MIRTAZAPINE 15 MG TABLET PO (19:49)
[2022-05-14] MEDS: MELATONIN 5 MG TABLET PO (19:49)
[2022-05-14] MEDS: DONEPEZIL 10 MG TABLET PO (19:49)
[2022-05-14] MEDS: TRAMADOL HCL 50 MG TABLET PO (19:49)
[2022-05-14] MEDS: NYSTATIN CREAM 30 GM 1 APPLIC TOPICAL (21:16)
--- NOTE | 2022-05-14 21:45 | PC.NURSE ---
Evacuee note: resident level 2 is able to ambulate but only short distances. will need w/c during evacuation.
--- NOTE | 2022-05-14 22:07 | PC.NURSE ---
MDS clarification charted: Noted that charting showing limited to extensive assist with ADLS. Spoke with staff and weight bearing assist was provided during transfers, ambulation, locomotion, dressing, hygiene, and toileting. During meals supervision needed d/t coughing noted.
[2022-05-14 23:00] VITALS: TEMP 36.7; O2SAT 94
[2022-05-15] MEDS: LEVOTHYROXINE 100 MCG TABLET PO (07:10)
[2022-05-15] MEDS: OMEPRAZOLE 40 MG CAPSULE.DR PO (07:10)
[2022-05-15] MEDS: ACETAMINOPHEN 500 MG TABLET 1000 MG PO ×3 (08:00→20:58)
[2022-05-15] MEDS: CARBIDOPA-LEVODOPA 25-100 TABLET 2 TAB PO ×3 (08:00→20:58)
[2022-05-15] MEDS: METOPROLOL TARTRATE 25 MG TABLET PO ×2 (08:01→15:57)
[2022-05-15] MEDS: LACTOBACILLUS ACIDOPHILUS 1 TABLET PO ×3 (08:01→17:46)
[2022-05-15] MEDS: TRIAMCINOLONE ACETONIDE OINTMENT 0.1 % 1 APPLIC TOPICAL ×2 (08:01→20:58)
[2022-05-15 09:54] VITALS: TEMP 36.6; O2SAT 94
--- NOTE | 2022-05-15 13:25 | PC.NURSE ---
Status/Order: ASIM had a talk with Dr. Goss to clarify diagnosis of Parkinson's disease. Order: D/C diagnosis of Parkinson Disease, change the diagnosis associated with his Sinemet to dementia w/ lewy body & parkinsonism, NOXIOUS WEEDS AND PEST INSPECTOR eval & treat.
[2022-05-15 15:00] VITALS: TEMP 36.2; O2SAT 93
[2022-05-15] MEDS: MELATONIN 5 MG TABLET PO (20:58)
[2022-05-15] MEDS: MIRTAZAPINE 15 MG TABLET PO (20:58)
[2022-05-15] MEDS: DONEPEZIL 10 MG TABLET PO (20:58)
[2022-05-15] MEDS: TRAMADOL HCL 50 MG TABLET PO (20:58)
[2022-05-15 23:00] VITALS: TEMP 35.7; O2SAT 93
[2022-05-16] MEDS: LEVOTHYROXINE 100 MCG TABLET PO (07:53)
[2022-05-16] MEDS: OMEPRAZOLE 40 MG CAPSULE.DR PO (07:53)
[2022-05-16] MEDS: CARBIDOPA-LEVODOPA 25-100 TABLET 2 TAB PO ×3 (08:29→19:52)
[2022-05-16] MEDS: METOPROLOL TARTRATE 25 MG TABLET PO ×2 (08:29→15:09)
[2022-05-16] MEDS: ACETAMINOPHEN 500 MG TABLET 1000 MG PO ×3 (08:29→19:52)
[2022-05-16] MEDS: LACTOBACILLUS ACIDOPHILUS 1 TABLET PO ×3 (08:30→17:15)
[2022-05-16] MEDS: TRIAMCINOLONE ACETONIDE OINTMENT 0.1 % 1 APPLIC TOPICAL ×2 (08:30→19:52)
[2022-05-16 09:54] VITALS: TEMP 36.3; O2SAT 96
[2022-05-16 15:00] VITALS: TEMP 36.2; O2SAT 94
[2022-05-16] MEDS: MELATONIN 5 MG TABLET PO (19:52)
[2022-05-16] MEDS: TRAMADOL HCL 50 MG TABLET PO (19:52)
[2022-05-16] MEDS: MIRTAZAPINE 15 MG TABLET PO (19:52)
[2022-05-16] MEDS: DONEPEZIL 10 MG TABLET PO (19:52)
[2022-05-16 23:00] VITALS: TEMP 37; O2SAT 94
[2022-05-17] MEDS: OMEPRAZOLE 40 MG CAPSULE.DR PO (07:29)
[2022-05-17] MEDS: LEVOTHYROXINE 100 MCG TABLET PO (07:29)
[2022-05-17] MEDS: CARBIDOPA-LEVODOPA 25-100 TABLET 2 TAB PO ×3 (08:12→19:10)
[2022-05-17] MEDS: ACETAMINOPHEN 500 MG TABLET 1000 MG PO ×3 (08:12→19:10)
[2022-05-17] MEDS: TRIAMCINOLONE ACETONIDE OINTMENT 0.1 % 1 APPLIC TOPICAL ×2 (08:13→19:10)
[2022-05-17] MEDS: METOPROLOL TARTRATE 25 MG TABLET PO ×2 (08:13→15:43)
[2022-05-17] MEDS: LACTOBACILLUS ACIDOPHILUS 1 TABLET PO ×3 (08:13→17:15)
[2022-05-17 09:51] VITALS: TEMP 36.4; O2SAT 96
[2022-05-17 15:00] VITALS: TEMP 36.4; O2SAT 93
[2022-05-17] MEDS: DONEPEZIL 10 MG TABLET PO (19:10)
[2022-05-17] MEDS: MIRTAZAPINE 15 MG TABLET PO (19:10)
[2022-05-17] MEDS: TRAMADOL HCL 50 MG TABLET PO (19:10)
[2022-05-17] MEDS: MELATONIN 5 MG TABLET PO (19:10)
[2022-05-17 23:00] VITALS: TEMP 35.7; O2SAT 95
--- NOTE | 2022-05-18 03:58 | PC.NURSE ---
WEEKLY CHARTING - WEEK 3: Vital signs reviewed. Temporary and comprehensive care plan reviewed - no changes made. Intermittent rash on bilateral feet, Triamcinolone cream applied BID per MD order.?Intermittent redness to groin, Nystain applied as needed. Mostly continent of bowel, rare accidents noted. Frequently incontinent of urine when calls to use the bathroom but still voids in the urinal or toilet. Able to use the call light when desires. Wears a medium pull-up as dislikes briefs, will remove and throw on the floor. Requires assist of 1 with toileting needs including transfers, urinal use, clothing/pad management, and ge-cares.
--- NOTE | 2022-05-18 07:04 | PC.NURSE ---
Week #3 - Toileting: Comprehensive care plan reviewed, no changes made. Nothing added to temporary care plan. Resident needs one assist with toileting. He is mostly continent of BM, with occasional incontinence. Frequently incontinent of bladder. Staff toilet per his request, and check every 3 hours and assist as needed.? Wears medium pull ups. Pads, ge cares, clothing managed by staff. Vital signs reviewed, no concerns. Skin: Has intermittent feet rash. Triamcinolone cream BID is in order. Skin is checked routinely on bath day and during cares.
[2022-05-18] MEDS: LEVOTHYROXINE 100 MCG TABLET PO (07:10)
[2022-05-18] MEDS: OMEPRAZOLE 40 MG CAPSULE.DR PO (07:10)
[2022-05-18] MEDS: ACETAMINOPHEN 500 MG TABLET 1000 MG PO ×3 (08:17→19:28)
[2022-05-18] MEDS: METOPROLOL TARTRATE 25 MG TABLET PO ×2 (08:17→15:50)
[2022-05-18] MEDS: CARBIDOPA-LEVODOPA 25-100 TABLET 2 TAB PO ×3 (08:17→19:28)
[2022-05-18] MEDS: LACTOBACILLUS ACIDOPHILUS 1 TABLET PO ×3 (08:18→17:08)
[2022-05-18] MEDS: TRIAMCINOLONE ACETONIDE OINTMENT 0.1 % 1 APPLIC TOPICAL ×2 (08:18→19:29)
[2022-05-18 09:24] VITALS: TEMP 36.6; O2SAT 96
--- NOTE | 2022-05-18 11:16 | PC.NURSE ---
COVID OUTBREAK TESTING Residents gave verbal consent for outbreak COVID testing. Resident is currently asymptomatic.? Resident/family will be notified only if resident is positive.
[2022-05-18 12:10] LABS: SARS PCR* Negative SARS-CoV-2 (Negative)
[2022-05-18 15:00] VITALS: TEMP 36.8; O2SAT 95
[2022-05-18] MEDS: MIRTAZAPINE 15 MG TABLET PO (19:29)
[2022-05-18] MEDS: MELATONIN 5 MG TABLET PO (19:29)
[2022-05-18] MEDS: TRAMADOL HCL 50 MG TABLET PO (19:29)
[2022-05-18] MEDS: DONEPEZIL 10 MG TABLET PO (19:29)
[2022-05-18 23:00] VITALS: TEMP 36.3; O2SAT 96
[2022-05-19] MEDS: OMEPRAZOLE 40 MG CAPSULE.DR PO (07:39)
[2022-05-19] MEDS: LEVOTHYROXINE 100 MCG TABLET PO (07:39)
[2022-05-19] MEDS: CARBIDOPA-LEVODOPA 25-100 TABLET 2 TAB PO ×3 (07:40→19:41)
[2022-05-19] MEDS: ACETAMINOPHEN 500 MG TABLET 1000 MG PO ×3 (07:40→19:41)
[2022-05-19] MEDS: METOPROLOL TARTRATE 25 MG TABLET PO ×2 (07:40→15:27)
[2022-05-19] MEDS: TRIAMCINOLONE ACETONIDE OINTMENT 0.1 % 1 APPLIC TOPICAL ×2 (07:41→19:42)
[2022-05-19] MEDS: LACTOBACILLUS ACIDOPHILUS 1 TABLET PO ×3 (07:41→17:55)
[2022-05-19 09:58] VITALS: TEMP 36.6; O2SAT 96
--- NOTE | 2022-05-19 12:29 | PC.NURSE ---
CARE CONFERENCE: Care conference meeting held with all members of care team present. did not want to be present and she did want resident to be present. Activities discussed that resident enjoys bingo, exercise class and games. Nursing reviewed that resident continues to need 1 assist with adls, transfers, and mobility. Use of walker and gait belt for transfers. Resident to walk to meals. At times if feeling weak has a w/c available to use. did not want a medication list at this time. No concerns with changes at this time. had an in depth conversation with Dr. Goss on 05/15/22 to discuss Parkinsonism Dx and use of medications. Resident did want speech to see resident due to aphasia and to see what can be done for communication tools. We gave recently tapered insulin and will be looking at also decreasing BP medications. Care plan reviewed and updated. POLST reviewed. DNR/DNI. Uses no restraints. Does use 2 side rails up to assist with positioning with assess for future use.? Resident is given medications by staff.? Vulnerable due to mobility limitations and ability to be understood/understand. Resident needs assistance with meal set up. Weight is stable. Has snacks in room through out the day that resident brings.?Resident will be [facility] care.? His mood is stable. No further questions/concerns.
--- NOTE | 2022-05-19 12:34 | PC.NURSE ---
ORDER: Accu checks reviewed by ORIGINATION SPECIALIST. Decrease Insulin Lantus 16 units to 10 units daily.
--- NOTE | 2022-05-19 13:45 | PC.SOCIAL ---
Resident's care conference was held today. Resident did not attend and resident's spouse Zhanna did not want to stay for the care conference due to weather so was given an update by the METAL CONTROL WORKER. Resident remains stable and has adjusted well to placement here. No s/s of depression noted.
[2022-05-19 15:00] VITALS: TEMP 36.6; O2SAT 94
[2022-05-19] MEDS: DONEPEZIL 10 MG TABLET PO (19:41)
[2022-05-19] MEDS: MIRTAZAPINE 15 MG TABLET PO (19:41)
[2022-05-19] MEDS: MELATONIN 5 MG TABLET PO (19:41)
[2022-05-19] MEDS: TRAMADOL HCL 50 MG TABLET PO (19:42)
[2022-05-19 23:00] VITALS: TEMP 36.6; O2SAT 94
[2022-05-20] MEDS: LEVOTHYROXINE 100 MCG TABLET PO (06:46)
[2022-05-20] MEDS: OMEPRAZOLE 40 MG CAPSULE.DR PO (06:46)
[2022-05-20] MEDS: CARBIDOPA-LEVODOPA 25-100 TABLET 2 TAB PO ×3 (07:03→19:58)
[2022-05-20] MEDS: ACETAMINOPHEN 500 MG TABLET 1000 MG PO ×3 (07:03→19:58)
[2022-05-20] MEDS: TRIAMCINOLONE ACETONIDE OINTMENT 0.1 % 1 APPLIC TOPICAL ×2 (07:06→19:58)
[2022-05-20] MEDS: LACTOBACILLUS ACIDOPHILUS 1 TABLET PO ×3 (07:06→17:28)
[2022-05-20] MEDS: METOPROLOL TARTRATE 25 MG TABLET PO ×2 (07:06→15:21)
[2022-05-20 10:23] VITALS: BP 130/75; PULSE 69; RESP 18; TEMP 36.5; O2SAT 94
[2022-05-20 13:10] VITALS: BMI 26.4
[2022-05-20 15:00] VITALS: TEMP 36.2; O2SAT 93
[2022-05-20] MEDS: MELATONIN 5 MG TABLET PO (19:58)
[2022-05-20] MEDS: DONEPEZIL 10 MG TABLET PO (19:58)
[2022-05-20] MEDS: MIRTAZAPINE 15 MG TABLET PO (19:58)
[2022-05-20] MEDS: TRAMADOL HCL 50 MG TABLET PO (19:58)
[2022-05-20 23:49] VITALS: TEMP 36.4; O2SAT 96
[2022-05-21] MEDS: LEVOTHYROXINE 100 MCG TABLET PO (06:44)
[2022-05-21] MEDS: OMEPRAZOLE 40 MG CAPSULE.DR PO (06:44)
[2022-05-21] MEDS: METOPROLOL TARTRATE 25 MG TABLET PO ×2 (07:14→15:57)
[2022-05-21] MEDS: ACETAMINOPHEN 500 MG TABLET 1000 MG PO ×3 (07:14→19:52)
[2022-05-21] MEDS: TRIAMCINOLONE ACETONIDE OINTMENT 0.1 % 1 APPLIC TOPICAL ×2 (07:14→19:52)
[2022-05-21] MEDS: CARBIDOPA-LEVODOPA 25-100 TABLET 2 TAB PO ×3 (07:14→19:52)
[2022-05-21] MEDS: LACTOBACILLUS ACIDOPHILUS 1 TABLET PO ×3 (07:14→17:55)
[2022-05-21 09:41] VITALS: TEMP 36.5; O2SAT 93
[2022-05-21 15:00] VITALS: TEMP 36.2; O2SAT 94
[2022-05-21] MEDS: TRAMADOL HCL 50 MG TABLET PO (19:52)
[2022-05-21] MEDS: MIRTAZAPINE 15 MG TABLET PO (19:52)
[2022-05-21] MEDS: DONEPEZIL 10 MG TABLET PO (19:52)
[2022-05-21] MEDS: MELATONIN 5 MG TABLET PO (19:52)
[2022-05-21 23:00] VITALS: TEMP 36.3; O2SAT 96
[2022-05-22 07:00] VITALS: TEMP 36.6; O2SAT 97
[2022-05-22] MEDS: OMEPRAZOLE 40 MG CAPSULE.DR PO (07:17)
[2022-05-22] MEDS: LEVOTHYROXINE 100 MCG TABLET PO (07:17)
[2022-05-22] MEDS: TRIAMCINOLONE ACETONIDE OINTMENT 0.1 % 1 APPLIC TOPICAL ×2 (07:49→19:51)
[2022-05-22] MEDS: LACTOBACILLUS ACIDOPHILUS 1 TABLET PO ×3 (07:49→17:33)
[2022-05-22] MEDS: METOPROLOL TARTRATE 25 MG TABLET PO ×2 (07:49→15:41)
[2022-05-22] MEDS: ACETAMINOPHEN 500 MG TABLET 1000 MG PO ×3 (07:49→19:51)
[2022-05-22] MEDS: CARBIDOPA-LEVODOPA 25-100 TABLET 2 TAB PO ×3 (07:49→19:51)
[2022-05-22 15:00] VITALS: TEMP 36.6; O2SAT 94
[2022-05-22] MEDS: MIRTAZAPINE 15 MG TABLET PO (19:51)
[2022-05-22] MEDS: TRAMADOL HCL 50 MG TABLET PO (19:51)
[2022-05-22] MEDS: MELATONIN 5 MG TABLET PO (19:51)
[2022-05-22] MEDS: DONEPEZIL 10 MG TABLET PO (19:51)
[2022-05-23 01:06] VITALS: TEMP 36.1; O2SAT 96
[2022-05-23] MEDS: OMEPRAZOLE 40 MG CAPSULE.DR PO (06:56)
[2022-05-23] MEDS: LEVOTHYROXINE 100 MCG TABLET PO (06:56)
[2022-05-23 07:00] VITALS: TEMP 36.4; O2SAT 94
[2022-05-23] MEDS: METOPROLOL TARTRATE 25 MG TABLET PO ×2 (07:37→16:00)
[2022-05-23] MEDS: LACTOBACILLUS ACIDOPHILUS 1 TABLET PO ×3 (07:37→17:08)
[2022-05-23] MEDS: ACETAMINOPHEN 500 MG TABLET 1000 MG PO ×3 (07:37→19:41)
[2022-05-23] MEDS: CARBIDOPA-LEVODOPA 25-100 TABLET 2 TAB PO ×3 (07:37→19:41)
[2022-05-23] MEDS: TRIAMCINOLONE ACETONIDE OINTMENT 0.1 % 1 APPLIC TOPICAL ×2 (07:38→19:41)
[2022-05-23 15:00] VITALS: TEMP 36.6; O2SAT 97
[2022-05-23] MEDS: TRAMADOL HCL 50 MG TABLET PO (19:41)
[2022-05-23] MEDS: MIRTAZAPINE 15 MG TABLET PO (19:41)
[2022-05-23] MEDS: DONEPEZIL 10 MG TABLET PO (19:41)
[2022-05-23] MEDS: MELATONIN 5 MG TABLET PO (19:41)
[2022-05-24 00:13] VITALS: TEMP 36.6; O2SAT 96
[2022-05-24] MEDS: TRAMADOL HCL 50 MG TABLET PO ×2 (03:21→20:09)
[2022-05-24 07:00] VITALS: TEMP 36.3; O2SAT 92
[2022-05-24] MEDS: OMEPRAZOLE 40 MG CAPSULE.DR PO (07:20)
[2022-05-24] MEDS: LEVOTHYROXINE 100 MCG TABLET PO (07:21)
[2022-05-24] MEDS: TRIAMCINOLONE ACETONIDE OINTMENT 0.1 % 1 APPLIC TOPICAL ×2 (07:59→20:09)
[2022-05-24] MEDS: CARBIDOPA-LEVODOPA 25-100 TABLET 2 TAB PO ×3 (07:59→20:08)
[2022-05-24] MEDS: METOPROLOL TARTRATE 25 MG TABLET PO ×2 (07:59→15:42)
[2022-05-24] MEDS: ACETAMINOPHEN 500 MG TABLET 1000 MG PO ×3 (07:59→20:08)
[2022-05-24] MEDS: LACTOBACILLUS ACIDOPHILUS 1 TABLET PO ×3 (08:05→16:38)
[2022-05-24 15:00] VITALS: TEMP 36.9; O2SAT 100
[2022-05-24] MEDS: MELATONIN 5 MG TABLET PO (20:09)
[2022-05-24] MEDS: MIRTAZAPINE 15 MG TABLET PO (20:09)
[2022-05-24] MEDS: DONEPEZIL 10 MG TABLET PO (20:16)
[2022-05-24 23:00] VITALS: TEMP 36.3; O2SAT 97
--- NOTE | 2022-05-25 06:34 | PC.NURSE ---
WEEK 4 COMMUNICATION, HEARING/VISION, COGNITION/BEHAVIORS CLINICAL MONITORING Resident vitals are normal and stable . Temporary care plan remains the same. Cognitive : memory problem with Dementia with Parkinson ;intermittent confusion and forgetfulness. Speech impaired, garbles, usually understood but difficulty finishing thoughts. Resident vision is adequate. He is not on any psychotropic meds .
[2022-05-25] MEDS: OMEPRAZOLE 40 MG CAPSULE.DR PO (07:14)
[2022-05-25] MEDS: LEVOTHYROXINE 100 MCG TABLET PO (07:14)
[2022-05-25] MEDS: ACETAMINOPHEN 500 MG TABLET 1000 MG PO ×3 (08:03→19:00)
[2022-05-25] MEDS: CARBIDOPA-LEVODOPA 25-100 TABLET 2 TAB PO ×3 (08:03→19:01)
[2022-05-25] MEDS: METOPROLOL TARTRATE 25 MG TABLET PO ×2 (08:05→16:41)
[2022-05-25] MEDS: TRIAMCINOLONE ACETONIDE OINTMENT 0.1 % 1 APPLIC TOPICAL ×2 (08:05→19:01)
[2022-05-25] MEDS: LACTOBACILLUS ACIDOPHILUS 1 TABLET PO ×3 (08:05→16:41)
[2022-05-25 09:59] VITALS: TEMP 36.6; O2SAT 94
--- NOTE | 2022-05-25 11:52 | PC.NURSE ---
COVID OUTBREAK TESTING Residents gave verbal consent for outbreak COVID testing. Resident is currently asymptomatic.? Resident/family will be notified only if resident is positive.
--- NOTE | 2022-05-25 13:38 | PC.NURSE ---
Week #4: comprehensive care plan reviewed, no changes made. Nothing added to temporary care plan. No changes noted in communication, hearing, vision or orientation. Speech is impaired r/t progressive aphasia but is usually understood. Needs also anticipated by staff. Hearing is okay. Vision impaired corrected by glasses. Has moderate to severe cognitive impairment. Chronic health condition stable. Nurse administer all medications. Vital signs reviewed, no concerns. Mood/Behavior: No issues charted the past month. Continues on Remeron 15mg @ HS & Melatonin 6mg @ HS with no adverse effects noted. Melatonin changed to 5mg on 05/05 22 as ordered.
[2022-05-25 15:00] VITALS: TEMP 36.6; O2SAT 95
[2022-05-25 16:03] LABS: SARS PCR* Negative SARS-CoV-2 (Negative)
[2022-05-25] MEDS: MELATONIN 5 MG TABLET PO (19:01)
[2022-05-25] MEDS: DONEPEZIL 10 MG TABLET PO (19:01)
[2022-05-25] MEDS: MIRTAZAPINE 15 MG TABLET PO (19:01)
[2022-05-25] MEDS: TRAMADOL HCL 50 MG TABLET PO (19:06)
[2022-05-25 23:00] VITALS: TEMP 36.6; O2SAT 94
[2022-05-26] MEDS: LEVOTHYROXINE 100 MCG TABLET PO (07:15)
[2022-05-26] MEDS: OMEPRAZOLE 40 MG CAPSULE.DR PO (07:15)
[2022-05-26] MEDS: METOPROLOL TARTRATE 25 MG TABLET PO ×2 (08:14→15:12)
[2022-05-26] MEDS: ACETAMINOPHEN 500 MG TABLET 1000 MG PO ×3 (08:14→20:31)
[2022-05-26] MEDS: CARBIDOPA-LEVODOPA 25-100 TABLET 2 TAB PO ×3 (08:14→20:31)
[2022-05-26] MEDS: TRIAMCINOLONE ACETONIDE OINTMENT 0.1 % 1 APPLIC TOPICAL ×2 (08:15→20:31)
[2022-05-26] MEDS: LACTOBACILLUS ACIDOPHILUS 1 TABLET PO ×3 (08:15→17:24)
[2022-05-26 09:37] VITALS: TEMP 36.2; O2SAT 96
[2022-05-26] MEDS: MIRTAZAPINE 15 MG TABLET PO (20:31)
[2022-05-26] MEDS: DONEPEZIL 10 MG TABLET PO (20:31)
[2022-05-26] MEDS: TRAMADOL HCL 50 MG TABLET PO (20:31)
[2022-05-26] MEDS: MELATONIN 5 MG TABLET PO (20:31)
[2022-05-26 20:58] VITALS: TEMP 36.6; O2SAT 94
[2022-05-26 23:00] VITALS: TEMP 36.5; O2SAT 93
[2022-05-27 07:00] VITALS: BP 126/82; PULSE 68; RESP 18; TEMP 36.1; O2SAT 96; BMI 26.4
[2022-05-27] MEDS: OMEPRAZOLE 40 MG CAPSULE.DR PO (07:11)
[2022-05-27] MEDS: LEVOTHYROXINE 100 MCG TABLET PO (07:12)
[2022-05-27] MEDS: ACETAMINOPHEN 500 MG TABLET 1000 MG PO ×3 (07:13→20:00)
[2022-05-27] MEDS: TRIAMCINOLONE ACETONIDE OINTMENT 0.1 % 1 APPLIC TOPICAL ×2 (07:13→20:03)
[2022-05-27] MEDS: METOPROLOL TARTRATE 25 MG TABLET PO ×2 (07:13→16:11)
[2022-05-27] MEDS: LACTOBACILLUS ACIDOPHILUS 1 TABLET PO ×3 (07:13→17:14)
[2022-05-27] MEDS: CARBIDOPA-LEVODOPA 25-100 TABLET 2 TAB PO ×3 (07:13→20:03)
--- NOTE | 2022-05-27 10:32 | PC.NURSE ---
Speech therapy: Spoke to and speech therapist and a visit will take place on 05/28 @ 10am to discuss conversation tools that can be used d/t aphasia.
[2022-05-27 15:00] VITALS: TEMP 36.2; O2SAT 93
[2022-05-27] MEDS: DONEPEZIL 10 MG TABLET PO (20:03)
[2022-05-27] MEDS: MELATONIN 5 MG TABLET PO (20:03)
[2022-05-27] MEDS: TRAMADOL HCL 50 MG TABLET PO (20:03)
[2022-05-27] MEDS: MIRTAZAPINE 15 MG TABLET PO (20:03)
[2022-05-27 23:00] VITALS: TEMP 36.7; O2SAT 95
[2022-05-28 07:00] VITALS: TEMP 36.3; O2SAT 95
[2022-05-28] MEDS: ACETAMINOPHEN 500 MG TABLET 1000 MG PO ×3 (07:20→19:16)
[2022-05-28] MEDS: CARBIDOPA-LEVODOPA 25-100 TABLET 2 TAB PO ×3 (07:20→19:16)
[2022-05-28] MEDS: LEVOTHYROXINE 100 MCG TABLET PO (07:20)
[2022-05-28] MEDS: OMEPRAZOLE 40 MG CAPSULE.DR PO (07:20)
[2022-05-28] MEDS: TRIAMCINOLONE ACETONIDE OINTMENT 0.1 % 1 APPLIC TOPICAL ×2 (07:21→19:16)
[2022-05-28] MEDS: METOPROLOL TARTRATE 25 MG TABLET PO ×2 (07:21→15:52)
[2022-05-28] MEDS: LACTOBACILLUS ACIDOPHILUS 1 TABLET PO (07:21)
[2022-05-28] MEDS: LACTOBACILLUS ACIDOPHILUS 1 TABLET 1 TAB PO (11:09)
[2022-05-28 15:00] VITALS: TEMP 36.6; O2SAT 95
--- NOTE | 2022-05-28 15:24 | PC.NURSE ---
Med order changed: Resident's Calcium tablet was DC by FRACTIONATION PLANT SUPERVISORBalbir, on 05/28/22. Upon receiving updated from Gigi BOUDREAUX, resident's opposed to this new change, and demanded continues with Calcium dose. Order is re-activated, and will start tomorrow at 0800, 05/29/22.
--- NOTE | 2022-05-28 15:50 | PC.NURSE ---
Med order changed: Resident's Calcium tablet was DC by MEDICAL CLAIMS REPRESENTATIVEBalbir, on 05/28/22. Upon receiving update from Gigi BOUDREAUX, resident's opposed to this new change, and demanded continues with Calcium dose. Order is re-activated, and will start tomorrow at 0800, 05/29/22. ?
[2022-05-28] MEDS: LACTOBACILLUS ACIDOPHILUS 1 TABLET 2 TAB PO (17:33)
--- NOTE | 2022-05-28 19:08 | PC.NURSE ---
Speech therapy met with and information given on suggestions for communication such as using alphabet board to point to the first letter of the word, over articulating, having written information for patient to point to such as food choices. CP updated.
[2022-05-28] MEDS: TRAMADOL HCL 50 MG TABLET PO (19:16)
[2022-05-28] MEDS: DONEPEZIL 10 MG TABLET PO (19:16)
[2022-05-28] MEDS: MIRTAZAPINE 15 MG TABLET PO (19:16)
[2022-05-28] MEDS: MELATONIN 5 MG TABLET PO (19:16)
[2022-05-28 23:00] VITALS: TEMP 36.6; O2SAT 96
[2022-05-29] MEDS: TRAMADOL HCL 50 MG TABLET PO ×2 (02:23→19:08)
[2022-05-29] MEDS: LEVOTHYROXINE 100 MCG TABLET PO (07:29)
[2022-05-29] MEDS: OMEPRAZOLE 40 MG CAPSULE.DR PO (07:29)
[2022-05-29] MEDS: ACETAMINOPHEN 500 MG TABLET 1000 MG PO ×3 (08:09→19:08)
[2022-05-29] MEDS: CARBIDOPA-LEVODOPA 25-100 TABLET 2 TAB PO ×3 (08:09→19:08)
[2022-05-29] MEDS: TRIAMCINOLONE ACETONIDE OINTMENT 0.1 % 1 APPLIC TOPICAL ×2 (08:10→19:08)
[2022-05-29] MEDS: METOPROLOL TARTRATE 25 MG TABLET PO ×2 (08:10→15:33)
[2022-05-29] MEDS: LACTOBACILLUS ACIDOPHILUS 1 TABLET 2 TAB PO ×3 (08:10→17:09)
[2022-05-29 10:11] VITALS: TEMP 36.6; O2SAT 96
[2022-05-29 15:00] VITALS: TEMP 36.2; O2SAT 94
[2022-05-29] MEDS: DONEPEZIL 10 MG TABLET PO (19:08)
[2022-05-29] MEDS: MIRTAZAPINE 15 MG TABLET PO (19:08)
[2022-05-29] MEDS: MELATONIN 5 MG TABLET PO (19:08)
[2022-05-29 23:00] VITALS: TEMP 36.3; O2SAT 96
[2022-05-30] MEDS: LEVOTHYROXINE 100 MCG TABLET PO (07:11)
[2022-05-30] MEDS: OMEPRAZOLE 40 MG CAPSULE.DR PO (07:11)
[2022-05-30] MEDS: ACETAMINOPHEN 500 MG TABLET 1000 MG PO ×3 (07:41→20:22)
[2022-05-30] MEDS: CARBIDOPA-LEVODOPA 25-100 TABLET 2 TAB PO ×3 (07:41→20:22)
[2022-05-30] MEDS: TRIAMCINOLONE ACETONIDE OINTMENT 0.1 % 1 APPLIC TOPICAL ×2 (07:42→20:22)
[2022-05-30] MEDS: LACTOBACILLUS ACIDOPHILUS 1 TABLET 2 TAB PO ×3 (07:42→17:18)
[2022-05-30] MEDS: METOPROLOL TARTRATE 25 MG TABLET PO ×2 (07:42→16:02)
[2022-05-30 12:52] VITALS: TEMP 36.4; O2SAT 94
[2022-05-30 15:00] VITALS: TEMP 36.2; O2SAT 94
[2022-05-30] MEDS: MELATONIN 5 MG TABLET PO (20:22)
[2022-05-30] MEDS: DONEPEZIL 10 MG TABLET PO (20:22)
[2022-05-30] MEDS: MIRTAZAPINE 15 MG TABLET PO (20:22)
[2022-05-30] MEDS: TRAMADOL HCL 50 MG TABLET PO (20:23)
[2022-05-30 23:00] VITALS: TEMP 36.3; O2SAT 97
[2022-05-31] MEDS: OMEPRAZOLE 40 MG CAPSULE.DR PO (07:08)
[2022-05-31] MEDS: LEVOTHYROXINE 100 MCG TABLET PO (07:08)
[2022-05-31] MEDS: METOPROLOL TARTRATE 25 MG TABLET PO ×2 (07:59→15:06)
[2022-05-31] MEDS: LACTOBACILLUS ACIDOPHILUS 1 TABLET 2 TAB PO ×3 (07:59→17:07)
[2022-05-31] MEDS: ACETAMINOPHEN 500 MG TABLET 1000 MG PO ×3 (07:59→19:18)
[2022-05-31] MEDS: TRIAMCINOLONE ACETONIDE OINTMENT 0.1 % 1 APPLIC TOPICAL ×2 (07:59→19:18)
[2022-05-31] MEDS: CARBIDOPA-LEVODOPA 25-100 TABLET 2 TAB PO ×3 (07:59→19:18)
[2022-05-31 09:53] VITALS: TEMP 36.3; O2SAT 94
[2022-05-31 15:00] VITALS: TEMP 36.2; O2SAT 93
[2022-05-31] MEDS: MELATONIN 5 MG TABLET PO (19:18)
[2022-05-31] MEDS: MIRTAZAPINE 15 MG TABLET PO (19:18)
[2022-05-31] MEDS: DONEPEZIL 10 MG TABLET PO (19:18)
[2022-05-31] MEDS: TRAMADOL HCL 50 MG TABLET PO (19:18)
[2022-05-31 23:00] VITALS: TEMP 36.5; O2SAT 93
--- NOTE | 2022-06-01 00:47 | PC.NURSE ---
WEEKLY CHARTING - WEEK 1 (Pain & ADL's): vital signs reviewed - no new concerns at this time. Temporary/comprehensive care plans reviewed - no changes made. With supervision and cues, resident is able to groom. Requires extensive assist of one with bathing and dressing. Staff performs oral hygiene task including dentures cares. Independent with eating after staff set-up meal tray, open juice cartons, and cut up meat. Resident eats lesser during meal times, not because of poor appetite but, due to abundant stock of varieties of foods in his room that he snacks on frequently. No choking episode noted or reported so far; but, has chronic cough with fluid intake. Pain: Receives scheduled Acetaminophen 1000 mg TID - (PRN 1000 mg daily), Tramadol 50mg at HS, and PRN daily dose for pain management.
[2022-06-01 07:00] VITALS: TEMP 36.6; O2SAT 94
[2022-06-01] MEDS: LEVOTHYROXINE 100 MCG TABLET PO (07:05)
[2022-06-01] MEDS: OMEPRAZOLE 40 MG CAPSULE.DR PO (07:05)
[2022-06-01] MEDS: ACETAMINOPHEN 500 MG TABLET 1000 MG PO ×3 (08:35→19:58)
[2022-06-01] MEDS: METOPROLOL TARTRATE 25 MG TABLET PO ×2 (08:35→16:58)
[2022-06-01] MEDS: LACTOBACILLUS ACIDOPHILUS 1 TABLET 2 TAB PO ×3 (08:35→16:58)
[2022-06-01] MEDS: CARBIDOPA-LEVODOPA 25-100 TABLET 2 TAB PO ×3 (08:35→19:58)
[2022-06-01] MEDS: TRIAMCINOLONE ACETONIDE OINTMENT 0.1 % 1 APPLIC TOPICAL ×2 (08:35→19:58)
--- NOTE | 2022-06-01 10:00 | PC.NURSE ---
COVID OUTBREAK TESTING Resident and residents gave verbal consent for outbreak COVID testing. Resident is currently asymptomatic.? Resident/family will be notified only if resident is positive.
[2022-06-01 11:15] LABS: SARS PCR* Negative SARS-CoV-2 (Negative)
[2022-06-01] MEDS: MIRTAZAPINE 15 MG TABLET PO (19:58)
[2022-06-01] MEDS: TRAMADOL HCL 50 MG TABLET PO (19:58)
[2022-06-01] MEDS: DONEPEZIL 10 MG TABLET PO (19:58)
[2022-06-01] MEDS: MELATONIN 5 MG TABLET PO (19:58)
[2022-06-01 21:18] VITALS: TEMP 35.8; O2SAT 95
[2022-06-01 23:00] VITALS: TEMP 36.3; O2SAT 95
[2022-06-02 07:00] VITALS: TEMP 36.3; O2SAT 96
[2022-06-02] MEDS: LEVOTHYROXINE 100 MCG TABLET PO (07:04)
[2022-06-02] MEDS: ACETAMINOPHEN 500 MG TABLET 1000 MG PO ×3 (07:04→20:07)
[2022-06-02] MEDS: CARBIDOPA-LEVODOPA 25-100 TABLET 2 TAB PO ×3 (07:04→20:07)
[2022-06-02] MEDS: OMEPRAZOLE 40 MG CAPSULE.DR PO (07:04)
[2022-06-02] MEDS: LACTOBACILLUS ACIDOPHILUS 1 TABLET 2 TAB PO ×3 (07:05→16:46)
[2022-06-02] MEDS: METOPROLOL TARTRATE 25 MG TABLET PO ×2 (07:05→15:17)
[2022-06-02] MEDS: TRIAMCINOLONE ACETONIDE OINTMENT 0.1 % 1 APPLIC TOPICAL ×2 (07:07→20:07)
[2022-06-02 15:00] VITALS: TEMP 36.6; O2SAT 95
[2022-06-02] MEDS: MIRTAZAPINE 15 MG TABLET PO (20:07)
[2022-06-02] MEDS: DONEPEZIL 10 MG TABLET PO (20:07)
[2022-06-02] MEDS: TRAMADOL HCL 50 MG TABLET PO (20:07)
[2022-06-02] MEDS: MELATONIN 5 MG TABLET PO (20:07)
[2022-06-02 23:00] VITALS: TEMP 36.8; O2SAT 93
[2022-06-03 07:00] VITALS: BP 138/76; PULSE 68; RESP 16; TEMP 36.2; O2SAT 97
[2022-06-03] MEDS: CARBIDOPA-LEVODOPA 25-100 TABLET 2 TAB PO ×3 (07:32→20:25)
[2022-06-03] MEDS: LEVOTHYROXINE 100 MCG TABLET PO (07:32)
[2022-06-03] MEDS: OMEPRAZOLE 40 MG CAPSULE.DR PO (07:32)
[2022-06-03] MEDS: ACETAMINOPHEN 500 MG TABLET 1000 MG PO ×3 (07:32→20:25)
[2022-06-03] MEDS: LACTOBACILLUS ACIDOPHILUS 1 TABLET 2 TAB PO ×3 (07:33→17:49)
[2022-06-03] MEDS: METOPROLOL TARTRATE 25 MG TABLET PO ×2 (07:33→16:13)
[2022-06-03] MEDS: TRIAMCINOLONE ACETONIDE OINTMENT 0.1 % 1 APPLIC TOPICAL ×2 (07:39→20:25)
[2022-06-03 12:43] VITALS: BMI 26.1
[2022-06-03 15:00] VITALS: TEMP 36.8; O2SAT 97
[2022-06-03] MEDS: MIRTAZAPINE 15 MG TABLET PO (20:25)
[2022-06-03] MEDS: TRAMADOL HCL 50 MG TABLET PO (20:25)
[2022-06-03] MEDS: MELATONIN 5 MG TABLET PO (20:25)
[2022-06-03] MEDS: DONEPEZIL 10 MG TABLET PO (20:25)
[2022-06-03 23:19] VITALS: TEMP 36.6; O2SAT 94
[2022-06-04] MEDS: LEVOTHYROXINE 100 MCG TABLET PO (07:21)
[2022-06-04] MEDS: OMEPRAZOLE 40 MG CAPSULE.DR PO (07:21)
[2022-06-04] MEDS: ACETAMINOPHEN 500 MG TABLET 1000 MG PO ×3 (08:16→19:34)
[2022-06-04] MEDS: CARBIDOPA-LEVODOPA 25-100 TABLET 2 TAB PO ×3 (08:16→19:34)
[2022-06-04] MEDS: TRIAMCINOLONE ACETONIDE OINTMENT 0.1 % 1 APPLIC TOPICAL ×2 (08:17→19:34)
[2022-06-04] MEDS: METOPROLOL TARTRATE 25 MG TABLET PO ×2 (08:17→15:42)
[2022-06-04] MEDS: LACTOBACILLUS ACIDOPHILUS 1 TABLET 2 TAB PO ×3 (08:17→17:13)
[2022-06-04 09:58] VITALS: TEMP 36.3; O2SAT 94
--- NOTE | 2022-06-04 10:08 | PC.SPIRITC ---
I provided visit for connection and support.
[2022-06-04] MEDS: MIRTAZAPINE 15 MG TABLET PO (19:34)
[2022-06-04] MEDS: MELATONIN 5 MG TABLET PO (19:34)
[2022-06-04] MEDS: TRAMADOL HCL 50 MG TABLET PO (19:34)
[2022-06-04] MEDS: DONEPEZIL 10 MG TABLET PO (19:34)
[2022-06-05] MEDS: OMEPRAZOLE 40 MG CAPSULE.DR PO (06:56)
[2022-06-05] MEDS: LEVOTHYROXINE 100 MCG TABLET PO (06:56)
[2022-06-05 07:00] VITALS: TEMP 36.4; O2SAT 96
[2022-06-05] MEDS: LACTOBACILLUS ACIDOPHILUS 1 TABLET 2 TAB PO ×3 (07:01→17:03)
[2022-06-05] MEDS: METOPROLOL TARTRATE 25 MG TABLET PO ×2 (07:01→15:18)
[2022-06-05] MEDS: CARBIDOPA-LEVODOPA 25-100 TABLET 2 TAB PO ×3 (07:01→19:16)
[2022-06-05] MEDS: ACETAMINOPHEN 500 MG TABLET 1000 MG PO ×3 (07:01→19:16)
[2022-06-05] MEDS: TRIAMCINOLONE ACETONIDE OINTMENT 0.1 % 1 APPLIC TOPICAL ×2 (07:01→19:16)
[2022-06-05] MEDS: DONEPEZIL 10 MG TABLET PO (19:16)
[2022-06-05] MEDS: TRAMADOL HCL 50 MG TABLET PO (19:16)
[2022-06-05] MEDS: MIRTAZAPINE 15 MG TABLET PO (19:16)
[2022-06-05] MEDS: MELATONIN 5 MG TABLET PO (19:16)
[2022-06-06] MEDS: NYSTATIN CREAM 30 GM 1 APPLIC TOPICAL (03:35)
[2022-06-06] MEDS: LEVOTHYROXINE 100 MCG TABLET PO (07:24)
[2022-06-06] MEDS: OMEPRAZOLE 40 MG CAPSULE.DR PO (07:24)
[2022-06-06] MEDS: ACETAMINOPHEN 500 MG TABLET 1000 MG PO ×3 (07:45→20:49)
[2022-06-06] MEDS: CARBIDOPA-LEVODOPA 25-100 TABLET 2 TAB PO ×3 (07:45→20:49)
[2022-06-06] MEDS: LACTOBACILLUS ACIDOPHILUS 1 TABLET 2 TAB PO ×3 (07:46→17:35)
[2022-06-06] MEDS: METOPROLOL TARTRATE 25 MG TABLET PO ×2 (07:46→15:26)
[2022-06-06] MEDS: TRIAMCINOLONE ACETONIDE OINTMENT 0.1 % 1 APPLIC TOPICAL ×2 (07:46→20:49)
[2022-06-06] MEDS: MIRTAZAPINE 15 MG TABLET PO (20:49)
[2022-06-06] MEDS: MELATONIN 5 MG TABLET PO (20:49)
[2022-06-06] MEDS: DONEPEZIL 10 MG TABLET PO (20:49)
[2022-06-06] MEDS: TRAMADOL HCL 50 MG TABLET PO (20:49)
[2022-06-07] MEDS: OMEPRAZOLE 40 MG CAPSULE.DR PO (06:50)
[2022-06-07] MEDS: LEVOTHYROXINE 100 MCG TABLET PO (06:50)
[2022-06-07] MEDS: CARBIDOPA-LEVODOPA 25-100 TABLET 2 TAB PO ×3 (07:45→19:25)
[2022-06-07] MEDS: TRIAMCINOLONE ACETONIDE OINTMENT 0.1 % 1 APPLIC TOPICAL ×2 (07:45→19:25)
[2022-06-07] MEDS: METOPROLOL TARTRATE 25 MG TABLET PO ×2 (07:45→15:27)
[2022-06-07] MEDS: ACETAMINOPHEN 500 MG TABLET 1000 MG PO ×3 (07:45→19:25)
[2022-06-07] MEDS: LACTOBACILLUS ACIDOPHILUS 1 TABLET 2 TAB PO ×3 (07:45→17:17)
[2022-06-07 10:21] VITALS: TEMP 36.5; O2SAT 95
[2022-06-07] MEDS: MIRTAZAPINE 15 MG TABLET PO (19:25)
[2022-06-07] MEDS: DONEPEZIL 10 MG TABLET PO (19:25)
[2022-06-07] MEDS: TRAMADOL HCL 50 MG TABLET PO (19:25)
[2022-06-07] MEDS: MELATONIN 5 MG TABLET PO (19:25)
[2022-06-08 06:43] VITALS: TEMP 36.5; O2SAT 96
[2022-06-08] MEDS: OMEPRAZOLE 40 MG CAPSULE.DR PO (06:44)
[2022-06-08] MEDS: LEVOTHYROXINE 100 MCG TABLET PO (06:44)
[2022-06-08] MEDS: CARBIDOPA-LEVODOPA 25-100 TABLET 2 TAB PO ×3 (07:02→20:16)
[2022-06-08] MEDS: TRIAMCINOLONE ACETONIDE OINTMENT 0.1 % 1 APPLIC TOPICAL ×2 (07:02→20:17)
[2022-06-08] MEDS: ACETAMINOPHEN 500 MG TABLET 1000 MG PO ×3 (07:02→20:16)
[2022-06-08] MEDS: METOPROLOL TARTRATE 25 MG TABLET PO ×2 (07:02→15:24)
[2022-06-08] MEDS: LACTOBACILLUS ACIDOPHILUS 1 TABLET 2 TAB PO ×3 (07:03→17:46)
--- NOTE | 2022-06-08 07:25 | PC.NURSE ---
Week #2 - Mobility: Comprehensive and temporary care plan reviewed. No changes made, nothing added to temporary care plan. Resident needs one assist, gait belt and walker with transfers and ambulation to/from meals. Is able to wheel self short distances, staff wheels to longer distances/destinations. Turn/offload every 3 hours with assist. Has two 1/4 side rails up all times as an enabler for bed mobility. No alarms. Vital signs reviewed, no concerns. Continue weekly monitoring. Fall: No falls the past month. Remains a high fall risk according to assessment done on 05/14/22. Fall interventions: Call light within reach, bed in low position locked, falling star magnet in door, gripper socks in bed.
--- NOTE | 2022-06-08 10:30 | PC.NURSE ---
Podiatry: Seen by forestry patrolman. No order.
[2022-06-08] MEDS: MELATONIN 5 MG TABLET PO (20:16)
[2022-06-08] MEDS: DONEPEZIL 10 MG TABLET PO (20:16)
[2022-06-08] MEDS: MIRTAZAPINE 15 MG TABLET PO (20:16)
[2022-06-08] MEDS: TRAMADOL HCL 50 MG TABLET PO (20:17)
[2022-06-09] MEDS: LEVOTHYROXINE 100 MCG TABLET PO (06:33)
[2022-06-09] MEDS: OMEPRAZOLE 40 MG CAPSULE.DR PO (06:33)
[2022-06-09] MEDS: ACETAMINOPHEN 500 MG TABLET 1000 MG PO ×3 (07:25→19:33)
[2022-06-09] MEDS: CARBIDOPA-LEVODOPA 25-100 TABLET 2 TAB PO ×3 (07:25→19:33)
[2022-06-09] MEDS: TRIAMCINOLONE ACETONIDE OINTMENT 0.1 % 1 APPLIC TOPICAL ×2 (07:26→19:33)
[2022-06-09] MEDS: METOPROLOL TARTRATE 25 MG TABLET PO ×2 (07:26→16:28)
[2022-06-09] MEDS: LACTOBACILLUS ACIDOPHILUS 1 TABLET 2 TAB PO ×3 (07:26→17:15)
[2022-06-09 10:12] VITALS: TEMP 36.6; O2SAT 95
[2022-06-09] MEDS: DONEPEZIL 10 MG TABLET PO (19:33)
[2022-06-09] MEDS: MELATONIN 5 MG TABLET PO (19:33)
[2022-06-09] MEDS: MIRTAZAPINE 15 MG TABLET PO (19:33)
[2022-06-09] MEDS: TRAMADOL HCL 50 MG TABLET PO (19:34)
[2022-06-09] MEDS: NYSTATIN CREAM 30 GM 1 APPLIC TOPICAL (20:32)
--- NOTE | 2022-06-09 20:32 | PC.NURSE ---
Skin care : Noted redness on both groins and also resident has been stretching due to itchiness. PRN nystatin was applied.
[2022-06-10] MEDS: ACETAMINOPHEN 500 MG TABLET 1000 MG PO ×3 (07:08→20:34)
[2022-06-10] MEDS: OMEPRAZOLE 40 MG CAPSULE.DR PO (07:08)
[2022-06-10] MEDS: LEVOTHYROXINE 100 MCG TABLET PO (07:08)
[2022-06-10] MEDS: TRIAMCINOLONE ACETONIDE OINTMENT 0.1 % 1 APPLIC TOPICAL ×2 (07:09→20:34)
[2022-06-10] MEDS: CARBIDOPA-LEVODOPA 25-100 TABLET 2 TAB PO ×3 (07:09→20:34)
[2022-06-10] MEDS: METOPROLOL TARTRATE 25 MG TABLET PO ×2 (07:09→15:42)
[2022-06-10] MEDS: NYSTATIN CREAM 30 GM 1 APPLIC TOPICAL (07:16)
[2022-06-10] MEDS: LACTOBACILLUS ACIDOPHILUS 1 TABLET 2 TAB PO ×3 (08:24→17:28)
[2022-06-10 10:13] VITALS: BP 134/80; PULSE 65; RESP 18; TEMP 36.3; O2SAT 97
[2022-06-10 10:45] VITALS: BMI 25.9
--- NOTE | 2022-06-10 10:56 | PC.PHA1 ---
FOOD CHECKER PHARMACIST'S MEDICATION REVIEW: MEDICATION MONITORING:Mirtazapine 15 mg hs for sleep and will also help appetite. IRREGULARITY OR COMMENTS:Patient continues on same medication regimen involving the management of Lewy Body dementia diagnosis, with Sinemet, donepezil and mirtazapine necessary for symptom management. Patient also being well managed in terms of blood sugar management with recent A1C and insulin dose reduction. Calcium supplement stopped but apposed, with disease progression the topic may need revisiting. SUGGESTED COURSE OF ACTION TAKEN:No medication recommendations at this time.
[2022-06-10] MEDS: DONEPEZIL 10 MG TABLET PO (20:34)
[2022-06-10] MEDS: MIRTAZAPINE 15 MG TABLET PO (20:34)
[2022-06-10] MEDS: TRAMADOL HCL 50 MG TABLET PO (20:34)
[2022-06-10] MEDS: MELATONIN 5 MG TABLET PO (20:34)
[2022-06-11] MEDS: OMEPRAZOLE 40 MG CAPSULE.DR PO (06:34)
[2022-06-11] MEDS: LEVOTHYROXINE 100 MCG TABLET PO (06:34)
[2022-06-11] MEDS: NYSTATIN CREAM 30 GM 1 APPLIC TOPICAL (06:41)
[2022-06-11 06:42] VITALS: TEMP 36.8; O2SAT 96
[2022-06-11] MEDS: ACETAMINOPHEN 500 MG TABLET 1000 MG PO ×3 (07:03→19:42)
[2022-06-11] MEDS: LACTOBACILLUS ACIDOPHILUS 1 TABLET 2 TAB PO ×3 (07:03→17:09)
[2022-06-11] MEDS: CARBIDOPA-LEVODOPA 25-100 TABLET 2 TAB PO ×3 (07:03→19:42)
[2022-06-11] MEDS: METOPROLOL TARTRATE 25 MG TABLET PO ×2 (07:03→15:46)
[2022-06-11] MEDS: TRIAMCINOLONE ACETONIDE OINTMENT 0.1 % 1 APPLIC TOPICAL ×2 (07:05→19:42)
[2022-06-11 15:00] VITALS: TEMP 36.8; O2SAT 94
[2022-06-11] MEDS: MELATONIN 5 MG TABLET PO (19:42)
[2022-06-11] MEDS: MIRTAZAPINE 15 MG TABLET PO (19:42)
[2022-06-11] MEDS: TRAMADOL HCL 50 MG TABLET PO (19:42)
[2022-06-11] MEDS: DONEPEZIL 10 MG TABLET PO (19:42)
[2022-06-11 23:48] VITALS: TEMP 36.3; O2SAT 93
[2022-06-12] MEDS: LEVOTHYROXINE 100 MCG TABLET PO (07:00)
[2022-06-12] MEDS: OMEPRAZOLE 40 MG CAPSULE.DR PO (07:00)
[2022-06-12] MEDS: NYSTATIN CREAM 30 GM 1 APPLIC TOPICAL (08:15)
[2022-06-12] MEDS: ACETAMINOPHEN 500 MG TABLET 1000 MG PO ×3 (08:16→19:13)
[2022-06-12] MEDS: CARBIDOPA-LEVODOPA 25-100 TABLET 2 TAB PO ×3 (08:16→19:14)
[2022-06-12] MEDS: TRIAMCINOLONE ACETONIDE OINTMENT 0.1 % 1 APPLIC TOPICAL ×2 (08:17→19:14)
[2022-06-12] MEDS: LACTOBACILLUS ACIDOPHILUS 1 TABLET 2 TAB PO ×3 (08:17→17:19)
[2022-06-12] MEDS: METOPROLOL TARTRATE 25 MG TABLET PO ×2 (08:17→15:38)
[2022-06-12 09:49] VITALS: TEMP 36.2; O2SAT 94
[2022-06-12 15:00] VITALS: TEMP 36.4; O2SAT 94
[2022-06-12] MEDS: MELATONIN 5 MG TABLET PO (19:14)
[2022-06-12] MEDS: DONEPEZIL 10 MG TABLET PO (19:14)
[2022-06-12] MEDS: MIRTAZAPINE 15 MG TABLET PO (19:14)
[2022-06-12] MEDS: TRAMADOL HCL 50 MG TABLET PO (19:14)
[2022-06-13 00:20] VITALS: TEMP 36.6; O2SAT 93
[2022-06-13] MEDS: LEVOTHYROXINE 100 MCG TABLET PO (07:07)
[2022-06-13] MEDS: OMEPRAZOLE 40 MG CAPSULE.DR PO (07:07)
[2022-06-13] MEDS: ACETAMINOPHEN 500 MG TABLET 1000 MG PO ×3 (08:07→19:36)
[2022-06-13] MEDS: CARBIDOPA-LEVODOPA 25-100 TABLET 2 TAB PO ×3 (08:08→19:36)
[2022-06-13] MEDS: METOPROLOL TARTRATE 25 MG TABLET PO ×2 (08:08→15:10)
[2022-06-13] MEDS: LACTOBACILLUS ACIDOPHILUS 1 TABLET 2 TAB PO ×3 (08:09→18:02)
[2022-06-13] MEDS: TRIAMCINOLONE ACETONIDE OINTMENT 0.1 % 1 APPLIC TOPICAL ×2 (08:09→19:37)
[2022-06-13] MEDS: NYSTATIN CREAM 30 GM 1 APPLIC TOPICAL ×2 (08:12→19:37)
[2022-06-13 10:31] VITALS: TEMP 36.4; O2SAT 94
[2022-06-13 15:00] VITALS: TEMP 36.4; O2SAT 94
[2022-06-13] MEDS: MELATONIN 5 MG TABLET PO (19:37)
[2022-06-13] MEDS: DONEPEZIL 10 MG TABLET PO (19:37)
[2022-06-13] MEDS: MIRTAZAPINE 15 MG TABLET PO (19:37)
[2022-06-13] MEDS: TRAMADOL HCL 50 MG TABLET PO (19:37)
[2022-06-14 00:05] VITALS: TEMP 36.6; O2SAT 93
[2022-06-14] MEDS: NYSTATIN CREAM 30 GM 1 APPLIC TOPICAL (06:45)
[2022-06-14] MEDS: OMEPRAZOLE 40 MG CAPSULE.DR PO (07:14)
[2022-06-14] MEDS: LEVOTHYROXINE 100 MCG TABLET PO (07:14)
[2022-06-14] MEDS: ACETAMINOPHEN 500 MG TABLET 1000 MG PO ×3 (08:50→19:27)
[2022-06-14] MEDS: TRIAMCINOLONE ACETONIDE OINTMENT 0.1 % 1 APPLIC TOPICAL ×2 (08:51→19:27)
[2022-06-14] MEDS: METOPROLOL TARTRATE 25 MG TABLET PO ×2 (08:51→15:00)
[2022-06-14] MEDS: LACTOBACILLUS ACIDOPHILUS 1 TABLET 2 TAB PO ×3 (08:51→17:09)
[2022-06-14] MEDS: CARBIDOPA-LEVODOPA 25-100 TABLET 2 TAB PO ×3 (08:51→19:27)
[2022-06-14 10:30] VITALS: TEMP 36.3; O2SAT 92
[2022-06-14 15:00] VITALS: TEMP 36.6; O2SAT 93
[2022-06-14] MEDS: DONEPEZIL 10 MG TABLET PO (19:27)
[2022-06-14] MEDS: MIRTAZAPINE 15 MG TABLET PO (19:27)
[2022-06-14] MEDS: MELATONIN 5 MG TABLET PO (19:27)
[2022-06-14] MEDS: TRAMADOL HCL 50 MG TABLET PO (19:27)
--- NOTE | 2022-06-14 21:51 | PC.NURSE ---
Status: Refused dinner this evening. Resident refused to ambulate and requested to propel in w/c to dining room. Staff serving meals to other tables, resident became impatient and propelled out of DR after 8 minutes. Offered to bring meal in room and offered snacks but resident refused and hollered no! Staff offered additional snacks while resident in recliner watching TV and continued to refuse.
[2022-06-14 23:51] VITALS: TEMP 36.3; O2SAT 94
--- NOTE | 2022-06-15 00:47 | PC.NURSE ---
Weekly Charting Week 3: Vital signs reviewed. Temporary and comprehensive care plan reviewed. No changes made. Res has intermittent rash on bilateral feet, Triamcinolone cream applied BID PRN. Intermittent rash on groin area, nystatin cream applied PRN. mostly continent bowel and some incontinent frequency urinary incontinence. Occasionally continent of urine. Uses call light for urinal an use the bathroom. Wear pull up at night time, dislike to use brief.and will remove them and throw on the floor. Requires assist of 1 with toileting needs including management of incontinent product.
[2022-06-15] MEDS: NYSTATIN CREAM 30 GM 1 APPLIC TOPICAL ×2 (06:30→21:14)
[2022-06-15] MEDS: LEVOTHYROXINE 100 MCG TABLET PO (06:52)
[2022-06-15] MEDS: OMEPRAZOLE 40 MG CAPSULE.DR PO (06:52)
[2022-06-15] MEDS: ACETAMINOPHEN 500 MG TABLET 1000 MG PO ×3 (08:18→19:34)
[2022-06-15] MEDS: CARBIDOPA-LEVODOPA 25-100 TABLET 2 TAB PO ×3 (08:18→19:34)
[2022-06-15] MEDS: METOPROLOL TARTRATE 25 MG TABLET PO ×2 (08:19→16:13)
[2022-06-15] MEDS: LACTOBACILLUS ACIDOPHILUS 1 TABLET 2 TAB PO ×3 (08:19→17:12)
[2022-06-15] MEDS: TRIAMCINOLONE ACETONIDE OINTMENT 0.1 % 1 APPLIC TOPICAL ×2 (08:19→19:35)
--- NOTE | 2022-06-15 10:00 | PC.NURSE ---
COVID OUTBREAK TESTING Resident and residents gave verbal consent for outbreak COVID testing. Resident is currently asymptomatic.? Resident/family will be notified only if resident is positive.
[2022-06-15 10:05] VITALS: TEMP 36.3; O2SAT 94
[2022-06-15 11:28] LABS: SARS PCR* Negative SARS-CoV-2 (Negative)
--- NOTE | 2022-06-15 12:54 | PC.NURSE ---
Weekly Week #3: Vital signs reviewed with no issues Temporary care plan along with comprehensive care plan reviewed with no changes Resident has redness to the groin with nystatin cream applied Resident is incontinent of bowel & bladder Is extensive assist of 1 with all adls
[2022-06-15 15:04] VITALS: TEMP 36.4; O2SAT 96
[2022-06-15] MEDS: TRAMADOL HCL 50 MG TABLET PO (19:35)
[2022-06-15] MEDS: MELATONIN 5 MG TABLET PO (19:35)
[2022-06-15] MEDS: DONEPEZIL 10 MG TABLET PO (19:35)
[2022-06-15] MEDS: MIRTAZAPINE 15 MG TABLET PO (19:35)
[2022-06-15 23:59] VITALS: TEMP 36.6; O2SAT 95
[2022-06-16] MEDS: LEVOTHYROXINE 100 MCG TABLET PO (06:47)
[2022-06-16] MEDS: OMEPRAZOLE 40 MG CAPSULE.DR PO (06:47)
[2022-06-16] MEDS: METOPROLOL TARTRATE 25 MG TABLET PO ×2 (07:02→15:53)
[2022-06-16] MEDS: LACTOBACILLUS ACIDOPHILUS 1 TABLET 2 TAB PO ×3 (07:02→17:25)
[2022-06-16] MEDS: CARBIDOPA-LEVODOPA 25-100 TABLET 2 TAB PO ×3 (07:02→19:13)
[2022-06-16] MEDS: ACETAMINOPHEN 500 MG TABLET 1000 MG PO ×3 (07:02→19:13)
[2022-06-16] MEDS: TRIAMCINOLONE ACETONIDE OINTMENT 0.1 % 1 APPLIC TOPICAL ×2 (07:03→19:13)
[2022-06-16 09:59] VITALS: TEMP 36.4; O2SAT 95
--- NOTE | 2022-06-16 12:30 | PC.SPIRITC ---
Juan and his , Zhanna, talked about how they met and details of their wedding day. I provided visit for connection and to wish them a happy anniversary.
[2022-06-16 15:00] VITALS: TEMP 36.5; O2SAT 94
[2022-06-16] MEDS: TRAMADOL HCL 50 MG TABLET PO (19:00)
[2022-06-16] MEDS: MIRTAZAPINE 15 MG TABLET PO (19:13)
[2022-06-16] MEDS: DONEPEZIL 10 MG TABLET PO (19:13)
[2022-06-16] MEDS: MELATONIN 5 MG TABLET PO (19:13)
[2022-06-16 23:00] VITALS: TEMP 36.7; O2SAT 94
[2022-06-17] MEDS: OMEPRAZOLE 40 MG CAPSULE.DR PO (06:37)
[2022-06-17] MEDS: LEVOTHYROXINE 100 MCG TABLET PO (06:37)
[2022-06-17] MEDS: METOPROLOL TARTRATE 25 MG TABLET PO ×2 (07:36→16:06)
[2022-06-17] MEDS: LACTOBACILLUS ACIDOPHILUS 1 TABLET 2 TAB PO ×3 (07:36→17:06)
[2022-06-17] MEDS: CARBIDOPA-LEVODOPA 25-100 TABLET 2 TAB PO ×3 (07:36→21:00)
[2022-06-17] MEDS: TRIAMCINOLONE ACETONIDE OINTMENT 0.1 % 1 APPLIC TOPICAL ×2 (07:36→21:00)
[2022-06-17] MEDS: ACETAMINOPHEN 500 MG TABLET 1000 MG PO ×3 (07:36→21:00)
[2022-06-17 10:26] VITALS: BP 140/88; PULSE 85; RESP 20; TEMP 36.4; O2SAT 94; BMI 26.1
[2022-06-17 15:00] VITALS: TEMP 36.7; O2SAT 94
[2022-06-17] MEDS: TRAMADOL HCL 50 MG TABLET PO (21:00)
[2022-06-17] MEDS: MELATONIN 5 MG TABLET PO (21:00)
[2022-06-17] MEDS: DONEPEZIL 10 MG TABLET PO (21:00)
[2022-06-17] MEDS: MIRTAZAPINE 15 MG TABLET PO (21:00)
[2022-06-17 23:00] VITALS: TEMP 36.7; O2SAT 93
[2022-06-18] MEDS: NYSTATIN CREAM 30 GM 1 APPLIC TOPICAL ×2 (06:55→20:32)
[2022-06-18] MEDS: LEVOTHYROXINE 100 MCG TABLET PO (07:17)
[2022-06-18] MEDS: OMEPRAZOLE 40 MG CAPSULE.DR PO (07:17)
[2022-06-18] MEDS: ACETAMINOPHEN 500 MG TABLET 1000 MG PO ×3 (08:52→20:27)
[2022-06-18] MEDS: CARBIDOPA-LEVODOPA 25-100 TABLET 2 TAB PO ×3 (08:52→20:27)
[2022-06-18] MEDS: LACTOBACILLUS ACIDOPHILUS 1 TABLET 2 TAB PO ×3 (08:53→17:09)
[2022-06-18] MEDS: TRIAMCINOLONE ACETONIDE OINTMENT 0.1 % 1 APPLIC TOPICAL ×2 (08:53→20:27)
[2022-06-18] MEDS: METOPROLOL TARTRATE 25 MG TABLET PO ×2 (08:53→15:35)
[2022-06-18 09:55] VITALS: TEMP 36.3; O2SAT 96
--- NOTE | 2022-06-18 10:57 | PC.NURSE ---
Status/Order: DIRECTOR OF ANALYTICAL DEVELOPMENT, Balbir here. Updated of increase agitation at night (frequent call lights, thrashing pillows/blankets, and pads on the floor, not sleeping well.) Order: Increase Remeron 15mg to 30mg @ HS.
[2022-06-18 15:00] VITALS: TEMP 36.2; O2SAT 94
[2022-06-18] MEDS: DONEPEZIL 10 MG TABLET PO (20:27)
[2022-06-18] MEDS: MELATONIN 5 MG TABLET PO (20:27)
[2022-06-18] MEDS: TRAMADOL HCL 50 MG TABLET PO (20:27)
[2022-06-18] MEDS: MIRTAZAPINE 15 MG TABLET 30 MG PO (20:27)
[2022-06-18 23:00] VITALS: TEMP 36.6; O2SAT 95
[2022-06-19] MEDS: OMEPRAZOLE 40 MG CAPSULE.DR PO (06:59)
[2022-06-19] MEDS: LEVOTHYROXINE 100 MCG TABLET PO (06:59)
[2022-06-19] MEDS: METOPROLOL TARTRATE 25 MG TABLET PO ×2 (07:31→15:21)
[2022-06-19] MEDS: TRIAMCINOLONE ACETONIDE OINTMENT 0.1 % 1 APPLIC TOPICAL ×2 (07:31→19:23)
[2022-06-19] MEDS: CARBIDOPA-LEVODOPA 25-100 TABLET 2 TAB PO ×3 (07:31→19:23)
[2022-06-19] MEDS: LACTOBACILLUS ACIDOPHILUS 1 TABLET 2 TAB PO ×3 (07:31→17:17)
[2022-06-19] MEDS: ACETAMINOPHEN 500 MG TABLET 1000 MG PO ×3 (07:31→19:23)
[2022-06-19 10:34] VITALS: TEMP 36.6; O2SAT 95
--- NOTE | 2022-06-19 11:38 | PC.NURSE ---
Adaptive silverware: Divided plate, built up silverware, sippy cup with lid for liquids d/t weakness in hands/arms d/t parkinsonism. Discussed with OT, IDT, MANAGER STARS. CP updated.
[2022-06-19 15:00] VITALS: TEMP 36.8; O2SAT 96
[2022-06-19] MEDS: DONEPEZIL 10 MG TABLET PO (19:23)
[2022-06-19] MEDS: TRAMADOL HCL 50 MG TABLET PO (19:23)
[2022-06-19] MEDS: MELATONIN 5 MG TABLET PO (19:23)
[2022-06-19] MEDS: MIRTAZAPINE 15 MG TABLET 30 MG PO (19:26)
[2022-06-19 23:00] VITALS: TEMP 36.8; O2SAT 93
[2022-06-20 07:00] VITALS: TEMP 36.6; O2SAT 93
[2022-06-20] MEDS: OMEPRAZOLE 40 MG CAPSULE.DR PO (07:16)
[2022-06-20] MEDS: LEVOTHYROXINE 100 MCG TABLET PO (07:16)
[2022-06-20] MEDS: ACETAMINOPHEN 500 MG TABLET 1000 MG PO ×3 (07:17→19:09)
[2022-06-20] MEDS: METOPROLOL TARTRATE 25 MG TABLET PO ×2 (07:17→15:28)
[2022-06-20] MEDS: CARBIDOPA-LEVODOPA 25-100 TABLET 2 TAB PO ×3 (07:17→19:09)
[2022-06-20] MEDS: LACTOBACILLUS ACIDOPHILUS 1 TABLET 2 TAB PO ×3 (07:17→16:29)
[2022-06-20] MEDS: TRIAMCINOLONE ACETONIDE OINTMENT 0.1 % 1 APPLIC TOPICAL ×2 (07:18→19:09)
[2022-06-20 15:00] VITALS: TEMP 36.7; O2SAT 98
[2022-06-20] MEDS: MELATONIN 5 MG TABLET PO (19:09)
[2022-06-20] MEDS: DONEPEZIL 10 MG TABLET PO (19:09)
[2022-06-20] MEDS: MIRTAZAPINE 15 MG TABLET 30 MG PO (19:09)
[2022-06-20] MEDS: TRAMADOL HCL 50 MG TABLET PO (19:10)
[2022-06-20 23:00] VITALS: TEMP 36.6; O2SAT 92
[2022-06-21 07:00] VITALS: TEMP 36.6; O2SAT 96
[2022-06-21] MEDS: ACETAMINOPHEN 500 MG TABLET 1000 MG PO ×3 (07:10→19:48)
[2022-06-21] MEDS: LEVOTHYROXINE 100 MCG TABLET PO (07:10)
[2022-06-21] MEDS: OMEPRAZOLE 40 MG CAPSULE.DR PO (07:10)
[2022-06-21] MEDS: TRIAMCINOLONE ACETONIDE OINTMENT 0.1 % 1 APPLIC TOPICAL ×2 (07:11→19:48)
[2022-06-21] MEDS: CARBIDOPA-LEVODOPA 25-100 TABLET 2 TAB PO ×3 (07:11→19:48)
[2022-06-21] MEDS: METOPROLOL TARTRATE 25 MG TABLET PO ×2 (07:11→15:38)
[2022-06-21] MEDS: LACTOBACILLUS ACIDOPHILUS 1 TABLET 2 TAB PO ×3 (07:11→17:22)
[2022-06-21 15:00] VITALS: TEMP 36.6; O2SAT 95
[2022-06-21] MEDS: MELATONIN 5 MG TABLET PO (19:48)
[2022-06-21] MEDS: MIRTAZAPINE 15 MG TABLET 30 MG PO (19:48)
[2022-06-21] MEDS: DONEPEZIL 10 MG TABLET PO (19:48)
[2022-06-21] MEDS: TRAMADOL HCL 50 MG TABLET PO (19:49)
[2022-06-21 23:00] VITALS: TEMP 36.6; O2SAT 95
--- NOTE | 2022-06-22 02:13 | PC.NURSE ---
WEEKLY CHARTING - WEEK 4: Vital signs reviewed - no concerns. Temporary and comprehensive care plan reviewed - no change. Night-time behaviors of excessive call light use after needs have been met, removing bedding and incontinent product and throwing on the floor, using call light while staff are already in the room, intentional urinating outside of incontinent product, etc. Currently receives melatonin 5mg at HS and mirtazapine 30 mg at HS with no noted adverse effects. Mirtazapine dose was increased on 06/18 d/t night-time agitation. Communicates verbally with difficulty, but can be understood. Speech is weak and garbled at times. Staff anticipate needs. Mild hearing impairment. Staff adjust tone and volume as needed. Vision is adequate with glasses. No change in orientation. All medications administered by licenses nurse. Health condition stable.
[2022-06-22] MEDS: OMEPRAZOLE 40 MG CAPSULE.DR PO (06:54)
[2022-06-22] MEDS: LEVOTHYROXINE 100 MCG TABLET PO (06:55)
[2022-06-22] MEDS: ACETAMINOPHEN 500 MG TABLET 1000 MG PO ×3 (08:09→19:18)
[2022-06-22] MEDS: METOPROLOL TARTRATE 25 MG TABLET PO ×2 (08:09→16:01)
[2022-06-22] MEDS: CARBIDOPA-LEVODOPA 25-100 TABLET 2 TAB PO ×3 (08:09→19:18)
[2022-06-22] MEDS: NYSTATIN CREAM 30 GM 1 APPLIC TOPICAL (08:10)
[2022-06-22] MEDS: TRIAMCINOLONE ACETONIDE OINTMENT 0.1 % 1 APPLIC TOPICAL ×2 (08:10→19:19)
[2022-06-22] MEDS: LACTOBACILLUS ACIDOPHILUS 1 TABLET 2 TAB PO ×3 (08:10→17:25)
[2022-06-22 09:46] VITALS: TEMP 36.2; O2SAT 96
--- NOTE | 2022-06-22 12:01 | PC.NURSE ---
COVID OUTBREAK TESTING Resident and residents gave verbal consent for outbreak COVID testing. Resident is currently asymptomatic.? Resident/family will be notified only if resident is positive.
[2022-06-22 12:25] LABS: SARS PCR* Negative SARS-CoV-2 (Negative)
--- NOTE | 2022-06-22 12:34 | PC.NURSE ---
Week #4: Comprehensive and temporary care plan reviewed. No changes made. Nothing added to temporary care plan. No changes noted in communication, hearing, vision or orientation. Speech is impaired r/t progressive aphasia but is usually understood. Needs also anticipated by staff. Hearing is okay. Vision impaired corrected by glasses. Has moderate to severe cognitive impairment. Chronic health condition stable. Nurse administer all medications. Vital signs reviewed, no concerns. Mood/Behavior: Has increase agitation during the night 06/18/22 Remeron increased to 30mg @ HS with no adverse effects noted. Melatonin 6mg @ HS.? Melatonin changed? to 5mg on 05/05 22 as ordered. Continue to monitor for changes in mood/behavior and refer to provider as needed.
[2022-06-22 15:42] VITALS: TEMP 36.6; O2SAT 95
[2022-06-22] MEDS: DONEPEZIL 10 MG TABLET PO (19:19)
[2022-06-22] MEDS: MIRTAZAPINE 15 MG TABLET 30 MG PO (19:19)
[2022-06-22] MEDS: TRAMADOL HCL 50 MG TABLET PO (19:19)
[2022-06-22] MEDS: MELATONIN 5 MG TABLET PO (19:19)
[2022-06-22 23:00] VITALS: TEMP 36.8; O2SAT 92
[2022-06-23] MEDS: OMEPRAZOLE 40 MG CAPSULE.DR PO (06:41)
[2022-06-23] MEDS: LEVOTHYROXINE 100 MCG TABLET PO (06:41)
[2022-06-23] MEDS: ACETAMINOPHEN 500 MG TABLET 1000 MG PO ×3 (07:35→19:15)
[2022-06-23] MEDS: TRIAMCINOLONE ACETONIDE OINTMENT 0.1 % 1 APPLIC TOPICAL ×2 (07:36→19:16)
[2022-06-23] MEDS: LACTOBACILLUS ACIDOPHILUS 1 TABLET 2 TAB PO ×3 (07:36→16:38)
[2022-06-23] MEDS: CARBIDOPA-LEVODOPA 25-100 TABLET 2 TAB PO ×3 (07:36→19:16)
[2022-06-23] MEDS: METOPROLOL TARTRATE 25 MG TABLET PO ×2 (07:36→15:26)
[2022-06-23 09:56] VITALS: TEMP 36.6; O2SAT 96
[2022-06-23 16:09] VITALS: TEMP 36.7; O2SAT 96
[2022-06-23] MEDS: TRAMADOL HCL 50 MG TABLET PO (19:16)
[2022-06-23] MEDS: MIRTAZAPINE 15 MG TABLET 30 MG PO (19:16)
[2022-06-23] MEDS: MELATONIN 5 MG TABLET PO (19:16)
[2022-06-23] MEDS: DONEPEZIL 10 MG TABLET PO (19:16)
[2022-06-23 23:00] VITALS: TEMP 36.4; O2SAT 95
[2022-06-24] MEDS: OMEPRAZOLE 40 MG CAPSULE.DR PO (07:05)
[2022-06-24] MEDS: METOPROLOL TARTRATE 25 MG TABLET PO ×2 (07:06→15:13)
[2022-06-24] MEDS: ACETAMINOPHEN 500 MG TABLET 1000 MG PO ×3 (07:06→20:45)
[2022-06-24] MEDS: NYSTATIN CREAM 30 GM 1 APPLIC TOPICAL (07:06)
[2022-06-24] MEDS: LEVOTHYROXINE 100 MCG TABLET PO (07:06)
[2022-06-24] MEDS: CARBIDOPA-LEVODOPA 25-100 TABLET 2 TAB PO ×3 (07:06→20:46)
[2022-06-24] MEDS: TRIAMCINOLONE ACETONIDE OINTMENT 0.1 % 1 APPLIC TOPICAL ×2 (07:06→20:46)
[2022-06-24] MEDS: LACTOBACILLUS ACIDOPHILUS 1 TABLET 2 TAB PO ×3 (07:06→17:09)
[2022-06-24 08:55] VITALS: BP 128/80; PULSE 65; RESP 18; TEMP 36.5; O2SAT 95; BMI 26.3
[2022-06-24 15:00] VITALS: TEMP 36.6; O2SAT 95
[2022-06-24] MEDS: MELATONIN 5 MG TABLET PO (20:46)
[2022-06-24] MEDS: MIRTAZAPINE 15 MG TABLET 30 MG PO (20:46)
[2022-06-24] MEDS: TRAMADOL HCL 50 MG TABLET PO (20:46)
[2022-06-24] MEDS: DONEPEZIL 10 MG TABLET PO (20:46)
[2022-06-24 23:00] VITALS: TEMP 36.9; O2SAT 96
[2022-06-25] MEDS: TRIAMCINOLONE ACETONIDE OINTMENT 0.1 % 1 APPLIC TOPICAL ×2 (07:23→19:17)
[2022-06-25] MEDS: LEVOTHYROXINE 100 MCG TABLET PO (07:23)
[2022-06-25] MEDS: LACTOBACILLUS ACIDOPHILUS 1 TABLET 2 TAB PO ×3 (07:23→16:43)
[2022-06-25] MEDS: OMEPRAZOLE 40 MG CAPSULE.DR PO (07:23)
[2022-06-25] MEDS: METOPROLOL TARTRATE 25 MG TABLET PO ×2 (07:23→16:07)
[2022-06-25] MEDS: CARBIDOPA-LEVODOPA 25-100 TABLET 2 TAB PO ×3 (07:24→19:17)
[2022-06-25] MEDS: ACETAMINOPHEN 500 MG TABLET 1000 MG PO ×3 (07:24→19:17)
[2022-06-25 10:20] VITALS: TEMP 36.5; O2SAT 95
[2022-06-25 15:00] VITALS: TEMP 36.6; O2SAT 95
[2022-06-25] MEDS: DONEPEZIL 10 MG TABLET PO (19:17)
[2022-06-25] MEDS: TRAMADOL HCL 50 MG TABLET PO (19:17)
[2022-06-25] MEDS: MIRTAZAPINE 15 MG TABLET 30 MG PO (19:17)
[2022-06-25] MEDS: MELATONIN 5 MG TABLET PO (19:17)
[2022-06-25 23:00] VITALS: TEMP 36.6; O2SAT 93
[2022-06-26] MEDS: NYSTATIN CREAM 30 GM 1 APPLIC TOPICAL ×2 (07:26→19:24)
[2022-06-26] MEDS: LEVOTHYROXINE 100 MCG TABLET PO (07:27)
[2022-06-26] MEDS: OMEPRAZOLE 40 MG CAPSULE.DR PO (07:27)
[2022-06-26] MEDS: LACTOBACILLUS ACIDOPHILUS 1 TABLET 2 TAB PO ×3 (07:28→17:29)
[2022-06-26] MEDS: TRIAMCINOLONE ACETONIDE OINTMENT 0.1 % 1 APPLIC TOPICAL ×2 (07:28→19:24)
[2022-06-26] MEDS: METOPROLOL TARTRATE 25 MG TABLET PO ×2 (07:28→15:48)
[2022-06-26] MEDS: CARBIDOPA-LEVODOPA 25-100 TABLET 2 TAB PO ×3 (07:28→19:23)
[2022-06-26] MEDS: ACETAMINOPHEN 500 MG TABLET 1000 MG PO ×3 (07:30→19:23)
[2022-06-26 10:01] VITALS: TEMP 36.6; O2SAT 94
[2022-06-26 15:00] VITALS: TEMP 36.6; O2SAT 96
[2022-06-26] MEDS: MELATONIN 5 MG TABLET PO (19:23)
[2022-06-26] MEDS: DONEPEZIL 10 MG TABLET PO (19:23)
[2022-06-26] MEDS: MIRTAZAPINE 15 MG TABLET 30 MG PO (19:23)
[2022-06-26] MEDS: TRAMADOL HCL 50 MG TABLET PO (19:24)
[2022-06-26 23:45] VITALS: TEMP 36.7; O2SAT 95
[2022-06-27] MEDS: NYSTATIN CREAM 30 GM 1 APPLIC TOPICAL ×2 (06:59→19:19)
[2022-06-27] MEDS: LACTOBACILLUS ACIDOPHILUS 1 TABLET 2 TAB PO ×3 (07:11→17:54)
[2022-06-27] MEDS: TRIAMCINOLONE ACETONIDE OINTMENT 0.1 % 1 APPLIC TOPICAL ×2 (07:11→19:18)
[2022-06-27] MEDS: METOPROLOL TARTRATE 25 MG TABLET PO ×2 (07:11→15:16)
[2022-06-27] MEDS: LEVOTHYROXINE 100 MCG TABLET PO (07:11)
[2022-06-27] MEDS: CARBIDOPA-LEVODOPA 25-100 TABLET 2 TAB PO ×3 (07:11→19:18)
[2022-06-27] MEDS: ACETAMINOPHEN 500 MG TABLET 1000 MG PO ×3 (07:11→19:18)
[2022-06-27] MEDS: OMEPRAZOLE 40 MG CAPSULE.DR PO (07:11)
[2022-06-27 09:55] VITALS: TEMP 36.3; O2SAT 96
[2022-06-27 15:00] VITALS: TEMP 36.6; O2SAT 95
[2022-06-27] MEDS: DONEPEZIL 10 MG TABLET PO (19:18)
[2022-06-27] MEDS: MELATONIN 5 MG TABLET PO (19:18)
[2022-06-27] MEDS: TRAMADOL HCL 50 MG TABLET PO (19:18)
[2022-06-27] MEDS: MIRTAZAPINE 15 MG TABLET 30 MG PO (19:18)
[2022-06-28 00:02] VITALS: TEMP 36.7; O2SAT 94
[2022-06-28] MEDS: ACETAMINOPHEN 500 MG TABLET 1000 MG PO ×3 (07:03→19:13)
[2022-06-28] MEDS: OMEPRAZOLE 40 MG CAPSULE.DR PO (07:03)
[2022-06-28] MEDS: LEVOTHYROXINE 100 MCG TABLET PO (07:03)
[2022-06-28] MEDS: METOPROLOL TARTRATE 25 MG TABLET PO ×2 (07:03→15:01)
[2022-06-28] MEDS: CARBIDOPA-LEVODOPA 25-100 TABLET 2 TAB PO ×3 (07:03→19:13)
[2022-06-28] MEDS: TRIAMCINOLONE ACETONIDE OINTMENT 0.1 % 1 APPLIC TOPICAL ×2 (07:04→19:13)
[2022-06-28] MEDS: LACTOBACILLUS ACIDOPHILUS 1 TABLET 2 TAB PO ×3 (07:04→17:20)
[2022-06-28 09:35] VITALS: TEMP 36.2; O2SAT 96
[2022-06-28] MEDS: NYSTATIN CREAM 30 GM 1 APPLIC TOPICAL ×2 (10:10→21:54)
[2022-06-28 15:00] VITALS: TEMP 36.6; O2SAT 94
[2022-06-28] MEDS: MELATONIN 5 MG TABLET PO (19:13)
[2022-06-28] MEDS: TRAMADOL HCL 50 MG TABLET PO (19:13)
[2022-06-28] MEDS: DONEPEZIL 10 MG TABLET PO (19:13)
[2022-06-28] MEDS: MIRTAZAPINE 15 MG TABLET 30 MG PO (19:13)
[2022-06-28 23:43] VITALS: TEMP 36.6; O2SAT 94
--- NOTE | 2022-06-29 00:48 | PC.NURSE ---
Weekly Charting Week 1: Vital signs reviewed. No concern. Comprehensive care plan reviewed. No changes made. Nothing added to temporary care plan. Receives Acetaminophen 100mg TID, Tramadol 50mg at HS and PRN daily for pain management. Requires extensive 1 staff assist of bathing, dressing, Able to perform grooming with staff encouragement and cues. Staff perform dental cleaning and oral care. Able to feed himself after Set up only, On regular diabetic diet and thin liquid. Has history of coughing when swallowing thin liquid. Staff monitor.
[2022-06-29 07:00] VITALS: TEMP 36.4; O2SAT 95
[2022-06-29] MEDS: LEVOTHYROXINE 100 MCG TABLET PO (07:27)
[2022-06-29] MEDS: OMEPRAZOLE 40 MG CAPSULE.DR PO (07:27)
[2022-06-29] MEDS: CARBIDOPA-LEVODOPA 25-100 TABLET 2 TAB PO ×3 (07:28→19:29)
[2022-06-29] MEDS: ACETAMINOPHEN 500 MG TABLET 1000 MG PO ×3 (07:28→19:29)
[2022-06-29] MEDS: METOPROLOL TARTRATE 25 MG TABLET PO ×2 (07:28→15:50)
[2022-06-29] MEDS: TRIAMCINOLONE ACETONIDE OINTMENT 0.1 % 1 APPLIC TOPICAL ×2 (07:29→19:29)
[2022-06-29] MEDS: LACTOBACILLUS ACIDOPHILUS 1 TABLET 2 TAB PO ×3 (07:29→17:33)
--- NOTE | 2022-06-29 10:49 | PC.NURSE ---
COVID OUTBREAK TESTING Resident and residents daughter gave verbal consent for outbreak COVID testing. Resident is currently asymptomatic.? Resident/family will be notified only if resident is positive.
[2022-06-29 11:47] LABS: SARS PCR* Negative SARS-CoV-2 (Negative)
--- NOTE | 2022-06-29 12:51 | PC.NURSE ---
Weekly Charting- Week 1: Vital signs reviewed with no concerns noted. Comprehensive and temporary care plans both reviewed with no changes made. Resident has had no specific complaints of pain noted over the last week. Current pain medication regimen in place includes Tylenol 1000 mg given TID and Tramadol 50 mg every HS. Resident also has PRN order for Tramadol 50 mg daily PRN though has not used over the last week. Resident requires extensive assist of 1 with bathing and dressing tasks. He is able to perform grooming with staff encouragement and cues provided. Resident able to feed self after setup assistance provided. Staff provided assistance with oral cares. Diabetic diet and thin liquids remain in place. Resident does have hx of coughing with thin liquids with staff continuing to observe.
[2022-06-29 15:00] VITALS: TEMP 35.8; O2SAT 94
[2022-06-29] MEDS: DONEPEZIL 10 MG TABLET PO (19:29)
[2022-06-29] MEDS: TRAMADOL HCL 50 MG TABLET PO (19:29)
[2022-06-29] MEDS: MELATONIN 5 MG TABLET PO (19:29)
[2022-06-29] MEDS: MIRTAZAPINE 15 MG TABLET 30 MG PO (19:29)
[2022-06-30 01:19] VITALS: TEMP 36.6; O2SAT 94
[2022-06-30] MEDS: LEVOTHYROXINE 100 MCG TABLET PO (07:16)
[2022-06-30] MEDS: OMEPRAZOLE 40 MG CAPSULE.DR PO (07:16)
[2022-06-30] MEDS: NYSTATIN CREAM 30 GM 1 APPLIC TOPICAL (07:30)
[2022-06-30] MEDS: METOPROLOL TARTRATE 25 MG TABLET PO ×2 (08:11→15:44)
[2022-06-30] MEDS: LACTOBACILLUS ACIDOPHILUS 1 TABLET 2 TAB PO ×3 (08:11→16:06)
[2022-06-30] MEDS: TRIAMCINOLONE ACETONIDE OINTMENT 0.1 % 1 APPLIC TOPICAL ×2 (08:11→19:43)
[2022-06-30] MEDS: CARBIDOPA-LEVODOPA 25-100 TABLET 2 TAB PO ×3 (08:11→19:42)
[2022-06-30] MEDS: ACETAMINOPHEN 500 MG TABLET 1000 MG PO ×3 (08:11→19:42)
[2022-06-30 09:49] VITALS: TEMP 36.2; O2SAT 94
[2022-06-30 15:00] VITALS: TEMP 36.1; O2SAT 98
[2022-06-30] MEDS: TRAMADOL HCL 50 MG TABLET PO (19:40)
[2022-06-30] MEDS: DONEPEZIL 10 MG TABLET PO (19:42)
[2022-06-30] MEDS: MELATONIN 5 MG TABLET PO (19:43)
[2022-06-30] MEDS: MIRTAZAPINE 15 MG TABLET 30 MG PO (19:43)
[2022-06-30 23:00] VITALS: TEMP 36.7; O2SAT 96
[2022-07-01] MEDS: LEVOTHYROXINE 100 MCG TABLET PO (06:38)
[2022-07-01] MEDS: OMEPRAZOLE 40 MG CAPSULE.DR PO (06:38)
[2022-07-01] MEDS: ACETAMINOPHEN 500 MG TABLET 1000 MG PO ×3 (07:13→19:17)
[2022-07-01] MEDS: CARBIDOPA-LEVODOPA 25-100 TABLET 2 TAB PO ×3 (07:13→19:17)
[2022-07-01] MEDS: LACTOBACILLUS ACIDOPHILUS 1 TABLET 2 TAB PO ×3 (07:13→17:33)
[2022-07-01] MEDS: METOPROLOL TARTRATE 25 MG TABLET PO ×2 (07:13→15:12)
[2022-07-01] MEDS: TRIAMCINOLONE ACETONIDE OINTMENT 0.1 % 1 APPLIC TOPICAL ×2 (07:13→19:20)
[2022-07-01 09:48] VITALS: BP 131/81; PULSE 63; RESP 18; TEMP 36.4; O2SAT 63; O2SAT 96; BMI 26.1
[2022-07-01 15:00] VITALS: TEMP 36.6; O2SAT 98
[2022-07-01] MEDS: DONEPEZIL 10 MG TABLET PO (19:17)
[2022-07-01] MEDS: MELATONIN 5 MG TABLET PO (19:18)
[2022-07-01] MEDS: MIRTAZAPINE 15 MG TABLET 30 MG PO (19:19)
[2022-07-01] MEDS: TRAMADOL HCL 50 MG TABLET PO (19:20)
[2022-07-01] MEDS: NYSTATIN CREAM 30 GM 1 APPLIC TOPICAL (21:22)
[2022-07-01 23:00] VITALS: TEMP 36.9; O2SAT 96
--- NOTE | 2022-07-02 05:27 | PC.NURSE ---
BEHAVIOR: Resident has removed shorts, incontinent product, and blankets and threw them on the floor x2 this shift. Resident was assisted with ge-cares and placement of new incontinent product and shorts and covered with blankets.
[2022-07-02] MEDS: OMEPRAZOLE 40 MG CAPSULE.DR PO (06:58)
[2022-07-02] MEDS: LEVOTHYROXINE 100 MCG TABLET PO (06:58)
[2022-07-02] MEDS: ACETAMINOPHEN 500 MG TABLET 1000 MG PO ×3 (08:21→19:28)
[2022-07-02] MEDS: CARBIDOPA-LEVODOPA 25-100 TABLET 2 TAB PO ×3 (08:21→19:28)
[2022-07-02] MEDS: METOPROLOL TARTRATE 25 MG TABLET PO ×2 (08:22→15:34)
[2022-07-02] MEDS: TRIAMCINOLONE ACETONIDE OINTMENT 0.1 % 1 APPLIC TOPICAL ×2 (08:22→20:57)
[2022-07-02] MEDS: LACTOBACILLUS ACIDOPHILUS 1 TABLET 2 TAB PO ×3 (08:22→17:18)
[2022-07-02 09:44] VITALS: TEMP 36.8; O2SAT 96
--- NOTE | 2022-07-02 13:31 | PC.NURSE ---
Order: Nystatin powder BID for redness on folds by Balbir BAILEY. Nystatin Cream has been used but not effective.
[2022-07-02 15:00] VITALS: TEMP 36.3; O2SAT 94
[2022-07-02] MEDS: MELATONIN 5 MG TABLET PO (19:28)
[2022-07-02] MEDS: DONEPEZIL 10 MG TABLET PO (19:28)
[2022-07-02] MEDS: MIRTAZAPINE 15 MG TABLET 30 MG PO (19:28)
[2022-07-02] MEDS: TRAMADOL HCL 50 MG TABLET PO (19:28)
[2022-07-02] MEDS: NYSTATIN POWDER 1 APPLIC TOPICAL (20:59)
[2022-07-02 23:00] VITALS: TEMP 36.8; O2SAT 96
[2022-07-03] MEDS: OMEPRAZOLE 40 MG CAPSULE.DR PO (06:37)
[2022-07-03] MEDS: LEVOTHYROXINE 100 MCG TABLET PO (06:37)
[2022-07-03] MEDS: CARBIDOPA-LEVODOPA 25-100 TABLET 2 TAB PO ×3 (07:04→19:51)
[2022-07-03] MEDS: ACETAMINOPHEN 500 MG TABLET 1000 MG PO ×3 (07:04→19:50)
[2022-07-03] MEDS: NYSTATIN POWDER 1 APPLIC TOPICAL ×2 (07:05→19:51)
[2022-07-03] MEDS: TRIAMCINOLONE ACETONIDE OINTMENT 0.1 % 1 APPLIC TOPICAL ×2 (07:05→19:52)
[2022-07-03] MEDS: LACTOBACILLUS ACIDOPHILUS 1 TABLET 2 TAB PO ×3 (07:05→15:44)
[2022-07-03] MEDS: METOPROLOL TARTRATE 25 MG TABLET PO ×2 (07:05→15:43)
[2022-07-03 10:22] VITALS: TEMP 36.4; O2SAT 95
--- NOTE | 2022-07-03 12:05 | PC.NURSE ---
Recert Visit: Resident seen by Dr. Goss. Orders reviewed and renewed of 75 days with changes. Orders: Check A1C, TSH on 07/10/22.
[2022-07-03 15:00] VITALS: TEMP 36.1; O2SAT 97
[2022-07-03] MEDS: DONEPEZIL 10 MG TABLET PO (19:51)
[2022-07-03] MEDS: MELATONIN 5 MG TABLET PO (19:51)
[2022-07-03] MEDS: MIRTAZAPINE 15 MG TABLET 30 MG PO (19:52)
[2022-07-03] MEDS: TRAMADOL HCL 50 MG TABLET PO (20:03)
[2022-07-03 23:00] VITALS: TEMP 37; O2SAT 94
[2022-07-04 07:00] VITALS: TEMP 36.7; O2SAT 93
[2022-07-04] MEDS: CARBIDOPA-LEVODOPA 25-100 TABLET 2 TAB PO ×3 (07:34→19:18)
[2022-07-04] MEDS: NYSTATIN POWDER 1 APPLIC TOPICAL ×2 (07:34→19:20)
[2022-07-04] MEDS: OMEPRAZOLE 40 MG CAPSULE.DR PO (07:34)
[2022-07-04] MEDS: METOPROLOL TARTRATE 25 MG TABLET PO ×2 (07:34→15:45)
[2022-07-04] MEDS: ACETAMINOPHEN 500 MG TABLET 1000 MG PO ×3 (07:34→19:17)
[2022-07-04] MEDS: LEVOTHYROXINE 100 MCG TABLET PO (07:34)
[2022-07-04] MEDS: TRIAMCINOLONE ACETONIDE OINTMENT 0.1 % 1 APPLIC TOPICAL ×2 (07:35→19:20)
[2022-07-04] MEDS: LACTOBACILLUS ACIDOPHILUS 1 TABLET 2 TAB PO ×3 (07:35→16:33)
--- NOTE | 2022-07-04 13:58 | PC.NURSE ---
Resident reported resident was unsteady on his feet/weaker upon rising this morning when transferring to toilet. Solar Lab Technician then assisted ARELY to assist resident from toilet to wheelchair. He has had no weakness noted since and has been able to safely transfer with assist of 1 using gait belt and walker.
[2022-07-04 15:00] VITALS: TEMP 36.3; O2SAT 97
[2022-07-04] MEDS: DONEPEZIL 10 MG TABLET PO (19:18)
[2022-07-04] MEDS: MIRTAZAPINE 15 MG TABLET 30 MG PO (19:19)
[2022-07-04] MEDS: TRAMADOL HCL 50 MG TABLET PO (19:20)
[2022-07-04] MEDS: MELATONIN 5 MG TABLET PO (19:20)
[2022-07-04 23:00] VITALS: TEMP 36.9; O2SAT 95
[2022-07-05] MEDS: ACETAMINOPHEN 500 MG TABLET 1000 MG PO ×3 (07:12→20:17)
[2022-07-05] MEDS: METOPROLOL TARTRATE 25 MG TABLET PO ×2 (07:12→15:30)
[2022-07-05] MEDS: NYSTATIN POWDER 1 APPLIC TOPICAL ×2 (07:12→20:17)
[2022-07-05] MEDS: CARBIDOPA-LEVODOPA 25-100 TABLET 2 TAB PO ×3 (07:12→20:17)
[2022-07-05] MEDS: LEVOTHYROXINE 100 MCG TABLET PO (07:12)
[2022-07-05] MEDS: OMEPRAZOLE 40 MG CAPSULE.DR PO (07:12)
[2022-07-05] MEDS: LACTOBACILLUS ACIDOPHILUS 1 TABLET 2 TAB PO ×3 (07:13→17:29)
[2022-07-05] MEDS: TRIAMCINOLONE ACETONIDE OINTMENT 0.1 % 1 APPLIC TOPICAL ×2 (07:13→20:18)
[2022-07-05 09:46] VITALS: TEMP 36.4; O2SAT 94
--- NOTE | 2022-07-05 13:21 | PC.NURSE ---
Pt ambulated in room to and from bathroom. Pt ate lunch in room.
[2022-07-05 15:00] VITALS: TEMP 36.2; O2SAT 94
[2022-07-05] MEDS: DONEPEZIL 10 MG TABLET PO (20:17)
[2022-07-05] MEDS: MELATONIN 5 MG TABLET PO (20:17)
[2022-07-05] MEDS: TRAMADOL HCL 50 MG TABLET PO (20:18)
[2022-07-05] MEDS: MIRTAZAPINE 15 MG TABLET 30 MG PO (20:18)
[2022-07-05] MEDS: NYSTATIN CREAM 30 GM 1 APPLIC TOPICAL (21:42)
[2022-07-05 23:00] VITALS: TEMP 36.6; O2SAT 95
--- NOTE | 2022-07-06 01:49 | PC.NURSE ---
WEEKLY CHARTING - WEEK 2: Vital signs reviewed - no concerns. Temporary and comprehensive care plan reviewed - no change. Requires limited to extensive assist of 1 with transfers. Able to propel w/c independently at times. Staff provide assistance for destination/distance. Assist of 1 with bed mobility. Uses bilateral 1/4 side rails as enabler.? Assist of 1-2 with gait belt and walker for ambulation. Ambulates to and from meals. Per last fall risk assessment, resident is at high risk for falls. Fall interventions: call light in reach, hourly visual checks, falling star magnet, non-slip footwear, bed in low position with brakes locked.
--- NOTE | 2022-07-06 05:05 | PC.NURSE ---
BEHAVIOR: Resident shredded incontinent brief to tiny pieces of fluff in bed. Resident was sleeping soundly prior to occurrence. Staff assisted to clean and place new incontinent product. No further behavior concerns this shift.
[2022-07-06 07:00] VITALS: TEMP 36.7; O2SAT 94
[2022-07-06] MEDS: OMEPRAZOLE 40 MG CAPSULE.DR PO (07:05)
[2022-07-06] MEDS: LEVOTHYROXINE 100 MCG TABLET PO (07:05)
[2022-07-06] MEDS: CARBIDOPA-LEVODOPA 25-100 TABLET 2 TAB PO ×3 (07:05→19:04)
[2022-07-06] MEDS: ACETAMINOPHEN 500 MG TABLET 1000 MG PO ×3 (07:05→19:04)
[2022-07-06] MEDS: METOPROLOL TARTRATE 25 MG TABLET PO ×2 (07:05→15:24)
[2022-07-06] MEDS: TRIAMCINOLONE ACETONIDE OINTMENT 0.1 % 1 APPLIC TOPICAL ×2 (07:06→19:09)
[2022-07-06] MEDS: NYSTATIN POWDER 1 APPLIC TOPICAL ×2 (07:06→20:34)
[2022-07-06] MEDS: LACTOBACILLUS ACIDOPHILUS 1 TABLET 2 TAB PO ×3 (07:06→17:21)
--- NOTE | 2022-07-06 12:40 | PC.NURSE ---
COVID OUTBREAK TESTING Resident and residents gave verbal consent for outbreak COVID testing. Resident is currently asymptomatic.? Resident/family will be notified only if resident is positive.
[2022-07-06 14:02] LABS: SARS PCR* Negative SARS-CoV-2 (Negative)
[2022-07-06 15:00] VITALS: TEMP 36.1; O2SAT 94
--- NOTE | 2022-07-06 16:19 | PC.NURSE ---
Weekly charting: week 2, Vitals reviewed and no concern, Comprehensive and temporary cares plan reviewed and no changes made, need assist of one with bed mobility, wheel chair positioning, transfer and ambulation using and gait belt and walker, able to propel self in his wheel chair, 1/4 side rail up when in bed, Resident at high risk for fall , with fall star on door
[2022-07-06] MEDS: MELATONIN 5 MG TABLET PO (19:04)
[2022-07-06] MEDS: DONEPEZIL 10 MG TABLET PO (19:04)
[2022-07-06] MEDS: TRAMADOL HCL 50 MG TABLET PO (19:04)
[2022-07-06] MEDS: MIRTAZAPINE 15 MG TABLET 30 MG PO (19:04)
[2022-07-06 23:00] VITALS: TEMP 36.8; O2SAT 94
[2022-07-07] MEDS: LACTOBACILLUS ACIDOPHILUS 1 TABLET 2 TAB PO ×3 (07:22→16:51)
[2022-07-07] MEDS: LEVOTHYROXINE 100 MCG TABLET PO (07:22)
[2022-07-07] MEDS: CARBIDOPA-LEVODOPA 25-100 TABLET 2 TAB PO ×3 (07:22→19:28)
[2022-07-07] MEDS: OMEPRAZOLE 40 MG CAPSULE.DR PO (07:22)
[2022-07-07] MEDS: NYSTATIN POWDER 1 APPLIC TOPICAL ×2 (07:22→19:28)
[2022-07-07] MEDS: ACETAMINOPHEN 500 MG TABLET 1000 MG PO ×3 (07:22→19:28)
[2022-07-07] MEDS: METOPROLOL TARTRATE 25 MG TABLET PO ×2 (07:22→15:06)
[2022-07-07] MEDS: TRIAMCINOLONE ACETONIDE OINTMENT 0.1 % 1 APPLIC TOPICAL ×2 (07:23→19:28)
[2022-07-07 10:18] VITALS: TEMP 36.8; O2SAT 96
[2022-07-07 15:54] VITALS: TEMP 36.6; O2SAT 93
[2022-07-07] MEDS: MELATONIN 5 MG TABLET PO (19:28)
[2022-07-07] MEDS: DONEPEZIL 10 MG TABLET PO (19:28)
[2022-07-07] MEDS: MIRTAZAPINE 15 MG TABLET 30 MG PO (19:28)
[2022-07-07] MEDS: TRAMADOL HCL 50 MG TABLET PO (19:29)
[2022-07-07 23:00] VITALS: TEMP 36.9; O2SAT 94
[2022-07-08 06:35] VITALS: BMI 26.3
[2022-07-08 07:00] VITALS: BP 167/96; PULSE 66; RESP 18; TEMP 36.5; O2SAT 93
[2022-07-08] MEDS: ACETAMINOPHEN 500 MG TABLET 1000 MG PO ×3 (07:09→19:07)
[2022-07-08] MEDS: OMEPRAZOLE 40 MG CAPSULE.DR PO (07:09)
[2022-07-08] MEDS: LEVOTHYROXINE 100 MCG TABLET PO (07:09)
[2022-07-08] MEDS: CARBIDOPA-LEVODOPA 25-100 TABLET 2 TAB PO ×3 (07:09→19:07)
[2022-07-08] MEDS: NYSTATIN POWDER 1 APPLIC TOPICAL ×2 (07:10→19:07)
[2022-07-08] MEDS: TRIAMCINOLONE ACETONIDE OINTMENT 0.1 % 1 APPLIC TOPICAL ×2 (07:10→19:08)
[2022-07-08] MEDS: METOPROLOL TARTRATE 25 MG TABLET PO ×2 (07:10→15:32)
[2022-07-08] MEDS: LACTOBACILLUS ACIDOPHILUS 1 TABLET 2 TAB PO ×3 (07:10→17:09)
--- NOTE | 2022-07-08 11:46 | PC.PHA1 ---
AUTO DRIVER PHARMACIST'S MEDICATION REVIEW: MEDICATION MONITORING:Mirtazapine 30 mg HS, dose increase from 15 mg IRREGULARITY OR COMMENTS: Above change appropriate but as mirtazapine dose increases its effects on sleepiness decreases. SUGGESTED COURSE OF ACTION TAKEN:No recommendations at this time.
[2022-07-08 15:00] VITALS: TEMP 36.2; O2SAT 95
[2022-07-08] MEDS: DONEPEZIL 10 MG TABLET PO (19:07)
[2022-07-08] MEDS: MELATONIN 5 MG TABLET PO (19:07)
[2022-07-08] MEDS: MIRTAZAPINE 15 MG TABLET 30 MG PO (19:08)
[2022-07-08] MEDS: TRAMADOL HCL 50 MG TABLET PO (19:09)
[2022-07-08 23:00] VITALS: TEMP 36.9; O2SAT 96
[2022-07-09] MEDS: METOPROLOL TARTRATE 25 MG TABLET PO ×2 (07:47→15:53)
[2022-07-09] MEDS: OMEPRAZOLE 40 MG CAPSULE.DR PO (07:47)
[2022-07-09] MEDS: LEVOTHYROXINE 100 MCG TABLET PO (07:47)
[2022-07-09] MEDS: LACTOBACILLUS ACIDOPHILUS 1 TABLET 2 TAB PO ×3 (07:47→16:29)
[2022-07-09] MEDS: TRIAMCINOLONE ACETONIDE OINTMENT 0.1 % 1 APPLIC TOPICAL ×2 (07:47→19:08)
[2022-07-09] MEDS: CARBIDOPA-LEVODOPA 25-100 TABLET 2 TAB PO ×3 (07:47→19:07)
[2022-07-09] MEDS: ACETAMINOPHEN 500 MG TABLET 1000 MG PO ×3 (07:47→19:06)
[2022-07-09] MEDS: NYSTATIN POWDER 1 APPLIC TOPICAL ×2 (07:47→19:07)
[2022-07-09 10:15] VITALS: TEMP 36.7; O2SAT 96
[2022-07-09 15:00] VITALS: TEMP 36.3; O2SAT 91
[2022-07-09] MEDS: DONEPEZIL 10 MG TABLET PO (19:07)
[2022-07-09] MEDS: MIRTAZAPINE 15 MG TABLET 30 MG PO (19:07)
[2022-07-09] MEDS: MELATONIN 5 MG TABLET PO (19:08)
[2022-07-09] MEDS: TRAMADOL HCL 50 MG TABLET PO (19:09)
[2022-07-09 23:00] VITALS: TEMP 36.8; O2SAT 96
[2022-07-10] MEDS: LEVOTHYROXINE 100 MCG TABLET PO (07:12)
[2022-07-10] MEDS: OMEPRAZOLE 40 MG CAPSULE.DR PO (07:12)
[2022-07-10] MEDS: CARBIDOPA-LEVODOPA 25-100 TABLET 2 TAB PO ×3 (07:12→19:51)
[2022-07-10] MEDS: ACETAMINOPHEN 500 MG TABLET 1000 MG PO ×3 (07:12→19:51)
[2022-07-10] MEDS: METOPROLOL TARTRATE 25 MG TABLET PO ×2 (07:13→15:35)
[2022-07-10] MEDS: NYSTATIN POWDER 1 APPLIC TOPICAL ×2 (07:13→19:52)
[2022-07-10] MEDS: LACTOBACILLUS ACIDOPHILUS 1 TABLET 2 TAB PO ×3 (07:13→17:12)
[2022-07-10] MEDS: TRIAMCINOLONE ACETONIDE OINTMENT 0.1 % 1 APPLIC TOPICAL ×2 (07:13→19:52)
[2022-07-10 07:51] LABS: Hemoglobin A1C* 5.67 % (0-5.6)
[2022-07-10 10:32] VITALS: TEMP 36.9; O2SAT 95
--- NOTE | 2022-07-10 11:11 | PC.NURSE ---
Lab/Order: AIC, & TSH results reviewed by Dr. Goss. Increase Levothyroxine to 112mcg daily, Discontinue Insulin Glargine, In 8 weeks recheck TSH, A1C (09/04/22).
[2022-07-10 15:00] VITALS: TEMP 36.6; O2SAT 92
[2022-07-10] MEDS: DONEPEZIL 10 MG TABLET PO (19:51)
[2022-07-10] MEDS: MIRTAZAPINE 15 MG TABLET 30 MG PO (19:52)
[2022-07-10] MEDS: TRAMADOL HCL 50 MG TABLET PO (19:53)
[2022-07-10] MEDS: MELATONIN 5 MG TABLET PO (19:53)
[2022-07-11 00:10] VITALS: TEMP 36.6; O2SAT 94
[2022-07-11] MEDS: OMEPRAZOLE 40 MG CAPSULE.DR PO (07:01)
[2022-07-11] MEDS: LEVOTHYROXINE 100 MCG TABLET 112 MCG PO (07:01)
[2022-07-11] MEDS: CARBIDOPA-LEVODOPA 25-100 TABLET 2 TAB PO ×3 (08:38→19:06)
[2022-07-11] MEDS: ACETAMINOPHEN 500 MG TABLET 1000 MG PO ×3 (08:38→19:06)
[2022-07-11] MEDS: NYSTATIN POWDER 1 APPLIC TOPICAL ×2 (08:38→19:07)
[2022-07-11] MEDS: TRIAMCINOLONE ACETONIDE OINTMENT 0.1 % 1 APPLIC TOPICAL ×2 (08:38→19:07)
[2022-07-11] MEDS: METOPROLOL TARTRATE 25 MG TABLET PO ×2 (08:38→15:00)
[2022-07-11] MEDS: LACTOBACILLUS ACIDOPHILUS 1 TABLET 2 TAB PO ×3 (08:38→16:56)
[2022-07-11 10:25] VITALS: TEMP 36.4; O2SAT 94
--- NOTE | 2022-07-11 11:41 | PC.NURSE ---
Status: Resident's feet noted to be somewhat less red
[2022-07-11 15:00] VITALS: TEMP 36.1; O2SAT 93
[2022-07-11] MEDS: MIRTAZAPINE 15 MG TABLET 30 MG PO (19:06)
[2022-07-11] MEDS: DONEPEZIL 10 MG TABLET PO (19:06)
[2022-07-11] MEDS: MELATONIN 5 MG TABLET PO (19:07)
[2022-07-11] MEDS: TRAMADOL HCL 50 MG TABLET PO (19:08)
[2022-07-11 23:51] VITALS: TEMP 36.4; O2SAT 99
--- NOTE | 2022-07-12 05:39 | PC.NURSE ---
Behavior Note: At 02:00, When doing rounds noted Res sitting in the edge of bed naked, Incontinent pad and short wet on the floor. All blanket threw on the floor. Staff fixed the bed, dress resident and put back to bed. Provided education to use call light for help going to the bathroom or can use the urinal.
[2022-07-12] MEDS: METOPROLOL TARTRATE 25 MG TABLET PO ×2 (06:59→15:05)
[2022-07-12] MEDS: TRIAMCINOLONE ACETONIDE OINTMENT 0.1 % 1 APPLIC TOPICAL ×2 (06:59→19:00)
[2022-07-12] MEDS: ACETAMINOPHEN 500 MG TABLET 1000 MG PO ×3 (06:59→19:00)
[2022-07-12] MEDS: NYSTATIN POWDER 1 APPLIC TOPICAL ×2 (06:59→19:00)
[2022-07-12] MEDS: OMEPRAZOLE 40 MG CAPSULE.DR PO (06:59)
[2022-07-12] MEDS: LACTOBACILLUS ACIDOPHILUS 1 TABLET 2 TAB PO ×3 (06:59→16:39)
[2022-07-12] MEDS: LEVOTHYROXINE 100 MCG TABLET 112 MCG PO (06:59)
[2022-07-12] MEDS: CARBIDOPA-LEVODOPA 25-100 TABLET 2 TAB PO ×3 (06:59→19:00)
[2022-07-12 10:10] VITALS: TEMP 36.6; O2SAT 94
[2022-07-12 15:00] VITALS: TEMP 36.8; O2SAT 94
[2022-07-12] MEDS: MIRTAZAPINE 15 MG TABLET 30 MG PO (19:00)
[2022-07-12] MEDS: DONEPEZIL 10 MG TABLET PO (19:00)
[2022-07-12] MEDS: MELATONIN 5 MG TABLET PO (19:00)
[2022-07-12] MEDS: TRAMADOL HCL 50 MG TABLET PO (19:01)
[2022-07-12 23:49] VITALS: TEMP 36.6; O2SAT 94
--- NOTE | 2022-07-13 01:06 | PC.NURSE ---
WEEKLY CHARTING WEEK 3: Vital signs reviewed, no concerns. Comprehensive and temporary care plan reviewed, No changes made. Skin: Has intermittent redness on bilateral feet, Triamcinolone applied. Redness to groin. PRN nystatin powder applied. Skin check after bath day and during pericares. Toileting: Able to used call light to use the urinal/ use the bathroom. Wear pull up, He will pull and rip the brief and throw on the floor. Requires assist of 1 staff to/from the bathroom. Salma cares, incontinent pad, clothing manage by staff.
[2022-07-13] MEDS: OMEPRAZOLE 40 MG CAPSULE.DR PO (06:47)
[2022-07-13] MEDS: LEVOTHYROXINE 100 MCG TABLET 112 MCG PO (06:47)
--- NOTE | 2022-07-13 07:05 | PC.NURSE ---
WEEKLY CHARTING-WEEK 3: Reviewed Vital Signs with no Concerns past month. Temporary care plan reviewed with no change made. Comprehensive care plan reviewed with no changes made this month. Weekly bath with skin check reviewed, documented redness to groin, with treatment to apply PRN nystatin powder till heal, redness to bilateral feet with treatment set up to apply Triamcinolone cream till heal. Assist of 1 with toileting to and from bathroom, dressing, wears pull ups. Assist of 1 with urinary incontinent product and ge cares at [facility], calls frequently to used the bathroom.
[2022-07-13] MEDS: ACETAMINOPHEN 500 MG TABLET 1000 MG PO ×3 (08:19→19:21)
[2022-07-13] MEDS: LACTOBACILLUS ACIDOPHILUS 1 TABLET 2 TAB PO ×3 (08:19→17:16)
[2022-07-13] MEDS: NYSTATIN POWDER 1 APPLIC TOPICAL ×2 (08:19→19:26)
[2022-07-13] MEDS: TRIAMCINOLONE ACETONIDE OINTMENT 0.1 % 1 APPLIC TOPICAL ×2 (08:19→19:26)
[2022-07-13] MEDS: CARBIDOPA-LEVODOPA 25-100 TABLET 2 TAB PO ×3 (08:19→19:21)
[2022-07-13] MEDS: METOPROLOL TARTRATE 25 MG TABLET PO ×2 (08:19→15:26)
[2022-07-13 10:12] VITALS: TEMP 36.8; O2SAT 96
--- NOTE | 2022-07-13 11:50 | PC.NURSE ---
OVID OUTBREAK TESTING Resident and residents gave verbal consent for outbreak COVID testing. Resident is currently asymptomatic.? Resident/family will be notified only if resident is positive.
[2022-07-13 14:03] LABS: SARS PCR* Negative SARS-CoV-2 (Negative)
[2022-07-13 15:03] VITALS: TEMP 36.2; O2SAT 96
[2022-07-13] MEDS: DONEPEZIL 10 MG TABLET PO (19:21)
[2022-07-13] MEDS: TRAMADOL HCL 50 MG TABLET PO (19:26)
[2022-07-13] MEDS: MELATONIN 5 MG TABLET PO (19:26)
[2022-07-13] MEDS: MIRTAZAPINE 15 MG TABLET 30 MG PO (19:26)
[2022-07-13 23:00] VITALS: TEMP 36.6; O2SAT 95
[2022-07-14] MEDS: LEVOTHYROXINE 100 MCG TABLET 112 MCG PO (06:52)
[2022-07-14] MEDS: OMEPRAZOLE 40 MG CAPSULE.DR PO (06:52)
[2022-07-14 07:00] VITALS: TEMP 36.7; O2SAT 98
[2022-07-14] MEDS: LACTOBACILLUS ACIDOPHILUS 1 TABLET 2 TAB PO ×3 (07:03→16:34)
[2022-07-14] MEDS: CARBIDOPA-LEVODOPA 25-100 TABLET 2 TAB PO ×3 (07:03→19:32)
[2022-07-14] MEDS: NYSTATIN POWDER 1 APPLIC TOPICAL ×2 (07:03→19:32)
[2022-07-14] MEDS: METOPROLOL TARTRATE 25 MG TABLET PO ×2 (07:03→15:23)
[2022-07-14] MEDS: TRIAMCINOLONE ACETONIDE OINTMENT 0.1 % 1 APPLIC TOPICAL ×2 (07:03→19:32)
[2022-07-14] MEDS: ACETAMINOPHEN 500 MG TABLET 1000 MG PO ×3 (07:03→19:31)
[2022-07-14 15:00] VITALS: TEMP 36.7; O2SAT 96
[2022-07-14] MEDS: DONEPEZIL 10 MG TABLET PO (19:32)
[2022-07-14] MEDS: MIRTAZAPINE 15 MG TABLET 30 MG PO (19:32)
[2022-07-14] MEDS: MELATONIN 5 MG TABLET PO (19:33)
[2022-07-14] MEDS: TRAMADOL HCL 50 MG TABLET PO (19:34)
[2022-07-14 23:00] VITALS: TEMP 36.3; O2SAT 96
[2022-07-15 07:00] VITALS: BP 141/79; PULSE 72; RESP 18; TEMP 36.4; O2SAT 96
[2022-07-15] MEDS: OMEPRAZOLE 40 MG CAPSULE.DR PO (07:45)
[2022-07-15] MEDS: LEVOTHYROXINE 100 MCG TABLET 112 MCG PO (07:46)
[2022-07-15] MEDS: LACTOBACILLUS ACIDOPHILUS 1 TABLET 2 TAB PO ×3 (07:47→17:17)
[2022-07-15] MEDS: METOPROLOL TARTRATE 25 MG TABLET PO ×2 (07:47→15:31)
[2022-07-15] MEDS: TRIAMCINOLONE ACETONIDE OINTMENT 0.1 % 1 APPLIC TOPICAL ×2 (07:47→19:28)
[2022-07-15] MEDS: ACETAMINOPHEN 500 MG TABLET 1000 MG PO ×3 (07:47→19:28)
[2022-07-15] MEDS: CARBIDOPA-LEVODOPA 25-100 TABLET 2 TAB PO ×3 (07:47→19:28)
[2022-07-15] MEDS: NYSTATIN POWDER 1 APPLIC TOPICAL ×2 (07:47→20:30)
[2022-07-15 09:12] VITALS: TEMP 36.4; O2SAT 96
[2022-07-15] MEDS: MELATONIN 5 MG TABLET PO (19:28)
[2022-07-15] MEDS: DONEPEZIL 10 MG TABLET PO (19:28)
[2022-07-15] MEDS: TRAMADOL HCL 50 MG TABLET PO (19:28)
[2022-07-15] MEDS: MIRTAZAPINE 15 MG TABLET 30 MG PO (19:28)
[2022-07-16] MEDS: OMEPRAZOLE 40 MG CAPSULE.DR PO (06:57)
[2022-07-16] MEDS: LEVOTHYROXINE 100 MCG TABLET 112 MCG PO (06:57)
[2022-07-16] MEDS: NYSTATIN POWDER 1 APPLIC TOPICAL ×2 (08:05→19:27)
[2022-07-16] MEDS: ACETAMINOPHEN 500 MG TABLET 1000 MG PO ×3 (08:05→19:27)
[2022-07-16] MEDS: CARBIDOPA-LEVODOPA 25-100 TABLET 2 TAB PO ×3 (08:05→19:27)
[2022-07-16] MEDS: METOPROLOL TARTRATE 25 MG TABLET PO ×2 (08:05→15:17)
[2022-07-16] MEDS: LACTOBACILLUS ACIDOPHILUS 1 TABLET 2 TAB PO ×3 (08:06→16:42)
[2022-07-16] MEDS: TRIAMCINOLONE ACETONIDE OINTMENT 0.1 % 1 APPLIC TOPICAL ×2 (08:06→19:28)
[2022-07-16] MEDS: DONEPEZIL 10 MG TABLET PO (19:27)
[2022-07-16] MEDS: MELATONIN 5 MG TABLET PO (19:27)
[2022-07-16] MEDS: MIRTAZAPINE 15 MG TABLET 30 MG PO (19:27)
[2022-07-16] MEDS: TRAMADOL HCL 50 MG TABLET PO (19:28)
[2022-07-17] MEDS: NYSTATIN POWDER 1 APPLIC TOPICAL ×2 (07:51→19:45)
[2022-07-17] MEDS: TRIAMCINOLONE ACETONIDE OINTMENT 0.1 % 1 APPLIC TOPICAL ×2 (07:51→19:46)
[2022-07-17] MEDS: OMEPRAZOLE 40 MG CAPSULE.DR PO (07:54)
[2022-07-17] MEDS: CARBIDOPA-LEVODOPA 25-100 TABLET 2 TAB PO ×3 (07:54→19:45)
[2022-07-17] MEDS: ACETAMINOPHEN 500 MG TABLET 1000 MG PO ×3 (07:54→19:45)
[2022-07-17] MEDS: LEVOTHYROXINE 100 MCG TABLET 112 MCG PO (07:54)
[2022-07-17] MEDS: LACTOBACILLUS ACIDOPHILUS 1 TABLET 2 TAB PO ×3 (07:55→16:35)
[2022-07-17] MEDS: METOPROLOL TARTRATE 25 MG TABLET PO ×2 (07:55→15:54)
--- NOTE | 2022-07-17 12:45 | PC.NURSE ---
ARELY reported resident had approximately 100 mL of undigested food emesis after lunch. He ate approximately 25% of meal before having emesis. Resident reports he is feeling better at this time when asked. Additional food offered at this time though resident reports he is not hungry when asked. Resident has snacks of sandwiches and bananas available in his room. Resident noted to be afebrile with temp of 97.2.
[2022-07-17] MEDS: MELATONIN 5 MG TABLET PO (19:45)
[2022-07-17] MEDS: DONEPEZIL 10 MG TABLET PO (19:45)
[2022-07-17] MEDS: MIRTAZAPINE 15 MG TABLET 30 MG PO (19:45)
[2022-07-17] MEDS: TRAMADOL HCL 50 MG TABLET PO (19:46)
[2022-07-18] MEDS: CARBIDOPA-LEVODOPA 25-100 TABLET 2 TAB PO ×3 (07:55→20:49)
[2022-07-18] MEDS: LEVOTHYROXINE 100 MCG TABLET 112 MCG PO (07:55)
[2022-07-18] MEDS: ACETAMINOPHEN 500 MG TABLET 1000 MG PO ×3 (07:55→20:49)
[2022-07-18] MEDS: OMEPRAZOLE 40 MG CAPSULE.DR PO (07:55)
[2022-07-18] MEDS: METOPROLOL TARTRATE 25 MG TABLET PO ×2 (07:55→16:07)
[2022-07-18] MEDS: TRIAMCINOLONE ACETONIDE OINTMENT 0.1 % 1 APPLIC TOPICAL ×2 (07:56→20:49)
[2022-07-18] MEDS: NYSTATIN POWDER 1 APPLIC TOPICAL (07:56)
[2022-07-18] MEDS: LACTOBACILLUS ACIDOPHILUS 1 TABLET 2 TAB PO ×3 (07:56→16:55)
[2022-07-18] MEDS: DONEPEZIL 10 MG TABLET PO (20:49)
[2022-07-18] MEDS: MIRTAZAPINE 15 MG TABLET 30 MG PO (20:49)
[2022-07-18] MEDS: TRAMADOL HCL 50 MG TABLET PO (20:49)
[2022-07-18] MEDS: MELATONIN 5 MG TABLET PO (20:49)
--- NOTE | 2022-07-18 21:07 | PC.NURSE ---
Skin: No redness noted in groin area. Intervention complete.
[2022-07-19] MEDS: OMEPRAZOLE 40 MG CAPSULE.DR PO (07:50)
[2022-07-19] MEDS: LEVOTHYROXINE 100 MCG TABLET 112 MCG PO (07:50)
[2022-07-19] MEDS: CARBIDOPA-LEVODOPA 25-100 TABLET 2 TAB PO ×3 (07:51→19:12)
[2022-07-19] MEDS: METOPROLOL TARTRATE 25 MG TABLET PO ×2 (07:51→15:53)
[2022-07-19] MEDS: ACETAMINOPHEN 500 MG TABLET 1000 MG PO ×3 (07:51→19:11)
[2022-07-19] MEDS: NYSTATIN POWDER 1 APPLIC TOPICAL ×2 (07:52→19:12)
[2022-07-19] MEDS: TRIAMCINOLONE ACETONIDE OINTMENT 0.1 % 1 APPLIC TOPICAL ×2 (07:52→19:12)
[2022-07-19] MEDS: LACTOBACILLUS ACIDOPHILUS 1 TABLET 2 TAB PO ×3 (07:52→16:54)
[2022-07-19] MEDS: MIRTAZAPINE 15 MG TABLET 30 MG PO (19:12)
[2022-07-19] MEDS: TRAMADOL HCL 50 MG TABLET PO (19:12)
[2022-07-19] MEDS: MELATONIN 5 MG TABLET PO (19:12)
[2022-07-19] MEDS: DONEPEZIL 10 MG TABLET PO (19:12)
--- NOTE | 2022-07-20 03:42 | PC.NURSE ---
WEEKLY CHARTING - WEEK 4: Vital signs reviewed - no concerns. Temporary and comprehensive care plan reviewed - no change. Documented behaviors of removing bedding and incontinent product and throwing on the floor and shredding incontinent products. Behaviors have decreased in frequency since last month. Receives melatonin 5mg at HS and mirtazapine 30 mg at HS with no noted adverse effects. Speech is weak and garbled at times, but can be understood. Staff anticipate needs. Mild hearing impairment. Adjust tone and volume as needed. Visual impairment corrected with glasses. No change in orientation. All medications administered by licenses nurse. Health condition stable
--- NOTE | 2022-07-20 06:59 | PC.NURSE ---
Weekly Charting, Week 4: Comprehensive and temporary care plan reviewed. No changes made. Nothing added to temporary care plan. No changes noted in communication, hearing, vision or orientation. Speech is impaired r/t progressive aphasia but is usually understood. Needs also anticipated by staff. Hearing is okay. Vision impaired corrected by glasses. Has moderate to severe cognitive impairment r/t dementia. Chronic health condition stable. 07/10 Insulin Glargine discontinued. Nurse administer all medications. Vital signs reviewed, few elevated BP's. Continue weekly monitoring and refer to provider as needed. Mood/Behavior: Has increase agitation during the night? 06/18/22? Remeron increased to 30mg @ HS with no adverse effects noted.? Melatonin 5mg @ HS. Continue to monitor for changes in mood/behavior and refer to provider as needed.
[2022-07-20] MEDS: OMEPRAZOLE 40 MG CAPSULE.DR PO (07:15)
[2022-07-20] MEDS: LEVOTHYROXINE 100 MCG TABLET 112 MCG PO (07:15)
[2022-07-20] MEDS: LACTOBACILLUS ACIDOPHILUS 1 TABLET 2 TAB PO ×3 (08:04→17:27)
[2022-07-20] MEDS: ACETAMINOPHEN 500 MG TABLET 1000 MG PO ×3 (08:04→19:13)
[2022-07-20] MEDS: NYSTATIN POWDER 1 APPLIC TOPICAL ×2 (08:04→19:13)
[2022-07-20] MEDS: TRIAMCINOLONE ACETONIDE OINTMENT 0.1 % 1 APPLIC TOPICAL ×2 (08:04→19:14)
[2022-07-20] MEDS: METOPROLOL TARTRATE 25 MG TABLET PO ×2 (08:04→16:12)
[2022-07-20] MEDS: CARBIDOPA-LEVODOPA 25-100 TABLET 2 TAB PO ×3 (08:04→19:13)
[2022-07-20] MEDS: MELATONIN 5 MG TABLET PO (19:13)
[2022-07-20] MEDS: DONEPEZIL 10 MG TABLET PO (19:13)
[2022-07-20] MEDS: TRAMADOL HCL 50 MG TABLET PO (19:14)
[2022-07-20] MEDS: MIRTAZAPINE 15 MG TABLET 30 MG PO (19:14)
[2022-07-21] MEDS: OMEPRAZOLE 40 MG CAPSULE.DR PO (07:10)
[2022-07-21] MEDS: ACETAMINOPHEN 500 MG TABLET 1000 MG PO ×3 (07:10→19:00)
[2022-07-21] MEDS: METOPROLOL TARTRATE 25 MG TABLET PO ×2 (07:10→15:17)
[2022-07-21] MEDS: CARBIDOPA-LEVODOPA 25-100 TABLET 2 TAB PO ×3 (07:10→19:00)
[2022-07-21] MEDS: LEVOTHYROXINE 112 MCG TABLET PO (07:10)
[2022-07-21] MEDS: LACTOBACILLUS ACIDOPHILUS 1 TABLET 2 TAB PO ×3 (07:11→17:02)
[2022-07-21] MEDS: TRIAMCINOLONE ACETONIDE OINTMENT 0.1 % 1 APPLIC TOPICAL ×2 (07:11→19:00)
[2022-07-21] MEDS: NYSTATIN POWDER 1 APPLIC TOPICAL (07:11)
--- NOTE | 2022-07-21 12:35 | PC.NURSE ---
Order: Change Nystatin powder BID to BID PRN by Balbir BAILEY.
[2022-07-21] MEDS: MIRTAZAPINE 15 MG TABLET 30 MG PO (19:00)
[2022-07-21] MEDS: DONEPEZIL 10 MG TABLET PO (19:00)
[2022-07-21] MEDS: MELATONIN 5 MG TABLET PO (19:00)
[2022-07-21] MEDS: TRAMADOL HCL 50 MG TABLET PO (19:12)
[2022-07-22 06:37] VITALS: BMI 26.3
[2022-07-22 06:51] VITALS: BP 157/91; PULSE 72; RESP 18; TEMP 36.1; O2SAT 94
[2022-07-22] MEDS: LEVOTHYROXINE 112 MCG TABLET PO (06:57)
[2022-07-22] MEDS: OMEPRAZOLE 40 MG CAPSULE.DR PO (06:57)
[2022-07-22] MEDS: TRIAMCINOLONE ACETONIDE OINTMENT 0.1 % 1 APPLIC TOPICAL ×2 (07:01→19:23)
[2022-07-22] MEDS: METOPROLOL TARTRATE 25 MG TABLET PO ×2 (07:01→15:11)
[2022-07-22] MEDS: CARBIDOPA-LEVODOPA 25-100 TABLET 2 TAB PO ×3 (07:01→19:23)
[2022-07-22] MEDS: LACTOBACILLUS ACIDOPHILUS 1 TABLET 2 TAB PO ×3 (07:01→17:16)
[2022-07-22] MEDS: ACETAMINOPHEN 500 MG TABLET 1000 MG PO ×3 (07:01→19:23)
--- NOTE | 2022-07-22 13:26 | PC.NURSE ---
Family Samirern: approached this news writer to notify resident has a runny nose and resident has seasonal allergy. At home she used to gave him Zyrtec 10mg daily. Requested an order for 60 days. COMMERCIAL LINES INSURANCE AGENT notified.
--- NOTE | 2022-07-22 13:58 | PC.NURSE ---
Order: Received order from [facility] SPECIAL EDUCATION TEACHER, Balbir -Zyrtec 10mg daily, end date 01/21/23.
--- NOTE | 2022-07-22 16:18 | PC.SPIRITC ---
Per request I provided visit to give Juan and his , Zhanna, the sacrament of communion. Zhanna also talked about their grandchildren and a previous hospitalization years ago and how that affected Juan along with how it strengthened their deborah. Juan was tearful at times. I provided visit to support deborah practices along with time to reflect.
[2022-07-22] MEDS: DONEPEZIL 10 MG TABLET PO (19:23)
[2022-07-22] MEDS: TRAMADOL HCL 50 MG TABLET PO (19:23)
[2022-07-22] MEDS: MELATONIN 5 MG TABLET PO (19:23)
[2022-07-22] MEDS: MIRTAZAPINE 15 MG TABLET 30 MG PO (19:23)
[2022-07-23] MEDS: OMEPRAZOLE 40 MG CAPSULE.DR PO (07:03)
[2022-07-23] MEDS: LEVOTHYROXINE 112 MCG TABLET PO (07:03)
[2022-07-23] MEDS: METOPROLOL TARTRATE 25 MG TABLET PO ×2 (08:04→15:13)
[2022-07-23] MEDS: LACTOBACILLUS ACIDOPHILUS 1 TABLET 2 TAB PO ×3 (08:04→16:38)
[2022-07-23] MEDS: CARBIDOPA-LEVODOPA 25-100 TABLET 2 TAB PO ×3 (08:04→20:01)
[2022-07-23] MEDS: ACETAMINOPHEN 500 MG TABLET 1000 MG PO ×3 (08:04→20:01)
[2022-07-23] MEDS: TRIAMCINOLONE ACETONIDE OINTMENT 0.1 % 1 APPLIC TOPICAL ×2 (08:05→20:01)
[2022-07-23] MEDS: CETIRIZINE HCL 10 MG TABLET PO (08:05)
[2022-07-23] MEDS: MELATONIN 5 MG TABLET PO (20:01)
[2022-07-23] MEDS: DONEPEZIL 10 MG TABLET PO (20:01)
[2022-07-23] MEDS: MIRTAZAPINE 15 MG TABLET 30 MG PO (20:01)
[2022-07-23] MEDS: TRAMADOL HCL 50 MG TABLET PO (20:02)
[2022-07-24] MEDS: OMEPRAZOLE 40 MG CAPSULE.DR PO (07:09)
[2022-07-24] MEDS: LEVOTHYROXINE 112 MCG TABLET PO (07:09)
[2022-07-24] MEDS: ACETAMINOPHEN 500 MG TABLET 1000 MG PO ×3 (08:20→20:31)
[2022-07-24] MEDS: METOPROLOL TARTRATE 25 MG TABLET PO ×2 (08:20→15:09)
[2022-07-24] MEDS: LACTOBACILLUS ACIDOPHILUS 1 TABLET 2 TAB PO ×3 (08:20→17:02)
[2022-07-24] MEDS: CARBIDOPA-LEVODOPA 25-100 TABLET 2 TAB PO ×3 (08:20→20:31)
[2022-07-24] MEDS: CETIRIZINE HCL 10 MG TABLET PO (08:20)
[2022-07-24] MEDS: TRIAMCINOLONE ACETONIDE OINTMENT 0.1 % 1 APPLIC TOPICAL ×2 (08:20→20:32)
[2022-07-24] MEDS: MELATONIN 5 MG TABLET PO (20:31)
[2022-07-24] MEDS: DONEPEZIL 10 MG TABLET PO (20:31)
[2022-07-24] MEDS: TRAMADOL HCL 50 MG TABLET PO (20:31)
[2022-07-24] MEDS: MIRTAZAPINE 15 MG TABLET 30 MG PO (20:31)
[2022-07-25] MEDS: OMEPRAZOLE 40 MG CAPSULE.DR PO (07:20)
[2022-07-25] MEDS: LEVOTHYROXINE 112 MCG TABLET PO (07:20)
[2022-07-25] MEDS: CARBIDOPA-LEVODOPA 25-100 TABLET 2 TAB PO ×3 (08:11→19:21)
[2022-07-25] MEDS: LACTOBACILLUS ACIDOPHILUS 1 TABLET 2 TAB PO ×3 (08:11→17:36)
[2022-07-25] MEDS: TRIAMCINOLONE ACETONIDE OINTMENT 0.1 % 1 APPLIC TOPICAL ×2 (08:11→19:21)
[2022-07-25] MEDS: METOPROLOL TARTRATE 25 MG TABLET PO ×2 (08:11→15:20)
[2022-07-25] MEDS: CETIRIZINE HCL 10 MG TABLET PO (08:11)
[2022-07-25] MEDS: ACETAMINOPHEN 500 MG TABLET 1000 MG PO ×3 (08:11→19:21)
[2022-07-25] MEDS: TRAMADOL HCL 50 MG TABLET PO (19:21)
[2022-07-25] MEDS: MIRTAZAPINE 15 MG TABLET 30 MG PO (19:21)
[2022-07-25] MEDS: DONEPEZIL 10 MG TABLET PO (19:21)
[2022-07-25] MEDS: MELATONIN 5 MG TABLET PO (19:21)
[2022-07-26] MEDS: OMEPRAZOLE 40 MG CAPSULE.DR PO (06:50)
[2022-07-26] MEDS: LEVOTHYROXINE 112 MCG TABLET PO (06:50)
[2022-07-26] MEDS: TRIAMCINOLONE ACETONIDE OINTMENT 0.1 % 1 APPLIC TOPICAL ×2 (08:01→19:24)
[2022-07-26] MEDS: METOPROLOL TARTRATE 25 MG TABLET PO ×2 (08:01→15:25)
[2022-07-26] MEDS: CETIRIZINE HCL 10 MG TABLET PO (08:01)
[2022-07-26] MEDS: ACETAMINOPHEN 500 MG TABLET 1000 MG PO ×3 (08:01→19:24)
[2022-07-26] MEDS: CARBIDOPA-LEVODOPA 25-100 TABLET 2 TAB PO ×3 (08:01→19:24)
[2022-07-26] MEDS: LACTOBACILLUS ACIDOPHILUS 1 TABLET 2 TAB PO ×3 (08:01→17:27)
[2022-07-26] MEDS: MIRTAZAPINE 15 MG TABLET 30 MG PO (19:24)
[2022-07-26] MEDS: TRAMADOL HCL 50 MG TABLET PO (19:24)
[2022-07-26] MEDS: DONEPEZIL 10 MG TABLET PO (19:24)
[2022-07-26] MEDS: MELATONIN 5 MG TABLET PO (19:24)
--- NOTE | 2022-07-27 03:04 | PC.NURSE ---
WEEKLY CHARTING WEEK 1 Vital signs reviewed, Noted elevated BP. Receives Metoprolol 25mg BID. Comprehensive care plan and temporary care planed reviewed with no changes made. Pain regimen Acetaminophen 1000mg TID scheduled and PRN daily. Tramadol 50mg at night and PRN. No use of PRN noted. ADLs. Resident requires staff 1 assist of bathing, dressing, grooming. Able to participate when staff cues to perform. Staff do denture cleaning. No changes of appetite noted. Res ate small portion in dining due to Res ate a lots of snack that family brings. Has history of coughing issue. Staff to continue to monitor. He ate independent after set up.
[2022-07-27] MEDS: LEVOTHYROXINE 112 MCG TABLET PO (06:47)
[2022-07-27] MEDS: OMEPRAZOLE 40 MG CAPSULE.DR PO (06:47)
[2022-07-27] MEDS: METOPROLOL TARTRATE 25 MG TABLET PO ×2 (08:06→15:18)
[2022-07-27] MEDS: TRIAMCINOLONE ACETONIDE OINTMENT 0.1 % 1 APPLIC TOPICAL ×2 (08:06→19:45)
[2022-07-27] MEDS: LACTOBACILLUS ACIDOPHILUS 1 TABLET 2 TAB PO ×3 (08:06→16:45)
[2022-07-27] MEDS: CETIRIZINE HCL 10 MG TABLET PO (08:06)
[2022-07-27] MEDS: ACETAMINOPHEN 500 MG TABLET 1000 MG PO ×3 (08:06→19:45)
[2022-07-27] MEDS: CARBIDOPA-LEVODOPA 25-100 TABLET 2 TAB PO ×3 (08:06→19:45)
--- NOTE | 2022-07-27 08:25 | PC.NURSE ---
WEEKLY CHARTING -WEEK 1: Pain & ADL`s . Review vital signs and currently resident is receiving Tab Metoprolol 25mg BD for elevated BP. Comprehensive care plan and temporary care planed reviewed with no changes made. Pain regimen Acetaminophen 1000mg TID scheduled and PRN daily. Tramadol 50mg at night and PRN. Currently pain medication given are effective and he has no taken any PRN . ADLs. Resident requires staff 1 assist of bathing, dressing and grooming. Able to participate when staff cues to perform. No changes of appetite noted. He does most of the daily chorus routinely with staff assist. Appetite is good and resident also enjoys some of the snack brought from home. Resident do cough often but does not have any choking episode. He is independent in eating however staff need to set up.
[2022-07-27] MEDS: TRAMADOL HCL 50 MG TABLET PO (19:45)
[2022-07-27] MEDS: DONEPEZIL 10 MG TABLET PO (19:45)
[2022-07-27] MEDS: MIRTAZAPINE 15 MG TABLET 30 MG PO (19:45)
[2022-07-27] MEDS: MELATONIN 5 MG TABLET PO (19:45)
[2022-07-28] MEDS: LEVOTHYROXINE 112 MCG TABLET PO (07:40)
[2022-07-28] MEDS: OMEPRAZOLE 40 MG CAPSULE.DR PO (07:40)
[2022-07-28] MEDS: CARBIDOPA-LEVODOPA 25-100 TABLET 2 TAB PO ×3 (07:41→19:18)
[2022-07-28] MEDS: TRIAMCINOLONE ACETONIDE OINTMENT 0.1 % 1 APPLIC TOPICAL (07:44)
[2022-07-28] MEDS: ACETAMINOPHEN 500 MG TABLET 1000 MG PO ×3 (08:09→19:18)
[2022-07-28] MEDS: METOPROLOL TARTRATE 25 MG TABLET PO ×2 (08:09→15:12)
[2022-07-28] MEDS: LACTOBACILLUS ACIDOPHILUS 1 TABLET 2 TAB PO ×3 (08:10→16:46)
[2022-07-28] MEDS: CETIRIZINE HCL 10 MG TABLET PO (08:12)
--- NOTE | 2022-07-28 11:48 | PC.NURSE ---
Skin/Order: SAMPLE TAILOR, Balbir here. Updated rash in feet no improvement with Triamcinolone Cream. Order: Clobetasol 0.025% - apply to feet BID X 2 weeks then D/C. Following completion of clobetasol cream, apply Vanicream BID on going.
[2022-07-28] MEDS: DONEPEZIL 10 MG TABLET PO (19:18)
[2022-07-28] MEDS: MELATONIN 5 MG TABLET PO (19:19)
[2022-07-28] MEDS: MIRTAZAPINE 15 MG TABLET 30 MG PO (19:19)
[2022-07-28] MEDS: TRAMADOL HCL 50 MG TABLET PO (19:20)
[2022-07-29] MEDS: LEVOTHYROXINE 112 MCG TABLET PO (06:32)
[2022-07-29] MEDS: OMEPRAZOLE 40 MG CAPSULE.DR PO (06:32)
[2022-07-29] MEDS: ACETAMINOPHEN 500 MG TABLET 1000 MG PO ×3 (07:17→19:29)
[2022-07-29] MEDS: METOPROLOL TARTRATE 25 MG TABLET PO ×2 (07:18→16:06)
[2022-07-29] MEDS: CETIRIZINE HCL 10 MG TABLET PO (07:18)
[2022-07-29] MEDS: CARBIDOPA-LEVODOPA 25-100 TABLET 2 TAB PO ×3 (07:18→19:29)
[2022-07-29] MEDS: LACTOBACILLUS ACIDOPHILUS 1 TABLET 2 TAB PO ×3 (07:18→16:41)
[2022-07-29 09:28] VITALS: BMI 26.3
[2022-07-29 13:06] VITALS: BP 124/75; PULSE 66; RESP 18; TEMP 36.2; O2SAT 94
[2022-07-29] MEDS: MELATONIN 5 MG TABLET PO (19:29)
[2022-07-29] MEDS: MIRTAZAPINE 15 MG TABLET 30 MG PO (19:29)
[2022-07-29] MEDS: DONEPEZIL 10 MG TABLET PO (19:29)
[2022-07-29] MEDS: TRAMADOL HCL 50 MG TABLET PO (19:30)
[2022-07-30] MEDS: LEVOTHYROXINE 112 MCG TABLET PO (07:05)
[2022-07-30] MEDS: OMEPRAZOLE 40 MG CAPSULE.DR PO (07:05)
[2022-07-30] MEDS: ACETAMINOPHEN 500 MG TABLET 1000 MG PO ×3 (08:29→19:11)
[2022-07-30] MEDS: CARBIDOPA-LEVODOPA 25-100 TABLET 2 TAB PO ×3 (08:30→19:11)
[2022-07-30] MEDS: METOPROLOL TARTRATE 25 MG TABLET PO ×2 (08:30→15:28)
[2022-07-30] MEDS: CETIRIZINE HCL 10 MG TABLET PO (08:30)
[2022-07-30] MEDS: LACTOBACILLUS ACIDOPHILUS 1 TABLET 2 TAB PO ×3 (08:30→17:07)
--- NOTE | 2022-07-30 14:48 | PC.NURSE ---
Discussed Remeron use with SOLAR THERMAL INSTALLER Soni Mcgregor today. At this time resident is sleeping well and no changes to be made with GDR. Next review to be done in August 2022.
[2022-07-30] MEDS: MIRTAZAPINE 15 MG TABLET 30 MG PO (19:11)
[2022-07-30] MEDS: DONEPEZIL 10 MG TABLET PO (19:11)
[2022-07-30] MEDS: MELATONIN 5 MG TABLET PO (19:12)
[2022-07-30] MEDS: TRAMADOL HCL 50 MG TABLET PO (19:12)
[2022-07-31] MEDS: OMEPRAZOLE 40 MG CAPSULE.DR PO (06:52)
[2022-07-31] MEDS: LEVOTHYROXINE 112 MCG TABLET PO (06:52)
[2022-07-31] MEDS: CETIRIZINE HCL 10 MG TABLET PO (07:17)
[2022-07-31] MEDS: CARBIDOPA-LEVODOPA 25-100 TABLET 2 TAB PO ×3 (07:17→19:31)
[2022-07-31] MEDS: LACTOBACILLUS ACIDOPHILUS 1 TABLET 2 TAB PO ×3 (07:17→16:36)
[2022-07-31] MEDS: ACETAMINOPHEN 500 MG TABLET 1000 MG PO ×3 (07:17→19:31)
[2022-07-31] MEDS: METOPROLOL TARTRATE 25 MG TABLET PO ×2 (07:17→15:35)
[2022-07-31] MEDS: NYSTATIN POWDER 1 APPLIC TOPICAL (07:18)
[2022-07-31] MEDS: DONEPEZIL 10 MG TABLET PO (19:31)
[2022-07-31] MEDS: MIRTAZAPINE 15 MG TABLET 30 MG PO (19:31)
[2022-07-31] MEDS: MELATONIN 5 MG TABLET PO (19:31)
[2022-07-31] MEDS: TRAMADOL HCL 50 MG TABLET PO (19:31)
[2022-08-01] MEDS: LEVOTHYROXINE 112 MCG TABLET PO (07:43)
[2022-08-01] MEDS: OMEPRAZOLE 40 MG CAPSULE.DR PO (07:43)
[2022-08-01] MEDS: CARBIDOPA-LEVODOPA 25-100 TABLET 2 TAB PO ×3 (07:44→19:16)
[2022-08-01] MEDS: ACETAMINOPHEN 500 MG TABLET 1000 MG PO ×3 (08:02→19:15)
[2022-08-01] MEDS: METOPROLOL TARTRATE 25 MG TABLET PO ×2 (08:02→15:42)
[2022-08-01] MEDS: CETIRIZINE HCL 10 MG TABLET PO (08:04)
[2022-08-01] MEDS: LACTOBACILLUS ACIDOPHILUS 1 TABLET 2 TAB PO ×3 (08:04→17:03)
[2022-08-01] MEDS: TRAMADOL HCL 50 MG TABLET PO (19:16)
[2022-08-01] MEDS: DONEPEZIL 10 MG TABLET PO (19:16)
[2022-08-01] MEDS: MELATONIN 5 MG TABLET PO (19:16)
[2022-08-01] MEDS: MIRTAZAPINE 15 MG TABLET 30 MG PO (19:16)
[2022-08-02] MEDS: OMEPRAZOLE 40 MG CAPSULE.DR PO (07:36)
[2022-08-02] MEDS: CARBIDOPA-LEVODOPA 25-100 TABLET 2 TAB PO ×3 (07:37→19:10)
[2022-08-02] MEDS: ACETAMINOPHEN 500 MG TABLET 1000 MG PO ×3 (07:37→19:10)
[2022-08-02] MEDS: LEVOTHYROXINE 112 MCG TABLET PO (07:37)
[2022-08-02] MEDS: METOPROLOL TARTRATE 25 MG TABLET PO ×2 (07:38→15:29)
[2022-08-02] MEDS: LACTOBACILLUS ACIDOPHILUS 1 TABLET 2 TAB PO ×3 (07:38→16:40)
[2022-08-02] MEDS: CETIRIZINE HCL 10 MG TABLET PO (07:38)
[2022-08-02] MEDS: MIRTAZAPINE 15 MG TABLET 30 MG PO (19:10)
[2022-08-02] MEDS: TRAMADOL HCL 50 MG TABLET PO (19:10)
[2022-08-02] MEDS: DONEPEZIL 10 MG TABLET PO (19:10)
[2022-08-02] MEDS: MELATONIN 5 MG TABLET PO (19:10)
--- NOTE | 2022-08-03 02:10 | PC.NURSE ---
WEEKLY CHARTING - WEEK 2: Vital signs reviewed. Few elevated BP values. Continue to monitor and update provider as needed. Temporary and comprehensive care plan reviewed - no change. Limited to extensive assist of 1 with transfers. Able to propel w/c independently at times. Assistance provided by staff for distance/destination. Assist of 1 with cues for bed mobility. Bilateral 1/4 side rails up at all times as enabler for bed mobility.? Requires assist of 1-2 with gait belt and walker for ambulation. Ambulates to and from meals. Last fall risk assessment indicates resident is at high risk for falls. Fall interventions: anticipate needs, call light in reach, hourly visual checks, falling star magnet, non-slip footwear, bed in low position with brakes locked.
[2022-08-03] MEDS: OMEPRAZOLE 40 MG CAPSULE.DR PO (06:56)
[2022-08-03] MEDS: LEVOTHYROXINE 112 MCG TABLET PO (06:56)
[2022-08-03] MEDS: NYSTATIN POWDER 1 APPLIC TOPICAL (06:57)
--- NOTE | 2022-08-03 07:15 | PC.NURSE ---
Weekly Charting, Week 2 - Mobility: Comprehensive and temporary care plan reviewed. No changes made, nothing added to temporary care plan. Resident needs one assist, gait belt and walker with transfers and ambulation to/from meals. Is able to wheel self short distances, staff wheels to longer distances/destinations. Turn/offload every 3 hours with assist. Has bilateral 1/4 side rails up all times as an enabler for bed mobility.? No alarms. Vital signs reviewed, few elevated BP. Continue weekly monitoring, & refer to provider as needed. Fall: No falls the past month. Remains a high fall risk according to assessment done on 05/14/22. Fall interventions: Call light within reach, bed in low position locked, falling star magnet in door, gripper socks in bed.
[2022-08-03] MEDS: METOPROLOL TARTRATE 25 MG TABLET PO ×2 (08:19→15:28)
[2022-08-03] MEDS: CARBIDOPA-LEVODOPA 25-100 TABLET 2 TAB PO ×3 (08:19→19:01)
[2022-08-03] MEDS: ACETAMINOPHEN 500 MG TABLET 1000 MG PO ×3 (08:19→19:01)
[2022-08-03] MEDS: LACTOBACILLUS ACIDOPHILUS 1 TABLET 2 TAB PO ×3 (08:19→16:42)
[2022-08-03] MEDS: CETIRIZINE HCL 10 MG TABLET PO (08:19)
[2022-08-03] MEDS: DONEPEZIL 10 MG TABLET PO (19:01)
[2022-08-03] MEDS: MELATONIN 5 MG TABLET PO (19:01)
[2022-08-03] MEDS: TRAMADOL HCL 50 MG TABLET PO (19:02)
[2022-08-03] MEDS: MIRTAZAPINE 15 MG TABLET 30 MG PO (19:02)
[2022-08-04] MEDS: OMEPRAZOLE 40 MG CAPSULE.DR PO (06:35)
[2022-08-04] MEDS: LEVOTHYROXINE 112 MCG TABLET PO (06:35)
[2022-08-04] MEDS: METOPROLOL TARTRATE 25 MG TABLET PO ×2 (07:40→15:29)
[2022-08-04] MEDS: ACETAMINOPHEN 500 MG TABLET 1000 MG PO ×3 (07:40→19:11)
[2022-08-04] MEDS: CARBIDOPA-LEVODOPA 25-100 TABLET 2 TAB PO ×3 (07:40→19:11)
[2022-08-04] MEDS: NYSTATIN POWDER 1 APPLIC TOPICAL ×2 (07:41→21:25)
[2022-08-04] MEDS: LACTOBACILLUS ACIDOPHILUS 1 TABLET 2 TAB PO ×3 (07:41→16:37)
[2022-08-04] MEDS: CETIRIZINE HCL 10 MG TABLET PO (07:41)
[2022-08-04 14:53] VITALS: BMI 26.3
[2022-08-04] MEDS: MIRTAZAPINE 15 MG TABLET 30 MG PO (19:11)
[2022-08-04] MEDS: TRAMADOL HCL 50 MG TABLET PO (19:11)
[2022-08-04] MEDS: MELATONIN 5 MG TABLET PO (19:11)
[2022-08-04] MEDS: DONEPEZIL 10 MG TABLET PO (19:11)
[2022-08-05] MEDS: NYSTATIN POWDER 1 APPLIC TOPICAL (06:45)
[2022-08-05] MEDS: OMEPRAZOLE 40 MG CAPSULE.DR PO (07:10)
[2022-08-05] MEDS: ACETAMINOPHEN 500 MG TABLET 1000 MG PO ×3 (07:10→19:08)
[2022-08-05] MEDS: CARBIDOPA-LEVODOPA 25-100 TABLET 2 TAB PO ×3 (07:10→19:09)
[2022-08-05] MEDS: LEVOTHYROXINE 112 MCG TABLET PO (07:10)
[2022-08-05] MEDS: LACTOBACILLUS ACIDOPHILUS 1 TABLET 2 TAB PO ×3 (07:11→17:24)
[2022-08-05] MEDS: CETIRIZINE HCL 10 MG TABLET PO (07:11)
[2022-08-05] MEDS: METOPROLOL TARTRATE 25 MG TABLET PO ×2 (07:11→15:10)
[2022-08-05 09:13] VITALS: BP 111/72; PULSE 69; RESP 16; TEMP 36.6; O2SAT 90
[2022-08-05] MEDS: MELATONIN 5 MG TABLET PO (19:09)
[2022-08-05] MEDS: TRAMADOL HCL 50 MG TABLET PO (19:09)
[2022-08-05] MEDS: DONEPEZIL 10 MG TABLET PO (19:09)
[2022-08-05] MEDS: MIRTAZAPINE 15 MG TABLET 30 MG PO (19:09)
[2022-08-06] MEDS: OMEPRAZOLE 40 MG CAPSULE.DR PO (06:43)
[2022-08-06] MEDS: LEVOTHYROXINE 112 MCG TABLET PO (06:43)
[2022-08-06] MEDS: NYSTATIN POWDER 1 APPLIC TOPICAL (07:15)
[2022-08-06] MEDS: METOPROLOL TARTRATE 25 MG TABLET PO ×2 (07:35→15:39)
[2022-08-06] MEDS: LACTOBACILLUS ACIDOPHILUS 1 TABLET 2 TAB PO ×3 (07:35→16:41)
[2022-08-06] MEDS: CARBIDOPA-LEVODOPA 25-100 TABLET 2 TAB PO ×3 (07:35→19:05)
[2022-08-06] MEDS: CETIRIZINE HCL 10 MG TABLET PO (07:35)
[2022-08-06] MEDS: ACETAMINOPHEN 500 MG TABLET 1000 MG PO ×3 (07:35→19:05)
[2022-08-06] MEDS: TRAMADOL HCL 50 MG TABLET PO (19:05)
[2022-08-06] MEDS: MIRTAZAPINE 15 MG TABLET 30 MG PO (19:05)
[2022-08-06] MEDS: MELATONIN 5 MG TABLET PO (19:05)
[2022-08-06] MEDS: DONEPEZIL 10 MG TABLET PO (19:05)
[2022-08-07] MEDS: OMEPRAZOLE 40 MG CAPSULE.DR PO (07:14)
[2022-08-07] MEDS: LEVOTHYROXINE 112 MCG TABLET PO (07:14)
[2022-08-07] MEDS: NYSTATIN POWDER 1 APPLIC TOPICAL (07:18)
[2022-08-07] MEDS: ACETAMINOPHEN 500 MG TABLET 1000 MG PO ×3 (08:08→19:52)
[2022-08-07] MEDS: METOPROLOL TARTRATE 25 MG TABLET PO ×2 (08:09→15:39)
[2022-08-07] MEDS: CETIRIZINE HCL 10 MG TABLET PO (08:09)
[2022-08-07] MEDS: LACTOBACILLUS ACIDOPHILUS 1 TABLET 2 TAB PO ×3 (08:09→17:25)
[2022-08-07] MEDS: CARBIDOPA-LEVODOPA 25-100 TABLET 2 TAB PO ×3 (08:09→19:52)
--- NOTE | 2022-08-07 09:47 | PC.NURSE ---
Status: Was noted that resident's bilateral feet were very red and inflamed with small blisters noted on the R foot. Cream held at this time
--- NOTE | 2022-08-07 11:31 | PC.NURSE ---
Status/Order: Dr. Goss here. Requested to assess feet rashes getting worst with Clobetasol Cream. Order: D/C Clobetasol Cream, Clotrimazole cream 1% to bilateral feet BID, Monitor feet rash QS X 1 week and update next week.
[2022-08-07] MEDS: TRAMADOL HCL 50 MG TABLET PO (19:52)
[2022-08-07] MEDS: MELATONIN 5 MG TABLET PO (19:52)
[2022-08-07] MEDS: DONEPEZIL 10 MG TABLET PO (19:52)
[2022-08-07] MEDS: MIRTAZAPINE 15 MG TABLET 30 MG PO (19:52)
[2022-08-07] MEDS: CLOTRIMAZOLE 1 % CREAM 1 APPLIC TOPICAL (22:12)
[2022-08-08] MEDS: NYSTATIN POWDER 1 APPLIC TOPICAL ×2 (06:39→20:45)
[2022-08-08] MEDS: OMEPRAZOLE 40 MG CAPSULE.DR PO (06:55)
[2022-08-08] MEDS: LEVOTHYROXINE 112 MCG TABLET PO (06:55)
[2022-08-08] MEDS: CARBIDOPA-LEVODOPA 25-100 TABLET 2 TAB PO ×3 (08:38→20:06)
[2022-08-08] MEDS: METOPROLOL TARTRATE 25 MG TABLET PO ×2 (08:38→16:02)
[2022-08-08] MEDS: CETIRIZINE HCL 10 MG TABLET PO (08:38)
[2022-08-08] MEDS: ACETAMINOPHEN 500 MG TABLET 1000 MG PO ×3 (08:38→20:06)
[2022-08-08] MEDS: LACTOBACILLUS ACIDOPHILUS 1 TABLET 2 TAB PO ×3 (08:38→17:47)
[2022-08-08] MEDS: CLOTRIMAZOLE 1 % CREAM 1 APPLIC TOPICAL ×2 (08:38→20:06)
[2022-08-08] MEDS: DONEPEZIL 10 MG TABLET PO (20:06)
[2022-08-08] MEDS: MIRTAZAPINE 15 MG TABLET 30 MG PO (20:06)
[2022-08-08] MEDS: MELATONIN 5 MG TABLET PO (20:06)
[2022-08-08] MEDS: TRAMADOL HCL 50 MG TABLET PO (20:08)
--- NOTE | 2022-08-08 22:29 | PC.NURSE ---
Feet: Resident continues to present with redness bilaterally to feet. Lotrimine applied to feet this evening and res. grimaced. Surgical Device Sales Representative asked res. if the cream was itching, painful or stinging and he stated yes. Continue to monitor.
[2022-08-09] MEDS: NYSTATIN POWDER 1 APPLIC TOPICAL ×2 (07:00→22:14)
[2022-08-09] MEDS: OMEPRAZOLE 40 MG CAPSULE.DR PO (07:02)
[2022-08-09] MEDS: LEVOTHYROXINE 112 MCG TABLET PO (07:02)
[2022-08-09] MEDS: CARBIDOPA-LEVODOPA 25-100 TABLET 2 TAB PO ×3 (08:22→19:14)
[2022-08-09] MEDS: METOPROLOL TARTRATE 25 MG TABLET PO ×2 (08:22→15:04)
[2022-08-09] MEDS: CLOTRIMAZOLE 1 % CREAM 1 APPLIC TOPICAL ×2 (08:22→19:14)
[2022-08-09] MEDS: ACETAMINOPHEN 500 MG TABLET 1000 MG PO ×3 (08:22→19:14)
[2022-08-09] MEDS: CETIRIZINE HCL 10 MG TABLET PO (08:22)
[2022-08-09] MEDS: LACTOBACILLUS ACIDOPHILUS 1 TABLET 2 TAB PO ×3 (08:22→17:01)
[2022-08-09 09:45] VITALS: BP 140/72; PULSE 74; RESP 18; TEMP 36.4; O2SAT 96; BMI 26.3
--- NOTE | 2022-08-09 13:25 | PC.NURSE ---
Status: Resident had bath and feet noted to be less red
[2022-08-09] MEDS: MELATONIN 5 MG TABLET PO (19:14)
[2022-08-09] MEDS: MIRTAZAPINE 15 MG TABLET 30 MG PO (19:14)
[2022-08-09] MEDS: DONEPEZIL 10 MG TABLET PO (19:14)
[2022-08-09] MEDS: TRAMADOL HCL 50 MG TABLET PO (19:14)
--- NOTE | 2022-08-09 21:51 | PC.NURSE ---
Addendum entered by Ester Ervin 08/09/22 22:00: Area of concern is (L) foot. Original Note: Feet: Bilateral feet are very red and splotchy. C/o itchiness. Did allow chart writer to apply cream without grimacing or complaining of pain. Observed new open area measuring 8cm x 1cm. Left open to air. Will continue to monitor.
--- NOTE | 2022-08-10 00:54 | PC.NURSE ---
WEEKLY CHARTING WEEK 3 Vital signs reviewed, Few BP elevated, continue weekly BP check, notify MP as needed. Comprehensive and temporary care plan reviewed with changes made. Res has intermittent redness to groin, Nystatin powder PRN applied. Splotchy redness on Bilateral feet, Lotrimin scheduled applied. Has C open area on Left foot, Open to Air. Skin check done every bath day and during cares. Res is incontinent of bladder, Able to use call light with incontinent brief change. Use blue brief with short on. 1 staff assist with incontinent pad change, clothing management and ge cares.
[2022-08-10] MEDS: NYSTATIN POWDER 1 APPLIC TOPICAL (06:30)
--- NOTE | 2022-08-10 07:05 | PC.NURSE ---
WEEKLY CHARTING - Week #3 Toileting & Skin Vital signs reviewed with occasional elevated BP's, no new orders and staff will continue to do weekly vital sign monitoring. Comprehensive care plan reviewed, no changes made. Nothing added to temporary care plan. Toileting: Resident is on one assist with toileting and cares. He is mostly continent of BM, occasionally incontinent. He is able to communicate his need to go to the bathroom but also have frequent episode incontinent of bladder. Staff toilet per his request, before/after meals.?Wears medium pull ups. Pads, ge cares, clothing managed by staff. Skin: Has intermittent feet rash on his feet which is not getting better. He was previously on Triamcinolone cream BID and now has changed to Clotrimazole 1%. Resident also have redness on his both groin and is using Nystatin cream. Staff to continue to monitor on his skin issues daily.
[2022-08-10] MEDS: OMEPRAZOLE 40 MG CAPSULE.DR PO (07:19)
[2022-08-10] MEDS: LEVOTHYROXINE 112 MCG TABLET PO (07:20)
[2022-08-10] MEDS: METOPROLOL TARTRATE 25 MG TABLET PO ×2 (08:16→15:36)
[2022-08-10] MEDS: CLOTRIMAZOLE 1 % CREAM 1 APPLIC TOPICAL ×2 (08:16→19:26)
[2022-08-10] MEDS: ACETAMINOPHEN 500 MG TABLET 1000 MG PO ×3 (08:16→19:26)
[2022-08-10] MEDS: CARBIDOPA-LEVODOPA 25-100 TABLET 2 TAB PO ×3 (08:16→19:26)
[2022-08-10] MEDS: LACTOBACILLUS ACIDOPHILUS 1 TABLET 2 TAB PO ×3 (08:16→16:50)
[2022-08-10] MEDS: CETIRIZINE HCL 10 MG TABLET PO (08:16)
--- NOTE | 2022-08-10 09:43 | PC.NURSE ---
Addendum entered by Brenna Cantu LPN 08/10/22 10:03: Note left to update ANNEALING FURNACE TENDER Original Note: Status: Bilateral feet noted to be more red with new open area from resident scratching.
[2022-08-10] MEDS: DONEPEZIL 10 MG TABLET PO (19:26)
[2022-08-10] MEDS: MIRTAZAPINE 15 MG TABLET 30 MG PO (19:27)
[2022-08-10] MEDS: MELATONIN 5 MG TABLET PO (19:27)
[2022-08-10] MEDS: TRAMADOL HCL 50 MG TABLET PO (19:28)
[2022-08-11] MEDS: ACETAMINOPHEN 500 MG TABLET 1000 MG PO ×3 (07:16→19:10)
[2022-08-11] MEDS: LEVOTHYROXINE 112 MCG TABLET PO (07:16)
[2022-08-11] MEDS: METOPROLOL TARTRATE 25 MG TABLET PO ×2 (07:16→16:06)
[2022-08-11] MEDS: CARBIDOPA-LEVODOPA 25-100 TABLET 2 TAB PO ×3 (07:16→19:11)
[2022-08-11] MEDS: CLOTRIMAZOLE 1 % CREAM 1 APPLIC TOPICAL ×2 (07:16→19:11)
[2022-08-11] MEDS: OMEPRAZOLE 40 MG CAPSULE.DR PO (07:16)
[2022-08-11] MEDS: LACTOBACILLUS ACIDOPHILUS 1 TABLET 2 TAB PO ×3 (07:17→16:35)
[2022-08-11] MEDS: CETIRIZINE HCL 10 MG TABLET PO (07:17)
--- NOTE | 2022-08-11 11:59 | PC.NURSE ---
MDS Clarification: ADLs ? possible discrepancies noted in ARELY ADL charting. Staff were interviewed. Bed Mobility ? at times resident required non weight bearing assistance. Did not require weight bearing assistance at any time during the lookback. Coded as limited assist. Eating ? resident was usually independent w/set up assist but required supervision at times during the lookback period. Resident did not require any guided maneuvering or weight bearing assistance during the lookback period. Coded as supervision.
--- NOTE | 2022-08-11 12:32 | PC.NURSE ---
Feet: Remain itchy noted by MAILING MANAGERBalbir. Continue to monitor and use the cream.
--- NOTE | 2022-08-11 13:27 | PC.NURSE ---
CARE CONFERENCE: Care conference meeting held with all members of care team present. not present. Resident not present d/t cognition. updated in person at a later time, she states she is very happy with his cares and has no concerns. Nursing reviewed that resident continues to need 1 assist with adls, transfers, and mobility. Use of walker and gait belt for transfers. Resident to walks to meals w/staff. At times if feeling weak has a w/c available to use. Residents insomnia has improved. Discussed increase in Synthroid per MD. and discontinued insulin. It was also noted in the last week that he has a red, itchy rash on his feet that appears fungal in nature. Lotrimin cream was ordered by provider and is being applied. Care plan reviewed and updated. POLST reviewed. DNR/DNI. Uses no restraints. High fall risk. Resident is given medications by staff.? Vulnerable due to mobility limitations and ability to be understood/understand. Resident needs assistance with meal set up. Weight is stable. Has snacks in room through out the day that brings. Mood is stable. No discharge plans,?Resident here for terminal supervisor care. No further questions/concerns.
--- NOTE | 2022-08-11 15:17 | PC.SOCIAL ---
Residents care conference was held today. Resident's mood is stable no s/s of depression notes. Resident's spouse is supportive and visits almost daily. No other concern noted.
[2022-08-11] MEDS: EMOLLIENT BASE CREAM 1 APPLIC TOPICAL (16:06)
[2022-08-11] MEDS: DONEPEZIL 10 MG TABLET PO (19:11)
[2022-08-11] MEDS: TRAMADOL HCL 50 MG TABLET PO (19:11)
[2022-08-11] MEDS: MIRTAZAPINE 15 MG TABLET 30 MG PO (19:11)
[2022-08-11] MEDS: MELATONIN 5 MG TABLET PO (19:11)
[2022-08-12] MEDS: OMEPRAZOLE 40 MG CAPSULE.DR PO (07:28)
[2022-08-12] MEDS: ACETAMINOPHEN 500 MG TABLET 1000 MG PO ×3 (07:29→20:15)
[2022-08-12] MEDS: METOPROLOL TARTRATE 25 MG TABLET PO ×2 (07:29→15:50)
[2022-08-12] MEDS: CLOTRIMAZOLE 1 % CREAM 1 APPLIC TOPICAL ×2 (07:29→20:15)
[2022-08-12] MEDS: LEVOTHYROXINE 112 MCG TABLET PO (07:29)
[2022-08-12] MEDS: CARBIDOPA-LEVODOPA 25-100 TABLET 2 TAB PO ×3 (07:29→20:15)
[2022-08-12] MEDS: LACTOBACILLUS ACIDOPHILUS 1 TABLET 2 TAB PO ×3 (07:30→17:22)
[2022-08-12] MEDS: CETIRIZINE HCL 10 MG TABLET PO (07:30)
[2022-08-12] MEDS: MELATONIN 5 MG TABLET PO (20:15)
[2022-08-12] MEDS: DONEPEZIL 10 MG TABLET PO (20:15)
[2022-08-12] MEDS: TRAMADOL HCL 50 MG TABLET PO (20:15)
[2022-08-12] MEDS: MIRTAZAPINE 15 MG TABLET 30 MG PO (20:15)
[2022-08-12] MEDS: NYSTATIN POWDER 1 APPLIC TOPICAL (21:27)
[2022-08-13] MEDS: NYSTATIN POWDER 1 APPLIC TOPICAL (07:10)
[2022-08-13] MEDS: LEVOTHYROXINE 112 MCG TABLET PO (07:11)
[2022-08-13] MEDS: OMEPRAZOLE 40 MG CAPSULE.DR PO (07:11)
[2022-08-13] MEDS: LACTOBACILLUS ACIDOPHILUS 1 TABLET 2 TAB PO ×3 (08:25→17:23)
[2022-08-13] MEDS: ACETAMINOPHEN 500 MG TABLET 1000 MG PO ×3 (08:25→19:52)
[2022-08-13] MEDS: METOPROLOL TARTRATE 25 MG TABLET PO ×2 (08:25→15:58)
[2022-08-13] MEDS: CARBIDOPA-LEVODOPA 25-100 TABLET 2 TAB PO ×3 (08:25→19:52)
[2022-08-13] MEDS: CLOTRIMAZOLE 1 % CREAM 1 APPLIC TOPICAL ×2 (08:25→19:52)
[2022-08-13] MEDS: CETIRIZINE HCL 10 MG TABLET PO (08:26)
[2022-08-13] MEDS: MELATONIN 5 MG TABLET PO (19:52)
[2022-08-13] MEDS: MIRTAZAPINE 15 MG TABLET 30 MG PO (19:52)
[2022-08-13] MEDS: DONEPEZIL 10 MG TABLET PO (19:52)
[2022-08-13] MEDS: TRAMADOL HCL 50 MG TABLET PO (19:53)
[2022-08-13] MEDS: EMOLLIENT BASE CREAM 1 APPLIC TOPICAL (19:53)
[2022-08-14] MEDS: CETIRIZINE HCL 10 MG TABLET PO (07:22)
[2022-08-14] MEDS: CLOTRIMAZOLE 1 % CREAM 1 APPLIC TOPICAL ×2 (07:22→19:31)
[2022-08-14] MEDS: METOPROLOL TARTRATE 25 MG TABLET PO ×2 (07:22→15:44)
[2022-08-14] MEDS: ACETAMINOPHEN 500 MG TABLET 1000 MG PO ×3 (07:22→19:31)
[2022-08-14] MEDS: LEVOTHYROXINE 112 MCG TABLET PO (07:22)
[2022-08-14] MEDS: OMEPRAZOLE 40 MG CAPSULE.DR PO (07:22)
[2022-08-14] MEDS: CARBIDOPA-LEVODOPA 25-100 TABLET 2 TAB PO ×3 (07:22→19:31)
[2022-08-14] MEDS: EMOLLIENT BASE CREAM 1 APPLIC TOPICAL ×2 (07:22→20:18)
[2022-08-14] MEDS: LACTOBACILLUS ACIDOPHILUS 1 TABLET 2 TAB PO ×3 (07:22→16:42)
[2022-08-14] MEDS: MELATONIN 5 MG TABLET PO (19:31)
[2022-08-14] MEDS: MIRTAZAPINE 15 MG TABLET 30 MG PO (19:31)
[2022-08-14] MEDS: DONEPEZIL 10 MG TABLET PO (19:31)
[2022-08-14] MEDS: TRAMADOL HCL 50 MG TABLET PO (19:31)
[2022-08-15] MEDS: METOPROLOL TARTRATE 25 MG TABLET PO ×2 (07:07→15:58)
[2022-08-15] MEDS: CARBIDOPA-LEVODOPA 25-100 TABLET 2 TAB PO ×3 (07:07→19:03)
[2022-08-15] MEDS: LEVOTHYROXINE 112 MCG TABLET PO (07:07)
[2022-08-15] MEDS: OMEPRAZOLE 40 MG CAPSULE.DR PO (07:07)
[2022-08-15] MEDS: ACETAMINOPHEN 500 MG TABLET 1000 MG PO ×3 (07:07→19:03)
[2022-08-15] MEDS: LACTOBACILLUS ACIDOPHILUS 1 TABLET 2 TAB PO ×3 (07:08→16:56)
[2022-08-15] MEDS: EMOLLIENT BASE CREAM 1 APPLIC TOPICAL ×2 (07:08→19:03)
[2022-08-15] MEDS: CETIRIZINE HCL 10 MG TABLET PO (07:08)
--- NOTE | 2022-08-15 13:39 | PC.NURSE ---
Pharmacy note: Heating Plant Superintendent called [facility] at this time to request additional supply of Clotrimazole 1% cream be sent out as resident has no current supply remaining after previous supply exhausted. Heating Plant Superintendent was informed that medication will be sent out this evening.
[2022-08-15] MEDS: MIRTAZAPINE 15 MG TABLET 30 MG PO (19:03)
[2022-08-15] MEDS: DONEPEZIL 10 MG TABLET PO (19:03)
[2022-08-15] MEDS: TRAMADOL HCL 50 MG TABLET PO (19:03)
[2022-08-15] MEDS: CLOTRIMAZOLE 1 % CREAM 1 APPLIC TOPICAL (19:03)
[2022-08-15] MEDS: MELATONIN 5 MG TABLET PO (19:03)
[2022-08-16 07:00] VITALS: BP 147/83; PULSE 78; RESP 18; TEMP 36.7; O2SAT 95; BMI 26.3
[2022-08-16] MEDS: LEVOTHYROXINE 112 MCG TABLET PO (07:10)
[2022-08-16] MEDS: METOPROLOL TARTRATE 25 MG TABLET PO ×2 (07:10→15:21)
[2022-08-16] MEDS: OMEPRAZOLE 40 MG CAPSULE.DR PO (07:10)
[2022-08-16] MEDS: CLOTRIMAZOLE 1 % CREAM 1 APPLIC TOPICAL ×2 (07:10→19:22)
[2022-08-16] MEDS: ACETAMINOPHEN 500 MG TABLET 1000 MG PO ×3 (07:10→19:22)
[2022-08-16] MEDS: CARBIDOPA-LEVODOPA 25-100 TABLET 2 TAB PO ×3 (07:10→19:22)
[2022-08-16] MEDS: CETIRIZINE HCL 10 MG TABLET PO (07:11)
[2022-08-16] MEDS: EMOLLIENT BASE CREAM 1 APPLIC TOPICAL ×2 (07:11→19:22)
[2022-08-16] MEDS: LACTOBACILLUS ACIDOPHILUS 1 TABLET 2 TAB PO ×3 (07:11→16:43)
[2022-08-16] MEDS: DONEPEZIL 10 MG TABLET PO (19:22)
[2022-08-16] MEDS: MIRTAZAPINE 15 MG TABLET 30 MG PO (19:22)
[2022-08-16] MEDS: MELATONIN 5 MG TABLET PO (19:22)
[2022-08-16] MEDS: TRAMADOL HCL 50 MG TABLET PO (19:22)
--- NOTE | 2022-08-17 06:47 | PC.NURSE ---
WEEKLY CHARTING WEEK 4 COMMUNICATION, HEARING/VISION,COGNITION/ BEHAVIORS, CLINICAL MONITORING Vital signs stable Comprehensive and temporary care plan reviewed, no changes made. Temporary care plan, unchanged. No changes noted in communication, hearing, vision or orientation. Speech is impaired related to progressive aphasia but is usually understood ; staff anticipated his needs. Hearing is fine ; Vision impaired corrected by glasses. Resident has moderate to severe cognitive impairment related to Dementia. Nurse administer all medications. Mood/Behavior: Resident calls a lot at night with no specific needs. Remeron increased to 30mg @ HS with no adverse effects noted.? Melatonin 5mg @ HS. Continue to monitor for changes in mood/behavior and refer to provider as needed.
[2022-08-17] MEDS: LEVOTHYROXINE 112 MCG TABLET PO (07:14)
[2022-08-17] MEDS: OMEPRAZOLE 40 MG CAPSULE.DR PO (07:14)
[2022-08-17] MEDS: NYSTATIN POWDER 1 APPLIC TOPICAL (07:18)
[2022-08-17 07:48] LABS: Hemoglobin A1C* 5.76 % (0-5.6)
[2022-08-17] MEDS: CETIRIZINE HCL 10 MG TABLET PO (08:44)
[2022-08-17] MEDS: CARBIDOPA-LEVODOPA 25-100 TABLET 2 TAB PO ×3 (08:44→19:28)
[2022-08-17] MEDS: CLOTRIMAZOLE 1 % CREAM 1 APPLIC TOPICAL ×2 (08:44→19:28)
[2022-08-17] MEDS: METOPROLOL TARTRATE 25 MG TABLET PO ×2 (08:44→15:15)
[2022-08-17] MEDS: EMOLLIENT BASE CREAM 1 APPLIC TOPICAL ×2 (08:44→19:28)
[2022-08-17] MEDS: ACETAMINOPHEN 500 MG TABLET 1000 MG PO ×3 (08:44→19:28)
[2022-08-17] MEDS: LACTOBACILLUS ACIDOPHILUS 1 TABLET 2 TAB PO ×3 (08:44→16:33)
[2022-08-17] MEDS: MIRTAZAPINE 15 MG TABLET 30 MG PO (19:28)
[2022-08-17] MEDS: DONEPEZIL 10 MG TABLET PO (19:28)
[2022-08-17] MEDS: MELATONIN 5 MG TABLET PO (19:28)
[2022-08-17] MEDS: TRAMADOL HCL 50 MG TABLET PO (19:28)
--- NOTE | 2022-08-17 21:50 | PC.NURSE ---
Weekly Charting/Week 4 Vital Signs stable. Temporary care/comprehensive care plans reviewed, no changes made. Behavior/mood: Heavy on the call light at [facility], often times for no reason. Increased Remeron and Melatonin somewhat effective for call light behaviors. Resident is able to make needs known. Hearing/vision/unchanged. No changes in chronic health issues.
[2022-08-18] MEDS: METOPROLOL TARTRATE 25 MG TABLET PO ×2 (07:00→15:10)
[2022-08-18] MEDS: OMEPRAZOLE 40 MG CAPSULE.DR PO (07:00)
[2022-08-18] MEDS: CARBIDOPA-LEVODOPA 25-100 TABLET 2 TAB PO ×3 (07:00→19:22)
[2022-08-18] MEDS: LEVOTHYROXINE 112 MCG TABLET PO (07:00)
[2022-08-18] MEDS: ACETAMINOPHEN 500 MG TABLET 1000 MG PO ×3 (07:00→19:22)
[2022-08-18] MEDS: EMOLLIENT BASE CREAM 1 APPLIC TOPICAL ×2 (07:14→19:23)
[2022-08-18] MEDS: LACTOBACILLUS ACIDOPHILUS 1 TABLET 2 TAB PO ×3 (07:14→16:55)
[2022-08-18] MEDS: CLOTRIMAZOLE 1 % CREAM 1 APPLIC TOPICAL ×2 (07:14→19:22)
[2022-08-18] MEDS: CETIRIZINE HCL 10 MG TABLET PO (07:14)
--- NOTE | 2022-08-18 11:50 | PC.PHA1 ---
CLERK OF SUPERIOR COURT PHARMACIST'S MEDICATION REVIEW: MEDICATION MONITORING:Mirtazapine 30 mg po HS for insomnia. IRREGULARITY OR COMMENTS:Patient doing well on current medication regimen. Recent labs have been reviewed by providers and medications appropriately adjusted. Patient continues to have benefit from mirtazapine at hs and med is known to help appetite. Given the constellation of symptoms that goes with dementia with Lewy bodies, mirtazapine is good fit for this patient and GDR clinically contraindicated this review. SUGGESTED COURSE OF ACTION TAKEN:No medication recommendations this review.
--- NOTE | 2022-08-18 13:47 | PC.NURSE ---
A1C result reviewed by Balbir BAILEY. Order: Change weekly blood sugar checks to monthly d/t stable levels and no medications for diabetes management.
[2022-08-18] MEDS: MELATONIN 5 MG TABLET PO (19:22)
[2022-08-18] MEDS: TRAMADOL HCL 50 MG TABLET PO (19:22)
[2022-08-18] MEDS: MIRTAZAPINE 15 MG TABLET 30 MG PO (19:22)
[2022-08-18] MEDS: DONEPEZIL 10 MG TABLET PO (19:22)
[2022-08-19] MEDS: LEVOTHYROXINE 112 MCG TABLET PO (07:17)
[2022-08-19] MEDS: OMEPRAZOLE 40 MG CAPSULE.DR PO (07:17)
[2022-08-19] MEDS: METOPROLOL TARTRATE 25 MG TABLET PO ×2 (07:18→15:52)
[2022-08-19] MEDS: ACETAMINOPHEN 500 MG TABLET 1000 MG PO ×3 (07:18→20:13)
[2022-08-19] MEDS: CARBIDOPA-LEVODOPA 25-100 TABLET 2 TAB PO ×3 (07:18→20:13)
[2022-08-19] MEDS: CLOTRIMAZOLE 1 % CREAM 1 APPLIC TOPICAL ×2 (07:18→20:13)
[2022-08-19] MEDS: EMOLLIENT BASE CREAM 1 APPLIC TOPICAL ×2 (07:19→20:14)
[2022-08-19] MEDS: LACTOBACILLUS ACIDOPHILUS 1 TABLET 2 TAB PO ×3 (07:19→17:10)
[2022-08-19] MEDS: CETIRIZINE HCL 10 MG TABLET PO (07:19)
--- NOTE | 2022-08-19 11:38 | PC.NURSE ---
Podiatry: Resident was seen by yarn salvager in house service.
--- NOTE | 2022-08-19 13:17 | PC.NURSE ---
COVID TESTING for exposure. Resident and residents gave verbal consent. Resident is currently asymptomatic.? Resident/family will be notified only if resident is positive.
--- NOTE | 2022-08-19 13:55 | PC.SPIRITC ---
I provided visit for support and connection.
[2022-08-19 13:57] LABS: SARS PCR* Negative SARS-CoV-2 (Negative)
[2022-08-19] MEDS: DONEPEZIL 10 MG TABLET PO (20:13)
[2022-08-19] MEDS: TRAMADOL HCL 50 MG TABLET PO (20:14)
[2022-08-19] MEDS: MIRTAZAPINE 15 MG TABLET 30 MG PO (20:14)
[2022-08-19] MEDS: MELATONIN 5 MG TABLET PO (20:14)
[2022-08-20] MEDS: OMEPRAZOLE 40 MG CAPSULE.DR PO (07:26)
[2022-08-20] MEDS: LEVOTHYROXINE 112 MCG TABLET PO (07:26)
[2022-08-20] MEDS: METOPROLOL TARTRATE 25 MG TABLET PO ×2 (07:27→15:08)
[2022-08-20] MEDS: CLOTRIMAZOLE 1 % CREAM 1 APPLIC TOPICAL ×2 (07:27→19:09)
[2022-08-20] MEDS: EMOLLIENT BASE CREAM 1 APPLIC TOPICAL ×2 (07:27→19:10)
[2022-08-20] MEDS: CARBIDOPA-LEVODOPA 25-100 TABLET 2 TAB PO ×3 (07:27→19:09)
[2022-08-20] MEDS: ACETAMINOPHEN 500 MG TABLET 1000 MG PO ×3 (07:27→19:09)
[2022-08-20] MEDS: LACTOBACILLUS ACIDOPHILUS 1 TABLET 2 TAB PO ×3 (07:27→16:41)
[2022-08-20] MEDS: CETIRIZINE HCL 10 MG TABLET PO (07:27)
[2022-08-20] MEDS: DONEPEZIL 10 MG TABLET PO (19:09)
[2022-08-20] MEDS: TRAMADOL HCL 50 MG TABLET PO (19:10)
[2022-08-20] MEDS: MELATONIN 5 MG TABLET PO (19:10)
[2022-08-20] MEDS: MIRTAZAPINE 15 MG TABLET 30 MG PO (19:10)
[2022-08-21] MEDS: NYSTATIN POWDER 1 APPLIC TOPICAL (07:00)
[2022-08-21] MEDS: LEVOTHYROXINE 112 MCG TABLET PO (07:24)
[2022-08-21] MEDS: OMEPRAZOLE 40 MG CAPSULE.DR PO (07:24)
[2022-08-21] MEDS: CARBIDOPA-LEVODOPA 25-100 TABLET 2 TAB PO ×3 (07:53→19:49)
[2022-08-21] MEDS: CLOTRIMAZOLE 1 % CREAM 1 APPLIC TOPICAL ×2 (07:53→19:49)
[2022-08-21] MEDS: LACTOBACILLUS ACIDOPHILUS 1 TABLET 2 TAB PO ×3 (07:53→16:56)
[2022-08-21] MEDS: EMOLLIENT BASE CREAM 1 APPLIC TOPICAL ×2 (07:53→19:51)
[2022-08-21] MEDS: METOPROLOL TARTRATE 25 MG TABLET PO ×2 (07:53→15:20)
[2022-08-21] MEDS: CETIRIZINE HCL 10 MG TABLET PO (07:53)
[2022-08-21] MEDS: ACETAMINOPHEN 500 MG TABLET 1000 MG PO ×3 (07:53→19:49)
[2022-08-21] MEDS: DONEPEZIL 10 MG TABLET PO (19:49)
[2022-08-21] MEDS: MELATONIN 5 MG TABLET PO (19:50)
[2022-08-21] MEDS: MIRTAZAPINE 15 MG TABLET 30 MG PO (19:50)
[2022-08-21] MEDS: TRAMADOL HCL 50 MG TABLET PO (19:51)
[2022-08-22] MEDS: OMEPRAZOLE 40 MG CAPSULE.DR PO (07:18)
[2022-08-22] MEDS: LEVOTHYROXINE 112 MCG TABLET PO (07:18)
[2022-08-22] MEDS: NYSTATIN POWDER 1 APPLIC TOPICAL (07:37)
[2022-08-22] MEDS: ACETAMINOPHEN 500 MG TABLET 1000 MG PO ×3 (08:58→19:19)
[2022-08-22] MEDS: CETIRIZINE HCL 10 MG TABLET PO (08:59)
[2022-08-22] MEDS: LACTOBACILLUS ACIDOPHILUS 1 TABLET 2 TAB PO ×3 (08:59→16:30)
[2022-08-22] MEDS: CARBIDOPA-LEVODOPA 25-100 TABLET 2 TAB PO ×3 (08:59→19:20)
[2022-08-22] MEDS: EMOLLIENT BASE CREAM 1 APPLIC TOPICAL ×2 (08:59→19:22)
[2022-08-22] MEDS: METOPROLOL TARTRATE 25 MG TABLET PO ×2 (08:59→15:12)
[2022-08-22] MEDS: CLOTRIMAZOLE 1 % CREAM 1 APPLIC TOPICAL ×2 (08:59→19:20)
[2022-08-22] MEDS: MELATONIN 5 MG TABLET PO (19:20)
[2022-08-22] MEDS: DONEPEZIL 10 MG TABLET PO (19:20)
[2022-08-22] MEDS: MIRTAZAPINE 15 MG TABLET 30 MG PO (19:21)
[2022-08-22] MEDS: TRAMADOL HCL 50 MG TABLET PO (19:22)
[2022-08-23] MEDS: NYSTATIN POWDER 1 APPLIC TOPICAL (06:50)
[2022-08-23] MEDS: LEVOTHYROXINE 112 MCG TABLET PO (07:34)
[2022-08-23] MEDS: ACETAMINOPHEN 500 MG TABLET 1000 MG PO ×3 (07:34→19:25)
[2022-08-23] MEDS: OMEPRAZOLE 40 MG CAPSULE.DR PO (07:34)
[2022-08-23] MEDS: CARBIDOPA-LEVODOPA 25-100 TABLET 2 TAB PO ×3 (07:35→19:26)
[2022-08-23] MEDS: METOPROLOL TARTRATE 25 MG TABLET PO ×2 (07:35→15:00)
[2022-08-23] MEDS: CETIRIZINE HCL 10 MG TABLET PO (07:35)
[2022-08-23] MEDS: LACTOBACILLUS ACIDOPHILUS 1 TABLET 2 TAB PO ×3 (07:35→16:32)
[2022-08-23] MEDS: EMOLLIENT BASE CREAM 1 APPLIC TOPICAL ×2 (07:35→19:27)
[2022-08-23] MEDS: CLOTRIMAZOLE 1 % CREAM 1 APPLIC TOPICAL ×2 (07:35→19:26)
[2022-08-23 09:54] VITALS: BP 120/65; PULSE 72; RESP 18; TEMP 36.5; O2SAT 94
--- NOTE | 2022-08-23 16:38 | PC.NURSE ---
Probiotic: Premium Note Interest Calculator Clerk left voice mail message w/ Zhanna to bring in Probiotic for resident. 7 days dose remain.
[2022-08-23] MEDS: DONEPEZIL 10 MG TABLET PO (19:26)
[2022-08-23] MEDS: MELATONIN 5 MG TABLET PO (19:26)
[2022-08-23] MEDS: MIRTAZAPINE 15 MG TABLET 30 MG PO (19:26)
[2022-08-23] MEDS: TRAMADOL HCL 50 MG TABLET PO (19:29)
[2022-08-24] MEDS: NYSTATIN POWDER 1 APPLIC TOPICAL (06:25)
[2022-08-24] MEDS: LEVOTHYROXINE 112 MCG TABLET PO (06:58)
[2022-08-24] MEDS: OMEPRAZOLE 40 MG CAPSULE.DR PO (06:58)
[2022-08-24] MEDS: CARBIDOPA-LEVODOPA 25-100 TABLET 2 TAB PO ×3 (08:23→19:10)
[2022-08-24] MEDS: METOPROLOL TARTRATE 25 MG TABLET PO ×2 (08:23→15:33)
[2022-08-24] MEDS: CLOTRIMAZOLE 1 % CREAM 1 APPLIC TOPICAL ×2 (08:23→19:10)
[2022-08-24] MEDS: ACETAMINOPHEN 500 MG TABLET 1000 MG PO ×3 (08:23→19:10)
[2022-08-24] MEDS: LACTOBACILLUS ACIDOPHILUS 1 TABLET 2 TAB PO ×3 (08:24→16:39)
[2022-08-24] MEDS: EMOLLIENT BASE CREAM 1 APPLIC TOPICAL ×2 (08:24→19:11)
[2022-08-24] MEDS: CETIRIZINE HCL 10 MG TABLET PO (08:24)
[2022-08-24] MEDS: MIRTAZAPINE 15 MG TABLET 30 MG PO (19:10)
[2022-08-24] MEDS: TRAMADOL HCL 50 MG TABLET PO (19:10)
[2022-08-24] MEDS: DONEPEZIL 10 MG TABLET PO (19:10)
[2022-08-24] MEDS: MELATONIN 5 MG TABLET PO (19:10)
[2022-08-25] MEDS: OMEPRAZOLE 40 MG CAPSULE.DR PO (06:51)
[2022-08-25] MEDS: LEVOTHYROXINE 112 MCG TABLET PO (06:51)
[2022-08-25] MEDS: NYSTATIN POWDER 1 APPLIC TOPICAL (06:53)
[2022-08-25] MEDS: CLOTRIMAZOLE 1 % CREAM 1 APPLIC TOPICAL ×2 (07:11→19:34)
[2022-08-25] MEDS: METOPROLOL TARTRATE 25 MG TABLET PO ×2 (07:11→15:19)
[2022-08-25] MEDS: EMOLLIENT BASE CREAM 1 APPLIC TOPICAL ×2 (07:11→19:38)
[2022-08-25] MEDS: LACTOBACILLUS ACIDOPHILUS 1 TABLET 2 TAB PO ×3 (07:11→16:40)
[2022-08-25] MEDS: CARBIDOPA-LEVODOPA 25-100 TABLET 2 TAB PO ×3 (07:11→19:34)
[2022-08-25] MEDS: ACETAMINOPHEN 500 MG TABLET 1000 MG PO ×3 (07:11→19:34)
[2022-08-25] MEDS: CETIRIZINE HCL 10 MG TABLET PO (07:12)
[2022-08-25] MEDS: DONEPEZIL 10 MG TABLET PO (19:34)
[2022-08-25] MEDS: TRAMADOL HCL 50 MG TABLET PO (19:36)
[2022-08-25] MEDS: MIRTAZAPINE 15 MG TABLET 30 MG PO (19:36)
[2022-08-25] MEDS: MELATONIN 5 MG TABLET PO (19:36)
[2022-08-26] MEDS: CARBIDOPA-LEVODOPA 25-100 TABLET 2 TAB PO ×3 (07:12→20:06)
[2022-08-26] MEDS: CLOTRIMAZOLE 1 % CREAM 1 APPLIC TOPICAL ×2 (07:12→20:06)
[2022-08-26] MEDS: ACETAMINOPHEN 500 MG TABLET 1000 MG PO ×3 (07:12→20:06)
[2022-08-26] MEDS: OMEPRAZOLE 40 MG CAPSULE.DR PO (07:12)
[2022-08-26] MEDS: LEVOTHYROXINE 112 MCG TABLET PO (07:12)
[2022-08-26] MEDS: METOPROLOL TARTRATE 25 MG TABLET PO ×2 (07:13→15:17)
[2022-08-26] MEDS: LACTOBACILLUS ACIDOPHILUS 1 TABLET 2 TAB PO ×3 (07:13→16:57)
[2022-08-26] MEDS: EMOLLIENT BASE CREAM 1 APPLIC TOPICAL ×2 (07:13→20:07)
[2022-08-26] MEDS: CETIRIZINE HCL 10 MG TABLET PO (07:14)
[2022-08-26] MEDS: MIRTAZAPINE 15 MG TABLET 30 MG PO (20:07)
[2022-08-26] MEDS: MELATONIN 5 MG TABLET PO (20:07)
[2022-08-26] MEDS: TRAMADOL HCL 50 MG TABLET PO (20:07)
[2022-08-26] MEDS: DONEPEZIL 10 MG TABLET PO (20:07)
[2022-08-27] MEDS: CLOTRIMAZOLE 1 % CREAM 1 APPLIC TOPICAL (07:11)
[2022-08-27] MEDS: OMEPRAZOLE 40 MG CAPSULE.DR PO (07:11)
[2022-08-27] MEDS: METOPROLOL TARTRATE 25 MG TABLET PO ×2 (07:11→15:10)
[2022-08-27] MEDS: CARBIDOPA-LEVODOPA 25-100 TABLET 2 TAB PO ×3 (07:11→20:48)
[2022-08-27] MEDS: ACETAMINOPHEN 500 MG TABLET 1000 MG PO ×3 (07:11→20:48)
[2022-08-27] MEDS: LEVOTHYROXINE 112 MCG TABLET PO (07:11)
[2022-08-27] MEDS: EMOLLIENT BASE CREAM 1 APPLIC TOPICAL ×2 (07:11→20:49)
[2022-08-27] MEDS: LACTOBACILLUS ACIDOPHILUS 1 TABLET 2 TAB PO ×3 (07:11→17:32)
[2022-08-27] MEDS: CETIRIZINE HCL 10 MG TABLET PO (07:11)
--- NOTE | 2022-08-27 11:36 | PC.NURSE ---
Status/Order: Feet rash much improved. Clotrimazole cream BID changed to BID PRN by Balbir BAILEY.
[2022-08-27] MEDS: MIRTAZAPINE 15 MG TABLET 30 MG PO (20:48)
[2022-08-27] MEDS: DONEPEZIL 10 MG TABLET PO (20:48)
[2022-08-27] MEDS: TRAMADOL HCL 50 MG TABLET PO (20:48)
[2022-08-27] MEDS: MELATONIN 5 MG TABLET PO (20:48)
[2022-08-28] MEDS: METOPROLOL TARTRATE 25 MG TABLET PO ×2 (07:33→15:25)
[2022-08-28] MEDS: OMEPRAZOLE 40 MG CAPSULE.DR PO (07:33)
[2022-08-28] MEDS: ACETAMINOPHEN 500 MG TABLET 1000 MG PO ×3 (07:33→19:08)
[2022-08-28] MEDS: CARBIDOPA-LEVODOPA 25-100 TABLET 2 TAB PO ×3 (07:33→19:08)
[2022-08-28] MEDS: LEVOTHYROXINE 112 MCG TABLET PO (07:33)
[2022-08-28] MEDS: CETIRIZINE HCL 10 MG TABLET PO (07:34)
[2022-08-28] MEDS: LACTOBACILLUS ACIDOPHILUS 1 TABLET 2 TAB PO ×3 (07:34→17:06)
[2022-08-28] MEDS: EMOLLIENT BASE CREAM 1 APPLIC TOPICAL ×2 (08:52→19:09)
[2022-08-28] MEDS: MELATONIN 5 MG TABLET PO (19:09)
[2022-08-28] MEDS: MIRTAZAPINE 15 MG TABLET 30 MG PO (19:09)
[2022-08-28] MEDS: DONEPEZIL 10 MG TABLET PO (19:09)
[2022-08-28] MEDS: TRAMADOL HCL 50 MG TABLET PO (19:09)
[2022-08-29] MEDS: LEVOTHYROXINE 112 MCG TABLET PO (07:24)
[2022-08-29] MEDS: OMEPRAZOLE 40 MG CAPSULE.DR PO (07:24)
[2022-08-29] MEDS: ACETAMINOPHEN 500 MG TABLET 1000 MG PO ×3 (07:25→19:05)
[2022-08-29] MEDS: CARBIDOPA-LEVODOPA 25-100 TABLET 2 TAB PO ×3 (07:25→19:05)
[2022-08-29] MEDS: METOPROLOL TARTRATE 25 MG TABLET PO ×2 (07:25→15:21)
[2022-08-29] MEDS: LACTOBACILLUS ACIDOPHILUS 1 TABLET 2 TAB PO ×3 (07:25→16:49)
[2022-08-29] MEDS: EMOLLIENT BASE CREAM 1 APPLIC TOPICAL ×2 (07:25→19:05)
[2022-08-29] MEDS: CETIRIZINE HCL 10 MG TABLET PO (07:26)
[2022-08-29] MEDS: MELATONIN 5 MG TABLET PO (19:05)
[2022-08-29] MEDS: DONEPEZIL 10 MG TABLET PO (19:05)
[2022-08-29] MEDS: MIRTAZAPINE 15 MG TABLET 30 MG PO (19:05)
[2022-08-29] MEDS: TRAMADOL HCL 50 MG TABLET PO (19:05)
[2022-08-30 06:39] VITALS: BMI 26.1
[2022-08-30] MEDS: LEVOTHYROXINE 112 MCG TABLET PO (07:12)
[2022-08-30] MEDS: OMEPRAZOLE 40 MG CAPSULE.DR PO (07:12)
[2022-08-30] MEDS: EMOLLIENT BASE CREAM 1 APPLIC TOPICAL ×2 (07:13→19:21)
[2022-08-30] MEDS: ACETAMINOPHEN 500 MG TABLET 1000 MG PO ×3 (07:13→19:19)
[2022-08-30] MEDS: METOPROLOL TARTRATE 25 MG TABLET PO ×2 (07:13→15:03)
[2022-08-30] MEDS: LACTOBACILLUS ACIDOPHILUS 1 TABLET 2 TAB PO ×3 (07:13→16:39)
[2022-08-30] MEDS: CARBIDOPA-LEVODOPA 25-100 TABLET 2 TAB PO ×3 (07:13→19:20)
[2022-08-30] MEDS: CETIRIZINE HCL 10 MG TABLET PO (07:14)
[2022-08-30 07:49] VITALS: BP 129/84; PULSE 76; RESP 18; TEMP 35.9; O2SAT 92
--- NOTE | 2022-08-30 09:43 | PC.NURSE ---
Informational note: Third Hand asked resident's to bring in new bottle of Tylenol when able as current supply is getting lower.
[2022-08-30] MEDS: DONEPEZIL 10 MG TABLET PO (19:20)
[2022-08-30] MEDS: MIRTAZAPINE 15 MG TABLET 30 MG PO (19:21)
[2022-08-30] MEDS: TRAMADOL HCL 50 MG TABLET PO (19:21)
[2022-08-30] MEDS: MELATONIN 5 MG TABLET PO (19:21)
--- NOTE | 2022-08-31 01:25 | PC.NURSE ---
WEEKLY CHARTING WEEK 1 PAIN AND ADL`S Review vital signs : resident is receiving Metoprolol 25mg BD for elevated Blood Pressure. Comprehensive care plan and temporary care planed reviewed with no changes made. Pain regimen Acetaminophen 1000mg TID scheduled and PRN daily ;Tramadol 50mg at night and PRN. Currently pain medication given are effective and he has no taken any PRN . ADL`s : Resident requires extensive assist of 1 with shaving, bathing, dressing and grooming.?He is able to participate with cues. No changes of appetite noted. Appetite is good? and resident also enjoys some of the snack brought from home. Resident do cough often but does not have any choking episode. Diabetic diet with thin liquid? He is independent in eating after set up.
[2022-08-31] MEDS: OMEPRAZOLE 40 MG CAPSULE.DR PO (07:05)
[2022-08-31] MEDS: LEVOTHYROXINE 112 MCG TABLET PO (07:05)
[2022-08-31] MEDS: ACETAMINOPHEN 500 MG TABLET 1000 MG PO ×3 (07:06→20:30)
[2022-08-31] MEDS: LACTOBACILLUS ACIDOPHILUS 1 TABLET 2 TAB PO ×3 (07:06→16:33)
[2022-08-31] MEDS: CARBIDOPA-LEVODOPA 25-100 TABLET 2 TAB PO ×3 (07:06→20:31)
[2022-08-31] MEDS: EMOLLIENT BASE CREAM 1 APPLIC TOPICAL ×2 (07:07→20:33)
[2022-08-31] MEDS: CETIRIZINE HCL 10 MG TABLET PO (07:07)
[2022-08-31] MEDS: METOPROLOL TARTRATE 25 MG TABLET PO ×2 (07:07→15:18)
--- NOTE | 2022-08-31 11:20 | PC.NURSE ---
Weekly Charting, Week 1 - ADL's: Comprehensive and temporary care plan reviewed. No changes made, nothing added to temporary care plan. Resident needs one assist with dressing, grooming, oral cares and bathing. Has full upper and lower dentures. Is on regular diet, thin liquids. Has history of coughing at meals. Independent with feeding after staff set up. Vital signs reviewed, stable. Continue weekly monitoring and refer to provider as needed. Pain: Has chronic pain managed with Tylenol 1000mg TID & Ultram 50mg @ HS. Also has an order for Tylenol 1000mg daily PRN & Ultram 50mg daily PRN for breakthrough pain. Has no complaint of pain the last month.
[2022-08-31] MEDS: DONEPEZIL 10 MG TABLET PO (20:31)
[2022-08-31] MEDS: MIRTAZAPINE 15 MG TABLET 30 MG PO (20:31)
[2022-08-31] MEDS: MELATONIN 5 MG TABLET PO (20:32)
[2022-08-31] MEDS: TRAMADOL HCL 50 MG TABLET PO (20:33)
[2022-09-01] MEDS: ACETAMINOPHEN 500 MG TABLET 1000 MG PO ×3 (07:14→19:06)
[2022-09-01] MEDS: LEVOTHYROXINE 112 MCG TABLET PO (07:14)
[2022-09-01] MEDS: OMEPRAZOLE 40 MG CAPSULE.DR PO (07:14)
[2022-09-01] MEDS: METOPROLOL TARTRATE 25 MG TABLET PO ×2 (07:15→15:59)
[2022-09-01] MEDS: EMOLLIENT BASE CREAM 1 APPLIC TOPICAL ×2 (07:15→19:07)
[2022-09-01] MEDS: CARBIDOPA-LEVODOPA 25-100 TABLET 2 TAB PO ×3 (07:15→19:06)
[2022-09-01] MEDS: LACTOBACILLUS ACIDOPHILUS 1 TABLET 2 TAB PO ×3 (07:15→16:33)
[2022-09-01] MEDS: CETIRIZINE HCL 10 MG TABLET PO (07:16)
--- NOTE | 2022-09-01 12:31 | PC.NURSE ---
Recert Visit: Resident seen by LINING SCRUBBERBalbir. Orders reviewed & renewed of 75 days with changes. Order: D/C Tramadol 50mg daily PRN.
[2022-09-01] MEDS: DONEPEZIL 10 MG TABLET PO (19:06)
[2022-09-01] MEDS: MELATONIN 5 MG TABLET PO (19:07)
[2022-09-01] MEDS: TRAMADOL HCL 50 MG TABLET PO (19:07)
[2022-09-01] MEDS: MIRTAZAPINE 15 MG TABLET 30 MG PO (19:07)
[2022-09-02] MEDS: LEVOTHYROXINE 112 MCG TABLET PO (07:26)
[2022-09-02] MEDS: OMEPRAZOLE 40 MG CAPSULE.DR PO (07:26)
[2022-09-02] MEDS: CARBIDOPA-LEVODOPA 25-100 TABLET 2 TAB PO ×3 (07:27→19:10)
[2022-09-02] MEDS: ACETAMINOPHEN 500 MG TABLET 1000 MG PO ×3 (07:27→19:09)
[2022-09-02] MEDS: METOPROLOL TARTRATE 25 MG TABLET PO ×2 (07:27→15:03)
[2022-09-02] MEDS: LACTOBACILLUS ACIDOPHILUS 1 TABLET 2 TAB PO ×3 (07:27→17:40)
[2022-09-02] MEDS: EMOLLIENT BASE CREAM 1 APPLIC TOPICAL ×2 (07:27→19:10)
[2022-09-02] MEDS: CETIRIZINE HCL 10 MG TABLET PO (07:28)
[2022-09-02] MEDS: TRAMADOL HCL 50 MG TABLET PO (19:10)
[2022-09-02] MEDS: MIRTAZAPINE 15 MG TABLET 30 MG PO (19:10)
[2022-09-02] MEDS: DONEPEZIL 10 MG TABLET PO (19:10)
[2022-09-02] MEDS: MELATONIN 5 MG TABLET PO (19:10)
[2022-09-02] MEDS: NYSTATIN POWDER 1 APPLIC TOPICAL (21:23)
[2022-09-03] MEDS: OMEPRAZOLE 40 MG CAPSULE.DR PO (07:11)
[2022-09-03] MEDS: METOPROLOL TARTRATE 25 MG TABLET PO ×2 (07:11→15:05)
[2022-09-03] MEDS: ACETAMINOPHEN 500 MG TABLET 1000 MG PO ×3 (07:11→19:03)
[2022-09-03] MEDS: CARBIDOPA-LEVODOPA 25-100 TABLET 2 TAB PO ×3 (07:11→19:03)
[2022-09-03] MEDS: LEVOTHYROXINE 112 MCG TABLET PO (07:11)
[2022-09-03] MEDS: CETIRIZINE HCL 10 MG TABLET PO (07:12)
[2022-09-03] MEDS: EMOLLIENT BASE CREAM 1 APPLIC TOPICAL ×2 (07:12→19:03)
[2022-09-03] MEDS: LACTOBACILLUS ACIDOPHILUS 1 TABLET 2 TAB PO ×3 (07:19→17:15)
[2022-09-03] MEDS: NYSTATIN POWDER 1 APPLIC TOPICAL (11:36)
[2022-09-03] MEDS: TRAMADOL HCL 50 MG TABLET PO (19:03)
[2022-09-03] MEDS: MIRTAZAPINE 15 MG TABLET 30 MG PO (19:03)
[2022-09-03] MEDS: MELATONIN 5 MG TABLET PO (19:03)
[2022-09-03] MEDS: DONEPEZIL 10 MG TABLET PO (19:03)
[2022-09-04] MEDS: NYSTATIN POWDER 1 APPLIC TOPICAL ×2 (07:12→20:50)
[2022-09-04] MEDS: OMEPRAZOLE 40 MG CAPSULE.DR PO (07:32)
[2022-09-04] MEDS: ACETAMINOPHEN 500 MG TABLET 1000 MG PO ×3 (07:32→20:49)
[2022-09-04] MEDS: LEVOTHYROXINE 112 MCG TABLET PO (07:32)
[2022-09-04] MEDS: METOPROLOL TARTRATE 25 MG TABLET PO ×2 (07:33→15:19)
[2022-09-04] MEDS: EMOLLIENT BASE CREAM 1 APPLIC TOPICAL ×2 (07:33→20:49)
[2022-09-04] MEDS: CETIRIZINE HCL 10 MG TABLET PO (07:33)
[2022-09-04] MEDS: CARBIDOPA-LEVODOPA 25-100 TABLET 2 TAB PO ×3 (07:33→20:49)
[2022-09-04] MEDS: LACTOBACILLUS ACIDOPHILUS 1 TABLET 2 TAB PO ×3 (07:33→17:19)
[2022-09-04 07:53] LABS: Hemoglobin A1C* 5.76 % (0-5.6)
--- NOTE | 2022-09-04 11:33 | PC.NURSE ---
Labs: TSH & A1C results reviewed by Dr. Goss. No new orders.
[2022-09-04] MEDS: MELATONIN 5 MG TABLET PO (20:49)
[2022-09-04] MEDS: MIRTAZAPINE 15 MG TABLET 30 MG PO (20:49)
[2022-09-04] MEDS: DONEPEZIL 10 MG TABLET PO (20:49)
[2022-09-04] MEDS: TRAMADOL HCL 50 MG TABLET PO (20:49)
[2022-09-05] MEDS: OMEPRAZOLE 40 MG CAPSULE.DR PO (07:17)
[2022-09-05] MEDS: LEVOTHYROXINE 112 MCG TABLET PO (07:18)
[2022-09-05] MEDS: NYSTATIN POWDER 1 APPLIC TOPICAL ×2 (07:20→19:58)
[2022-09-05] MEDS: CETIRIZINE HCL 10 MG TABLET PO (08:28)
[2022-09-05] MEDS: ACETAMINOPHEN 500 MG TABLET 1000 MG PO ×3 (08:28→19:58)
[2022-09-05] MEDS: EMOLLIENT BASE CREAM 1 APPLIC TOPICAL ×2 (08:28→19:58)
[2022-09-05] MEDS: LACTOBACILLUS ACIDOPHILUS 1 TABLET 2 TAB PO ×3 (08:28→17:24)
[2022-09-05] MEDS: CARBIDOPA-LEVODOPA 25-100 TABLET 2 TAB PO ×3 (08:28→19:58)
[2022-09-05] MEDS: METOPROLOL TARTRATE 25 MG TABLET PO ×2 (08:28→15:06)
[2022-09-05] MEDS: MIRTAZAPINE 15 MG TABLET 30 MG PO (19:58)
[2022-09-05] MEDS: DONEPEZIL 10 MG TABLET PO (19:58)
[2022-09-05] MEDS: MELATONIN 5 MG TABLET PO (19:58)
[2022-09-05] MEDS: TRAMADOL HCL 50 MG TABLET PO (19:58)
--- NOTE | 2022-09-05 22:01 | PC.NURSE ---
Resident has small skin tear on right forearm near elbow. States he scraped his arm on his bedside table. Measuring 2cm x 1cm. Band-aid applied. No drainage. No c/o pain or discomfort.
[2022-09-06] MEDS: CETIRIZINE HCL 10 MG TABLET PO (07:23)
[2022-09-06] MEDS: OMEPRAZOLE 40 MG CAPSULE.DR PO (07:23)
[2022-09-06] MEDS: LACTOBACILLUS ACIDOPHILUS 1 TABLET 2 TAB PO ×3 (07:23→17:19)
[2022-09-06] MEDS: CARBIDOPA-LEVODOPA 25-100 TABLET 2 TAB PO ×3 (07:23→19:37)
[2022-09-06] MEDS: METOPROLOL TARTRATE 25 MG TABLET PO ×2 (07:23→15:11)
[2022-09-06] MEDS: LEVOTHYROXINE 112 MCG TABLET PO (07:23)
[2022-09-06] MEDS: EMOLLIENT BASE CREAM 1 APPLIC TOPICAL ×2 (07:23→19:38)
[2022-09-06] MEDS: ACETAMINOPHEN 500 MG TABLET 1000 MG PO ×3 (07:23→19:37)
[2022-09-06 10:15] VITALS: BP 149/81; PULSE 75; RESP 18; TEMP 36.5; O2SAT 94
[2022-09-06 10:17] VITALS: BMI 26.1
[2022-09-06] MEDS: MIRTAZAPINE 15 MG TABLET 30 MG PO (19:38)
[2022-09-06] MEDS: TRAMADOL HCL 50 MG TABLET PO (19:38)
[2022-09-06] MEDS: DONEPEZIL 10 MG TABLET PO (19:38)
[2022-09-06] MEDS: MELATONIN 5 MG TABLET PO (19:38)
--- NOTE | 2022-09-07 00:20 | PC.NURSE ---
Weekly Charting Week 2: MOBILITY Vitals signs reviewed, occasional BP elevated, Continue to monitor weekly and update provider as needed. Limited to extensive assist of 1 with transfers. Able to propel w/c independently at times. Assistance provided by staff for distance/destination. Assist of 1 with cues for bed mobility. Bilateral 1/4 side rails up at all times as enabler for bed mobility.? Requires assist of 1-2 with gait belt and walker for ambulation. Ambulates to and from meals. Fall risk assessment indicates resident is at high risk for falls. Fall interventions: anticipate needs, call light in reach, hourly visual checks, falling star magnet, non-slip footwear, bed in low position with brakes locked.Staff anticipate needs as needed.
--- NOTE | 2022-09-07 06:35 | PC.NURSE ---
Weekly Charting: Week 2 Reviewed resident's vital signs. Elevated blood pressure noted occasionally, staff will continue to monitor BP and update the provider as needed. Temporary and comprehensive care plans reviewed, no new changes were made/ noted. Resident receives extensive assist of 1 and use of gait belt for pivot transfers to and from wheelchair. Resident is able to propel themselves in wheelchair independently at times, staff does provide assistance for activities outside resident's room. Resident is to have 1/4 side rails up at all times to promote independent bed mobility. Resident is at high risk for falls. Interventions in place to prevent falls include: staff anticipation of resident needs, frequent toileting, call light within reach, gripper socks or non skid shoes on at all times, falling star program, bed in lowest position with brakes locked, and wheelchair near resident with brakes locked. Resident has ambulation program in place to walk to and from meals with extensive assistance from staff. Stone Circular Sawyer reviewed intervention documentation and the resident refuses to ambulate according to the plan majority of the times.
[2022-09-07] MEDS: OMEPRAZOLE 40 MG CAPSULE.DR PO (06:48)
[2022-09-07] MEDS: LEVOTHYROXINE 112 MCG TABLET PO (06:48)
[2022-09-07] MEDS: CARBIDOPA-LEVODOPA 25-100 TABLET 2 TAB PO ×3 (08:18→19:47)
[2022-09-07] MEDS: LACTOBACILLUS ACIDOPHILUS 1 TABLET 2 TAB PO ×3 (08:18→16:36)
[2022-09-07] MEDS: EMOLLIENT BASE CREAM 1 APPLIC TOPICAL ×2 (08:18→19:47)
[2022-09-07] MEDS: ACETAMINOPHEN 500 MG TABLET 1000 MG PO ×3 (08:18→19:47)
[2022-09-07] MEDS: CETIRIZINE HCL 10 MG TABLET PO (08:18)
[2022-09-07] MEDS: METOPROLOL TARTRATE 25 MG TABLET PO ×2 (08:18→15:10)
[2022-09-07] MEDS: DONEPEZIL 10 MG TABLET PO (19:47)
[2022-09-07] MEDS: MIRTAZAPINE 15 MG TABLET 30 MG PO (19:47)
[2022-09-07] MEDS: MELATONIN 5 MG TABLET PO (19:48)
[2022-09-07] MEDS: TRAMADOL HCL 50 MG TABLET PO (19:48)
[2022-09-08] MEDS: ACETAMINOPHEN 500 MG TABLET 1000 MG PO ×3 (07:01→19:08)
[2022-09-08] MEDS: CARBIDOPA-LEVODOPA 25-100 TABLET 2 TAB PO ×3 (07:01→19:08)
[2022-09-08] MEDS: LEVOTHYROXINE 112 MCG TABLET PO (07:01)
[2022-09-08] MEDS: OMEPRAZOLE 40 MG CAPSULE.DR PO (07:01)
[2022-09-08] MEDS: METOPROLOL TARTRATE 25 MG TABLET PO ×2 (07:02→15:45)
[2022-09-08] MEDS: NYSTATIN POWDER 1 APPLIC TOPICAL (07:03)
[2022-09-08] MEDS: LACTOBACILLUS ACIDOPHILUS 1 TABLET 2 TAB PO ×3 (07:03→16:53)
[2022-09-08] MEDS: CETIRIZINE HCL 10 MG TABLET PO (07:03)
[2022-09-08] MEDS: EMOLLIENT BASE CREAM 1 APPLIC TOPICAL ×2 (07:03→19:09)
[2022-09-08] MEDS: CLOTRIMAZOLE 1 % CREAM 1 APPLIC TOPICAL (07:03)
[2022-09-08] MEDS: DONEPEZIL 10 MG TABLET PO (19:09)
[2022-09-08] MEDS: TRAMADOL HCL 50 MG TABLET PO (19:09)
[2022-09-08] MEDS: MELATONIN 5 MG TABLET PO (19:09)
[2022-09-08] MEDS: MIRTAZAPINE 15 MG TABLET 30 MG PO (19:09)
[2022-09-09] MEDS: LEVOTHYROXINE 112 MCG TABLET PO (06:47)
[2022-09-09] MEDS: OMEPRAZOLE 40 MG CAPSULE.DR PO (06:47)
[2022-09-09] MEDS: CARBIDOPA-LEVODOPA 25-100 TABLET 2 TAB PO ×3 (07:13→19:51)
[2022-09-09] MEDS: ACETAMINOPHEN 500 MG TABLET 1000 MG PO ×3 (07:13→19:51)
[2022-09-09] MEDS: CETIRIZINE HCL 10 MG TABLET PO (07:13)
[2022-09-09] MEDS: METOPROLOL TARTRATE 25 MG TABLET PO ×2 (07:13→15:37)
[2022-09-09] MEDS: EMOLLIENT BASE CREAM 1 APPLIC TOPICAL ×2 (07:13→19:51)
[2022-09-09] MEDS: LACTOBACILLUS ACIDOPHILUS 1 TABLET 2 TAB PO ×3 (07:13→17:12)
[2022-09-09] MEDS: DONEPEZIL 10 MG TABLET PO (19:51)
[2022-09-09] MEDS: TRAMADOL HCL 50 MG TABLET PO (19:51)
[2022-09-09] MEDS: MIRTAZAPINE 15 MG TABLET 30 MG PO (19:51)
[2022-09-09] MEDS: MELATONIN 5 MG TABLET PO (19:51)
[2022-09-10] MEDS: LACTOBACILLUS ACIDOPHILUS 1 TABLET 2 TAB PO ×3 (07:18→17:02)
[2022-09-10] MEDS: LEVOTHYROXINE 112 MCG TABLET PO (07:18)
[2022-09-10] MEDS: OMEPRAZOLE 40 MG CAPSULE.DR PO (07:18)
[2022-09-10] MEDS: ACETAMINOPHEN 500 MG TABLET 1000 MG PO ×3 (07:18→20:38)
[2022-09-10] MEDS: EMOLLIENT BASE CREAM 1 APPLIC TOPICAL ×2 (07:18→20:38)
[2022-09-10] MEDS: METOPROLOL TARTRATE 25 MG TABLET PO ×2 (07:18→16:05)
[2022-09-10] MEDS: CARBIDOPA-LEVODOPA 25-100 TABLET 2 TAB PO ×3 (07:18→20:38)
[2022-09-10] MEDS: CETIRIZINE HCL 10 MG TABLET PO (07:18)
[2022-09-10] MEDS: MELATONIN 5 MG TABLET PO (20:38)
[2022-09-10] MEDS: TRAMADOL HCL 50 MG TABLET PO (20:38)
[2022-09-10] MEDS: MIRTAZAPINE 15 MG TABLET 30 MG PO (20:38)
[2022-09-10] MEDS: DONEPEZIL 10 MG TABLET PO (20:38)
[2022-09-11] MEDS: METOPROLOL TARTRATE 25 MG TABLET PO ×2 (07:28→15:49)
[2022-09-11] MEDS: CARBIDOPA-LEVODOPA 25-100 TABLET 2 TAB PO ×3 (07:28→19:31)
[2022-09-11] MEDS: LEVOTHYROXINE 112 MCG TABLET PO (07:28)
[2022-09-11] MEDS: ACETAMINOPHEN 500 MG TABLET 1000 MG PO ×3 (07:28→19:31)
[2022-09-11] MEDS: OMEPRAZOLE 40 MG CAPSULE.DR PO (07:28)
[2022-09-11] MEDS: LACTOBACILLUS ACIDOPHILUS 1 TABLET 2 TAB PO ×3 (07:29→16:37)
[2022-09-11] MEDS: EMOLLIENT BASE CREAM 1 APPLIC TOPICAL ×2 (07:31→19:31)
[2022-09-11] MEDS: CETIRIZINE HCL 10 MG TABLET PO (07:31)
[2022-09-11] MEDS: MELATONIN 5 MG TABLET PO (19:31)
[2022-09-11] MEDS: TRAMADOL HCL 50 MG TABLET PO (19:31)
[2022-09-11] MEDS: DONEPEZIL 10 MG TABLET PO (19:31)
[2022-09-11] MEDS: MIRTAZAPINE 15 MG TABLET 30 MG PO (19:31)
[2022-09-12] MEDS: OMEPRAZOLE 40 MG CAPSULE.DR PO (06:43)
[2022-09-12] MEDS: LEVOTHYROXINE 112 MCG TABLET PO (06:43)
[2022-09-12] MEDS: ACETAMINOPHEN 500 MG TABLET 1000 MG PO ×3 (07:35→19:38)
[2022-09-12] MEDS: METOPROLOL TARTRATE 25 MG TABLET PO ×2 (07:35→15:28)
[2022-09-12] MEDS: CARBIDOPA-LEVODOPA 25-100 TABLET 2 TAB PO ×3 (07:35→19:38)
[2022-09-12] MEDS: CETIRIZINE HCL 10 MG TABLET PO (07:36)
[2022-09-12] MEDS: LACTOBACILLUS ACIDOPHILUS 1 TABLET 2 TAB PO ×3 (07:36→16:42)
[2022-09-12] MEDS: EMOLLIENT BASE CREAM 1 APPLIC TOPICAL ×2 (07:36→19:41)
[2022-09-12] MEDS: DONEPEZIL 10 MG TABLET PO (19:38)
[2022-09-12] MEDS: MELATONIN 5 MG TABLET PO (19:39)
[2022-09-12] MEDS: MIRTAZAPINE 15 MG TABLET 30 MG PO (19:39)
[2022-09-12] MEDS: TRAMADOL HCL 50 MG TABLET PO (19:41)
[2022-09-13] MEDS: LEVOTHYROXINE 112 MCG TABLET PO (06:33)
[2022-09-13] MEDS: OMEPRAZOLE 40 MG CAPSULE.DR PO (06:33)
[2022-09-13] MEDS: CETIRIZINE HCL 10 MG TABLET PO (07:07)
[2022-09-13] MEDS: METOPROLOL TARTRATE 25 MG TABLET PO ×2 (07:07→15:03)
[2022-09-13] MEDS: ACETAMINOPHEN 500 MG TABLET 1000 MG PO ×3 (07:07→19:09)
[2022-09-13] MEDS: LACTOBACILLUS ACIDOPHILUS 1 TABLET 2 TAB PO ×3 (07:07→16:50)
[2022-09-13] MEDS: CARBIDOPA-LEVODOPA 25-100 TABLET 2 TAB PO ×3 (07:07→19:09)
[2022-09-13] MEDS: EMOLLIENT BASE CREAM 1 APPLIC TOPICAL ×2 (07:07→19:10)
[2022-09-13 09:41] VITALS: BMI 26.1
[2022-09-13 09:43] VITALS: BP 125/80; PULSE 72; RESP 20; TEMP 36.8; O2SAT 94
[2022-09-13] MEDS: DONEPEZIL 10 MG TABLET PO (19:09)
[2022-09-13] MEDS: TRAMADOL HCL 50 MG TABLET PO (19:10)
[2022-09-13] MEDS: MIRTAZAPINE 15 MG TABLET 30 MG PO (19:10)
[2022-09-13] MEDS: MELATONIN 5 MG TABLET PO (19:10)
--- NOTE | 2022-09-14 01:45 | PC.NURSE ---
WEEKLY CHARTING WEEK3 : TOILETING AND SKIN Vital signs reviewed, Few BP elevated, continue weekly BP check, notify COMPLAINT CLERK as needed. Comprehensive and temporary care plan reviewed with changes made lately. Resident is incontinent of bowel and bladder, check and change at night. Assist one with incontinent pad change and ge cares. he can call when incontinent. He uses large brief. ?Resident has redness to groin, Nystatin powder PRN applied. Redness and rash on both feet lately, Clotrimazole was used for treatment ; Skin check done every bath day and during cares.
[2022-09-14] MEDS: NYSTATIN POWDER 1 APPLIC TOPICAL (06:20)
[2022-09-14] MEDS: OMEPRAZOLE 40 MG CAPSULE.DR PO (06:40)
[2022-09-14] MEDS: LEVOTHYROXINE 112 MCG TABLET PO (06:40)
[2022-09-14] MEDS: ACETAMINOPHEN 500 MG TABLET 1000 MG PO ×3 (08:02→19:38)
[2022-09-14] MEDS: LACTOBACILLUS ACIDOPHILUS 1 TABLET 2 TAB PO ×3 (08:02→16:40)
[2022-09-14] MEDS: CETIRIZINE HCL 10 MG TABLET PO (08:02)
[2022-09-14] MEDS: CARBIDOPA-LEVODOPA 25-100 TABLET 2 TAB PO ×3 (08:02→19:39)
[2022-09-14] MEDS: EMOLLIENT BASE CREAM 1 APPLIC TOPICAL ×2 (08:02→19:41)
[2022-09-14] MEDS: METOPROLOL TARTRATE 25 MG TABLET PO ×2 (08:02→15:23)
--- NOTE | 2022-09-14 11:08 | PC.NURSE ---
Weekly Charting, Week 3 - Toileting: Comprehensive & temporary care plan reviewed, no changes made. Nothing added to temporary care plan. Resident needs one assist with toileting. He is mostly continent of BM, with occasional incontinence. Frequently incontinent of bladder. Staff toilet per his request, and check every 3 hours and assist as needed.? Wears medium pull ups. Pads, ge cares, clothing managed by staff. Vital signs reviewed, no concerns. Skin: Has intermittent feet rash and red groin. Vanicream BID to feet, Nystatin powder to groins PRN. Skin is checked routinely on bath day and during cares.
[2022-09-14] MEDS: DONEPEZIL 10 MG TABLET PO (19:39)
[2022-09-14] MEDS: MIRTAZAPINE 15 MG TABLET 30 MG PO (19:39)
[2022-09-14] MEDS: MELATONIN 5 MG TABLET PO (19:39)
[2022-09-14] MEDS: TRAMADOL HCL 50 MG TABLET PO (19:40)
[2022-09-15] MEDS: CLOTRIMAZOLE 1 % CREAM 1 APPLIC TOPICAL ×2 (07:17→21:34)
[2022-09-15] MEDS: CARBIDOPA-LEVODOPA 25-100 TABLET 2 TAB PO ×3 (07:25→19:42)
[2022-09-15] MEDS: METOPROLOL TARTRATE 25 MG TABLET PO ×2 (07:25→15:36)
[2022-09-15] MEDS: ACETAMINOPHEN 500 MG TABLET 1000 MG PO ×3 (07:25→19:41)
[2022-09-15] MEDS: LEVOTHYROXINE 112 MCG TABLET PO (07:25)
[2022-09-15] MEDS: OMEPRAZOLE 40 MG CAPSULE.DR PO (07:25)
[2022-09-15] MEDS: EMOLLIENT BASE CREAM 1 APPLIC TOPICAL ×2 (07:26→19:42)
[2022-09-15] MEDS: CETIRIZINE HCL 10 MG TABLET PO (07:26)
[2022-09-15] MEDS: LACTOBACILLUS ACIDOPHILUS 1 TABLET 2 TAB PO ×3 (07:26→16:35)
--- NOTE | 2022-09-15 10:50 | PC.NURSE ---
Status: Redness in groin not getting better with Nystatin powder. WIRE MILL OPERATOR, Balbir updated. Okay to use Clotrimazole cream PRN.
--- NOTE | 2022-09-15 12:10 | PC.SPIRITC ---
I facilitated convsersation between Juan and table mates about [place].
[2022-09-15] MEDS: MIRTAZAPINE 15 MG TABLET 30 MG PO (19:42)
[2022-09-15] MEDS: DONEPEZIL 10 MG TABLET PO (19:42)
[2022-09-15] MEDS: MELATONIN 5 MG TABLET PO (19:42)
[2022-09-15] MEDS: TRAMADOL HCL 50 MG TABLET PO (19:42)
[2022-09-16] MEDS: CLOTRIMAZOLE 1 % CREAM 1 APPLIC TOPICAL ×2 (06:48→22:15)
[2022-09-16] MEDS: LEVOTHYROXINE 112 MCG TABLET PO (07:11)
[2022-09-16] MEDS: OMEPRAZOLE 40 MG CAPSULE.DR PO (07:11)
[2022-09-16] MEDS: CARBIDOPA-LEVODOPA 25-100 TABLET 2 TAB PO ×3 (07:12→20:35)
[2022-09-16] MEDS: METOPROLOL TARTRATE 25 MG TABLET PO ×2 (07:12→15:42)
[2022-09-16] MEDS: LACTOBACILLUS ACIDOPHILUS 1 TABLET 2 TAB PO ×3 (07:12→16:54)
[2022-09-16] MEDS: ACETAMINOPHEN 500 MG TABLET 1000 MG PO ×3 (07:12→20:34)
[2022-09-16] MEDS: EMOLLIENT BASE CREAM 1 APPLIC TOPICAL ×2 (07:12→20:35)
[2022-09-16] MEDS: CETIRIZINE HCL 10 MG TABLET PO (07:13)
[2022-09-16] MEDS: MELATONIN 5 MG TABLET PO (20:35)
[2022-09-16] MEDS: DONEPEZIL 10 MG TABLET PO (20:35)
[2022-09-16] MEDS: MIRTAZAPINE 15 MG TABLET 30 MG PO (20:35)
[2022-09-16] MEDS: TRAMADOL HCL 50 MG TABLET PO (20:35)
[2022-09-17] MEDS: ACETAMINOPHEN 500 MG TABLET 1000 MG PO ×3 (07:13→19:16)
[2022-09-17] MEDS: CARBIDOPA-LEVODOPA 25-100 TABLET 2 TAB PO ×3 (07:13→19:16)
[2022-09-17] MEDS: METOPROLOL TARTRATE 25 MG TABLET PO ×2 (07:13→15:43)
[2022-09-17] MEDS: OMEPRAZOLE 40 MG CAPSULE.DR PO (07:13)
[2022-09-17] MEDS: LEVOTHYROXINE 112 MCG TABLET PO (07:13)
[2022-09-17] MEDS: LACTOBACILLUS ACIDOPHILUS 1 TABLET 2 TAB PO ×3 (07:14→16:48)
[2022-09-17] MEDS: EMOLLIENT BASE CREAM 1 APPLIC TOPICAL ×2 (07:14→19:16)
[2022-09-17] MEDS: CETIRIZINE HCL 10 MG TABLET PO (07:57)
[2022-09-17] MEDS: CLOTRIMAZOLE 1 % CREAM 1 APPLIC TOPICAL ×2 (11:11→23:50)
[2022-09-17] MEDS: DONEPEZIL 10 MG TABLET PO (19:16)
[2022-09-17] MEDS: TRAMADOL HCL 50 MG TABLET PO (19:16)
[2022-09-17] MEDS: MELATONIN 5 MG TABLET PO (19:16)
[2022-09-17] MEDS: MIRTAZAPINE 15 MG TABLET 30 MG PO (19:16)
[2022-09-18] MEDS: OMEPRAZOLE 40 MG CAPSULE.DR PO (07:09)
[2022-09-18] MEDS: ACETAMINOPHEN 500 MG TABLET 1000 MG PO ×3 (07:10→19:40)
[2022-09-18] MEDS: LEVOTHYROXINE 112 MCG TABLET PO (07:10)
[2022-09-18] MEDS: CARBIDOPA-LEVODOPA 25-100 TABLET 2 TAB PO ×3 (07:10→19:40)
[2022-09-18] MEDS: METOPROLOL TARTRATE 25 MG TABLET PO ×2 (07:10→15:32)
[2022-09-18] MEDS: EMOLLIENT BASE CREAM 1 APPLIC TOPICAL ×2 (07:11→19:40)
[2022-09-18] MEDS: LACTOBACILLUS ACIDOPHILUS 1 TABLET 2 TAB PO ×3 (07:11→17:15)
[2022-09-18] MEDS: CETIRIZINE HCL 10 MG TABLET PO (07:11)
[2022-09-18] MEDS: DONEPEZIL 10 MG TABLET PO (19:40)
[2022-09-18] MEDS: MELATONIN 5 MG TABLET PO (19:40)
[2022-09-18] MEDS: TRAMADOL HCL 50 MG TABLET PO (19:40)
[2022-09-18] MEDS: MIRTAZAPINE 15 MG TABLET 30 MG PO (19:40)
[2022-09-18] MEDS: CLOTRIMAZOLE 1 % CREAM 1 APPLIC TOPICAL (19:41)
[2022-09-19] MEDS: LEVOTHYROXINE 112 MCG TABLET PO (06:56)
[2022-09-19] MEDS: OMEPRAZOLE 40 MG CAPSULE.DR PO (06:56)
[2022-09-19] MEDS: CARBIDOPA-LEVODOPA 25-100 TABLET 2 TAB PO ×3 (08:24→19:00)
[2022-09-19] MEDS: LACTOBACILLUS ACIDOPHILUS 1 TABLET 2 TAB PO ×3 (08:24→16:32)
[2022-09-19] MEDS: CETIRIZINE HCL 10 MG TABLET PO (08:24)
[2022-09-19] MEDS: EMOLLIENT BASE CREAM 1 APPLIC TOPICAL ×2 (08:24→19:01)
[2022-09-19] MEDS: ACETAMINOPHEN 500 MG TABLET 1000 MG PO ×3 (08:24→19:00)
[2022-09-19] MEDS: METOPROLOL TARTRATE 25 MG TABLET PO ×2 (08:24→15:39)
[2022-09-19] MEDS: DONEPEZIL 10 MG TABLET PO (19:00)
[2022-09-19] MEDS: MELATONIN 5 MG TABLET PO (19:00)
[2022-09-19] MEDS: TRAMADOL HCL 50 MG TABLET PO (19:01)
[2022-09-19] MEDS: MIRTAZAPINE 15 MG TABLET 30 MG PO (19:01)
[2022-09-20] MEDS: EMOLLIENT BASE CREAM 1 APPLIC TOPICAL ×2 (07:31→19:45)
[2022-09-20] MEDS: LACTOBACILLUS ACIDOPHILUS 1 TABLET 2 TAB PO ×3 (07:31→17:29)
[2022-09-20] MEDS: OMEPRAZOLE 40 MG CAPSULE.DR PO (07:31)
[2022-09-20] MEDS: ACETAMINOPHEN 500 MG TABLET 1000 MG PO ×3 (07:31→19:44)
[2022-09-20] MEDS: CARBIDOPA-LEVODOPA 25-100 TABLET 2 TAB PO ×3 (07:31→19:45)
[2022-09-20] MEDS: LEVOTHYROXINE 112 MCG TABLET PO (07:31)
[2022-09-20] MEDS: CETIRIZINE HCL 10 MG TABLET PO (07:31)
[2022-09-20] MEDS: METOPROLOL TARTRATE 25 MG TABLET PO ×2 (07:31→15:31)
[2022-09-20 10:24] VITALS: BP 136/72; PULSE 68; RESP 18; TEMP 36.6; O2SAT 96; BMI 21.7
[2022-09-20] MEDS: MIRTAZAPINE 15 MG TABLET 30 MG PO (19:45)
[2022-09-20] MEDS: DONEPEZIL 10 MG TABLET PO (19:45)
[2022-09-20] MEDS: MELATONIN 5 MG TABLET PO (19:45)
[2022-09-20] MEDS: TRAMADOL HCL 50 MG TABLET PO (19:45)
--- NOTE | 2022-09-21 00:46 | PC.NURSE ---
Weekly Charting Week 4: Vital signs reviewed with no concerns. Comprehensive and Temporary care plan reviewed with no changes made. ?Resident calls multiple time at [facility], to change incontinent pad even though pad is dry. Has history of insomnia. Receives melatonin 5mg at HS and mirtazapine 30 mg at HS with no noted adverse effects. Speech is weak and garbled at times, but can be understood. Staff anticipate needs. Mild hearing impairment. Adjust tone and volume as needed. Visual impairment corrected with glasses. No change in orientation. All medications administered by licenses nurse. Health condition stable
--- NOTE | 2022-09-21 07:06 | PC.NURSE ---
Weekly Charting- Week 4: Vital signs have been reviewed with no concerns noted over the last week. Temporary and comprehensive care plans have also been reviewed with no changes made. No specific behavior or mood concerns have been documented over the last week. NOC staff report resident uses call light multiple times during the digital press operator to request brief be changed though brief will often be noted to be dry when resident has this request. Resident currently takes Donepezil 10 mg at HS, Melatonin 5 mg at HS, Remeron 30 mg at HS and Ultram 50 mg at HS with no adverse side effects noted over the last week. Resident does have vision impairment and therefore wears glasses. Resident can verbally communicate though will often answer 'yes' or 'no' only and speech can be garbled. Mild hearing impairment with staff adjusting volume and tone as needed. No changes to cognition over the last week. No medication changes or adverse effects have been noted over the last week. All medications are administered by licensed nurse. No changes to chronic health conditions.
[2022-09-21] MEDS: OMEPRAZOLE 40 MG CAPSULE.DR PO (07:38)
[2022-09-21] MEDS: LEVOTHYROXINE 112 MCG TABLET PO (07:39)
[2022-09-21] MEDS: CARBIDOPA-LEVODOPA 25-100 TABLET 2 TAB PO ×3 (07:40→19:36)
[2022-09-21] MEDS: ACETAMINOPHEN 500 MG TABLET 1000 MG PO ×3 (07:40→19:36)
[2022-09-21] MEDS: EMOLLIENT BASE CREAM 1 APPLIC TOPICAL ×2 (07:40→19:40)
[2022-09-21] MEDS: LACTOBACILLUS ACIDOPHILUS 1 TABLET 2 TAB PO ×3 (07:40→16:34)
[2022-09-21] MEDS: METOPROLOL TARTRATE 25 MG TABLET PO ×2 (07:40→15:08)
[2022-09-21] MEDS: CETIRIZINE HCL 10 MG TABLET PO (07:40)
[2022-09-21] MEDS: DONEPEZIL 10 MG TABLET PO (19:36)
[2022-09-21] MEDS: MIRTAZAPINE 15 MG TABLET 30 MG PO (19:36)
[2022-09-21] MEDS: MELATONIN 5 MG TABLET PO (19:40)
[2022-09-21] MEDS: TRAMADOL HCL 50 MG TABLET PO (19:40)
[2022-09-22] MEDS: ACETAMINOPHEN 500 MG TABLET 1000 MG PO ×3 (07:22→19:33)
[2022-09-22] MEDS: LEVOTHYROXINE 112 MCG TABLET PO (07:22)
[2022-09-22] MEDS: OMEPRAZOLE 40 MG CAPSULE.DR PO (07:22)
[2022-09-22] MEDS: CETIRIZINE HCL 10 MG TABLET PO (07:23)
[2022-09-22] MEDS: EMOLLIENT BASE CREAM 1 APPLIC TOPICAL ×2 (07:23→19:34)
[2022-09-22] MEDS: LACTOBACILLUS ACIDOPHILUS 1 TABLET 2 TAB PO ×3 (07:23→16:38)
[2022-09-22] MEDS: CARBIDOPA-LEVODOPA 25-100 TABLET 2 TAB PO ×3 (07:23→19:34)
[2022-09-22] MEDS: METOPROLOL TARTRATE 25 MG TABLET PO ×2 (07:23→15:19)
[2022-09-22] MEDS: MIRTAZAPINE 15 MG TABLET 30 MG PO (19:34)
[2022-09-22] MEDS: DONEPEZIL 10 MG TABLET PO (19:34)
[2022-09-22] MEDS: TRAMADOL HCL 50 MG TABLET PO (19:35)
[2022-09-22] MEDS: MELATONIN 5 MG TABLET PO (19:35)
[2022-09-23] MEDS: LEVOTHYROXINE 112 MCG TABLET PO (07:14)
[2022-09-23] MEDS: ACETAMINOPHEN 500 MG TABLET 1000 MG PO ×3 (07:14→19:38)
[2022-09-23] MEDS: OMEPRAZOLE 40 MG CAPSULE.DR PO (07:14)
[2022-09-23] MEDS: LACTOBACILLUS ACIDOPHILUS 1 TABLET 2 TAB PO ×3 (07:15→17:04)
[2022-09-23] MEDS: EMOLLIENT BASE CREAM 1 APPLIC TOPICAL ×2 (07:15→19:38)
[2022-09-23] MEDS: METOPROLOL TARTRATE 25 MG TABLET PO ×2 (07:15→15:31)
[2022-09-23] MEDS: CARBIDOPA-LEVODOPA 25-100 TABLET 2 TAB PO ×3 (07:15→19:38)
[2022-09-23] MEDS: CETIRIZINE HCL 10 MG TABLET PO (07:16)
--- NOTE | 2022-09-23 10:40 | PC.PHA1 ---
COMIC BOOK ARTIST PHARMACIST'S MEDICATION REVIEW: MEDICATION MONITORING:Mirtazapine 30 mg hs IRREGULARITY OR COMMENTS:Patient doing well on current medication regimen, sleeping well with mirtazapine 30 mg hs dose. Most recent concern is derm issue on groin that is being treated with nystatin. SUGGESTED COURSE OF ACTION TAKEN:No medication recommendations this review.
--- NOTE | 2022-09-23 13:26 | REH.PT ---
PT Screen of Gait and Transfers: Screened patient by carrying out transfers and gait within his room. Patient able to stand at walker with contact guard assist and turn and sit in the w/c. Tried the transfer by moving from recliner to wheelchair transfers with contact guard assist using the w/c to balance as he pivots and sits down. In the bathroom, patient uses grab bars to pull to stand from w/c and then standing pivot transfer with assist of 1 to toilet. For ambulation patient had a difficult time navigating how to use the walker. Without the walker, leans heavily on hand hold assist with decreased ability to weight shift and bring feet forward. Summary: Transfers: standing pivot transfer with grab bars or w/c with assist of 1. Gait: Amb with FWW and assist of 2 and gait belt. Juan F Monson, PT #[id number]
[2022-09-23] MEDS: DONEPEZIL 10 MG TABLET PO (19:38)
[2022-09-23] MEDS: MELATONIN 5 MG TABLET PO (19:38)
[2022-09-23] MEDS: MIRTAZAPINE 15 MG TABLET 30 MG PO (19:38)
[2022-09-23] MEDS: TRAMADOL HCL 50 MG TABLET PO (19:38)
[2022-09-24] MEDS: CARBIDOPA-LEVODOPA 25-100 TABLET 2 TAB PO ×3 (07:40→20:00)
[2022-09-24] MEDS: ACETAMINOPHEN 500 MG TABLET 1000 MG PO ×3 (07:40→20:00)
[2022-09-24] MEDS: OMEPRAZOLE 40 MG CAPSULE.DR PO (07:40)
[2022-09-24] MEDS: LEVOTHYROXINE 112 MCG TABLET PO (07:40)
[2022-09-24] MEDS: METOPROLOL TARTRATE 25 MG TABLET PO ×2 (07:40→15:52)
[2022-09-24] MEDS: EMOLLIENT BASE CREAM 1 APPLIC TOPICAL ×2 (07:44→20:00)
[2022-09-24] MEDS: CETIRIZINE HCL 10 MG TABLET PO (07:44)
[2022-09-24] MEDS: LACTOBACILLUS ACIDOPHILUS 1 TABLET 2 TAB PO ×3 (07:44→17:04)
[2022-09-24] MEDS: DONEPEZIL 10 MG TABLET PO (20:00)
[2022-09-24] MEDS: MELATONIN 5 MG TABLET PO (20:00)
[2022-09-24] MEDS: MIRTAZAPINE 15 MG TABLET 30 MG PO (20:00)
[2022-09-24] MEDS: TRAMADOL HCL 50 MG TABLET PO (20:00)
[2022-09-25] MEDS: LEVOTHYROXINE 112 MCG TABLET PO (06:56)
[2022-09-25] MEDS: OMEPRAZOLE 40 MG CAPSULE.DR PO (06:56)
[2022-09-25] MEDS: NYSTATIN POWDER 1 APPLIC TOPICAL (06:59)
[2022-09-25] MEDS: CLOTRIMAZOLE 1 % CREAM 1 APPLIC TOPICAL ×2 (06:59→21:09)
[2022-09-25] MEDS: ACETAMINOPHEN 500 MG TABLET 1000 MG PO ×3 (07:06→19:04)
[2022-09-25] MEDS: METOPROLOL TARTRATE 25 MG TABLET PO ×2 (07:06→15:30)
[2022-09-25] MEDS: CARBIDOPA-LEVODOPA 25-100 TABLET 2 TAB PO ×3 (07:06→19:04)
[2022-09-25] MEDS: EMOLLIENT BASE CREAM 1 APPLIC TOPICAL ×2 (07:06→19:05)
[2022-09-25] MEDS: LACTOBACILLUS ACIDOPHILUS 1 TABLET 2 TAB PO ×3 (07:06→17:03)
[2022-09-25] MEDS: CETIRIZINE HCL 10 MG TABLET PO (07:06)
[2022-09-25] MEDS: MELATONIN 5 MG TABLET PO (19:04)
[2022-09-25] MEDS: DONEPEZIL 10 MG TABLET PO (19:04)
[2022-09-25] MEDS: TRAMADOL HCL 50 MG TABLET PO (19:04)
[2022-09-25] MEDS: MIRTAZAPINE 15 MG TABLET 30 MG PO (19:04)
[2022-09-26] MEDS: ACETAMINOPHEN 500 MG TABLET 1000 MG PO ×3 (07:59→19:07)
[2022-09-26] MEDS: OMEPRAZOLE 40 MG CAPSULE.DR PO (07:59)
[2022-09-26] MEDS: CARBIDOPA-LEVODOPA 25-100 TABLET 2 TAB PO ×3 (07:59→19:07)
[2022-09-26] MEDS: METOPROLOL TARTRATE 25 MG TABLET PO ×2 (07:59→15:01)
[2022-09-26] MEDS: LEVOTHYROXINE 112 MCG TABLET PO (07:59)
[2022-09-26] MEDS: EMOLLIENT BASE CREAM 1 APPLIC TOPICAL ×2 (08:01→19:07)
[2022-09-26] MEDS: CETIRIZINE HCL 10 MG TABLET PO (08:01)
[2022-09-26] MEDS: LACTOBACILLUS ACIDOPHILUS 1 TABLET 2 TAB PO ×3 (08:01→16:39)
[2022-09-26] MEDS: DONEPEZIL 10 MG TABLET PO (19:07)
[2022-09-26] MEDS: MIRTAZAPINE 15 MG TABLET 30 MG PO (19:07)
[2022-09-26] MEDS: MELATONIN 5 MG TABLET PO (19:07)
[2022-09-26] MEDS: TRAMADOL HCL 50 MG TABLET PO (19:07)
--- NOTE | 2022-09-27 05:02 | PC.NURSE ---
WEEKLY CHARTING WEEK 1 PAIN AND ADL`S Review vital signs? : resident is receiving? Metoprolol 25mg BD for elevated Blood Pressure. Comprehensive care plan and temporary care planed reviewed with no changes made. Pain regimen Acetaminophen 1000mg TID scheduled and PRN daily ;Tramadol 50mg at night and PRN. Currently pain medication given are effective and he has no taken any PRN . ADL`s : Resident requires? extensive assist of? 1 with shaving, bathing, dressing and grooming.?He is able to participate with cues. No changes of appetite noted.? Appetite is good? and resident also enjoys some of the snack brought from home. Resident do cough often but does not have any choking episode. Diabetic diet with thin liquid? He is independent in eating after set up.
[2022-09-27 07:20] VITALS: BMI 25.9
[2022-09-27] MEDS: LACTOBACILLUS ACIDOPHILUS 1 TABLET 2 TAB PO ×3 (07:32→16:43)
[2022-09-27] MEDS: LEVOTHYROXINE 112 MCG TABLET PO (07:33)
[2022-09-27] MEDS: METOPROLOL TARTRATE 25 MG TABLET PO ×2 (07:33→15:02)
[2022-09-27] MEDS: CARBIDOPA-LEVODOPA 25-100 TABLET 2 TAB PO ×3 (07:33→19:22)
[2022-09-27] MEDS: OMEPRAZOLE 40 MG CAPSULE.DR PO (07:33)
[2022-09-27] MEDS: ACETAMINOPHEN 500 MG TABLET 1000 MG PO ×3 (07:33→19:22)
[2022-09-27] MEDS: EMOLLIENT BASE CREAM 1 APPLIC TOPICAL ×2 (07:33→19:22)
[2022-09-27] MEDS: CETIRIZINE HCL 10 MG TABLET PO (07:33)
[2022-09-27 07:52] VITALS: BP 143/82; PULSE 72; RESP 20; TEMP 35.9; O2SAT 98
[2022-09-27] MEDS: DONEPEZIL 10 MG TABLET PO (19:22)
[2022-09-27] MEDS: MELATONIN 5 MG TABLET PO (19:22)
[2022-09-27] MEDS: TRAMADOL HCL 50 MG TABLET PO (19:22)
[2022-09-27] MEDS: MIRTAZAPINE 15 MG TABLET 30 MG PO (19:22)
[2022-09-28] MEDS: LACTOBACILLUS ACIDOPHILUS 1 TABLET 2 TAB PO ×3 (07:02→17:05)
[2022-09-28] MEDS: ACETAMINOPHEN 500 MG TABLET 1000 MG PO ×3 (07:02→19:21)
[2022-09-28] MEDS: METOPROLOL TARTRATE 25 MG TABLET PO ×2 (07:03→15:47)
[2022-09-28] MEDS: CARBIDOPA-LEVODOPA 25-100 TABLET 2 TAB PO ×3 (07:03→19:21)
[2022-09-28] MEDS: OMEPRAZOLE 40 MG CAPSULE.DR PO (07:03)
[2022-09-28] MEDS: EMOLLIENT BASE CREAM 1 APPLIC TOPICAL ×2 (07:03→19:22)
[2022-09-28] MEDS: CETIRIZINE HCL 10 MG TABLET PO (07:03)
[2022-09-28] MEDS: LEVOTHYROXINE 112 MCG TABLET PO (07:03)
--- NOTE | 2022-09-28 08:24 | PC.NURSE ---
Weekly Charting, Week 1 - ADL's: Comprehensive and temporary care plan reviewed. No changes made, nothing added to temporary care plan. Resident needs one assist with dressing, grooming, oral cares and bathing. Has full upper and lower dentures. Is on regular diet, thin liquids. Has history of coughing at meals. Independent with feeding after staff set up. Vital signs reviewed, no concerns. Continue weekly monitoring and refer to provider as needed. Pain: Has chronic pain managed with Tylenol 1000mg TID & Ultram 50mg @ HS. Also has an order for Tylenol 1000mg daily PRN which he hasn't used. Has no complaint of pain the last month. Staff continue to monitor for non verbal gestures.of pain as he is not able to consistently verbalize needs.
[2022-09-28] MEDS: DONEPEZIL 10 MG TABLET PO (19:21)
[2022-09-28] MEDS: TRAMADOL HCL 50 MG TABLET PO (19:22)
[2022-09-28] MEDS: MELATONIN 5 MG TABLET PO (19:22)
[2022-09-28] MEDS: MIRTAZAPINE 15 MG TABLET 30 MG PO (19:22)
[2022-09-29] MEDS: OMEPRAZOLE 40 MG CAPSULE.DR PO (06:44)
[2022-09-29] MEDS: LEVOTHYROXINE 112 MCG TABLET PO (06:45)
[2022-09-29] MEDS: LACTOBACILLUS ACIDOPHILUS 1 TABLET 2 TAB PO ×3 (08:02→16:58)
[2022-09-29] MEDS: CARBIDOPA-LEVODOPA 25-100 TABLET 2 TAB PO ×3 (08:02→20:33)
[2022-09-29] MEDS: ACETAMINOPHEN 500 MG TABLET 1000 MG PO ×3 (08:02→20:32)
[2022-09-29] MEDS: METOPROLOL TARTRATE 25 MG TABLET PO ×2 (08:02→15:22)
[2022-09-29] MEDS: EMOLLIENT BASE CREAM 1 APPLIC TOPICAL ×2 (08:02→20:34)
[2022-09-29] MEDS: CETIRIZINE HCL 10 MG TABLET PO (08:03)
[2022-09-29] MEDS: DONEPEZIL 10 MG TABLET PO (20:33)
[2022-09-29] MEDS: MELATONIN 5 MG TABLET PO (20:33)
[2022-09-29] MEDS: CLOTRIMAZOLE 1 % CREAM 1 APPLIC TOPICAL (20:34)
[2022-09-29] MEDS: TRAMADOL HCL 50 MG TABLET PO (20:34)
[2022-09-29] MEDS: MIRTAZAPINE 15 MG TABLET 30 MG PO (20:34)
[2022-09-30] MEDS: CARBIDOPA-LEVODOPA 25-100 TABLET 2 TAB PO ×3 (07:12→20:20)
[2022-09-30] MEDS: METOPROLOL TARTRATE 25 MG TABLET PO ×2 (07:12→16:19)
[2022-09-30] MEDS: LEVOTHYROXINE 112 MCG TABLET PO (07:12)
[2022-09-30] MEDS: OMEPRAZOLE 40 MG CAPSULE.DR PO (07:12)
[2022-09-30] MEDS: ACETAMINOPHEN 500 MG TABLET 1000 MG PO ×3 (07:12→20:20)
[2022-09-30] MEDS: CETIRIZINE HCL 10 MG TABLET PO (07:14)
[2022-09-30] MEDS: LACTOBACILLUS ACIDOPHILUS 1 TABLET 2 TAB PO ×3 (07:14→17:01)
[2022-09-30] MEDS: EMOLLIENT BASE CREAM 1 APPLIC TOPICAL ×2 (07:14→20:20)
--- NOTE | 2022-09-30 10:23 | PC.NURSE ---
Order: When supply of Lactobacillus is complete, discontinue order per family request by Balbir BAILEY.
[2022-09-30] MEDS: DONEPEZIL 10 MG TABLET PO (20:20)
[2022-09-30] MEDS: TRAMADOL HCL 50 MG TABLET PO (20:20)
[2022-09-30] MEDS: MIRTAZAPINE 15 MG TABLET 30 MG PO (20:20)
[2022-09-30] MEDS: MELATONIN 5 MG TABLET PO (20:20)
[2022-10-01] MEDS: OMEPRAZOLE 40 MG CAPSULE.DR PO (06:42)
[2022-10-01] MEDS: LEVOTHYROXINE 112 MCG TABLET PO (06:42)
[2022-10-01] MEDS: METOPROLOL TARTRATE 25 MG TABLET PO ×2 (07:07→16:23)
[2022-10-01] MEDS: CARBIDOPA-LEVODOPA 25-100 TABLET 2 TAB PO ×3 (07:07→19:07)
[2022-10-01] MEDS: ACETAMINOPHEN 500 MG TABLET 1000 MG PO ×3 (07:07→19:07)
[2022-10-01] MEDS: CETIRIZINE HCL 10 MG TABLET PO (07:08)
[2022-10-01] MEDS: LACTOBACILLUS ACIDOPHILUS 1 TABLET 2 TAB PO ×3 (07:08→16:54)
[2022-10-01] MEDS: EMOLLIENT BASE CREAM 1 APPLIC TOPICAL ×2 (07:08→19:08)
[2022-10-01] MEDS: DONEPEZIL 10 MG TABLET PO (19:08)
[2022-10-01] MEDS: TRAMADOL HCL 50 MG TABLET PO (19:08)
[2022-10-01] MEDS: MIRTAZAPINE 15 MG TABLET 30 MG PO (19:08)
[2022-10-01] MEDS: MELATONIN 5 MG TABLET PO (19:08)
[2022-10-02] MEDS: OMEPRAZOLE 40 MG CAPSULE.DR PO (07:45)
[2022-10-02] MEDS: CARBIDOPA-LEVODOPA 25-100 TABLET 2 TAB PO ×3 (07:46→20:01)
[2022-10-02] MEDS: EMOLLIENT BASE CREAM 1 APPLIC TOPICAL ×2 (07:46→20:01)
[2022-10-02] MEDS: CETIRIZINE HCL 10 MG TABLET PO (07:46)
[2022-10-02] MEDS: LEVOTHYROXINE 112 MCG TABLET PO (07:46)
[2022-10-02] MEDS: ACETAMINOPHEN 500 MG TABLET 1000 MG PO ×3 (07:46→20:01)
[2022-10-02] MEDS: METOPROLOL TARTRATE 25 MG TABLET PO ×2 (07:46→15:24)
[2022-10-02] MEDS: LACTOBACILLUS ACIDOPHILUS 1 TABLET 2 TAB PO ×3 (07:46→17:10)
[2022-10-02] MEDS: TRAMADOL HCL 50 MG TABLET PO (20:01)
[2022-10-02] MEDS: DONEPEZIL 10 MG TABLET PO (20:01)
[2022-10-02] MEDS: MELATONIN 5 MG TABLET PO (20:01)
[2022-10-02] MEDS: MIRTAZAPINE 15 MG TABLET 30 MG PO (20:01)
[2022-10-03] MEDS: OMEPRAZOLE 40 MG CAPSULE.DR PO (07:34)
[2022-10-03] MEDS: LEVOTHYROXINE 112 MCG TABLET PO (07:34)
[2022-10-03] MEDS: CARBIDOPA-LEVODOPA 25-100 TABLET 2 TAB PO ×3 (07:35→19:09)
[2022-10-03] MEDS: METOPROLOL TARTRATE 25 MG TABLET PO ×2 (07:35→15:06)
[2022-10-03] MEDS: CETIRIZINE HCL 10 MG TABLET PO (07:35)
[2022-10-03] MEDS: LACTOBACILLUS ACIDOPHILUS 1 TABLET 2 TAB PO ×3 (07:35→17:16)
[2022-10-03] MEDS: EMOLLIENT BASE CREAM 1 APPLIC TOPICAL ×2 (07:35→19:09)
[2022-10-03] MEDS: ACETAMINOPHEN 500 MG TABLET 1000 MG PO ×3 (07:35→19:09)
[2022-10-03] MEDS: TRAMADOL HCL 50 MG TABLET PO (19:09)
[2022-10-03] MEDS: MIRTAZAPINE 15 MG TABLET 30 MG PO (19:09)
[2022-10-03] MEDS: DONEPEZIL 10 MG TABLET PO (19:09)
[2022-10-03] MEDS: MELATONIN 5 MG TABLET PO (19:09)
[2022-10-04] MEDS: OMEPRAZOLE 40 MG CAPSULE.DR PO (07:24)
[2022-10-04] MEDS: LEVOTHYROXINE 112 MCG TABLET PO (07:24)
[2022-10-04] MEDS: CARBIDOPA-LEVODOPA 25-100 TABLET 2 TAB PO ×3 (07:25→19:44)
[2022-10-04] MEDS: EMOLLIENT BASE CREAM 1 APPLIC TOPICAL ×2 (07:25→19:44)
[2022-10-04] MEDS: ACETAMINOPHEN 500 MG TABLET 1000 MG PO ×3 (07:25→19:43)
[2022-10-04] MEDS: LACTOBACILLUS ACIDOPHILUS 1 TABLET 2 TAB PO ×3 (07:25→17:10)
[2022-10-04] MEDS: METOPROLOL TARTRATE 25 MG TABLET PO ×2 (07:25→15:29)
[2022-10-04] MEDS: CETIRIZINE HCL 10 MG TABLET PO (07:25)
[2022-10-04 09:45] VITALS: BP 136/76; PULSE 74; RESP 18; TEMP 36.3; O2SAT 96; BMI 25.8
[2022-10-04] MEDS: DONEPEZIL 10 MG TABLET PO (19:44)
[2022-10-04] MEDS: MIRTAZAPINE 15 MG TABLET 30 MG PO (19:44)
[2022-10-04] MEDS: TRAMADOL HCL 50 MG TABLET PO (19:44)
[2022-10-04] MEDS: MELATONIN 5 MG TABLET PO (19:44)
--- NOTE | 2022-10-04 23:54 | PC.NURSE ---
Weekly Charting Week 2: Vital signs reviewed. Few BP elevated. INSPECTOR WIRE PRODUCTS aware, continue weekly monitoring, notify Provider as needed. Comprehensive and temporary care plan reviewed with no changes made. Limited assist of 1 with transfers. Able to propel w/c independently at times. Assistance provided by staff for distance/destination. Assist of 1 with cues for bed mobility. Bilateral 1/4 side rails up at all times as enabler for bed mobility.? Requires assist of 1 with gait belt and walker for ambulation in the room only. Fall risk assessment indicates resident is at high risk for falls. Fall interventions: anticipate needs, call light in reach, hourly visual checks, falling star magnet, non-slip footwear, bed in low position with brakes locked.Staff anticipate needs as needed.
--- NOTE | 2022-10-05 06:49 | PC.NURSE ---
Weekly Charting- Week 2: Vital signs reviewed. B/P of 136/76 noted over the last week. Staff are to continue vital signs weekly and update provider of any further concerns. Temporary and comprehensive care plans have been reviewed with no changes made. Assist of 1 with bed mobility with cues provided. Two 1/4 side rails up at all times to promote independence with positioning. Resident also requires assist of 1 with transferring and ambulation using gait belt and walker. He is able to complete wheelchair locomotion independently with staff providing assistance as needed. Resident does not use any alarms, lifts or stands. Resident remains high risk for fall per latest fall risk assessment. Interventions in place include: bed in lowest position with brakes locked, staff anticipating needs, non-slip footwear worn, call light within reach, falling star magnet in place and hourly visual checks for safety. Resident does have ambulation program in place TID though multiple refusals documented over the last week and maximum distance ambulated noted to be 100' during one ambulation session.
[2022-10-05] MEDS: LEVOTHYROXINE 112 MCG TABLET PO (07:11)
[2022-10-05] MEDS: ACETAMINOPHEN 500 MG TABLET 1000 MG PO ×3 (07:11→20:11)
[2022-10-05] MEDS: OMEPRAZOLE 40 MG CAPSULE.DR PO (07:11)
[2022-10-05] MEDS: CETIRIZINE HCL 10 MG TABLET PO (07:12)
[2022-10-05] MEDS: LACTOBACILLUS ACIDOPHILUS 1 TABLET 2 TAB PO ×3 (07:12→17:07)
[2022-10-05] MEDS: EMOLLIENT BASE CREAM 1 APPLIC TOPICAL ×2 (07:12→20:16)
[2022-10-05] MEDS: METOPROLOL TARTRATE 25 MG TABLET PO ×2 (07:12→15:12)
[2022-10-05] MEDS: CARBIDOPA-LEVODOPA 25-100 TABLET 2 TAB PO ×3 (07:12→20:11)
--- NOTE | 2022-10-05 11:46 | PC.SPIRITC ---
Provided visit with Juan' for connection, support, and check in.
[2022-10-05] MEDS: DONEPEZIL 10 MG TABLET PO (20:11)
[2022-10-05] MEDS: MELATONIN 5 MG TABLET PO (20:11)
[2022-10-05] MEDS: MIRTAZAPINE 15 MG TABLET 30 MG PO (20:12)
[2022-10-05] MEDS: TRAMADOL HCL 50 MG TABLET PO (20:13)
[2022-10-06] MEDS: LEVOTHYROXINE 112 MCG TABLET PO (07:13)
[2022-10-06] MEDS: OMEPRAZOLE 40 MG CAPSULE.DR PO (07:13)
[2022-10-06] MEDS: ACETAMINOPHEN 500 MG TABLET 1000 MG PO ×3 (07:13→19:02)
[2022-10-06] MEDS: CARBIDOPA-LEVODOPA 25-100 TABLET 2 TAB PO ×3 (07:14→19:03)
[2022-10-06] MEDS: EMOLLIENT BASE CREAM 1 APPLIC TOPICAL ×2 (07:14→19:03)
[2022-10-06] MEDS: METOPROLOL TARTRATE 25 MG TABLET PO ×2 (07:14→15:47)
[2022-10-06] MEDS: LACTOBACILLUS ACIDOPHILUS 1 TABLET 2 TAB PO ×3 (07:15→17:09)
[2022-10-06] MEDS: CETIRIZINE HCL 10 MG TABLET PO (07:15)
[2022-10-06] MEDS: MELATONIN 5 MG TABLET PO (19:03)
[2022-10-06] MEDS: MIRTAZAPINE 15 MG TABLET 30 MG PO (19:03)
[2022-10-06] MEDS: DONEPEZIL 10 MG TABLET PO (19:03)
[2022-10-06] MEDS: TRAMADOL HCL 50 MG TABLET PO (19:03)
[2022-10-07] MEDS: OMEPRAZOLE 40 MG CAPSULE.DR PO (06:43)
[2022-10-07] MEDS: LEVOTHYROXINE 112 MCG TABLET PO (06:44)
[2022-10-07] MEDS: METOPROLOL TARTRATE 25 MG TABLET PO ×2 (07:22→16:20)
[2022-10-07] MEDS: ACETAMINOPHEN 500 MG TABLET 1000 MG PO ×3 (07:22→20:41)
[2022-10-07] MEDS: CARBIDOPA-LEVODOPA 25-100 TABLET 2 TAB PO ×3 (07:22→20:41)
[2022-10-07] MEDS: CETIRIZINE HCL 10 MG TABLET PO (07:23)
[2022-10-07] MEDS: LACTOBACILLUS ACIDOPHILUS 1 TABLET 2 TAB PO ×3 (07:23→17:21)
[2022-10-07] MEDS: EMOLLIENT BASE CREAM 1 APPLIC TOPICAL ×2 (07:23→20:41)
[2022-10-07] MEDS: TRAMADOL HCL 50 MG TABLET PO (20:41)
[2022-10-07] MEDS: DONEPEZIL 10 MG TABLET PO (20:41)
[2022-10-07] MEDS: MIRTAZAPINE 15 MG TABLET 30 MG PO (20:41)
[2022-10-07] MEDS: MELATONIN 5 MG TABLET PO (20:41)
[2022-10-08] MEDS: OMEPRAZOLE 40 MG CAPSULE.DR PO (07:40)
[2022-10-08] MEDS: LEVOTHYROXINE 112 MCG TABLET PO (07:41)
[2022-10-08] MEDS: CETIRIZINE HCL 10 MG TABLET PO (07:42)
[2022-10-08] MEDS: LACTOBACILLUS ACIDOPHILUS 1 TABLET 2 TAB PO ×3 (07:42→16:36)
[2022-10-08] MEDS: METOPROLOL TARTRATE 25 MG TABLET PO ×2 (07:42→15:53)
[2022-10-08] MEDS: ACETAMINOPHEN 500 MG TABLET 1000 MG PO ×3 (07:42→19:50)
[2022-10-08] MEDS: CARBIDOPA-LEVODOPA 25-100 TABLET 2 TAB PO ×3 (07:42→19:50)
[2022-10-08] MEDS: EMOLLIENT BASE CREAM 1 APPLIC TOPICAL ×2 (07:42→19:50)
[2022-10-08] MEDS: MELATONIN 5 MG TABLET PO (19:50)
[2022-10-08] MEDS: TRAMADOL HCL 50 MG TABLET PO (19:50)
[2022-10-08] MEDS: MIRTAZAPINE 15 MG TABLET 30 MG PO (19:50)
[2022-10-08] MEDS: DONEPEZIL 10 MG TABLET PO (19:50)
[2022-10-09] MEDS: ACETAMINOPHEN 500 MG TABLET 1000 MG PO ×3 (06:58→19:16)
[2022-10-09] MEDS: CARBIDOPA-LEVODOPA 25-100 TABLET 2 TAB PO ×3 (06:58→19:16)
[2022-10-09] MEDS: LEVOTHYROXINE 112 MCG TABLET PO (06:58)
[2022-10-09] MEDS: OMEPRAZOLE 40 MG CAPSULE.DR PO (06:58)
[2022-10-09] MEDS: METOPROLOL TARTRATE 25 MG TABLET PO ×2 (06:58→15:44)
[2022-10-09] MEDS: CETIRIZINE HCL 10 MG TABLET PO (06:59)
[2022-10-09] MEDS: LACTOBACILLUS ACIDOPHILUS 1 TABLET 2 TAB PO ×3 (06:59→16:43)
[2022-10-09] MEDS: EMOLLIENT BASE CREAM 1 APPLIC TOPICAL ×2 (06:59→19:17)
[2022-10-09] MEDS: MELATONIN 5 MG TABLET PO (19:16)
[2022-10-09] MEDS: DONEPEZIL 10 MG TABLET PO (19:16)
[2022-10-09] MEDS: MIRTAZAPINE 15 MG TABLET 30 MG PO (19:16)
[2022-10-09] MEDS: TRAMADOL HCL 50 MG TABLET PO (19:17)
[2022-10-10] MEDS: LEVOTHYROXINE 112 MCG TABLET PO (07:40)
[2022-10-10] MEDS: OMEPRAZOLE 40 MG CAPSULE.DR PO (07:40)
[2022-10-10] MEDS: METOPROLOL TARTRATE 25 MG TABLET PO ×2 (07:41→15:10)
[2022-10-10] MEDS: CARBIDOPA-LEVODOPA 25-100 TABLET 2 TAB PO ×3 (07:41→20:29)
[2022-10-10] MEDS: ACETAMINOPHEN 500 MG TABLET 1000 MG PO ×3 (07:41→20:29)
[2022-10-10] MEDS: CETIRIZINE HCL 10 MG TABLET PO (07:41)
[2022-10-10] MEDS: LACTOBACILLUS ACIDOPHILUS 1 TABLET 2 TAB PO ×3 (07:41→17:05)
[2022-10-10] MEDS: EMOLLIENT BASE CREAM 1 APPLIC TOPICAL ×2 (07:41→20:30)
[2022-10-10] MEDS: TRAMADOL HCL 50 MG TABLET PO (20:30)
[2022-10-10] MEDS: MIRTAZAPINE 15 MG TABLET 30 MG PO (20:30)
[2022-10-10] MEDS: DONEPEZIL 10 MG TABLET PO (20:30)
[2022-10-10] MEDS: MELATONIN 5 MG TABLET PO (20:30)
[2022-10-11 07:00] VITALS: BMI 25.4
[2022-10-11] MEDS: OMEPRAZOLE 40 MG CAPSULE.DR PO (07:24)
[2022-10-11] MEDS: LEVOTHYROXINE 112 MCG TABLET PO (07:24)
[2022-10-11] MEDS: LACTOBACILLUS ACIDOPHILUS 1 TABLET 2 TAB PO ×3 (07:25→17:09)
[2022-10-11] MEDS: CARBIDOPA-LEVODOPA 25-100 TABLET 2 TAB PO ×3 (07:25→19:22)
[2022-10-11] MEDS: ACETAMINOPHEN 500 MG TABLET 1000 MG PO ×3 (07:25→19:22)
[2022-10-11] MEDS: METOPROLOL TARTRATE 25 MG TABLET PO ×2 (07:25→15:18)
[2022-10-11] MEDS: EMOLLIENT BASE CREAM 1 APPLIC TOPICAL ×2 (07:25→19:23)
[2022-10-11] MEDS: CETIRIZINE HCL 10 MG TABLET PO (07:26)
[2022-10-11 07:36] VITALS: BP 160/85; PULSE 78; RESP 16; TEMP 36.9; O2SAT 97
[2022-10-11] MEDS: DONEPEZIL 10 MG TABLET PO (19:22)
[2022-10-11] MEDS: MIRTAZAPINE 15 MG TABLET 30 MG PO (19:23)
[2022-10-11] MEDS: MELATONIN 5 MG TABLET PO (19:23)
[2022-10-11] MEDS: TRAMADOL HCL 50 MG TABLET PO (19:23)
--- NOTE | 2022-10-12 03:47 | PC.NURSE ---
WEEKLY CHARTING WEEK3 : TOILETING AND SKIN Vital signs reviewed, few BP elevated, continue weekly BP check, notify [employer] FIN[employer]CIALS CONSULTANT as needed. Comprehensive and temporary care plan reviewed with no changes made lately. Resident is incontinent of bowel and bladder, check and changed at night. Assist one with incontinent pad change and ge cares. He calls when incontinent. He uses large brief. ?Resident skin issues resolved ; are on and off with redness on groin or rash on feet. Skin check done every bath day and during cares.
[2022-10-12] MEDS: LEVOTHYROXINE 112 MCG TABLET PO (07:21)
[2022-10-12] MEDS: OMEPRAZOLE 40 MG CAPSULE.DR PO (07:21)
[2022-10-12] MEDS: ACETAMINOPHEN 500 MG TABLET 1000 MG PO ×3 (07:21→19:17)
[2022-10-12] MEDS: CETIRIZINE HCL 10 MG TABLET PO (07:22)
[2022-10-12] MEDS: METOPROLOL TARTRATE 25 MG TABLET PO ×2 (07:22→15:14)
[2022-10-12] MEDS: EMOLLIENT BASE CREAM 1 APPLIC TOPICAL ×2 (07:22→19:20)
[2022-10-12] MEDS: CARBIDOPA-LEVODOPA 25-100 TABLET 2 TAB PO ×3 (07:22→19:17)
[2022-10-12] MEDS: LACTOBACILLUS ACIDOPHILUS 1 TABLET 2 TAB PO ×3 (07:22→16:38)
--- NOTE | 2022-10-12 07:52 | PC.NURSE ---
Weekly Charting- Week 3: Toileting & Skin Vital signs reviewed. B/P noted to be slightly elevated at 160/85 on 10/12/22. Staff to continue to monitor and update provider as needed. Resident has had no hypertensive symptoms noted and continues to take Metoprolol BID. Temporary and comprehensive care plans have been reviewed with no changes made. No skin concerns currently noted. Redness previously noted to groin and bilateral feet has resolved with staff applying Vanicream to bilateral lower extremities BID. Skin checks completed weekly on bath day and with cares. Resident is both continent and incontinent of bowel and bladder. He does use the toilet during the day though is check and change at night. Resident can be continent of bowel during the day when using toilet. Resident wears size large briefs for incontinent product. He is care planned to be repositioned Q3H though during the day is often repositioned less than Q3H as he requests to get into recliner after meals. Extensive assist of 1 required with toileting with staff performing ge cares, changing incontinent product and pulling pants up and down during toileting.
[2022-10-12] MEDS: MIRTAZAPINE 15 MG TABLET 30 MG PO (19:18)
[2022-10-12] MEDS: DONEPEZIL 10 MG TABLET PO (19:18)
[2022-10-12] MEDS: MELATONIN 5 MG TABLET PO (19:19)
[2022-10-12] MEDS: TRAMADOL HCL 50 MG TABLET PO (19:20)
[2022-10-13] MEDS: LEVOTHYROXINE 112 MCG TABLET PO (07:43)
[2022-10-13] MEDS: OMEPRAZOLE 40 MG CAPSULE.DR PO (07:43)
[2022-10-13] MEDS: CARBIDOPA-LEVODOPA 25-100 TABLET 2 TAB PO ×3 (07:44→19:06)
[2022-10-13] MEDS: CETIRIZINE HCL 10 MG TABLET PO (07:44)
[2022-10-13] MEDS: METOPROLOL TARTRATE 25 MG TABLET PO ×2 (07:44→15:52)
[2022-10-13] MEDS: ACETAMINOPHEN 500 MG TABLET 1000 MG PO ×3 (07:45→19:06)
[2022-10-13] MEDS: LACTOBACILLUS ACIDOPHILUS 1 TABLET 2 TAB PO ×3 (07:46→17:04)
[2022-10-13] MEDS: EMOLLIENT BASE CREAM 1 APPLIC TOPICAL ×2 (07:46→19:06)
[2022-10-13] MEDS: MIRTAZAPINE 15 MG TABLET 30 MG PO (19:06)
[2022-10-13] MEDS: TRAMADOL HCL 50 MG TABLET PO (19:06)
[2022-10-13] MEDS: MELATONIN 5 MG TABLET PO (19:06)
[2022-10-13] MEDS: DONEPEZIL 10 MG TABLET PO (19:06)
[2022-10-14] MEDS: OMEPRAZOLE 40 MG CAPSULE.DR PO (06:56)
[2022-10-14] MEDS: LEVOTHYROXINE 112 MCG TABLET PO (06:56)
[2022-10-14] MEDS: ACETAMINOPHEN 500 MG TABLET 1000 MG PO ×3 (06:56→19:32)
[2022-10-14] MEDS: CETIRIZINE HCL 10 MG TABLET PO (06:57)
[2022-10-14] MEDS: EMOLLIENT BASE CREAM 1 APPLIC TOPICAL ×2 (06:57→19:32)
[2022-10-14] MEDS: CARBIDOPA-LEVODOPA 25-100 TABLET 2 TAB PO ×3 (06:57→19:32)
[2022-10-14] MEDS: METOPROLOL TARTRATE 25 MG TABLET PO ×2 (06:57→15:17)
[2022-10-14] MEDS: LACTOBACILLUS ACIDOPHILUS 1 TABLET 2 TAB PO ×3 (06:57→17:34)
[2022-10-14] MEDS: MELATONIN 5 MG TABLET PO (19:32)
[2022-10-14] MEDS: TRAMADOL HCL 50 MG TABLET PO (19:32)
[2022-10-14] MEDS: MIRTAZAPINE 15 MG TABLET 30 MG PO (19:32)
[2022-10-14] MEDS: DONEPEZIL 10 MG TABLET PO (19:32)
[2022-10-15] MEDS: LACTOBACILLUS ACIDOPHILUS 1 TABLET 2 TAB PO ×3 (07:55→16:48)
[2022-10-15] MEDS: METOPROLOL TARTRATE 25 MG TABLET PO ×2 (07:55→15:07)
[2022-10-15] MEDS: ACETAMINOPHEN 500 MG TABLET 1000 MG PO ×3 (07:55→19:11)
[2022-10-15] MEDS: EMOLLIENT BASE CREAM 1 APPLIC TOPICAL ×2 (07:55→19:12)
[2022-10-15] MEDS: LEVOTHYROXINE 112 MCG TABLET PO (07:55)
[2022-10-15] MEDS: CETIRIZINE HCL 10 MG TABLET PO (07:55)
[2022-10-15] MEDS: OMEPRAZOLE 40 MG CAPSULE.DR PO (07:55)
[2022-10-15] MEDS: CARBIDOPA-LEVODOPA 25-100 TABLET 2 TAB PO ×3 (07:55→19:11)
[2022-10-15] MEDS: MELATONIN 5 MG TABLET PO (19:11)
[2022-10-15] MEDS: MIRTAZAPINE 15 MG TABLET 30 MG PO (19:11)
[2022-10-15] MEDS: DONEPEZIL 10 MG TABLET PO (19:11)
[2022-10-15] MEDS: TRAMADOL HCL 50 MG TABLET PO (19:11)
[2022-10-16] MEDS: LEVOTHYROXINE 112 MCG TABLET PO (07:25)
[2022-10-16] MEDS: OMEPRAZOLE 40 MG CAPSULE.DR PO (07:25)
[2022-10-16] MEDS: ACETAMINOPHEN 500 MG TABLET 1000 MG PO ×3 (07:25→20:22)
[2022-10-16] MEDS: LACTOBACILLUS ACIDOPHILUS 1 TABLET 2 TAB PO ×3 (07:26→17:27)
[2022-10-16] MEDS: CARBIDOPA-LEVODOPA 25-100 TABLET 2 TAB PO ×3 (07:26→20:22)
[2022-10-16] MEDS: CETIRIZINE HCL 10 MG TABLET PO (07:26)
[2022-10-16] MEDS: EMOLLIENT BASE CREAM 1 APPLIC TOPICAL ×2 (07:26→20:22)
[2022-10-16] MEDS: METOPROLOL TARTRATE 25 MG TABLET PO ×2 (07:26→15:46)
[2022-10-16] MEDS: MIRTAZAPINE 15 MG TABLET 30 MG PO (20:22)
[2022-10-16] MEDS: TRAMADOL HCL 50 MG TABLET PO (20:22)
[2022-10-16] MEDS: DONEPEZIL 10 MG TABLET PO (20:22)
[2022-10-16] MEDS: MELATONIN 5 MG TABLET PO (20:22)
[2022-10-17] MEDS: ACETAMINOPHEN 500 MG TABLET 1000 MG PO ×3 (07:22→19:19)
[2022-10-17] MEDS: LACTOBACILLUS ACIDOPHILUS 1 TABLET 2 TAB PO ×3 (07:22→17:03)
[2022-10-17] MEDS: METOPROLOL TARTRATE 25 MG TABLET PO ×2 (07:22→15:07)
[2022-10-17] MEDS: OMEPRAZOLE 40 MG CAPSULE.DR PO (07:22)
[2022-10-17] MEDS: CARBIDOPA-LEVODOPA 25-100 TABLET 2 TAB PO ×3 (07:22→19:19)
[2022-10-17] MEDS: EMOLLIENT BASE CREAM 1 APPLIC TOPICAL ×2 (07:22→19:19)
[2022-10-17] MEDS: LEVOTHYROXINE 112 MCG TABLET PO (07:22)
[2022-10-17] MEDS: CETIRIZINE HCL 10 MG TABLET PO (07:22)
[2022-10-17] MEDS: MELATONIN 5 MG TABLET PO (19:19)
[2022-10-17] MEDS: MIRTAZAPINE 15 MG TABLET 30 MG PO (19:19)
[2022-10-17] MEDS: TRAMADOL HCL 50 MG TABLET PO (19:19)
[2022-10-17] MEDS: DONEPEZIL 10 MG TABLET PO (19:19)
[2022-10-18 07:00] VITALS: BMI 25.8
[2022-10-18] MEDS: CARBIDOPA-LEVODOPA 25-100 TABLET 2 TAB PO ×3 (07:33→19:58)
[2022-10-18] MEDS: ACETAMINOPHEN 500 MG TABLET 1000 MG PO ×3 (07:33→19:58)
[2022-10-18] MEDS: METOPROLOL TARTRATE 25 MG TABLET PO ×2 (07:33→15:41)
[2022-10-18] MEDS: LACTOBACILLUS ACIDOPHILUS 1 TABLET 2 TAB PO ×3 (07:33→16:44)
[2022-10-18] MEDS: LEVOTHYROXINE 112 MCG TABLET PO (07:33)
[2022-10-18] MEDS: CETIRIZINE HCL 10 MG TABLET PO (07:33)
[2022-10-18] MEDS: OMEPRAZOLE 40 MG CAPSULE.DR PO (07:33)
[2022-10-18] MEDS: EMOLLIENT BASE CREAM 1 APPLIC TOPICAL ×2 (07:33→19:58)
[2022-10-18 09:57] VITALS: BP 142/76; PULSE 76; RESP 18; TEMP 36.4; O2SAT 96
--- NOTE | 2022-10-18 10:34 | PC.NURSE ---
Skin: Was noted on skin check with bath that resident has the following with interventions set up: Area of redness noted to mid back measuring 6cm x 2cm, scabbed areas to L castaneda measuring 4cm, small 0.5cm bruise to L forearm
[2022-10-18] MEDS: MELATONIN 5 MG TABLET PO (19:58)
[2022-10-18] MEDS: MIRTAZAPINE 15 MG TABLET 30 MG PO (19:58)
[2022-10-18] MEDS: TRAMADOL HCL 50 MG TABLET PO (19:58)
[2022-10-18] MEDS: DONEPEZIL 10 MG TABLET PO (19:58)
--- NOTE | 2022-10-18 23:57 | PC.NURSE ---
Weekly Charting Week 4 Vital signs reviewed, Few elevated, ELEVATOR OPERATOR aware, Staff to continue to weekly monitor, update provider as needed. Comprehensive and temporary care plan reviewed with no changes made. No documented behavior this month. Receives melatonin 5mg at HS and mirtazapine 30 mg at HS with no noted adverse effects. Speech is weak and garbled at times, but can be understood. Staff anticipate needs. Mild hearing impairment. Adjust tone and volume as needed. Visual impairment corrected with glasses. No change in orientation. All medications administered by licenses nurse. Health condition stable
[2022-10-19] MEDS: OMEPRAZOLE 40 MG CAPSULE.DR PO (07:02)
[2022-10-19] MEDS: METOPROLOL TARTRATE 25 MG TABLET PO ×2 (07:02→15:03)
[2022-10-19] MEDS: LEVOTHYROXINE 112 MCG TABLET PO (07:02)
[2022-10-19] MEDS: ACETAMINOPHEN 500 MG TABLET 1000 MG PO ×3 (07:02→19:23)
[2022-10-19] MEDS: CARBIDOPA-LEVODOPA 25-100 TABLET 2 TAB PO ×3 (07:02→19:23)
[2022-10-19] MEDS: EMOLLIENT BASE CREAM 1 APPLIC TOPICAL ×2 (07:03→19:26)
[2022-10-19] MEDS: CETIRIZINE HCL 10 MG TABLET PO (07:03)
[2022-10-19] MEDS: LACTOBACILLUS ACIDOPHILUS 1 TABLET 2 TAB PO ×3 (07:03→16:30)
--- NOTE | 2022-10-19 07:21 | PC.NURSE ---
Weekly Charting- Week 4: Vital signs reviewed. Resident does have elevated blood pressure values noted at times though B/P of 142/76 on 10/18/22 noted to be improved when compared to B/P of 160/85 noted on 10/11/22. Nursing to continue to check vital signs as ordered and update provider with concerns. Temporary and comprehensive care plans have been reviewed with no changes made. Three documented behavioral episodes noted over the last month: one episode of frequent calling out and inability to sleep, one episode of frequent call light use and one episode of resident stripping brief and wetting bed. Resident currently takes Donepezil 10 mg at HS, Melatonin 5 mg at HS, Remeron 30 mg at HS and Tramadol 50 mg at HS with no adverse side effects noted. Resident wears glasses for vision correction. Mild hearing impairment corrected with change of voice volume/tone as needed. Resident's speech can be garbled at times and resident struggles with verbal communication though can answer 'yes' or 'no' when asked questions. All medications are administered by licensed nurse with no adverse effects noted. No changes in orientation or chronic health conditions.
[2022-10-19] MEDS: DONEPEZIL 10 MG TABLET PO (19:23)
[2022-10-19] MEDS: MELATONIN 5 MG TABLET PO (19:25)
[2022-10-19] MEDS: MIRTAZAPINE 15 MG TABLET 30 MG PO (19:25)
[2022-10-19] MEDS: TRAMADOL HCL 50 MG TABLET PO (19:26)
[2022-10-20] MEDS: LEVOTHYROXINE 112 MCG TABLET PO (07:26)
[2022-10-20] MEDS: CARBIDOPA-LEVODOPA 25-100 TABLET 2 TAB PO ×3 (07:26→19:09)
[2022-10-20] MEDS: ACETAMINOPHEN 500 MG TABLET 1000 MG PO ×3 (07:26→19:09)
[2022-10-20] MEDS: OMEPRAZOLE 40 MG CAPSULE.DR PO (07:26)
[2022-10-20] MEDS: EMOLLIENT BASE CREAM 1 APPLIC TOPICAL ×2 (07:27→19:09)
[2022-10-20] MEDS: CETIRIZINE HCL 10 MG TABLET PO (07:27)
[2022-10-20] MEDS: METOPROLOL TARTRATE 25 MG TABLET PO ×2 (07:27→15:05)
[2022-10-20] MEDS: LACTOBACILLUS ACIDOPHILUS 1 TABLET 2 TAB PO ×3 (07:27→17:02)
[2022-10-20] MEDS: DONEPEZIL 10 MG TABLET PO (19:09)
[2022-10-20] MEDS: MELATONIN 5 MG TABLET PO (19:09)
[2022-10-20] MEDS: TRAMADOL HCL 50 MG TABLET PO (19:09)
[2022-10-20] MEDS: MIRTAZAPINE 15 MG TABLET 30 MG PO (19:09)
[2022-10-21] MEDS: OMEPRAZOLE 40 MG CAPSULE.DR PO (07:18)
[2022-10-21] MEDS: ACETAMINOPHEN 500 MG TABLET 1000 MG PO ×3 (07:18→20:37)
[2022-10-21] MEDS: LEVOTHYROXINE 112 MCG TABLET PO (07:18)
[2022-10-21] MEDS: LACTOBACILLUS ACIDOPHILUS 1 TABLET 2 TAB PO ×3 (07:19→17:02)
[2022-10-21] MEDS: METOPROLOL TARTRATE 25 MG TABLET PO ×2 (07:19→15:49)
[2022-10-21] MEDS: EMOLLIENT BASE CREAM 1 APPLIC TOPICAL ×2 (07:19→20:37)
[2022-10-21] MEDS: CARBIDOPA-LEVODOPA 25-100 TABLET 2 TAB PO ×3 (07:19→20:37)
[2022-10-21] MEDS: CETIRIZINE HCL 10 MG TABLET PO (07:20)
[2022-10-21] MEDS: MELATONIN 5 MG TABLET PO (20:37)
[2022-10-21] MEDS: DONEPEZIL 10 MG TABLET PO (20:37)
[2022-10-21] MEDS: MIRTAZAPINE 15 MG TABLET 30 MG PO (20:37)
[2022-10-21] MEDS: TRAMADOL HCL 50 MG TABLET PO (20:37)
[2022-10-22] MEDS: OMEPRAZOLE 40 MG CAPSULE.DR PO (06:58)
[2022-10-22] MEDS: EMOLLIENT BASE CREAM 1 APPLIC TOPICAL ×2 (06:59→20:11)
[2022-10-22] MEDS: LEVOTHYROXINE 112 MCG TABLET PO (06:59)
[2022-10-22] MEDS: LACTOBACILLUS ACIDOPHILUS 1 TABLET 2 TAB PO ×3 (06:59→17:07)
[2022-10-22] MEDS: CETIRIZINE HCL 10 MG TABLET PO (06:59)
[2022-10-22] MEDS: CARBIDOPA-LEVODOPA 25-100 TABLET 2 TAB PO ×3 (06:59→20:10)
[2022-10-22] MEDS: METOPROLOL TARTRATE 25 MG TABLET PO ×2 (06:59→15:12)
[2022-10-22] MEDS: ACETAMINOPHEN 500 MG TABLET 1000 MG PO ×3 (06:59→20:10)
[2022-10-22] MEDS: DONEPEZIL 10 MG TABLET PO (20:10)
[2022-10-22] MEDS: MIRTAZAPINE 15 MG TABLET 30 MG PO (20:11)
[2022-10-22] MEDS: MELATONIN 5 MG TABLET PO (20:11)
[2022-10-22] MEDS: TRAMADOL HCL 50 MG TABLET PO (20:11)
[2022-10-23] MEDS: CARBIDOPA-LEVODOPA 25-100 TABLET 2 TAB PO ×3 (06:59→19:13)
[2022-10-23] MEDS: LACTOBACILLUS ACIDOPHILUS 1 TABLET 2 TAB PO ×3 (06:59→17:17)
[2022-10-23] MEDS: METOPROLOL TARTRATE 25 MG TABLET PO ×2 (06:59→16:10)
[2022-10-23] MEDS: ACETAMINOPHEN 500 MG TABLET 1000 MG PO ×3 (06:59→19:13)
[2022-10-23] MEDS: OMEPRAZOLE 40 MG CAPSULE.DR PO (06:59)
[2022-10-23] MEDS: CETIRIZINE HCL 10 MG TABLET PO (06:59)
[2022-10-23] MEDS: EMOLLIENT BASE CREAM 1 APPLIC TOPICAL ×2 (06:59→19:14)
[2022-10-23] MEDS: LEVOTHYROXINE 112 MCG TABLET PO (06:59)
[2022-10-23] MEDS: DONEPEZIL 10 MG TABLET PO (19:13)
[2022-10-23] MEDS: TRAMADOL HCL 50 MG TABLET PO (19:14)
[2022-10-23] MEDS: MELATONIN 5 MG TABLET PO (19:14)
[2022-10-23] MEDS: MIRTAZAPINE 15 MG TABLET 30 MG PO (19:14)
[2022-10-24] MEDS: OMEPRAZOLE 40 MG CAPSULE.DR PO (07:28)
[2022-10-24] MEDS: LEVOTHYROXINE 112 MCG TABLET PO (07:28)
[2022-10-24] MEDS: ACETAMINOPHEN 500 MG TABLET 1000 MG PO ×3 (07:29→19:09)
[2022-10-24] MEDS: EMOLLIENT BASE CREAM 1 APPLIC TOPICAL ×2 (07:29→19:09)
[2022-10-24] MEDS: METOPROLOL TARTRATE 25 MG TABLET PO ×2 (07:29→15:00)
[2022-10-24] MEDS: CARBIDOPA-LEVODOPA 25-100 TABLET 2 TAB PO ×3 (07:29→19:09)
[2022-10-24] MEDS: LACTOBACILLUS ACIDOPHILUS 1 TABLET 2 TAB PO ×3 (07:29→16:54)
[2022-10-24] MEDS: CETIRIZINE HCL 10 MG TABLET PO (07:30)
[2022-10-24] MEDS: DONEPEZIL 10 MG TABLET PO (19:09)
[2022-10-24] MEDS: MELATONIN 5 MG TABLET PO (19:09)
[2022-10-24] MEDS: TRAMADOL HCL 50 MG TABLET PO (19:09)
[2022-10-24] MEDS: MIRTAZAPINE 15 MG TABLET 30 MG PO (19:09)
[2022-10-25] MEDS: CLOTRIMAZOLE 1 % CREAM 1 APPLIC TOPICAL (01:59)
--- NOTE | 2022-10-25 02:49 | PC.NURSE ---
Skin Resident called, staff went for assistance, he had her bedsheet off and was rubbing both foot. Nurse assessed , he got some flaky skin`s on dorsal foot. Clotrimazole cream was applied to both foot.
[2022-10-25 07:00] VITALS: BP 125/79; PULSE 62; RESP 18; TEMP 36.2; O2SAT 93; BMI 25.3
[2022-10-25] MEDS: OMEPRAZOLE 40 MG CAPSULE.DR PO (07:37)
[2022-10-25] MEDS: CARBIDOPA-LEVODOPA 25-100 TABLET 2 TAB PO ×3 (07:37→19:32)
[2022-10-25] MEDS: ACETAMINOPHEN 500 MG TABLET 1000 MG PO ×3 (07:37→19:32)
[2022-10-25] MEDS: LEVOTHYROXINE 112 MCG TABLET PO (07:37)
[2022-10-25] MEDS: METOPROLOL TARTRATE 25 MG TABLET PO ×2 (07:38→15:01)
[2022-10-25] MEDS: CETIRIZINE HCL 10 MG TABLET PO (07:38)
[2022-10-25] MEDS: EMOLLIENT BASE CREAM 1 APPLIC TOPICAL ×2 (07:38→19:33)
[2022-10-25] MEDS: NYSTATIN POWDER 1 APPLIC TOPICAL (07:38)
[2022-10-25] MEDS: LACTOBACILLUS ACIDOPHILUS 1 TABLET 2 TAB PO ×3 (07:38→17:06)
[2022-10-25] MEDS: MELATONIN 5 MG TABLET PO (19:32)
[2022-10-25] MEDS: DONEPEZIL 10 MG TABLET PO (19:32)
[2022-10-25] MEDS: MIRTAZAPINE 15 MG TABLET 30 MG PO (19:32)
[2022-10-25] MEDS: TRAMADOL HCL 50 MG TABLET PO (19:33)
[2022-10-26] MEDS: LEVOTHYROXINE 112 MCG TABLET PO (07:20)
[2022-10-26] MEDS: OMEPRAZOLE 40 MG CAPSULE.DR PO (07:20)
[2022-10-26] MEDS: CETIRIZINE HCL 10 MG TABLET PO (07:21)
[2022-10-26] MEDS: ACETAMINOPHEN 500 MG TABLET 1000 MG PO ×3 (07:21→19:09)
[2022-10-26] MEDS: CARBIDOPA-LEVODOPA 25-100 TABLET 2 TAB PO ×3 (07:21→19:09)
[2022-10-26] MEDS: METOPROLOL TARTRATE 25 MG TABLET PO ×2 (07:21→15:06)
[2022-10-26] MEDS: LACTOBACILLUS ACIDOPHILUS 1 TABLET 2 TAB PO ×3 (07:21→16:31)
[2022-10-26] MEDS: EMOLLIENT BASE CREAM 1 APPLIC TOPICAL ×2 (07:21→19:09)
--- NOTE | 2022-10-26 13:33 | PC.PHA1 ---
FORENSIC DNA ANALYST PHARMACIST'S MEDICATION REVIEW: MEDICATION MONITORING:Mirtazapine 30 mg hs IRREGULARITY OR COMMENTS:Patient doing well on current medication regimen. SUGGESTED COURSE OF ACTION TAKEN:No medication recommendations this review.
[2022-10-26] MEDS: DONEPEZIL 10 MG TABLET PO (19:09)
[2022-10-26] MEDS: TRAMADOL HCL 50 MG TABLET PO (19:09)
[2022-10-26] MEDS: MELATONIN 5 MG TABLET PO (19:09)
[2022-10-26] MEDS: MIRTAZAPINE 15 MG TABLET 30 MG PO (19:09)
[2022-10-27] MEDS: ACETAMINOPHEN 500 MG TABLET 1000 MG PO ×3 (07:42→19:08)
[2022-10-27] MEDS: METOPROLOL TARTRATE 25 MG TABLET PO ×2 (07:42→15:22)
[2022-10-27] MEDS: CARBIDOPA-LEVODOPA 25-100 TABLET 2 TAB PO ×3 (07:42→19:08)
[2022-10-27] MEDS: OMEPRAZOLE 40 MG CAPSULE.DR PO (07:42)
[2022-10-27] MEDS: LEVOTHYROXINE 112 MCG TABLET PO (07:42)
[2022-10-27] MEDS: EMOLLIENT BASE CREAM 1 APPLIC TOPICAL ×2 (07:43→19:08)
[2022-10-27] MEDS: LACTOBACILLUS ACIDOPHILUS 1 TABLET 2 TAB PO ×3 (07:43→16:52)
[2022-10-27] MEDS: CETIRIZINE HCL 10 MG TABLET PO (07:43)
[2022-10-27] MEDS: TRAMADOL HCL 50 MG TABLET PO (19:08)
[2022-10-27] MEDS: MIRTAZAPINE 15 MG TABLET 30 MG PO (19:08)
[2022-10-27] MEDS: MELATONIN 5 MG TABLET PO (19:08)
[2022-10-27] MEDS: DONEPEZIL 10 MG TABLET PO (19:08)
[2022-10-28] MEDS: OMEPRAZOLE 40 MG CAPSULE.DR PO (07:14)
[2022-10-28] MEDS: LEVOTHYROXINE 112 MCG TABLET PO (07:14)
[2022-10-28] MEDS: METOPROLOL TARTRATE 25 MG TABLET PO ×2 (07:14→16:22)
[2022-10-28] MEDS: EMOLLIENT BASE CREAM 1 APPLIC TOPICAL ×2 (07:14→19:49)
[2022-10-28] MEDS: CARBIDOPA-LEVODOPA 25-100 TABLET 2 TAB PO ×3 (07:14→19:47)
[2022-10-28] MEDS: ACETAMINOPHEN 500 MG TABLET 1000 MG PO ×3 (07:14→19:46)
[2022-10-28] MEDS: LACTOBACILLUS ACIDOPHILUS 1 TABLET 2 TAB PO ×3 (07:14→17:08)
[2022-10-28] MEDS: CETIRIZINE HCL 10 MG TABLET PO (07:15)
[2022-10-28] MEDS: TRAMADOL HCL 50 MG TABLET PO (19:43)
[2022-10-28] MEDS: MIRTAZAPINE 15 MG TABLET 30 MG PO (19:47)
[2022-10-28] MEDS: DONEPEZIL 10 MG TABLET PO (19:47)
[2022-10-28] MEDS: MELATONIN 5 MG TABLET PO (19:47)
[2022-10-29] MEDS: OMEPRAZOLE 40 MG CAPSULE.DR PO (07:22)
[2022-10-29] MEDS: CARBIDOPA-LEVODOPA 25-100 TABLET 2 TAB PO ×3 (07:23→19:13)
[2022-10-29] MEDS: ACETAMINOPHEN 500 MG TABLET 1000 MG PO ×3 (07:23→19:13)
[2022-10-29] MEDS: METOPROLOL TARTRATE 25 MG TABLET PO ×2 (07:23→15:03)
[2022-10-29] MEDS: LEVOTHYROXINE 112 MCG TABLET PO (07:23)
[2022-10-29] MEDS: EMOLLIENT BASE CREAM 1 APPLIC TOPICAL ×2 (07:24→19:14)
[2022-10-29] MEDS: LACTOBACILLUS ACIDOPHILUS 1 TABLET 2 TAB PO ×3 (07:24→17:04)
[2022-10-29] MEDS: CETIRIZINE HCL 10 MG TABLET PO (07:25)
[2022-10-29] MEDS: DONEPEZIL 10 MG TABLET PO (19:13)
[2022-10-29] MEDS: TRAMADOL HCL 50 MG TABLET PO (19:13)
[2022-10-29] MEDS: MELATONIN 5 MG TABLET PO (19:13)
[2022-10-29] MEDS: MIRTAZAPINE 15 MG TABLET 30 MG PO (19:13)
[2022-10-30] MEDS: OMEPRAZOLE 40 MG CAPSULE.DR PO (07:24)
[2022-10-30] MEDS: LACTOBACILLUS ACIDOPHILUS 1 TABLET 2 TAB PO ×3 (07:24→16:30)
[2022-10-30] MEDS: CETIRIZINE HCL 10 MG TABLET PO (07:24)
[2022-10-30] MEDS: CARBIDOPA-LEVODOPA 25-100 TABLET 2 TAB PO ×3 (07:24→19:26)
[2022-10-30] MEDS: METOPROLOL TARTRATE 25 MG TABLET PO ×2 (07:24→15:04)
[2022-10-30] MEDS: LEVOTHYROXINE 112 MCG TABLET PO (07:24)
[2022-10-30] MEDS: ACETAMINOPHEN 500 MG TABLET 1000 MG PO ×3 (07:24→19:26)
[2022-10-30] MEDS: EMOLLIENT BASE CREAM 1 APPLIC TOPICAL ×2 (07:24→19:27)
--- NOTE | 2022-10-30 10:55 | PC.NURSE ---
Recert Visit: Resident was seen by Dr Goss.Ordered reviewed and renewed of 75 days with no changes. MD was updated by his of his poor appetite, advise for staff to provide assistance with feeding at meal time since resident does not finish his food most of the time.
[2022-10-30] MEDS: MELATONIN 5 MG TABLET PO (19:26)
[2022-10-30] MEDS: DONEPEZIL 10 MG TABLET PO (19:26)
[2022-10-30] MEDS: TRAMADOL HCL 50 MG TABLET PO (19:27)
[2022-10-30] MEDS: MIRTAZAPINE 15 MG TABLET 30 MG PO (19:27)
[2022-10-31] MEDS: ACETAMINOPHEN 500 MG TABLET 1000 MG PO ×3 (07:14→19:31)
[2022-10-31] MEDS: LEVOTHYROXINE 112 MCG TABLET PO (07:14)
[2022-10-31] MEDS: OMEPRAZOLE 40 MG CAPSULE.DR PO (07:14)
[2022-10-31] MEDS: EMOLLIENT BASE CREAM 1 APPLIC TOPICAL ×2 (07:15→19:31)
[2022-10-31] MEDS: CARBIDOPA-LEVODOPA 25-100 TABLET 2 TAB PO ×3 (07:15→19:31)
[2022-10-31] MEDS: LACTOBACILLUS ACIDOPHILUS 1 TABLET 2 TAB PO ×3 (07:15→16:36)
[2022-10-31] MEDS: METOPROLOL TARTRATE 25 MG TABLET PO ×2 (07:15→15:00)
[2022-10-31] MEDS: CETIRIZINE HCL 10 MG TABLET PO (07:15)
--- NOTE | 2022-10-31 09:22 | PC.NURSE ---
Weight: Resident was weight today using wheel chair scale and he was 163lbs and it shows no significant weight loss since admission.
[2022-10-31] MEDS: MIRTAZAPINE 15 MG TABLET 30 MG PO (19:31)
[2022-10-31] MEDS: DONEPEZIL 10 MG TABLET PO (19:31)
[2022-10-31] MEDS: TRAMADOL HCL 50 MG TABLET PO (19:31)
[2022-10-31] MEDS: MELATONIN 5 MG TABLET PO (19:31)
--- NOTE | 2022-11-01 06:18 | PC.NURSE ---
Behavior: Resident call light on at 12:00, rip incontinent pad threw on the floor together with the blanket. Incontinent pad was changed. At 02:00 AM call light on, Resident did the same thing , rip the incontinent pad took off short and threw everything on the floor. When ARELY was trying the help, Res was yelling and swinging hand to ARELY. RN re approach, assessed Resident if in pain. Denied pain, however complaint that He can't go back to sleep. Offered to watch TV and offered snack. Intervention was effective.
[2022-11-01] MEDS: LACTOBACILLUS ACIDOPHILUS 1 TABLET 2 TAB PO ×3 (07:01→17:01)
[2022-11-01] MEDS: ACETAMINOPHEN 500 MG TABLET 1000 MG PO ×3 (07:01→19:16)
[2022-11-01] MEDS: EMOLLIENT BASE CREAM 1 APPLIC TOPICAL ×2 (07:01→19:16)
[2022-11-01] MEDS: METOPROLOL TARTRATE 25 MG TABLET PO ×2 (07:01→15:06)
[2022-11-01] MEDS: CARBIDOPA-LEVODOPA 25-100 TABLET 2 TAB PO ×3 (07:01→19:16)
[2022-11-01] MEDS: LEVOTHYROXINE 112 MCG TABLET PO (07:01)
[2022-11-01] MEDS: CETIRIZINE HCL 10 MG TABLET PO (07:01)
[2022-11-01] MEDS: OMEPRAZOLE 40 MG CAPSULE.DR PO (07:01)
[2022-11-01 09:46] VITALS: BP 132/74; PULSE 75; RESP 18; TEMP 36.6; O2SAT 91; BMI 26.1
[2022-11-01 09:48] VITALS: BP 132/74; PULSE 75; RESP 18; TEMP 36.6; O2SAT 91; BMI 26.1
[2022-11-01] MEDS: MIRTAZAPINE 15 MG TABLET 30 MG PO (19:16)
[2022-11-01] MEDS: MELATONIN 5 MG TABLET PO (19:16)
[2022-11-01] MEDS: DONEPEZIL 10 MG TABLET PO (19:16)
[2022-11-01] MEDS: TRAMADOL HCL 50 MG TABLET PO (19:16)
--- NOTE | 2022-11-02 07:18 | PC.NURSE ---
Weekly Charting- Week 1: Pain & ADL's Vital signs have been reviewed. Resident's blood pressure is variable at times though B/P noted to be 132/74 on 11/01/22. Resident receives Metoprolol 25 mg BID for HTN. RN CHARGE aware of variable blood pressure readings and staff are to continue with weekly monitoring. Comprehensive care plan reviewed with no changes made. Temporary care plan reviewed with no additions made. Resident has hx of chronic pain as he receives Tramadol 50 mg at HS along with Tylenol 1000 mg TID for pain control though has had no documented verbal or nonverbal complaints of pain noted over the last month. Resident also has order for 1000 mg Tylenol PRN daily though no PRNs utilized over the last month. Resident requires assist of 1 with bathing, grooming, dressing and oral cares including staff brushing upper and lower dentures. He remains on regular diet with thin liquids. Resident has had poor appetite noted. MD updated and recommends that staff assist resident with feeding. Resident otherwise able to eat independently after setup. Resident's does assist him with feeding when she visits as she will request for resident to have meals in room during her visits. Resident eats in dining room with staff supervision when is not visiting. Resident does have coughing at meals at times though this is not a new finding.
[2022-11-02] MEDS: LACTOBACILLUS ACIDOPHILUS 1 TABLET 2 TAB PO ×3 (07:21→16:47)
[2022-11-02] MEDS: CARBIDOPA-LEVODOPA 25-100 TABLET 2 TAB PO ×3 (07:21→20:18)
[2022-11-02] MEDS: EMOLLIENT BASE CREAM 1 APPLIC TOPICAL ×2 (07:21→20:18)
[2022-11-02] MEDS: CETIRIZINE HCL 10 MG TABLET PO (07:21)
[2022-11-02] MEDS: OMEPRAZOLE 40 MG CAPSULE.DR PO (07:21)
[2022-11-02] MEDS: ACETAMINOPHEN 500 MG TABLET 1000 MG PO ×3 (07:21→20:18)
[2022-11-02] MEDS: METOPROLOL TARTRATE 25 MG TABLET PO ×2 (07:21→16:47)
[2022-11-02] MEDS: LEVOTHYROXINE 112 MCG TABLET PO (07:21)
[2022-11-02] MEDS: MIRTAZAPINE 15 MG TABLET 30 MG PO (20:18)
[2022-11-02] MEDS: TRAMADOL HCL 50 MG TABLET PO (20:18)
[2022-11-02] MEDS: MELATONIN 5 MG TABLET PO (20:18)
[2022-11-02] MEDS: DONEPEZIL 10 MG TABLET PO (20:18)
[2022-11-03] MEDS: OMEPRAZOLE 40 MG CAPSULE.DR PO (06:58)
[2022-11-03] MEDS: LEVOTHYROXINE 112 MCG TABLET PO (06:58)
[2022-11-03] MEDS: CARBIDOPA-LEVODOPA 25-100 TABLET 2 TAB PO ×3 (08:00→19:14)
[2022-11-03] MEDS: EMOLLIENT BASE CREAM 1 APPLIC TOPICAL ×2 (08:00→19:14)
[2022-11-03] MEDS: METOPROLOL TARTRATE 25 MG TABLET PO ×2 (08:00→16:11)
[2022-11-03] MEDS: ACETAMINOPHEN 500 MG TABLET 1000 MG PO ×3 (08:00→19:14)
[2022-11-03] MEDS: LACTOBACILLUS ACIDOPHILUS 1 TABLET 2 TAB PO ×3 (08:00→17:02)
[2022-11-03] MEDS: CETIRIZINE HCL 10 MG TABLET PO (08:01)
[2022-11-03] MEDS: DONEPEZIL 10 MG TABLET PO (19:14)
[2022-11-03] MEDS: TRAMADOL HCL 50 MG TABLET PO (19:14)
[2022-11-03] MEDS: MIRTAZAPINE 15 MG TABLET 30 MG PO (19:14)
[2022-11-03] MEDS: MELATONIN 5 MG TABLET PO (19:14)
[2022-11-04] MEDS: OMEPRAZOLE 40 MG CAPSULE.DR PO (07:22)
[2022-11-04] MEDS: CARBIDOPA-LEVODOPA 25-100 TABLET 2 TAB PO ×3 (07:23→20:44)
[2022-11-04] MEDS: ACETAMINOPHEN 500 MG TABLET 1000 MG PO ×3 (07:23→20:44)
[2022-11-04] MEDS: CETIRIZINE HCL 10 MG TABLET PO (07:23)
[2022-11-04] MEDS: METOPROLOL TARTRATE 25 MG TABLET PO ×2 (07:23→16:46)
[2022-11-04] MEDS: LEVOTHYROXINE 112 MCG TABLET PO (07:23)
[2022-11-04] MEDS: EMOLLIENT BASE CREAM 1 APPLIC TOPICAL ×2 (07:23→20:44)
[2022-11-04] MEDS: LACTOBACILLUS ACIDOPHILUS 1 TABLET 2 TAB PO ×3 (07:23→17:18)
[2022-11-04 13:54] VITALS: BMI 26.1
--- NOTE | 2022-11-04 14:04 | PC.SPIRITC ---
Juan' and daughter present, both expressed concerns about next steps. Per Zhanna, she is not sure how much Juan is understanding about what is going on. I provided visit to help process feelings and concerns, reassurance, and support.
[2022-11-04] MEDS: DONEPEZIL 10 MG TABLET PO (20:44)
[2022-11-04] MEDS: TRAMADOL HCL 50 MG TABLET PO (20:44)
[2022-11-04] MEDS: MIRTAZAPINE 15 MG TABLET 30 MG PO (20:44)
[2022-11-04] MEDS: MELATONIN 5 MG TABLET PO (20:44)
[2022-11-05] MEDS: OMEPRAZOLE 40 MG CAPSULE.DR PO (07:14)
[2022-11-05] MEDS: METOPROLOL TARTRATE 25 MG TABLET PO ×2 (07:15→15:48)
[2022-11-05] MEDS: ACETAMINOPHEN 500 MG TABLET 1000 MG PO ×3 (07:15→19:53)
[2022-11-05] MEDS: LEVOTHYROXINE 112 MCG TABLET PO (07:15)
[2022-11-05] MEDS: LACTOBACILLUS ACIDOPHILUS 1 TABLET 2 TAB PO ×3 (07:15→16:32)
[2022-11-05] MEDS: CETIRIZINE HCL 10 MG TABLET PO (07:15)
[2022-11-05] MEDS: EMOLLIENT BASE CREAM 1 APPLIC TOPICAL ×2 (07:15→19:53)
[2022-11-05] MEDS: CARBIDOPA-LEVODOPA 25-100 TABLET 2 TAB PO ×3 (07:15→19:53)
[2022-11-05] MEDS: DONEPEZIL 10 MG TABLET PO (19:53)
[2022-11-05] MEDS: TRAMADOL HCL 50 MG TABLET PO (19:53)
[2022-11-05] MEDS: MELATONIN 5 MG TABLET PO (19:53)
[2022-11-05] MEDS: MIRTAZAPINE 15 MG TABLET 30 MG PO (19:53)
[2022-11-06] MEDS: CARBIDOPA-LEVODOPA 25-100 TABLET 2 TAB PO ×3 (06:56→19:13)
[2022-11-06] MEDS: LEVOTHYROXINE 112 MCG TABLET PO (06:56)
[2022-11-06] MEDS: OMEPRAZOLE 40 MG CAPSULE.DR PO (06:56)
[2022-11-06] MEDS: METOPROLOL TARTRATE 25 MG TABLET PO ×2 (06:56→16:16)
[2022-11-06] MEDS: ACETAMINOPHEN 500 MG TABLET 1000 MG PO ×3 (06:56→19:12)
[2022-11-06] MEDS: CETIRIZINE HCL 10 MG TABLET PO (07:00)
[2022-11-06] MEDS: EMOLLIENT BASE CREAM 1 APPLIC TOPICAL ×2 (07:00→19:13)
[2022-11-06] MEDS: LACTOBACILLUS ACIDOPHILUS 1 TABLET 2 TAB PO ×3 (07:00→17:00)
[2022-11-06] MEDS: TRAMADOL HCL 50 MG TABLET PO (19:13)
[2022-11-06] MEDS: MIRTAZAPINE 15 MG TABLET 30 MG PO (19:13)
[2022-11-06] MEDS: MELATONIN 5 MG TABLET PO (19:13)
[2022-11-06] MEDS: DONEPEZIL 10 MG TABLET PO (19:13)
[2022-11-07] MEDS: OMEPRAZOLE 40 MG CAPSULE.DR PO (07:01)
[2022-11-07] MEDS: ACETAMINOPHEN 500 MG TABLET 1000 MG PO ×3 (07:01→19:22)
[2022-11-07] MEDS: LEVOTHYROXINE 112 MCG TABLET PO (07:01)
[2022-11-07] MEDS: LACTOBACILLUS ACIDOPHILUS 1 TABLET 2 TAB PO ×3 (07:02→16:46)
[2022-11-07] MEDS: CARBIDOPA-LEVODOPA 25-100 TABLET 2 TAB PO ×3 (07:02→19:22)
[2022-11-07] MEDS: CETIRIZINE HCL 10 MG TABLET PO (07:02)
[2022-11-07] MEDS: METOPROLOL TARTRATE 25 MG TABLET PO ×2 (07:02→15:04)
[2022-11-07] MEDS: EMOLLIENT BASE CREAM 1 APPLIC TOPICAL ×2 (07:02→19:22)
[2022-11-07] MEDS: TRAMADOL HCL 50 MG TABLET PO (19:22)
[2022-11-07] MEDS: MELATONIN 5 MG TABLET PO (19:22)
[2022-11-07] MEDS: MIRTAZAPINE 15 MG TABLET 30 MG PO (19:22)
[2022-11-07] MEDS: DONEPEZIL 10 MG TABLET PO (19:22)
[2022-11-08] MEDS: OMEPRAZOLE 40 MG CAPSULE.DR PO (07:35)
[2022-11-08] MEDS: ACETAMINOPHEN 500 MG TABLET 1000 MG PO ×3 (07:35→19:35)
[2022-11-08] MEDS: CARBIDOPA-LEVODOPA 25-100 TABLET 2 TAB PO ×3 (07:35→19:36)
[2022-11-08] MEDS: METOPROLOL TARTRATE 25 MG TABLET PO ×2 (07:35→15:11)
[2022-11-08] MEDS: LEVOTHYROXINE 112 MCG TABLET PO (07:35)
[2022-11-08] MEDS: CETIRIZINE HCL 10 MG TABLET PO (07:36)
[2022-11-08] MEDS: LACTOBACILLUS ACIDOPHILUS 1 TABLET 2 TAB PO ×3 (07:36→16:45)
[2022-11-08] MEDS: EMOLLIENT BASE CREAM 1 APPLIC TOPICAL ×2 (07:36→19:36)
[2022-11-08 10:18] VITALS: BMI 26.2
[2022-11-08 11:15] VITALS: BP 147/80; PULSE 65; RESP 18; TEMP 36.2; O2SAT 96
[2022-11-08] MEDS: MELATONIN 5 MG TABLET PO (19:36)
[2022-11-08] MEDS: DONEPEZIL 10 MG TABLET PO (19:36)
[2022-11-08] MEDS: MIRTAZAPINE 15 MG TABLET 30 MG PO (19:36)
[2022-11-08] MEDS: TRAMADOL HCL 50 MG TABLET PO (19:36)
--- NOTE | 2022-11-09 03:12 | PC.NURSE ---
WEEKLY CHARTING WEEK 2 : MOBILITY Vital signs reviewed, some elevated blood pressure, GREEN MATERIAL VALUE ADDED ASSESSOR aware ; continue weekly monitoring. Comprehensive and temporary care plan reviewed with no changes made. Limited assist of one with transfers, able to propel self, assistance provided by staff for distance/destination. Assist of one with cues for bed mobility ; Bilateral 1/4 side rails up at all times as enabler for bed mobility.? Requires assist of one with gait belt and walker for ambulation in the room only. Fall risk assessment indicates resident is at high risk for falls. Fall interventions: anticipate needs, call light in reach, hourly visual checks, falling star magnet, non-slip footwear, bed in low position locked brakes.
[2022-11-09] MEDS: LACTOBACILLUS ACIDOPHILUS 1 TABLET 2 TAB PO ×3 (07:02→16:50)
[2022-11-09] MEDS: ACETAMINOPHEN 500 MG TABLET 1000 MG PO ×3 (07:02→19:41)
[2022-11-09] MEDS: CARBIDOPA-LEVODOPA 25-100 TABLET 2 TAB PO ×3 (07:02→19:42)
[2022-11-09] MEDS: EMOLLIENT BASE CREAM 1 APPLIC TOPICAL ×2 (07:02→19:42)
[2022-11-09] MEDS: LEVOTHYROXINE 112 MCG TABLET PO (07:02)
[2022-11-09] MEDS: OMEPRAZOLE 40 MG CAPSULE.DR PO (07:02)
[2022-11-09] MEDS: METOPROLOL TARTRATE 25 MG TABLET PO ×2 (07:02→15:10)
[2022-11-09] MEDS: CETIRIZINE HCL 10 MG TABLET PO (07:03)
--- NOTE | 2022-11-09 10:58 | PC.NURSE ---
Weekly Charting, Week 2 - Mobility: Comprehensive and temporary care plan reviewed. No changes made, nothing added to temporary care plan. Resident needs one assist, gait belt and walker with transfers and ambulation to/from meals. Is able to wheel self short distances, staff wheels to longer distances/destinations. Turn/offload every 3 hours with assist. Has bilateral 1/4 side rails up all times as an enabler for bed mobility.? No alarms. Vital signs reviewed, few elevated BP. Continue weekly monitoring, & refer to provider as needed. Fall: No falls the past month. Remains a high fall risk according to assessment done on 08/04/22. Fall interventions: Call light within reach, bed in low position locked, falling star magnet in door, gripper socks in bed.
[2022-11-09] MEDS: MIRTAZAPINE 15 MG TABLET 30 MG PO (19:42)
[2022-11-09] MEDS: MELATONIN 5 MG TABLET PO (19:42)
[2022-11-09] MEDS: DONEPEZIL 10 MG TABLET PO (19:42)
[2022-11-09] MEDS: TRAMADOL HCL 50 MG TABLET PO (19:44)
[2022-11-10] MEDS: OMEPRAZOLE 40 MG CAPSULE.DR PO (07:52)
[2022-11-10] MEDS: LEVOTHYROXINE 112 MCG TABLET PO (07:52)
[2022-11-10] MEDS: CETIRIZINE HCL 10 MG TABLET PO (07:53)
[2022-11-10] MEDS: METOPROLOL TARTRATE 25 MG TABLET PO ×2 (07:53→15:08)
[2022-11-10] MEDS: EMOLLIENT BASE CREAM 1 APPLIC TOPICAL ×2 (07:53→19:16)
[2022-11-10] MEDS: ACETAMINOPHEN 500 MG TABLET 1000 MG PO ×3 (07:53→19:16)
[2022-11-10] MEDS: LACTOBACILLUS ACIDOPHILUS 1 TABLET 2 TAB PO ×3 (07:53→17:09)
[2022-11-10] MEDS: CARBIDOPA-LEVODOPA 25-100 TABLET 2 TAB PO ×3 (07:53→19:16)
--- NOTE | 2022-11-10 14:14 | PC.NURSE ---
CARE CONFERENCE: Care conference meeting held with all members of care team present. not present, attempted to call her but she did not answer and was not on the conference call. Resident not present d/t cognition. updated in person earlier today, she states she is happy with his cares and has no concerns. Nursing reviewed that resident continues to need 1 assist with adls, transfers, and mobility. Use of walker and gait belt for transfers. Resident to walks to meals w/staff. At times if feeling weak has a w/c available to use. Residents insomnia has improved. No behaviors noted. Discussed increase in Synthroid per MD. and discontinued insulin. Care plan reviewed and updated. POLST reviewed. DNR/DNI. Uses no restraints. High fall risk. Resident is given medications by staff.? Vulnerable due to mobility limitations and ability to be understood/understand. Resident needs assistance with meal set up. Weight is stable. Has snacks in room through out the day that brings. Mood is stable. Activity participation is good. Discharge plans: due to facility closing, the IDT is working with resident and his on placement. [facility] is currently assessing and resident has been accepted at a facility in [place] but residents does not prefer this option. No further questions or concerns.
[2022-11-10] MEDS: DONEPEZIL 10 MG TABLET PO (19:16)
[2022-11-10] MEDS: TRAMADOL HCL 50 MG TABLET PO (19:16)
[2022-11-10] MEDS: MELATONIN 5 MG TABLET PO (19:16)
[2022-11-10] MEDS: MIRTAZAPINE 15 MG TABLET 30 MG PO (19:16)
[2022-11-11] MEDS: OMEPRAZOLE 40 MG CAPSULE.DR PO (07:33)
[2022-11-11] MEDS: CARBIDOPA-LEVODOPA 25-100 TABLET 2 TAB PO ×3 (07:33→19:20)
[2022-11-11] MEDS: LEVOTHYROXINE 112 MCG TABLET PO (07:33)
[2022-11-11] MEDS: ACETAMINOPHEN 500 MG TABLET 1000 MG PO ×3 (07:33→19:20)
[2022-11-11] MEDS: CETIRIZINE HCL 10 MG TABLET PO (07:34)
[2022-11-11] MEDS: LACTOBACILLUS ACIDOPHILUS 1 TABLET 2 TAB PO ×3 (07:34→17:02)
[2022-11-11] MEDS: EMOLLIENT BASE CREAM 1 APPLIC TOPICAL ×2 (07:34→19:21)
[2022-11-11] MEDS: METOPROLOL TARTRATE 25 MG TABLET PO ×2 (07:34→15:52)
[2022-11-11] MEDS: DONEPEZIL 10 MG TABLET PO (19:20)
[2022-11-11] MEDS: MELATONIN 5 MG TABLET PO (19:20)
[2022-11-11] MEDS: TRAMADOL HCL 50 MG TABLET PO (19:21)
[2022-11-11] MEDS: MIRTAZAPINE 15 MG TABLET 30 MG PO (19:21)
[2022-11-12] MEDS: LEVOTHYROXINE 112 MCG TABLET PO (07:01)
[2022-11-12] MEDS: OMEPRAZOLE 40 MG CAPSULE.DR PO (07:01)
[2022-11-12] MEDS: LACTOBACILLUS ACIDOPHILUS 1 TABLET 2 TAB PO ×3 (07:19→17:11)
[2022-11-12] MEDS: METOPROLOL TARTRATE 25 MG TABLET PO ×2 (07:19→15:05)
[2022-11-12] MEDS: CARBIDOPA-LEVODOPA 25-100 TABLET 2 TAB PO ×3 (07:19→19:12)
[2022-11-12] MEDS: ACETAMINOPHEN 500 MG TABLET 1000 MG PO ×3 (07:19→19:12)
[2022-11-12] MEDS: EMOLLIENT BASE CREAM 1 APPLIC TOPICAL ×2 (07:19→19:12)
[2022-11-12] MEDS: CETIRIZINE HCL 10 MG TABLET PO (07:19)
[2022-11-12] MEDS: MELATONIN 5 MG TABLET PO (19:12)
[2022-11-12] MEDS: DONEPEZIL 10 MG TABLET PO (19:12)
[2022-11-12] MEDS: TRAMADOL HCL 50 MG TABLET PO (19:12)
[2022-11-12] MEDS: MIRTAZAPINE 15 MG TABLET 30 MG PO (19:12)
[2022-11-13] MEDS: OMEPRAZOLE 40 MG CAPSULE.DR PO (07:26)
[2022-11-13] MEDS: ACETAMINOPHEN 500 MG TABLET 1000 MG PO ×3 (07:26→19:22)
[2022-11-13] MEDS: LEVOTHYROXINE 112 MCG TABLET PO (07:26)
[2022-11-13] MEDS: METOPROLOL TARTRATE 25 MG TABLET PO ×2 (07:27→15:15)
[2022-11-13] MEDS: CARBIDOPA-LEVODOPA 25-100 TABLET 2 TAB PO ×3 (07:27→19:22)
[2022-11-13] MEDS: EMOLLIENT BASE CREAM 1 APPLIC TOPICAL ×2 (07:27→19:23)
[2022-11-13] MEDS: LACTOBACILLUS ACIDOPHILUS 1 TABLET 2 TAB PO ×3 (07:27→16:30)
[2022-11-13] MEDS: CETIRIZINE HCL 10 MG TABLET PO (07:27)
[2022-11-13] MEDS: MIRTAZAPINE 15 MG TABLET 30 MG PO (19:22)
[2022-11-13] MEDS: DONEPEZIL 10 MG TABLET PO (19:22)
[2022-11-13] MEDS: MELATONIN 5 MG TABLET PO (19:22)
[2022-11-13] MEDS: TRAMADOL HCL 50 MG TABLET PO (19:23)
[2022-11-14] MEDS: ACETAMINOPHEN 500 MG TABLET 1000 MG PO ×3 (07:00→19:39)
[2022-11-14] MEDS: OMEPRAZOLE 40 MG CAPSULE.DR PO (07:00)
[2022-11-14] MEDS: LEVOTHYROXINE 112 MCG TABLET PO (07:00)
[2022-11-14] MEDS: CARBIDOPA-LEVODOPA 25-100 TABLET 2 TAB PO ×3 (07:01→19:39)
[2022-11-14] MEDS: METOPROLOL TARTRATE 25 MG TABLET PO ×2 (07:01→15:06)
[2022-11-14] MEDS: EMOLLIENT BASE CREAM 1 APPLIC TOPICAL ×2 (07:03→19:41)
[2022-11-14] MEDS: LACTOBACILLUS ACIDOPHILUS 1 TABLET 2 TAB PO ×3 (07:03→16:46)
[2022-11-14] MEDS: CETIRIZINE HCL 10 MG TABLET PO (07:03)
[2022-11-14] MEDS: MAGNESIUM HYDROXIDE 30 ML ORAL.SUSP PO (16:20)
[2022-11-14] MEDS: MIRTAZAPINE 15 MG TABLET 30 MG PO (19:39)
[2022-11-14] MEDS: MELATONIN 5 MG TABLET PO (19:39)
[2022-11-14] MEDS: DONEPEZIL 10 MG TABLET PO (19:39)
[2022-11-14] MEDS: TRAMADOL HCL 50 MG TABLET PO (19:41)
[2022-11-15] MEDS: ACETAMINOPHEN 500 MG TABLET 1000 MG PO ×4 (03:41→20:27)
[2022-11-15] MEDS: METOPROLOL TARTRATE 25 MG TABLET PO ×2 (07:02→15:07)
[2022-11-15] MEDS: CETIRIZINE HCL 10 MG TABLET PO (07:02)
[2022-11-15] MEDS: EMOLLIENT BASE CREAM 1 APPLIC TOPICAL ×2 (07:02→19:12)
[2022-11-15] MEDS: LACTOBACILLUS ACIDOPHILUS 1 TABLET 2 TAB PO ×3 (07:02→17:20)
[2022-11-15] MEDS: LEVOTHYROXINE 112 MCG TABLET PO (07:02)
[2022-11-15] MEDS: CARBIDOPA-LEVODOPA 25-100 TABLET 2 TAB PO ×3 (07:02→19:11)
[2022-11-15] MEDS: OMEPRAZOLE 40 MG CAPSULE.DR PO (07:02)
[2022-11-15 09:40] VITALS: BP 140/76; PULSE 70; RESP 18; TEMP 36.3; O2SAT 92
[2022-11-15 09:59] VITALS: BMI 26.8
[2022-11-15] MEDS: MELATONIN 5 MG TABLET PO (19:11)
[2022-11-15] MEDS: DONEPEZIL 10 MG TABLET PO (19:11)
[2022-11-15] MEDS: MIRTAZAPINE 15 MG TABLET 30 MG PO (19:12)
[2022-11-15] MEDS: TRAMADOL HCL 50 MG TABLET PO (19:12)
--- NOTE | 2022-11-15 23:07 | PC.NURSE ---
Weekly Charting Week 3 Toileting and Skin Vital signs reviewed. Few elevated BP, HEALTH EDUCATION AIDE is aware, Staff to check vitals weekly, update provider as needed. Comprehensive and temporary care plan reviewed with no changes made. Res is incontinent of bladder, Able to use call light with incontinent brief change, use urinal sometimes. Occasional incontinent of bowel. Res able to use toilet with one staff assist. Use blue brief with short on. 1 staff assist with incontinent pad change, clothing management and ge cares. Res dowd no skin issue noted. Skin check done every bath day and during cares.
--- NOTE | 2022-11-16 05:19 | PC.NURSE ---
Resident was restless, unable to stay asleep at 03:30AM. Denied pain when asked. Offered snack and let watch TV. Res went back to sleep at 05:00.
--- NOTE | 2022-11-16 06:20 | PC.NURSE ---
Weekly Charting- Week 3: Toileting & Skin Vital signs reviewed. Blood pressure values noted to be elevated at times though resident has had no hypertensive symptoms noted and provider is aware. Nursing staff to continue to monitor vital signs weekly per protocol and update provider with concerns. Temporary and comprehensive care plans reviewed with no changes made. Resident's previously noted fading bruising to L knee and R forearm noted to have healed this month along with old scabbing to L castaneda. Resident is incontinent of primarily bladder though also incontinent of bowel at times and wears size large incontinent brief for incontinence. He does use toilet during the day as he is can be intermittently continent of bowel though is check and change with toileting at night. Resident requires extensive assist of 1 with toileting including transferring to and from toilet, ge cares, changing of incontinent product and management of clothing.
[2022-11-16] MEDS: OMEPRAZOLE 40 MG CAPSULE.DR PO (07:57)
[2022-11-16] MEDS: ACETAMINOPHEN 500 MG TABLET 1000 MG PO ×3 (07:57→19:12)
[2022-11-16] MEDS: LEVOTHYROXINE 112 MCG TABLET PO (07:57)
[2022-11-16] MEDS: CARBIDOPA-LEVODOPA 25-100 TABLET 2 TAB PO ×3 (07:58→19:12)
[2022-11-16] MEDS: METOPROLOL TARTRATE 25 MG TABLET PO ×2 (07:58→15:01)
[2022-11-16] MEDS: CETIRIZINE HCL 10 MG TABLET PO (08:00)
[2022-11-16] MEDS: LACTOBACILLUS ACIDOPHILUS 1 TABLET 2 TAB PO ×3 (08:00→16:57)
[2022-11-16] MEDS: EMOLLIENT BASE CREAM 1 APPLIC TOPICAL ×2 (08:00→19:13)
--- NOTE | 2022-11-16 18:23 | PC.NURSE ---
Lactobacillus discontinued per family request as no more pills remain.
[2022-11-16] MEDS: DONEPEZIL 10 MG TABLET PO (19:13)
[2022-11-16] MEDS: MELATONIN 5 MG TABLET PO (19:13)
[2022-11-16] MEDS: MIRTAZAPINE 15 MG TABLET 30 MG PO (19:13)
[2022-11-16] MEDS: TRAMADOL HCL 50 MG TABLET PO (19:13)
[2022-11-17] MEDS: CARBIDOPA-LEVODOPA 25-100 TABLET 2 TAB PO ×3 (07:50→19:15)
[2022-11-17] MEDS: OMEPRAZOLE 40 MG CAPSULE.DR PO (07:50)
[2022-11-17] MEDS: LEVOTHYROXINE 112 MCG TABLET PO (07:50)
[2022-11-17] MEDS: METOPROLOL TARTRATE 25 MG TABLET PO ×2 (07:50→15:29)
[2022-11-17] MEDS: ACETAMINOPHEN 500 MG TABLET 1000 MG PO ×3 (07:50→19:15)
[2022-11-17] MEDS: CETIRIZINE HCL 10 MG TABLET PO (07:51)
[2022-11-17] MEDS: EMOLLIENT BASE CREAM 1 APPLIC TOPICAL ×2 (07:51→19:15)
--- NOTE | 2022-11-17 11:43 | PC.NURSE ---
Order: GARMENT FOLDER, Balbir here. Hydrocortisone cream QID PRN, MOM daily PRN, Nystatin Cream BID PRN discontinued.
--- NOTE | 2022-11-17 13:49 | PC.SOCIAL ---
Resident has been accepted to [facility] for 11/19/2022. Family was notified. Resident will discharge at 1:00 pm. Completed preadmission screening. Confirmation #[id number].
[2022-11-17] MEDS: TRAMADOL HCL 50 MG TABLET PO (19:15)
[2022-11-17] MEDS: DONEPEZIL 10 MG TABLET PO (19:15)
[2022-11-17] MEDS: MIRTAZAPINE 15 MG TABLET 30 MG PO (19:15)
[2022-11-17] MEDS: MELATONIN 5 MG TABLET PO (19:15)
[2022-11-18] MEDS: LEVOTHYROXINE 112 MCG TABLET PO (07:30)
[2022-11-18] MEDS: ACETAMINOPHEN 500 MG TABLET 1000 MG PO ×3 (07:30→19:03)
[2022-11-18] MEDS: EMOLLIENT BASE CREAM 1 APPLIC TOPICAL ×2 (07:30→19:04)
[2022-11-18] MEDS: METOPROLOL TARTRATE 25 MG TABLET PO ×2 (07:30→15:31)
[2022-11-18] MEDS: CARBIDOPA-LEVODOPA 25-100 TABLET 2 TAB PO ×3 (07:30→19:03)
[2022-11-18] MEDS: CETIRIZINE HCL 10 MG TABLET PO (07:30)
[2022-11-18] MEDS: OMEPRAZOLE 40 MG CAPSULE.DR PO (07:30)
--- NOTE | 2022-11-18 09:18 | PC.PHA1 ---
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 All current medications appropriate for management of this diagnosis. Noted in chart that mirtazapine continues to work for insomnia. SUGGESTED COURSE OF ACTION TAKEN:No medication recommendations this review.
--- NOTE | 2022-11-18 11:55 | PC.SPIRITC ---
I provided visit for support and connection with Juan' , Zhanna. Zhanna expressed her appreciation for services at [facility] and excitement for Juan' new home.
[2022-11-18] MEDS: DONEPEZIL 10 MG TABLET PO (19:03)
[2022-11-18] MEDS: MELATONIN 5 MG TABLET PO (19:03)
[2022-11-18] MEDS: MIRTAZAPINE 15 MG TABLET 30 MG PO (19:04)
[2022-11-18] MEDS: TRAMADOL HCL 50 MG TABLET PO (19:04)
[2022-11-19] MEDS: OMEPRAZOLE 40 MG CAPSULE.DR PO (07:27)
[2022-11-19] MEDS: METOPROLOL TARTRATE 25 MG TABLET PO (07:28)
[2022-11-19] MEDS: CETIRIZINE HCL 10 MG TABLET PO (07:28)
[2022-11-19] MEDS: ACETAMINOPHEN 500 MG TABLET 1000 MG PO (07:28)
[2022-11-19] MEDS: EMOLLIENT BASE CREAM 1 APPLIC TOPICAL (07:28)
[2022-11-19] MEDS: LEVOTHYROXINE 112 MCG TABLET PO (07:28)
[2022-11-19] MEDS: CARBIDOPA-LEVODOPA 25-100 TABLET 2 TAB PO ×2 (07:28→11:32)
--- NOTE | 2022-11-19 13:52 | PC.NURSE ---
Discharge: Resident was discharged at 1300hours to [facility] with family transport and hospital vehicle. All relevant medications, medical records, personal belongings sent to the centre accompanied with nurse
== END 2022-11-19 13:00 | DRG 137 ==
PROVIDERS: Family Medicine; Admitting Provider Family Medicine; Family Provider Nurse Practitioner Gerontology; PCP Family Medicine; Visit Provider Family Medicine
DX: U07.1 COVID-19 (principal); G20 Parkinson's disease; G31.83 Neurocognitive disorder with Lewy bodies; E03.9 Hypothyroidism, unspecified; R51.9 Headache, unspecified; I10 Essential (primary) hypertension; R19.7 Diarrhea, unspecified; E83.51 Hypocalcemia; E11.9 Type 2 diabetes mellitus without complications; G47.00 Insomnia, unspecified; K21.9 Gastro-esophageal reflux disease without esophagitis; K64.9 Unspecified hemorrhoids; R21 Rash and other nonspecific skin eruption
CPT/HCPCS: 36415; 81001; 83036; 84443; 85025; 87086; 87426; 87502; 87631; 87634; 87635; 87798; 87804; 90471; 90662; 92610; 97110; 97116; 97161; 97166; 97530; 97535